=== PATIENT | male | born 1975 | race Caucasian/White ===

== ENCOUNTER 2017-04-08 19:33 | Emergency (ER) | payer MEDICAID ==
[2017-04-08 20:16] VITALS: BP 179/98
--- NOTE | 2017-04-08 21:08 | EDM.PDOC ---
ED HPI GENERAL MEDICAL PROBLEM - General Chief Complaint: Respiratory Problem Stated Complaint: COUGH Time Seen by Provider: 04/08/17 20:09 Source of Information: Reports: Patient History Limitations: Reports: No limitations - History of Present Illness INITIAL COMMENTS - FREE TEXT/NARRATIVE: cough and not feeling well for the past two months. now coughing til almost faints. has history of COPD, feels like that is getting worse since the change of seasons. has intermittent fevers and chills. feels like a sinus infection that dripped into his chest. Has not been treated for this in the Clinic or ER. Onset: gradual Duration: Week(s): (2 months), Getting worse, Waxing/waning Quality: Reports: Ache (body aches and chills.) Severity: moderate Improves with: Reports: Medication (over the counter cold and cough medication helps.) Worsens with: Reports: Movement Associated Symptoms: Reports: cough, fever/chills, malaise Treatments SASH FINISHER: Reports: Acetaminophen - Related Data Allergies Allergy/AdvReac Type Severity Reaction Status Date / Time amoxicillin [Amoxicillin] Allergy Rash Verified 04/08/17 19:57 erythromycin base Allergy Rash Verified 04/08/17 19:57 [Erythromycin Base] Penicillins Allergy Rash Verified 04/08/17 19:57 Home Meds: Home Meds Acetaminophen [Tylenol Extra Strength] 500 mg PO DAILY 12/04/13 [History] Albuterol Sulfate [Proair Hfa] 1 - 2 puff INH ASDIRECTED PRN 12/04/13 [History] Albuterol [Proventil Neb Soln] 1 ampule NEB Q2H PRN 12/04/13 [History] Ibuprofen 600 mg PO Q4H PRN 12/04/13 [History] Lisinopril [Lisinopril] 10 mg PO DAILY 12/04/13 [History] Omeprazole 20 mg PO DAILY 12/04/13 [History] metFORMIN [Glucophage] 1,000 mg PO BIDM 12/04/13 [History] Insulin Glarg,Human.Rec.Analog [LantUS Solostar] 50 unit SQ BEDTIME 01/07/15 [ History] Simvastatin [Zocor] 20 mg PO BEDTIME 01/07/15 [History] Colchicine 0.6 mg PO BID 04/08/17 [History] Sennosides [Senna] 2 tab PO TID PRN 04/08/17 [History] Past Medical History HEENT History: Reports: Impaired vision Cardiovascular History: Reports: High cholesterol, Hypertension Respiratory History: Reports: COPD Gastrointestinal History: Reports: Chronic diarrhea, Other (see below) Other Gastrointestinal History: Perirectal abscess Genitourinary History: Reports: Other (see below) Other Genitourinary History: urinary frequency Musculoskeletal History: Reports: Gout, Other (see below) Other Musculoskeletal History: Carpel Tunnel Syndrome Endocrine/Metabolic History: Reports: Diabetes, type II, Obesity/BMI 30+ - Infectious Disease History Infectious Disease History: Reports: Chicken pox - Past Surgical History GI Surgical History: Reports: Cholecystectomy, Hernia repair/other Social & Family History - Tobacco Use Smoking Status *Q: Current Every Day Smoker Years of Tobacco use: 20 Packs/Tins Daily: 1 Second Hand Smoke Exposure: No - Caffeine Use Caffeine Use: Reports: Coffee, Energy drinks, Soda - Alcohol Use Days Per Week of Alcohol Use: 0 - Recreational Drug Use Recreational Drug Use: No - Living Situation & Occupation Living situation: Reports: with significant other, with family Occupation: employed (lives with his Girlfriend and 4 year old son. works for [employer]) ED ROS GENERAL - Review of Systems Review Of Systems: See Below Constitutional: Reports: fever, chills, malaise HEENT: Reports: Sinus problem, Throat pain Respiratory: Reports: Pleuritic Chest Pain, Cough, Sputum (productive white discharge) Cardiovascular: Reports: No symptoms Endocrine: Reports: no symptoms, high glucose (took his insulin prior to arrival in ER.) GI/Abdominal: Reports: No symptoms : Reports: no symptoms Musculoskeletal: Reports: no symptoms Skin: Reports: no symptoms Neurological: Reports: No Symptoms Psychiatric: Reports: No symptoms Hematologic/Lymphatic: Reports: no symptoms Immunologic: Reports: seasonal allergy ED EXAM, GENERAL - Physical Exam Exam: See Below Exam Limited By: No limitations General Appearance: alert, WD/WN, no apparent distress Eye Exam: bilateral eye: normal inspection Ears: normal external exam, normal canal, hearing grossly normal, normal TMs Ear Exam: bilateral ear: auricle normal, canal normal, TM normal Nose: nasal tenderness, other (frontal and maxillary pain/pressure with palpation of sinus) Throat/Mouth: Inflammation, Other (uvula midline. tonsils large and beefy. ) Head: atraumatic, normocephalic Neck: normal inspection, supple, non-tender, full range of motion Respiratory/Chest: no respiratory distress, lungs clear, normal breath sounds, no accessory muscle use, chest non-tender Cardiovascular: normal peripheral pulses, regular rate, rhythm, no edema, no murmur GI/Abdominal: Normal Bowel Sounds, Soft, Non-Tender, No Distention (large obese abdomen, non tender to percussion. palpation of abdomen) (Male) Exam: Deferred Rectal (Males) Exam: Deferred Extremities: normal inspection, normal range of motion, non-tender, normal capillary refill, no pedal edema Neurological: alert, oriented, CN II-XII intact, normal cognition, normal gait, normal reflexes, no motor/sensory deficits Psychiatric: normal affect, normal mood Lymphatic: no adenopathy Course - Vital Signs Last Recorded V/S: Last Vital Signs Temp 36.6 C 04/08/17 19:55 Pulse 112 H 04/08/17 20:16 Resp 18 04/08/17 20:16 BP 179/98 H 04/08/17 20:16 Pulse Ox 95 04/08/17 20:16 - Orders/Labs/Meds Orders: Active Orders 24 hr Category Date Time Status Chest 2V [CR] Urgent Exams 04/08/17 20:09 Taken Labs: Laboratory Tests 04/08/17 04/08/17 04/08/17 Range/Units 20:25 20:25 20:25 WBC 9.1 (4.5-11.0) K/uL RBC 5.77 (4.30-5.90) M/uL Hgb 16.8 H (12.0-15.0) g/dL Hct 49.3 (40.0-54.0) % MCV 85 (80-98) fL MCH 29 (27-31) pg MCHC 34 (32-36) % Plt Count 159 (150-400) K/uL Neut % (Auto) 68 H (36-66) % Lymph % (Auto) 16 L (24-44) % [place] % (Auto) 11 H (2-6) % Eos % (Auto) 4 (2-4) % Baso % (Auto) 1 (0-1) % Sodium 135 L (140-148) mmol/L Potassium 4.7 (3.6-5.2) mmol/L Chloride 99 L (100-108) mmol/L Carbon Dioxide 30 (21-32) mmol/L Anion Gap 10.7 (5.0-14.0) mmol/L BUN 15 (7-18) mg/dL Creatinine 1.3 (0.8-1.3) mg/dL Est Cr Clr Drug Dosing 72.61 mL/min Estimated GFR (MDRD) > 60 (>60) Glucose 345 H (74-106) mg/dL Calcium 8.2 L (8.5-10.1) mg/dL Total Bilirubin 0.6 (0.2-1.0) mg/dL AST 47 H (15-37) U/L ALT 78 (12-78) U/L Alkaline Phosphatase 74 (46-116) U/L Troponin I < 0.017 (0.000-0.056) ng/mL Total Protein 7.6 (6.4-8.2) g/dL Albumin 3.2 L (3.4-5.0) g/dL Globulin 4.4 H (2.3-3.5) g/dL Albumin/Globulin Ratio 0.7 L (1.2-2.2) Urine Color Urine Appearance Urine pH (4.5-8.0) Ur Specific [place] (1.008-1.030) Urine Protein (NEGATIVE) mg/dL Urine Glucose (UA) (NEGATIVE) mg/dL Urine Ketones (NEGATIVE) mg/dL Urine Occult Blood (NEGATIVE) Urine Nitrite (NEGAITVE) Urine Bilirubin (NEGATIVE) Urine Urobilinogen (NORMAL) mg/dL Ur Leukocyte Esterase (NEGATIVE) Urine RBC (0-5) Urine WBC (0-5) Ur Epithelial Cells Amorphous Sediment Urine Bacteria Urine Mucus 04/08/17 Range/Units 20:36 WBC (4.5-11.0) K/uL RBC (4.30-5.90) M/uL Hgb (12.0-15.0) g/dL Hct (40.0-54.0) % MCV (80-98) fL MCH (27-31) pg MCHC (32-36) % Plt Count (150-400) K/uL Neut % (Auto) (36-66) % Lymph % (Auto) (24-44) % [place] % (Auto) (2-6) % Eos % (Auto) (2-4) % Baso % (Auto) (0-1) % Sodium (140-148) mmol/L Potassium (3.6-5.2) mmol/L Chloride (100-108) mmol/L Carbon Dioxide (21-32) mmol/L Anion Gap (5.0-14.0) mmol/L BUN (7-18) mg/dL Creatinine (0.8-1.3) mg/dL Est Cr Clr Drug Dosing mL/min Estimated GFR (MDRD) (>60) Glucose (74-106) mg/dL Calcium (8.5-10.1) mg/dL Total Bilirubin (0.2-1.0) mg/dL AST (15-37) U/L ALT (12-78) U/L Alkaline Phosphatase (46-116) U/L Troponin I (0.000-0.056) ng/mL Total Protein (6.4-8.2) g/dL Albumin (3.4-5.0) g/dL Globulin (2.3-3.5) g/dL Albumin/Globulin Ratio (1.2-2.2) Urine Color Yellow Urine Appearance Clear Urine pH 5.0 (4.5-8.0) Ur Specific [place] 1.020 (1.008-1.030) Urine Protein 30 H (NEGATIVE) mg/dL Urine Glucose (UA) 1000 H (NEGATIVE) mg/dL Urine Ketones Negative (NEGATIVE) mg/dL Urine Occult Blood Negative (NEGATIVE) Urine Nitrite Negative (NEGAITVE) Urine Bilirubin Negative (NEGATIVE) Urine Urobilinogen Normal (NORMAL) mg/dL Ur Leukocyte Esterase Negative (NEGATIVE) Urine RBC 0-5 (0-5) Urine WBC 0-5 (0-5) Ur Epithelial Cells Rare Amorphous Sediment Not seen Urine Bacteria Not seen Urine Mucus Not seen - Re-Assessments/Exams Free Text/Narrative Re-Assessment/Exam: 04/08/17 21:16 blood glucose is 345; patient took insulin prior to arrival. chest xray; no infiltrates labs; no elevated WBC, chemistry; blood glucose high Urine; negative except for high glucose. rapid strep positive will order medication and discharge to home. sick slip for 3 days off. Departure - Departure Time of Disposition: 21:21 Disposition: Home, Self-Care 01 Condition: good Clinical Impression: Bronchospasm, Strep throat, Sinusitis - Discharge Information Referrals: Cam Blair MD [Primary Care Provider] - Forms: ED Department Discharge Care Plan Goals: Strep Throat with cough sinus infection -Zithromax 2 tabs today, then 1 tablet daily for 4 days -Robitussin AC take 10ml every 4 to 6 hours as needed for cough -continue to take tylenol or motrin for pain or fever rest, no work for 2 days, push fluids return to Urgent Care or ER if not improved or symptoms worsen. - Problem List & Annotations (1) Bronchospasm SNOMED Code(s): 1619267 Code(s): J98.01 - ACUTE BRONCHOSPASM Status: Acute Priority: Medium Current Visit: Yes (2) Strep throat SNOMED Code(s): 70385266, 757477199 Code(s): J02.0 - STREPTOCOCCAL PHARYNGITIS Status: Acute Priority: High Current Visit: Yes (3) Sinusitis SNOMED Code(s): 64668307 Code(s): J32.9 - CHRONIC SINUSITIS, UNSPECIFIED Status: Acute Priority: Medium Current Visit: Yes Qualifiers: Sinusitis location: maxillary Chronicity: subacute Qualified Code(s): J01.00 - Acute maxillary sinusitis, unspecified - Problem List Review Problem List Initiated/Reviewed/Updated: Yes - My Orders Last 24 Hours: My Active Orders 04/08/17 20:09 Chest 2V [CR] Urgent - Assessment/Plan Last 24 Hours: My Active Orders 04/08/17 20:09 Chest 2V [CR] Urgent Plan: Strep Throat with cough sinus infection -Zithromax 2 tabs today, then 1 tablet daily for 4 days -Robitussin AC take 10ml every 4 to 6 hours as needed for cough -continue to take tylenol or motrin for pain or fever rest, no work for 2 days, push fluids return to Urgent Care or ER if not improved or symptoms worsen.
--- NOTE | 2017-04-09 08:57 | CR ---
Chest 2V FINDINGS: The heart and vascular structures are normal in appearance. No infiltrates or effusions ar e demonstrated. The skeletal structures are unremarkable. IMPRESSION: Negative exam.
== END 2017-04-08 21:38 | disposition home or self-care (01) ==
LOC: JP.ED 19:33
DX: J98.01 Acute bronchospasm (principal); J02.0 Streptococcal pharyngitis; J32.9 Chronic sinusitis, unspecified; I10 Essential (primary) hypertension; E78.00 Pure hypercholesterolemia, unspecified; J44.9 Chronic obstructive pulmonary disease, unspecified; E11.9 Type 2 diabetes mellitus without complications; F17.210 Nicotine dependence, cigarettes, uncomplicated; E66.9 Obesity, unspecified; Z68.43 Body mass index [BMI] 50.0-59.9, adult; Z90.49 Acquired absence of other specified parts of digestive tract; Z98.890 Other specified postprocedural states; Z79.4 Long term (current) use of insulin; Z79.899 Other long term (current) drug therapy; Z88.0 Allergy status to penicillin; Z88.1 Allergy status to other antibiotic agents
CPT/HCPCS: 36415; 71020; 71020-26; 80053; 81001; 84484; 85025; 87430; 99284

== ENCOUNTER 2017-05-24 17:35 | Emergency (ER) | payer MEDICAID ==
[2017-05-24 18:30] VITALS: BP 170/106
--- NOTE | 2017-05-24 19:13 | EDM.PDOC ---
ED HPI GENERAL MEDICAL PROBLEM - General Chief Complaint: Back Pain or Injury Stated Complaint: LOWER BACK PAIN Time Seen by Provider: 05/24/17 18:33 Source of Information: Reports: Patient History Limitations: Reports: No Limitations - History of Present Illness INITIAL COMMENTS - FREE TEXT/NARRATIVE: This gentleman complains of low back pain for 5 days. It's mostly in the area of the right buttocks radiates down the back side of the right thigh to the knee. He's had this problem before. He was seen in clinic yesterday given a shot of Toradol put on Flexeril and Voltaren but says that doesn't help. He's not having any leg weakness though apparently sometimes he's had some numbness. He's not having problems with his bladder or bowels although he recently had some diarrhea. Back Pain Score (Numeric/FACES): 2 - Related Data Allergies Allergy/AdvReac Type Severity Reaction Status Date / Time amoxicillin [Amoxicillin] Allergy Rash Verified 04/08/17 19:57 erythromycin base Allergy Rash Verified 04/08/17 19:57 [Erythromycin Base] Penicillins Allergy Rash Verified 04/08/17 19:57 Home Meds: Home Meds Acetaminophen [Tylenol Extra Strength] 500 mg PO DAILY 12/04/13 [History] Albuterol Sulfate [Proair Hfa] 1 - 2 puff INH ASDIRECTED PRN 12/04/13 [History] Albuterol [Proventil Neb Soln] 1 ampule NEB Q2H PRN 12/04/13 [History] Ibuprofen 600 mg PO Q4H PRN 12/04/13 [History] Lisinopril [Lisinopril] 10 mg PO DAILY 12/04/13 [History] Omeprazole 20 mg PO DAILY 12/04/13 [History] metFORMIN [Glucophage] 1,000 mg PO BIDM 12/04/13 [History] Insulin Glarg,Human.Rec.Analog [LantUS Solostar] 50 unit SQ BEDTIME 01/07/15 [ History] Simvastatin [Zocor] 20 mg PO BEDTIME 01/07/15 [History] Colchicine 0.6 mg PO BID 04/08/17 [History] Sennosides [Senna] 2 tab PO TID PRN 04/08/17 [History] Cyclobenzaprine [Flexeril] 1 tab PO TID 05/24/17 [History] Diclofenac Sodium [Voltaren] 50 mg PO TID 05/24/17 [History] amLODIPine [Norvasc] 5 mg PO DAILY 05/24/17 [History] Past Medical History HEENT History: Reports: Impaired Vision Cardiovascular History: Reports: High Cholesterol, Hypertension Respiratory History: Reports: COPD Gastrointestinal History: Reports: Chronic Diarrhea, Other (See Below) Other Gastrointestinal History: Perirectal abscess Genitourinary History: Reports: Other (See Below) Other Genitourinary History: urinary frequency Musculoskeletal History: Reports: Gout, Other (See Below) Other Musculoskeletal History: c/0 back pain lower back Endocrine/Metabolic History: Reports: Diabetes, Type II, Obesity/BMI 30+ - Infectious Disease History Infectious Disease History: Reports: Chicken Pox - Past Surgical History GI Surgical History: Reports: Cholecystectomy, Hernia Repair/Other Social & Family History - Tobacco Use Smoking Status *Q: Current Every Day Smoker Years of Tobacco use: 30 Packs/Tins Daily: 1 Second Hand Smoke Exposure: No - Caffeine Use Caffeine Use: Reports: Coffee - Alcohol Use Days Per Week of Alcohol Use: 1 Number of Drinks Per Day: 1 Total Drinks Per Week: 1 - Recreational Drug Use Recreational Drug Use: No - Living Situation & Occupation Living situation: Reports: with Significant Other, with Family Occupation: Employed ED ROS GENERAL - Review of Systems Review Of Systems: ROS reveals no pertinent complaints other than HPI. ED EXAM,LOWER BACK PAIN/INJURY - Physical Exam Exam: See Below Exam Limited By: No Limitations General Appearance: Mild Distress (This), Obese Back Exam: Other (There is some mtpb-oh-liltbodc tenderness in the right buttocks with palpable spasm.) Neurological: Alert, Normal Dorsiflexion, Normal Plantar Flexion, No Motor/ Sensory Deficits Course - Vital Signs Last Recorded V/S: Last Vital Signs Temp 36.9 C 05/24/17 18:29 Pulse 85 05/24/17 18:29 Resp 20 05/24/17 18:29 BP 170/106 H 05/24/17 18:29 Pulse Ox Departure - Departure Time of Disposition: 19:13 Disposition: Home, Self-Care 01 Condition: Fair Clinical Impression: Low back pain - Discharge Information Forms: ED Department Discharge Additional Instructions: Continue taking cyclobenzaprine and the Voltaren. take percocet 5/325 1-2 every 4 hours as neeeded for pain. See doctor on Friday if no better.
== END 2017-05-24 19:28 | disposition home or self-care (01) ==
LOC: JP.ED 17:35
DX: M54.5 Low back pain (principal); H54.7 Unspecified visual loss; I10 Essential (primary) hypertension; E78.00 Pure hypercholesterolemia, unspecified; J44.9 Chronic obstructive pulmonary disease, unspecified; E11.9 Type 2 diabetes mellitus without complications; E66.9 Obesity, unspecified; Z90.49 Acquired absence of other specified parts of digestive tract; Z98.890 Other specified postprocedural states; Z88.1 Allergy status to other antibiotic agents; Z88.0 Allergy status to penicillin; Z79.899 Other long term (current) drug therapy; F17.210 Nicotine dependence, cigarettes, uncomplicated; Z79.4 Long term (current) use of insulin; Z79.84 Long term (current) use of oral hypoglycemic drugs; Z68.43 Body mass index [BMI] 50.0-59.9, adult
CPT/HCPCS: 99283

== ENCOUNTER 2017-06-05 05:23 | Emergency (ER) | payer MEDICAID ==
--- NOTE | 2017-06-05 06:43 | EDM.PDOC ---
<Breanne Malone - Last Filed: 06/05/17 06:36> ED HPI GENERAL MEDICAL PROBLEM - General Chief Complaint: General Stated Complaint: SWAYING THEN PASSED OUT Time Seen by Provider: 06/05/17 06:37 Source of Information: Reports: Patient, Family History Limitations: Reports: No Limitations - History of Present Illness INITIAL COMMENTS - FREE TEXT/NARRATIVE: pt arrived with pain in the rt leg. He got up tonight and was very uncomfortable and does not remember going to the br. Duration: Hour(s):, Other (pt does not remember between three thirty and 4 thirty. ) Location: Reports: Lower Extremity, Right Associated Symptoms: Reports: Other (pt has a cough and has been bring up alot of sputum. ) Right Lower Leg Pain Score (Numeric/FACES): 4 - Related Data Allergies Allergy/AdvReac Type Severity Reaction Status Date / Time amoxicillin [Amoxicillin] Allergy Rash Verified 06/05/17 05:57 erythromycin base Allergy Rash Verified 06/05/17 05:57 [Erythromycin Base] Penicillins Allergy Rash Verified 06/05/17 05:57 Home Meds: Home Meds Acetaminophen [Tylenol Extra Strength] 500 mg PO DAILY 12/04/13 [History] Albuterol Sulfate [Proair Hfa] 1 - 2 puff INH ASDIRECTED PRN 12/04/13 [History] Albuterol [Proventil Neb Soln] 1 ampule NEB Q2H PRN 12/04/13 [History] Ibuprofen 600 mg PO Q4H PRN 12/04/13 [History] Lisinopril [Lisinopril] 10 mg PO DAILY 12/04/13 [History] Omeprazole 20 mg PO DAILY 12/04/13 [History] metFORMIN [Glucophage] 1,000 mg PO BIDM 12/04/13 [History] Simvastatin [Zocor] 20 mg PO BEDTIME 01/07/15 [History] Colchicine 0.6 mg PO BID 04/08/17 [History] Sennosides [Senna] 2 tab PO TID PRN 04/08/17 [History] Cyclobenzaprine [Flexeril] 1 tab PO TID 05/24/17 [History] Diclofenac Sodium [Voltaren] 50 mg PO TID 05/24/17 [History] amLODIPine [Norvasc] 5 mg PO DAILY 05/24/17 [History] Past Medical History HEENT History: Reports: Impaired Vision Cardiovascular History: Reports: High Cholesterol, Hypertension Respiratory History: Reports: COPD Gastrointestinal History: Reports: Chronic Diarrhea, Other (See Below) Other Gastrointestinal History: Perirectal abscess Genitourinary History: Reports: Other (See Below) Other Genitourinary History: urinary frequency Musculoskeletal History: Reports: Gout, Other (See Below) Other Musculoskeletal History: c/0 back pain lower back Endocrine/Metabolic History: Reports: Diabetes, Type II, Obesity/BMI 30+ - Infectious Disease History Infectious Disease History: Reports: Chicken Pox - Past Surgical History GI Surgical History: Reports: Cholecystectomy, Hernia Repair/Other Social & Family History - Tobacco Use Smoking Status *Q: Unknown Ever Smoked Years of Tobacco use: 30 Packs/Tins Daily: 1 Second Hand Smoke Exposure: No - Caffeine Use Caffeine Use: Reports: Soda - Alcohol Use Days Per Week of Alcohol Use: 1 Number of Drinks Per Day: 1 Total Drinks Per Week: 1 - Recreational Drug Use Recreational Drug Use: No - Living Situation & Occupation Living situation: Reports: with Significant Other, with Family Occupation: Employed ED ROS GENERAL - Review of Systems Review Of Systems: See Below Constitutional: Reports: Weakness, Fatigue HEENT: Reports: No Symptoms Respiratory: Reports: No Symptoms Cardiovascular: Reports: No Symptoms Endocrine: Reports: No Symptoms GI/Abdominal: Reports: No Symptoms : Reports: No Symptoms Musculoskeletal: Reports: Other (persistent pain in th rt leg. ) Skin: Reports: No Symptoms, Other (pt did have a tick bite. He has not had a rash. ) Psychiatric: Reports: No Symptoms, Other (Pt hs been more tense than usual. ) Hematologic/Lymphatic: Reports: No Symptoms ED EXAM, GENERAL - Physical Exam Exam: See Below Free Text/Narrative:: Pt has been having severe pain in the rt leg. This started out with pain in the lower back and now he has severe pain in the rt leg. He has not been ble to work and is calling in frequently. Exam Limited By: No Limitations General Appearance: Alert, Anxious, Moderate Distress Ears: Normal TMs Nose: Normal Inspection Throat/Mouth: Normal Inspection Head: Atraumatic Neck: Normal Inspection Respiratory/Chest: Rhonchi Cardiovascular: Regular Rate, Rhythm GI/Abdominal: Soft, Non-Tender (Male) Exam: Deferred Rectal (Males) Exam: Deferred Back Exam: Other ( tender accross the lower back.) Extremities: Other (pt has severe pin in the rt leg. ) Skin Exam: Other ( no rash but he did have a tick bite. ) Course - Vital Signs Last Recorded V/S: Last Vital Signs Temp 36.0 C 06/05/17 13:58 Pulse 80 06/05/17 13:58 Resp 16 06/05/17 13:58 BP 150/102 H 06/05/17 13:58 Pulse Ox 96 06/05/17 13:58 Orthostatic Blood Pressure [ 160/104 Standing] Orthostatic Blood Pressure [ 159/98 Sitting] Orthostatic Blood Pressure [ 164/93 Supine] - Orders/Labs/Meds Orders: Active Orders 24 hr Category Date Time Status Orthostatic Vital Signs [RC] ASDIRECTED Care 06/05/17 06:36 Active BABESIA MICROTI IGG AND IGM [REF] Stat Lab 06/05/17 06:45 Received EHRLICHIA CHAFFEENSIS, IGG&IGM [REF] Stat Lab 06/05/17 06:45 Received LYME AB SCREEN RFLX [REF] Stat Lab 06/05/17 06:45 Received Labs: Laboratory Tests 06/05/17 06/05/17 06/05/17 Range/Units 06:45 06:45 06:45 WBC 9.4 (4.5-11.0) K/uL RBC 5.55 (4.30-5.90) M/uL Hgb 16.3 H (12.0-15.0) g/dL Hct 49.0 (40.0-54.0) % MCV 88 (80-98) fL MCH 29 (27-31) pg MCHC 33 (32-36) % Plt Count 157 (150-400) K/uL Neut % (Auto) 58 (36-66) % Lymph % (Auto) 25 (24-44) % [place] % (Auto) 9 H (2-6) % Eos % (Auto) 7 H (2-4) % Baso % (Auto) 1 (0-1) % Sodium 139 L (140-148) mmol/L Potassium 3.9 (3.6-5.2) mmol/L Chloride 104 (100-108) mmol/L Carbon Dioxide 28 (21-32) mmol/L Anion Gap 10.9 (5.0-14.0) mmol/L BUN 19 H (7-18) mg/dL Creatinine 1.3 (0.8-1.3) mg/dL Est Cr Clr Drug Dosing 72.61 mL/min Estimated GFR (MDRD) > 60 (>60) Glucose 249 H (74-106) mg/dL Uric Acid (3.5-7.2) mg/dL Calcium 9.0 (8.5-10.1) mg/dL Total Bilirubin 0.2 D (0.2-1.0) mg/dL AST 31 (15-37) U/L ALT 55 (12-78) U/L Alkaline Phosphatase 59 (46-116) U/L C-Reactive Protein 1.17 H (0.0-0.3) mg/dL Total Protein 7.6 (6.4-8.2) g/dL Albumin 3.3 L (3.4-5.0) g/dL Globulin 4.3 H (2.3-3.5) g/dL Albumin/Globulin Ratio 0.8 L (1.2-2.2) Urine Color Urine Appearance Urine pH (4.5-8.0) Ur Specific [place] (1.008-1.030) Urine Protein (NEGATIVE) mg/dL Urine Glucose (UA) (NEGATIVE) mg/dL Urine Ketones (NEGATIVE) mg/dL Urine Occult Blood (NEGATIVE) Urine Nitrite (NEGAITVE) Urine Bilirubin (NEGATIVE) Urine Urobilinogen (NORMAL) mg/dL Ur Leukocyte Esterase (NEGATIVE) Urine RBC (0-5) Urine WBC (0-5) Ur Epithelial Cells Amorphous Sediment Urine Bacteria Urine Mucus Urine Other 06/05/17 06/05/17 Range/Units 06:45 08:32 WBC (4.5-11.0) K/uL RBC (4.30-5.90) M/uL Hgb (12.0-15.0) g/dL Hct (40.0-54.0) % MCV (80-98) fL MCH (27-31) pg MCHC (32-36) % Plt Count (150-400) K/uL Neut % (Auto) (36-66) % Lymph % (Auto) (24-44) % [place] % (Auto) (2-6) % Eos % (Auto) (2-4) % Baso % (Auto) (0-1) % Sodium (140-148) mmol/L Potassium (3.6-5.2) mmol/L Chloride (100-108) mmol/L Carbon Dioxide (21-32) mmol/L Anion Gap (5.0-14.0) mmol/L BUN (7-18) mg/dL Creatinine (0.8-1.3) mg/dL Est Cr Clr Drug Dosing mL/min Estimated GFR (MDRD) (>60) Glucose (74-106) mg/dL Uric Acid 1.2 L (3.5-7.2) mg/dL Calcium (8.5-10.1) mg/dL Total Bilirubin (0.2-1.0) mg/dL AST (15-37) U/L ALT (12-78) U/L Alkaline Phosphatase (46-116) U/L C-Reactive Protein (0.0-0.3) mg/dL Total Protein (6.4-8.2) g/dL Albumin (3.4-5.0) g/dL Globulin (2.3-3.5) g/dL Albumin/Globulin Ratio (1.2-2.2) Urine Color Yellow Urine Appearance Clear Urine pH 5.0 (4.5-8.0) Ur Specific [place] 1.020 (1.008-1.030) Urine Protein 30 H (NEGATIVE) mg/dL Urine Glucose (UA) 100 H (NEGATIVE) mg/dL Urine Ketones Negative (NEGATIVE) mg/dL Urine Occult Blood Negative (NEGATIVE) Urine Nitrite Negative (NEGAITVE) Urine Bilirubin Small (NEGATIVE) Urine Urobilinogen Normal (NORMAL) mg/dL Ur Leukocyte Esterase Negative (NEGATIVE) Urine RBC Not seen (0-5) Urine WBC Not seen (0-5) Ur Epithelial Cells Few Amorphous Sediment Few Urine Bacteria Not seen Urine Mucus Not seen Urine Other Meds: Medications Discontinued Medications Generic Name Dose Route Start Last Admin Trade Name Juarez PRN Reason Stop Dose Admin Bupivacaine HCl Confirm 06/05/17 12:42 Sensorcaine-Mpf 0.25% Administered 06/05/17 12:43 Dose 10 ml .ROUTE .STK-MED ONE Methylprednisolone Acetate Confirm 06/05/17 12:42 Depo-Medrol Administered 06/05/17 12:43 Dose 80 mg .ROUTE .STK-MED ONE Departure - Departure Disposition: Home, Self-Care Clinical Impression: Spinal stenosis at L4-L5 level - Discharge Information Forms: ED Department Discharge Additional Instructions: Follow-up with the orthopedic surgeon Dr. Perera next as planned. Follow -up with anesthesia as planned. You may not return to work until Friday <Maurice Maradiaga - Last Filed: 06/05/17 14:45> Course - Re-Assessments/Exams Free Text/Narrative Re-Assessment/Exam: 06/05/17 14:00 This patient was turned over to me at approximately 07 100. He's really here because of pain in his right leg mostly Departure - Departure Time of Disposition: 14:44 Condition: Fair
--- NOTE | 2017-06-05 10:11 | MR ---
MR lumbar spine without contrast. Indication: Right-sided sciatica. Findings: 5 lumbar type vertebral bodies. Conus terminates normal at time position. No acute kristian elizabeth deformity. L1-2: Mild disc bulge. No canal stenosis or foraminal narrowing. L2-3: Minimal disc bulge. No canal stenosis or foraminal narrowing. L3-4: Diffuse disc protrusion. AP dimension of canal is 7 mm. This is eccentric to the left. Moderat e left-sided foraminal narrowing with abutment of the exiting left L3 nerve root. No right-sided for aminal narrowing. L4-5: Central disc protrusion extending inferiorly centrally and eccentric to the right. This create s severe canal stenosis. Severe lateral recess narrowing right greater than left. Mild bilateral for aminal narrowing. L5-S1: Mild-moderate facet arthropathy. No canal stenosis. Moderate left-sided foraminal narrowing. No right-sided foraminal narrowing. Impression: 1. Central disc protrusion extending inferiorly centrally and eccentric to the right. This creates s evere canal stenosis. Severe lateral recess narrowing right greater than left. 2. Moderate left-sided foraminal narrowing with abutment of the exiting left L3 nerve root by disc. 3. Moderate canal stenosis L3-4.
--- NOTE | 2017-06-05 10:19 | CR ---
No metallic foreign body within the orbits.
--- NOTE | 2017-06-05 11:06 | CR ---
Heart size within normal limits. Pulmonary vasculature within normal limits. No focal consolidation.
[2017-06-05] MEDS ORDERED: methylPREDNISolone Acetate 80 MG/ML SDV ONE (12:42)
[2017-06-05] MEDS ORDERED: Bupivacaine 0.25% 10 ML SDV ONE (12:42)
[2017-06-05 13:59] VITALS: BP 150/102
--- NOTE | 2017-06-05 23:10 | ANES ---
DATE OF SERVICE: 06/05/2017 INDICATIONS: Mr. Duran is a 42-year-old male patient in the emergency room whom Dr. Daniel Perera would like us to do an epidural steroid injection. I evaluated him and his MRI was reviewed with the patient and myself and the risks and benefits of the procedure were explained to the patient. He wished to proceed with epidural steroid series of injections. Please see the orders for the patient's preprocedure diagnosis as well as ICD- 10 code. The risks and benefits of the procedure were explained to the patient. He wished to proceed. TECHNIQUE: He was placed in a sitting position. I prepped his back x3 with Betadine. I did go into the what I thought was L4-L5 interspace. I did have good feel throughout albeit the whole in the entire epidural needle was needed to achieve finding the epidural space. There was negative CSF, negative blood, and negative paresthesias noted. Therefore, 80 mg Depo-Medrol, 2 mL 0.25% Sensorcaine with 7 mL preservative-free normal saline were injected with ease. He is going to stay in the emergency room department for at least half an hour before he goes home. He is going to schedule for return appointment to outpatient department in 2 weeks. I believe this is on June 18, 2017. He tolerated the procedure very nicely. His vital signs remained stable throughout the procedure and nurse was with me the entire procedure. There were no anesthesia complications noted. He is going to return in 2 weeks. Zack Garrett CRNA /[id number]
== END 2017-06-05 15:09 | disposition home or self-care (01) ==
LOC: JP.ED 05:23
DX: M48.06 Spinal stenosis, lumbar region (principal); I10 Essential (primary) hypertension; E78.00 Pure hypercholesterolemia, unspecified; E11.9 Type 2 diabetes mellitus without complications; E66.9 Obesity, unspecified; Z90.49 Acquired absence of other specified parts of digestive tract; Z98.890 Other specified postprocedural states; Z79.899 Other long term (current) drug therapy; Z88.0 Allergy status to penicillin; Z88.1 Allergy status to other antibiotic agents
CPT/HCPCS: 36415; 70030; 71020; 72148; 80053; 81001; 84550; 85025; 86140; 86618; 86666; 86753; 99284; J1040

== ENCOUNTER 2017-11-28 20:34 | Emergency (ER) | payer MEDICAID ==
[2017-11-28] MEDS ORDERED: Labetalol 20 MG/4 ML Syringe IVPUSH ONE ×2 (21:39→22:40)
[2017-11-28] MEDS ORDERED: Sodium Chloride 0.9% 10 ML Syringe FLUSH PRN (21:39)
--- NOTE | 2017-11-28 21:45 | EDM.PDOC ---
ED HPI GENERAL MEDICAL PROBLEM - General Chief Complaint: Back Pain or Injury Stated Complaint: BACK HURTS NOT AN ACCIDENT Time Seen by Provider: 11/28/17 20:55 Source of Information: Reports: Patient History Limitations: Reports: No Limitations - History of Present Illness INITIAL COMMENTS - FREE TEXT/NARRATIVE: pt arrived with headache blurred vision in the left eye. He has severe neck pain and he continues to have low grade low back pain. Onset: Gradual Duration: Hour(s):, Getting Worse Location: Reports: Head, Neck Associated Symptoms: Reports: Headaches, Other ( blurred vision in the left eye. ) back and neck Pain Score (Numeric/FACES): 7 - Related Data Allergies Allergy/AdvReac Type Severity Reaction Status Date / Time amoxicillin [Amoxicillin] Allergy Rash Verified 06/18/17 12:58 erythromycin base Allergy Rash Verified 06/18/17 12:58 [Erythromycin Base] Penicillins Allergy Rash Verified 06/18/17 12:58 Home Meds: Home Meds Acetaminophen [Tylenol Extra Strength] 500 mg PO DAILY 12/04/13 [History] Albuterol Sulfate [Proair Hfa] 1 - 2 puff INH ASDIRECTED PRN 12/04/13 [History] Albuterol [Proventil Neb Soln] 1 ampule NEB Q2H PRN 12/04/13 [History] Ibuprofen 600 mg PO Q4H PRN 12/04/13 [History] Lisinopril [Lisinopril] 10 mg PO DAILY 12/04/13 [History] Omeprazole 20 mg PO DAILY PRN 12/04/13 [History] metFORMIN [Glucophage] 1,000 mg PO BIDM 12/04/13 [History] Simvastatin [Zocor] 20 mg PO BEDTIME 01/07/15 [History] Colchicine 0.6 mg PO BID PRN 04/08/17 [History] Sennosides [Senna] 2 tab PO TID PRN 04/08/17 [History] Cyclobenzaprine [Flexeril] 10 mg PO TID 05/24/17 [History] Past Medical History HEENT History: Reports: Impaired Vision Cardiovascular History: Reports: High Cholesterol, Hypertension Respiratory History: Reports: COPD Gastrointestinal History: Reports: Chronic Diarrhea, Other (See Below) Other Gastrointestinal History: Perirectal abscess Genitourinary History: Reports: Other (See Below) Other Genitourinary History: urinary frequency Musculoskeletal History: Reports: Gout, Other (See Below) Other Musculoskeletal History: c/o back pain lower back Psychiatric History: Reports: Learning Disability Endocrine/Metabolic History: Reports: Diabetes, Type II, Obesity/BMI 30+ - Infectious Disease History Infectious Disease History: Reports: Chicken Pox - Past Surgical History GI Surgical History: Reports: Cholecystectomy, Hernia Repair/Other Social & Family History - Tobacco Use Smoking Status *Q: Current Every Day Smoker Years of Tobacco use: 22 Packs/Tins Daily: 1 Second Hand Smoke Exposure: No - Caffeine Use Caffeine Use: Reports: Coffee, Soda - Alcohol Use Days Per Week of Alcohol Use: 1 Number of Drinks Per Day: 1 Total Drinks Per Week: 1 - Recreational Drug Use Recreational Drug Use: No - Living Situation & Occupation Living situation: Reports: with Significant Other, with Family Occupation: Employed ED ROS GENERAL - Review of Systems Review Of Systems: See Below Constitutional: Reports: No Symptoms HEENT: Reports: Other (pt had blurred vision in his left eye. He had a headache. His bp was very elevated. ) Respiratory: Reports: No Symptoms Cardiovascular: Reports: No Symptoms Endocrine: Reports: No Symptoms GI/Abdominal: Reports: No Symptoms : Reports: No Symptoms Musculoskeletal: Reports: Other ( tenderness in the post crvical area. ) Skin: Reports: No Symptoms ED EXAM, UPPER BACK/NECK PAIN - Physical Exam Exam: See Below Text/Narrative:: pt arrived with a history of a headache. Alot of neck pain. he had blurred vision in his left eye. He was found to have a markedly elvated bp. He was also having some low back pain. Exam Limited By: No Limitations General Appearance: Alert, Moderate Distress, Other (he had blurrwd vision in the left eye, He has had a headache. ) Ears Exam: Normal TMs Nose Exam: Normal Inspection Throat/Mouth Exam: Normal Inspection Head Exam: Atraumatic Neck Exam: Other ( tenderness in th neck) Cardiovascular/Respiratory: Regular Rate, Rhythm GI/Abdominal: Soft, Non-Tender (Male) Exam: Deferred Rectal (Males) Exam: Deferred Back Exam: Normal Inspection Extremities: Normal Inspection Neurologic: Alert, Oriented x 3 Psychiatric: Normal Affect, Anxious Course - Vital Signs Last Recorded V/S: Last Vital Signs Temp 36.8 C 11/28/17 20:59 Pulse 74 11/28/17 22:45 Resp 20 11/28/17 22:45 BP 164/110 H 11/28/17 22:47 Pulse Ox 92 L 11/28/17 22:45 - Orders/Labs/Meds Orders: Active Orders 24 hr Category Date Time Status Cervical Spine Min 4V [CR] Stat Exams 11/28/17 21:37 Taken Head wo Cont [CT] Stat Exams 11/28/17 21:35 Taken Sodium Chloride 0.9% [Saline Flush] Med 11/28/17 21:39 Active 10 ml FLUSH ASDIRECTED PRN Saline Lock Insert [OM.PC] Routine Oth 11/28/17 21:39 Ordered Medication Orders Sodium Chloride (Saline Flush) 10 ml FLUSH ASDIRECTED PRN PRN Reason: Keep Vein Open Last Admin: 11/28/17 21:49 Dose: 10 ml Labs: Laboratory Tests 11/28/17 11/28/17 11/28/17 Range/Units 21:46 21:46 21:48 WBC 9.8 (4.5-11.0) K/uL RBC 6.12 H (4.30-5.90) M/uL Hgb 17.5 H (12.0-15.0) g/dL Hct 51.9 (40.0-54.0) % MCV 85 (80-98) fL MCH 29 (27-31) pg MCHC 34 (32-36) % Plt Count 174 (150-400) K/uL Neut % (Auto) 61 (36-66) % Lymph % (Auto) 24 (24-44) % [place] % (Auto) 8 H (2-6) % Eos % (Auto) 6 H (2-4) % Baso % (Auto) 1 (0-1) % Sodium 138 L (140-148) mmol/L Potassium 3.7 (3.6-5.2) mmol/L Chloride 98 L (100-108) mmol/L Carbon Dioxide 31 (21-32) mmol/L Anion Gap 12.7 (5.0-14.0) mmol/L BUN 12 (7-18) mg/dL Creatinine 1.0 (0.8-1.3) mg/dL Est Cr Clr Drug Dosing 94.05 mL/min Estimated GFR (MDRD) > 60 (>60) Glucose 220 H (74-106) mg/dL Calcium 9.2 (8.5-10.1) mg/dL Total Bilirubin 0.4 D (0.2-1.0) mg/dL AST 55 H D (15-37) U/L ALT 103 H (12-78) U/L Alkaline Phosphatase 69 (46-116) U/L Total Protein 7.1 (6.4-8.2) g/dL Albumin 3.5 (3.4-5.0) g/dL Globulin 3.6 H (2.3-3.5) g/dL Albumin/Globulin Ratio 1.0 L (1.2-2.2) Urine Color Yellow Urine Appearance Clear Urine pH 5.0 (4.5-8.0) Ur Specific [place] 1.010 (1.008-1.030) Urine Protein Trace (NEGATIVE) mg/dL Urine Glucose (UA) 50 H (NEGATIVE) mg/dL Urine Ketones Negative (NEGATIVE) mg/dL Urine Occult Blood Negative (NEGATIVE) Urine Nitrite Negative (NEGAITVE) Urine Bilirubin Negative (NEGATIVE) Urine Urobilinogen Normal (NORMAL) mg/dL Ur Leukocyte Esterase Negative (NEGATIVE) Urine RBC 0-5 (0-5) Urine WBC 0-5 (0-5) Ur Epithelial Cells Rare Amorphous Sediment Not seen Urine Bacteria Not seen Urine Mucus Rare Meds: Medications Generic Name Dose Route Start Last Admin Trade Name Juarez PRN Reason Stop Dose Admin Sodium Chloride 10 ml 11/28/17 21:39 11/28/17 21:49 Saline Flush FLUSH 10 ml ASDIRECTED PRN Administration Keep Vein Open Discontinued Medications Generic Name Dose Route Start Last Admin Trade Name Juarez PRN Reason Stop Dose Admin Ketorolac Tromethamine 30 mg 11/28/17 22:33 11/28/17 22:43 Toradol IVPUSH 11/28/17 22:34 30 mg ONETIME ONE Administration Labetalol HCl 20 mg 11/28/17 21:39 11/28/17 21:50 Normodyne IVPUSH 11/28/17 21:40 20 mg NOW ONE Administration Protocol Labetalol HCl 20 mg 11/28/17 22:40 11/28/17 22:45 Normodyne IVPUSH 11/28/17 22:41 Not Given NOW ONE Protocol Lisinopril 5 mg 11/28/17 22:41 11/28/17 22:47 Prinivil PO 11/28/17 22:42 5 mg ONETIME ONE Administration - Re-Assessments/Exams Free Text/Narrative Re-Assessment/Exam: 11/28/17 23:31 cat scan of the head was normal. His cervical pine showed degenerative changes at the lower portion of the c spine. . He was given labatitol and lisinopril 5mg. His bp is much better, He was given torodol 30mg iv and he is much more comfortable. Departure - Departure Time of Disposition: 23:33 Disposition: Home, Self-Care 01 Condition: Fair Clinical Impression: Cervical paraspinal muscle spasm, Hypertension - Discharge Information Instructions: Hypertension, [id number], Cervical Sprain, [id number] Referrals: Cam Blair MD [Primary Care Provider] - Forms: ED Department Discharge Care Plan Goals: moist warm packs to the post cervical area, increase lisinopril to 10mg qam and 5 mg in the pm. torodol 10mg q6h prn for pain for the next [address] Blair in 1 week. - My Orders Last 24 Hours: My Active Orders 11/28/17 21:35 Head wo Cont [CT] Stat 11/28/17 21:37 Cervical Spine Min 4V [CR] Stat 11/28/17 21:39 Sodium Chloride 0.9% [Saline Flush] 10 ml FLUSH ASDIRECTED PRN Saline Lock Insert [OM.PC] Routine - Assessment/Plan Last 24 Hours: My Active Orders 11/28/17 21:35 Head wo Cont [CT] Stat 11/28/17 21:37 Cervical Spine Min 4V [CR] Stat 11/28/17 21:39 Sodium Chloride 0.9% [Saline Flush] 10 ml FLUSH ASDIRECTED PRN Saline Lock Insert [OM.PC] Routine
[2017-11-28] MEDS ORDERED: Ketorolac 30 MG/ML SDV IVPUSH ONE (22:33)
[2017-11-28] MEDS ORDERED: Lisinopril 5 MG Tab PO ONE (22:41)
[2017-11-28 22:45] VITALS: BP 164/110
--- NOTE | 2017-12-02 08:53 | CR ---
Cervical Spine Min 4V INDICATION: pain in cervical spine. COMPARISON: None FINDINGS: 8 views. Nothing acute seen. Mild right convex curvature cervical spine. Multilevel bilateral foraminal narrow ing. No compression deformities or significant subluxations. Degenerative disc disease C6-7. No preve rtebral soft tissue swelling. IMPRESSION: Chronic changes, as above. Nothing acute.
== END 2017-11-28 23:49 | disposition home or self-care (01) ==
LOC: JP.ED 20:34
DX: M62.838 Other muscle spasm (principal); I10 Essential (primary) hypertension; E11.9 Type 2 diabetes mellitus without complications; E78.00 Pure hypercholesterolemia, unspecified; F17.210 Nicotine dependence, cigarettes, uncomplicated; Z79.84 Long term (current) use of oral hypoglycemic drugs; Z79.899 Other long term (current) drug therapy; Z88.1 Allergy status to other antibiotic agents; Z88.0 Allergy status to penicillin
CPT/HCPCS: 36415; 70450; 72050; 80053; 81001; 85025; 96374; 96375; 99284; A9270; J1885; J7050

== ENCOUNTER 2018-03-06 21:08 | Emergency (ER) | payer MEDICAID ==
[2018-03-06 21:22] VITALS: BP 145/93
--- NOTE | 2018-03-06 21:50 | EDM.PDOC ---
ED HPI GENERAL MEDICAL PROBLEM - General Chief Complaint: Cardiovascular Problem Stated Complaint: NON RESPONIVE FOR A FEW SECONDS Time Seen by Provider: 03/06/18 21:30 Source of Information: Reports: Patient History Limitations: Reports: No Limitations - History of Present Illness INITIAL COMMENTS - FREE TEXT/NARRATIVE: 43-year-old male, overweight who was sitting this evening, felt fine then stood up, took a few steps and then bent over to plug his phone into the wall. It took a few seconds longer because it wasn't fitting right, and when he stood up he felt lightheaded. He then sat down and according to his he wasn't responding for a minute or 2 and it scared her. He had no chest pain, shortness of breath, nausea or vomiting, headache, palpitations or any other symptoms and now feels fine but she wanted him checked out. Onset: Sudden Duration: Hour(s): (Within the last few hours) Severity: Mild chronic back pain Pain Score (Numeric/FACES): 4 - Related Data Allergies Allergy/AdvReac Type Severity Reaction Status Date / Time amoxicillin [Amoxicillin] Allergy Rash Verified 03/06/18 21:21 erythromycin base Allergy Rash Verified 03/06/18 21:21 [Erythromycin Base] Penicillins Allergy Rash Verified 03/06/18 21:21 Home Meds: Home Meds Acetaminophen [Tylenol Extra Strength] 500 mg PO DAILY PRN 12/04/13 [History] Lisinopril 20 mg PO DAILY 12/04/13 [History] Omeprazole 20 mg PO DAILY PRN 12/04/13 [History] metFORMIN [Glucophage] 500 mg PO BIDM 12/04/13 [History] Simvastatin [Zocor] 20 mg PO BEDTIME 01/07/15 [History] Colchicine 0.6 mg PO BID PRN 04/08/17 [History] Sennosides [Senna] 1 tab PO BID PRN 04/08/17 [History] Cyclobenzaprine [Flexeril] 10 mg PO TID 05/24/17 [History] Albuterol Sulfate 3 ml IH TID 12/08/17 [History] Albuterol [Proventil HFA] 2 puff INH Q4H PRN 12/08/17 [History] Diclofenac Sodium [Voltaren] 50 mg PO TIDAC 12/08/17 [History] Ibuprofen 200 mg PO PRN 12/08/17 [History] Mupirocin Oint [Bactroban Oint] 1 applic TP DAILY 12/08/17 [History] Nicotine Polacrilex [Nicorette] 4 mg BC PRN 12/08/17 [History] Ondansetron [Zofran ODT] 4 mg PO Q8H PRN 12/08/17 [History] Triamcinolone Acetonide [Kenalog 0.1% Crm] 1 applic TOP TID 12/08/17 [History] glipiZIDE [Glucotrol] 5 mg PO DAILY 12/08/17 [History] oxyCODONE HCl/Acetaminophen [oxyCODONE-Acetaminophen 5-325] 12/08/17 [History] amLODIPine [Norvasc] 10 mg PO DAILY 12/09/17 [History] Past Medical History HEENT History: Reports: Impaired Vision Cardiovascular History: Reports: High Cholesterol, Hypertension Respiratory History: Reports: COPD Gastrointestinal History: Reports: Chronic Diarrhea, Other (See Below) Other Gastrointestinal History: Perirectal abscess Genitourinary History: Reports: Other (See Below) Other Genitourinary History: urinary frequency Musculoskeletal History: Reports: Back Pain, Chronic, Gout, Other (See Below) Other Musculoskeletal History: c/o back pain lower back Psychiatric History: Reports: Learning Disability Endocrine/Metabolic History: Reports: Diabetes, Type II, Obesity/BMI 30+ - Infectious Disease History Infectious Disease History: Reports: Chicken Pox, Measles - Past Surgical History GI Surgical History: Reports: Cholecystectomy, Hernia Repair/Other Social & Family History - Tobacco Use Smoking Status *Q: Current Every Day Smoker Years of Tobacco use: 32 Packs/Tins Daily: 1 Second Hand Smoke Exposure: No - Caffeine Use Caffeine Use: Reports: Soda, Tea - Alcohol Use Days Per Week of Alcohol Use: 1 Number of Drinks Per Day: 1 Total Drinks Per Week: 1 - Recreational Drug Use Recreational Drug Use: No - Living Situation & Occupation Living situation: Reports: with Significant Other, with Family Occupation: Employed ED ROS GENERAL - Review of Systems Review Of Systems: See Below Constitutional: Denies: Fever, Chills HEENT: Reports: Other (Was recently treated for a sinus infection, is improved) Respiratory: Denies: Shortness of Breath, Cough Cardiovascular: Reports: Syncope. Denies: Chest Pain, Palpitations GI/Abdominal: Denies: Nausea, Vomiting Skin: Reports: No Symptoms Neurological: Denies: Headache ED EXAM, GENERAL - Physical Exam Exam: See Below Exam Limited By: No Limitations General Appearance: Alert, No Apparent Distress Eye Exam: Bilateral Eye: Other (Slight disconjugate gaze which is chronic) Head: Atraumatic Respiratory/Chest: No Respiratory Distress, Lungs Clear Cardiovascular: Regular Rate, Rhythm GI/Abdominal: Soft, Non-Tender Extremities: No: Pedal Edema Neurological: Alert, Oriented, No Motor/Sensory Deficits Psychiatric: Normal Affect, Normal Mood Skin Exam: Warm, Dry Course - Vital Signs Last Recorded V/S: Last Vital Signs Temp 97.5 F 03/06/18 21:22 Pulse 105 H 03/06/18 21:22 Resp 16 03/06/18 21:22 BP 145/93 H 03/06/18 21:22 Pulse Ox 93 L 03/06/18 21:22 - Re-Assessments/Exams Free Text/Narrative Re-Assessment/Exam: 03/06/18 21:48 Explained to the patient that this likely was just a syncopal episode was vasovagal mediated from bending over after sitting than standing suddenly. If symptoms recur, especially if not positional he's going to return right away for more evaluation. His vitals are completely stable, he is in a sinus rhythm with normal blood pressure. Departure - Departure Time of Disposition: 22:01 Disposition: Home, Self-Care 01 Condition: Good Clinical Impression: Syncope, vasovagal Instructions: Syncope, [id number] Referrals: Cam Blair MD [Primary Care Provider] - Forms: ED Department Discharge Care Plan Goals: Return if symptoms recur, especially if not positional such as lightheadedness or fainting while sitting. Otherwise if you get symptoms when standing or bending lay down until symptoms pass.
== END 2018-03-06 22:01 | disposition home or self-care (01) ==
LOC: JP.ED 21:08
DX: R55 Syncope and collapse (principal); E78.00 Pure hypercholesterolemia, unspecified; I10 Essential (primary) hypertension; E11.9 Type 2 diabetes mellitus without complications; E66.9 Obesity, unspecified; F17.210 Nicotine dependence, cigarettes, uncomplicated; Z88.0 Allergy status to penicillin; Z79.84 Long term (current) use of oral hypoglycemic drugs; Z88.1 Allergy status to other antibiotic agents; Z79.899 Other long term (current) drug therapy
CPT/HCPCS: 99284

== ENCOUNTER 2018-09-05 19:29 | Emergency (ER) | payer MEDICAID ==
[2018-09-05 20:06] VITALS: BP 182/95
--- NOTE | 2018-09-05 20:41 | EDM.PDOC ---
ED HPI GENERAL MEDICAL PROBLEM - General Chief Complaint: Neuro Symptoms/Deficits Stated Complaint: DIZZINESS Time Seen by Provider: 09/05/18 19:36 Source of Information: Reports: Patient History Limitations: Reports: No Limitations - History of Present Illness INITIAL COMMENTS - FREE TEXT/NARRATIVE: He had an episode of coughing earlier today followed by vertigo. This lasted a few minutes then returned after walking. URI symptoms past few days. Ears were running. Better now. Missed some bp meds. No cpap use in long time. Take ibuprofen for back. - Related Data Allergies Allergy/AdvReac Type Severity Reaction Status Date / Time amoxicillin [Amoxicillin] Allergy Rash Verified 09/05/18 20:13 erythromycin base Allergy Rash Verified 09/05/18 20:13 [Erythromycin Base] Penicillins Allergy Rash Verified 09/05/18 20:13 Home Meds: Home Meds Acetaminophen [Tylenol Extra Strength] 500 mg PO DAILY PRN 12/04/13 [History] Lisinopril 20 mg PO DAILY 12/04/13 [History] Omeprazole 20 mg PO DAILY PRN 12/04/13 [History] metFORMIN [Glucophage] 500 mg PO BIDM 12/04/13 [History] Simvastatin [Zocor] 20 mg PO BEDTIME 01/07/15 [History] Colchicine 0.6 mg PO BID PRN 04/08/17 [History] Sennosides [Senna] 1 tab PO BID PRN 04/08/17 [History] Cyclobenzaprine [Flexeril] 10 mg PO TID 05/24/17 [History] Albuterol Sulfate 3 ml IH TID 12/08/17 [History] Albuterol [Proventil HFA] 2 puff INH Q4H PRN 12/08/17 [History] Diclofenac Sodium [Voltaren] 50 mg PO TIDAC 12/08/17 [History] Ibuprofen 200 mg PO ASDIRECTED PRN 12/08/17 [History] Mupirocin Oint [Bactroban Oint] 1 applic TP DAILY 12/08/17 [History] Ondansetron [Zofran ODT] 4 mg PO Q8H PRN 12/08/17 [History] Triamcinolone Acetonide [Kenalog 0.1% Crm] 1 applic TOP TID 12/08/17 [History] glipiZIDE [Glucotrol] 5 mg PO DAILY 12/08/17 [History] oxyCODONE HCl/Acetaminophen [oxyCODONE-Acetaminophen 5-325] 1 tab PO ASDIRECTED 12/08/17 [History] amLODIPine [Norvasc] 10 mg PO DAILY 12/09/17 [History] Past Medical History HEENT History: Reports: Impaired Vision Cardiovascular History: Reports: High Cholesterol, Hypertension Respiratory History: Reports: COPD Gastrointestinal History: Reports: Chronic Diarrhea, Other (See Below) Other Gastrointestinal History: Perirectal abscess Genitourinary History: Reports: Other (See Below) Other Genitourinary History: urinary frequency Musculoskeletal History: Reports: Back Pain, Chronic, Gout, Other (See Below) Other Musculoskeletal History: c/o back pain lower back Psychiatric History: Reports: Learning Disability Endocrine/Metabolic History: Reports: Diabetes, Type II, Obesity/BMI 30+ - Infectious Disease History Infectious Disease History: Reports: Chicken Pox, Measles - Past Surgical History GI Surgical History: Reports: Cholecystectomy, Hernia Repair/Other Social & Family History - Tobacco Use Smoking Status *Q: Current Every Day Smoker Years of Tobacco use: 25 Packs/Tins Daily: 1 - Caffeine Use Caffeine Use: Reports: Coffee, Soda - Recreational Drug Use Recreational Drug Use: No - Living Situation & Occupation Living situation: Reports: with Significant Other, with Family Occupation: Employed ED ROS GENERAL - Review of Systems Review Of Systems: See Below Constitutional: Reports: No Symptoms HEENT: Reports: Ear Discharge, Vertigo Respiratory: Reports: Cough Cardiovascular: Reports: No Symptoms Endocrine: Reports: No Symptoms GI/Abdominal: Reports: No Symptoms : Reports: No Symptoms ED EXAM, NEURO - Physical Exam Exam: See Below Exam Limited By: No Limitations General Appearance: Alert, No Apparent Distress, Obese Eye Exam: Bilateral Eye: Normal Inspection Ears: Other (tm's bulging) Nose: Normal Inspection Throat/Mouth: Other (redundant oral tissues/soft palate) Head Exam: Atraumatic Neck: Normal Inspection Respiratory/Chest: Lungs Clear Cardiovascular: Regular Rate, Rhythm, No Murmur GI/Abdominal: Non-Tender Neurological: Alert, Normal Mood/Affect, CN II-XII Intact, No Motor/Sensory Deficits Extremities: Normal Inspection Psychiatric: Normal Affect Skin Exam: Warm Course - Vital Signs Last Recorded V/S: Last Vital Signs Temp 36.4 C 10/06/18 20:13 Pulse 93 09/05/18 20:13 Resp 16 09/05/18 20:13 BP 182/95 H 09/05/18 20:13 Pulse Ox 92 L 09/05/18 20:13 Departure - Departure Time of Disposition: 20:40 Disposition: Home, Self-Care 01 Condition: Fair Clinical Impression: Vertigo, Hypertension, Sleep apnea - Discharge Information Referrals: Cam Blair MD [Primary Care Provider] - Additional Instructions: Try using Meclizine 25-50 mg every 6 hours for vertigo. Use only if needed. Causes sedation. Available over the counter. Talk to your doctor soon about blood pressure and sleep apnea. Ask if surgery would help the sleep apnea.
== END 2018-09-05 20:50 | disposition home or self-care (01) ==
LOC: JP.ED 19:29
DX: I10 Essential (primary) hypertension (principal); G47.30 Sleep apnea, unspecified; E78.00 Pure hypercholesterolemia, unspecified; E11.9 Type 2 diabetes mellitus without complications; F17.210 Nicotine dependence, cigarettes, uncomplicated; Z79.84 Long term (current) use of oral hypoglycemic drugs; Z79.899 Other long term (current) drug therapy; Z88.1 Allergy status to other antibiotic agents; Z88.0 Allergy status to penicillin
CPT/HCPCS: 99284

== ENCOUNTER 2019-03-09 19:03 | Emergency (ER) | payer MEDICAID ==
--- NOTE | 2019-03-09 20:11 | EDM.PDOC ---
ED HPI GENERAL MEDICAL PROBLEM - General Chief Complaint: General Stated Complaint: ILLNESS Time Seen by Provider: 03/09/19 19:52 Source of Information: Reports: Patient, RN History Limitations: Reports: No Limitations - History of Present Illness INITIAL COMMENTS - FREE TEXT/NARRATIVE: chief complaint: muscle cramps, maybe his blood sugar is off. This is a 44 year old male presents to ER for evaluation. He reports was sick for the past 3 days, was vomiting yesterday and a few time today. Just found out he has strep throat, and took Zithromax this evening. This evening while getting a pizza ready to cook experience a severe cramping of his left side, then it went to his right side and down his legs. The pain was so intense it made him cry in pain. He finished cooking the pizza, ate and the cramps started to go away. Now rates his pain at a 1 or 2, just feels like a sharp to dull ache. denies chest pain, shortness of breath, nausea, rash or other concerns except for resolving muscle cramps. Onset: Sudden Duration: Hour(s):, Resolved Prior to Arrival (cramps are almost gone, rates pain at 1 or 2) Location: Reports: Abdomen, Radiates to (bilateral lower legs.) Quality: Reports: Ache, Sharp, Stabbing Severity: Severe Improves with: Reports: Eating (ate pizza, cramping started to resolve. at present cramps are almost gone.) Associated Symptoms: Reports: Nausea/Vomiting, Other (strep throat, started medication this evening.) - Related Data Allergies Allergy/AdvReac Type Severity Reaction Status Date / Time amoxicillin [Amoxicillin] Allergy Rash Verified 03/09/19 20:23 erythromycin base Allergy Rash Verified 03/09/19 20:23 [Erythromycin Base] Penicillins Allergy Rash Verified 03/09/19 20:23 Home Meds: Home Meds Acetaminophen [Tylenol Extra Strength] 650 mg PO BID 12/04/13 [History] Lisinopril 20 mg PO DAILY 12/04/13 [History] Omeprazole 20 mg PO DAILY 12/04/13 [History] metFORMIN [Glucophage] 1,000 mg PO BIDM 12/04/13 [History] Simvastatin [Zocor] 20 mg PO BEDTIME 01/07/15 [History] Colchicine 0.6 mg PO BID 04/08/17 [History] Sennosides [Senna] 1 tab PO BID PRN 04/08/17 [History] Cyclobenzaprine [Flexeril] 10 mg PO TID PRN 05/24/17 [History] Albuterol [Proventil HFA] 2 puff INH Q4H PRN 12/08/17 [History] Diclofenac Sodium [Voltaren] 50 mg PO TIDAC 12/08/17 [History] Ibuprofen 200 mg PO ASDIRECTED PRN 12/08/17 [History] Mupirocin Oint [Bactroban Oint] 1 applic TP DAILY 12/08/17 [History] Ondansetron [Zofran ODT] 4 mg PO Q8H PRN 12/08/17 [History] Triamcinolone Acetonide [Kenalog 0.1% Crm] 1 applic TOP TID PRN 12/08/17 [ History] glipiZIDE [Glucotrol] 5 mg PO BID 12/08/17 [History] amLODIPine [Norvasc] 5 mg PO BID 12/09/17 [History] Ammonium Lactate [Lac-Hydrin 12% Crm] 140 gm TOP BID 03/09/19 [History] Azithromycin [Zithromax] 250 - 500 mg PO DAILY 03/09/19 [History] Dulaglutide [Trulicity] 0.75 mg SQ WEEKLY 03/09/19 [History] Gabapentin [Neurontin] 1 cap PO BID 03/09/19 [History] Latanoprost 1 drop EYEBOTH BEDTIME 03/09/19 [History] Methocarbamol [Robaxin] 500 mg PO QID PRN 03/09/19 [History] Naproxen [Naprosyn] 500 mg PO BID 03/09/19 [History] Triamterene/Hydrochlorothiazid [Triamterene-HCTZ 37.5-25 MG] 1 each PO DAILY PRN 03/09/19 [History] traMADol [Ultram] 50 mg PO Q6H PRN 03/09/19 [History] Past Medical History HEENT History: Reports: Impaired Vision Cardiovascular History: Reports: High Cholesterol, Hypertension Respiratory History: Reports: COPD Gastrointestinal History: Reports: Chronic Diarrhea, Other (See Below) Other Gastrointestinal History: Perirectal abscess Genitourinary History: Reports: Other (See Below) Other Genitourinary History: urinary frequency Musculoskeletal History: Reports: Back Pain, Chronic, Gout, Other (See Below) Other Musculoskeletal History: c/o back pain lower back Psychiatric History: Reports: Learning Disability Endocrine/Metabolic History: Reports: Diabetes, Type II, Obesity/BMI 30+ - Infectious Disease History Infectious Disease History: Reports: Chicken Pox, Measles - Past Surgical History GI Surgical History: Reports: Cholecystectomy, Hernia Repair/Other Social & Family History - Tobacco Use Smoking Status *Q: Current Every Day Smoker (smoking one pack per day) - Caffeine Use Caffeine Use: Reports: Coffee, Soda - Living Situation & Occupation Living situation: Reports: with Significant Other, with Family Occupation: Employed ED ROS GENERAL - Review of Systems Review Of Systems: See Below Constitutional: Reports: Other (strep throat, sore throat, sinus drainage, muscle and body aches) HEENT: Reports: Rhinitis, Sinus Problem (chronic sinus drainage, seasonal allergy), Throat Pain (strep throat) Respiratory: Reports: Other (occasional cough and shortness of breath from smoking.) Cardiovascular: Reports: No Symptoms Endocrine: Reports: Other (has diabetes, does not check blood glucose) GI/Abdominal: Reports: Abdominal Pain (side cramps, has a umbilical hernia repaired x 2) : Reports: No Symptoms Musculoskeletal: Reports: Muscle Pain (muscle cramps sides of abdomen to bilateral legs.) Skin: Reports: No Symptoms Neurological: Reports: No Symptoms Psychiatric: Reports: No Symptoms Hematologic/Lymphatic: Reports: No Symptoms Immunologic: Reports: Seasonal Allergy, Other (medication allergy) ED EXAM, GENERAL - Physical Exam Exam: See Below Exam Limited By: No Limitations General Appearance: Alert, WD/WN, No Apparent Distress Eye Exam: Bilateral Eye: EOMI, PERRL Ears: Normal External Exam, Normal Canal, Hearing Grossly Normal, Normal TMs Ear Exam: Bilateral Ear: Auricle Normal, Canal Normal, TM normal Nose: Nasal Drainage Throat/Mouth: Normal Lips, Normal Teeth, Normal Gums, Inflammation (pharynx) Head: Atraumatic, Normocephalic Neck: Normal Inspection, Supple, Non-Tender, Full Range of Motion Respiratory/Chest: No Respiratory Distress, Lungs Clear, Normal Breath Sounds, No Accessory Muscle Use, Chest Non-Tender, Decreased Breath Sounds Cardiovascular: Regular Rate, Rhythm, No Murmur GI/Abdominal: Normal Bowel Sounds, Soft, Non-Tender, Other (obese, palpate not tender. umbilical hernia noted non-painful.) (Male) Exam: Deferred Rectal (Males) Exam: Deferred Back Exam: Normal Inspection, Full Range of Motion, Muscle Spasm (non noted at this time) Extremities: Normal Inspection, Normal Range of Motion, Non-Tender, No Pedal Edema, Normal Capillary Refill Neurological: Alert, Oriented, Normal Cognition, Normal Gait, No Motor/Sensory Deficits Psychiatric: Normal Affect, Normal Mood Skin Exam: Warm, Dry, Intact, Normal Color, No Rash Lymphatic: No Adenopathy Course - Vital Signs Last Recorded V/S: Last Vital Signs Temp 36.3 C 03/09/19 20:21 Pulse 93 03/09/19 20:21 Resp 16 03/09/19 20:21 BP 126/85 03/09/19 20:21 Pulse Ox 91 L 03/09/19 20:21 - Orders/Labs/Meds Orders: Active Orders 24 hr Category Date Time Status DRUG SCREEN, URINE [URCHEM] Stat Lab 03/09/19 20:32 Ordered UA W/MICROSCOPIC [URIN] Urgent Lab 03/09/19 20:32 Ordered Labs: Laboratory Tests 03/09/19 03/09/19 03/09/19 Range/Units 20:40 20:49 20:49 WBC 12.0 H (4.5-11.0) K/uL RBC 6.06 H (4.30-5.90) M/uL Hgb 17.1 H (12.0-15.0) g/dL Hct 52.4 (40.0-54.0) % MCV 87 (80-98) fL MCH 28 (27-31) pg MCHC 33 (32-36) % Plt Count 191 (150-400) K/uL Neut % (Auto) 67 H (36-66) % Lymph % (Auto) 16 L (24-44) % [place] % (Auto) 10 H (2-6) % Eos % (Auto) 6 H (2-4) % Baso % (Auto) 1 (0-1) % Sodium 139 L (140-148) mmol/L Potassium 3.7 (3.6-5.2) mmol/L Chloride 101 (100-108) mmol/L Carbon Dioxide 29 (21-32) mmol/L Anion Gap 12.7 (5.0-14.0) mmol/L BUN 18 (7-18) mg/dL Creatinine 1.7 H D (0.8-1.3) mg/dL Est Cr Clr Drug Dosing 54.21 mL/min Estimated GFR (MDRD) 44 L (>60) Glucose 121 H (74-106) mg/dL Calcium 9.7 (8.5-10.1) mg/dL Total Bilirubin 0.6 (0.2-1.0) mg/dL AST 52 H (15-37) U/L ALT 92 H (12-78) U/L Alkaline Phosphatase 77 (46-116) U/L Total Protein 7.7 (6.4-8.2) g/dL Albumin 3.8 (3.4-5.0) g/dL Globulin 3.9 H (2.3-3.5) g/dL Albumin/Globulin Ratio 1.0 L (1.2-2.2) Amylase 137 H (25-115) U/L Lipase 1734 H (73-393) U/L - Re-Assessments/Exams Free Text/Narrative Re-Assessment/Exam: 03/09/19 21:14 Mr. Duran is at this time is not in any acute pain or distress. rates his pain at 1 or 2 . -Discussed will do labs to rule out any acute process. will have him drink water -patient agrees with plan of care. 03/09/19 21:35 drank 4 water bottles without nausea or vomiting. he reports now pain free reviewed labs will discharge to home, follow up with Primary Care for recheck. Departure - Departure Time of Disposition: 21:36 Disposition: Home, Self-Care 01 Condition: Good Clinical Impression: Muscle cramping, History of strep sore throat - Discharge Information *PRESCRIPTION DRUG MONITORING PROGRAM REVIEWED*: Not Applicable *COPY OF PRESCRIPTION DRUG MONITORING REPORT IN PATIENT ARIS: Not Applicable Instructions: Muscle Cramps and Spasms, [id number] Referrals: Cam Blair MD [Primary Care Provider] - Forms: ED Department Discharge Care Plan Goals: Muscle cramps - push fluids. drink 8 to 10 glasses of water per day -take medications as prescribed -follow up with Primary Care for recheck return to ER if symptoms worsens or has any concerns. history of Strep Throat -continue medications as prescribed by his Doctor -push fluids -return to ER if not improved or symptoms worsen. - Problem List & Annotations (1) Muscle cramping SNOMED Code(s): 22976685 Code(s): R25.2 - CRAMP AND SPASM Status: Acute Priority: Low Current Visit: Yes (2) History of strep sore throat SNOMED Code(s): 153962005867950, 962394271005876 Code(s): Z87.09 - PERSONAL HISTORY OF OTHER DISEASES OF THE RESPIRATORY SYSTEM Status: Acute Current Visit: Yes - Problem List Review Problem List Initiated/Reviewed/Updated: Yes - My Orders Last 24 Hours: My Active Orders 03/09/19 20:32 DRUG SCREEN, URINE [URCHEM] Stat UA W/MICROSCOPIC [URIN] Urgent - Assessment/Plan Last 24 Hours: My Active Orders 03/09/19 20:32 DRUG SCREEN, URINE [URCHEM] Stat UA W/MICROSCOPIC [URIN] Urgent Plan: Muscle cramps - push fluids. drink 8 to 10 glasses of water per day -take medications as prescribed -follow up with Primary Care for recheck return to ER if symptoms worsens or has any concerns. history of Strep Throat -continue medications as prescribed by his Doctor -push fluids -return to ER if not improved or symptoms worsen.
[2019-03-09 20:18] VITALS: BP 126/85
== END 2019-03-09 21:44 | disposition home or self-care (01) ==
LOC: JP.ED 19:03
DX: R25.2 Cramp and spasm (principal); E78.00 Pure hypercholesterolemia, unspecified; I10 Essential (primary) hypertension; J44.9 Chronic obstructive pulmonary disease, unspecified; F17.210 Nicotine dependence, cigarettes, uncomplicated; Z88.1 Allergy status to other antibiotic agents; Z88.0 Allergy status to penicillin; Z79.899 Other long term (current) drug therapy; Z87.09 Personal history of other diseases of the respiratory system
CPT/HCPCS: 36415; 80053; 82150; 82962; 83690; 85025; 99283

== ENCOUNTER 2019-07-03 14:38 | Emergency (ER) | payer MEDICAID ==
[2019-07-03] MEDS ORDERED: Sodium Chloride 0.9% 1,000 ML IV STA (16:43)
[2019-07-03] MEDS ORDERED: Meclizine 25 MG Tab PO ONE (16:44)
--- NOTE | 2019-07-03 16:49 | EDM.PDOC ---
<Jeffery Ortiz - Last Filed: 07/03/19 21:22> ED HPI GENERAL MEDICAL PROBLEM - General Chief Complaint: General Stated Complaint: DIZZY, LIGHTHEADED, SOME SOB Time Seen by Provider: 07/03/19 16:48 - Related Data Allergies Allergy/AdvReac Type Severity Reaction Status Date / Time amoxicillin [Amoxicillin] Allergy Rash Verified 07/03/19 16:20 erythromycin base Allergy Rash Verified 07/03/19 16:20 [Erythromycin Base] Penicillins Allergy Rash Verified 07/03/19 16:20 Home Meds: Home Meds Acetaminophen [Tylenol Extra Strength] 650 mg PO BID 12/04/13 [History] Lisinopril 20 mg PO DAILY 12/04/13 [History] Omeprazole 20 mg PO DAILY 12/04/13 [History] metFORMIN [Glucophage] 1,000 mg PO BIDM 12/04/13 [History] Simvastatin [Zocor] 20 mg PO BEDTIME 01/07/15 [History] Colchicine 0.6 mg PO BID 04/08/17 [History] Sennosides [Senna] 1 tab PO BID PRN 04/08/17 [History] Cyclobenzaprine [Flexeril] 10 mg PO TID PRN 05/24/17 [History] Albuterol [Proventil HFA] 2 puff INH Q4H PRN 12/08/17 [History] Diclofenac Sodium [Voltaren] 50 mg PO TIDAC 12/08/17 [History] Ibuprofen 200 mg PO ASDIRECTED PRN 12/08/17 [History] Mupirocin Oint [Bactroban Oint] 1 applic TP DAILY 12/08/17 [History] Ondansetron [Zofran ODT] 4 mg PO Q8H PRN 12/08/17 [History] Triamcinolone Acetonide [Kenalog 0.1% Crm] 1 applic TOP TID PRN 12/08/17 [ History] glipiZIDE [Glucotrol] 5 mg PO BID 12/08/17 [History] amLODIPine [Norvasc] 5 mg PO BID 12/09/17 [History] Ammonium Lactate [Lac-Hydrin 12% Crm] 140 gm TOP BID 03/09/19 [History] Dulaglutide [Trulicity] 0.75 mg SQ WEEKLY 03/09/19 [History] Gabapentin [Neurontin] 1 cap PO BID 03/09/19 [History] Latanoprost 1 drop EYEBOTH BEDTIME 03/09/19 [History] Methocarbamol [Robaxin] 500 mg PO QID PRN 03/09/19 [History] Naproxen [Naprosyn] 500 mg PO BID 03/09/19 [History] Triamterene/Hydrochlorothiazid [Triamterene-HCTZ 37.5-25 MG] 1 each PO DAILY PRN 03/09/19 [History] traMADol [Ultram] 50 mg PO Q6H PRN 03/09/19 [History] Course - Vital Signs Last Recorded V/S: Last Vital Signs Temp 35.6 C 07/03/19 16:23 Pulse 96 07/03/19 16:54 Resp 18 07/03/19 16:54 BP 144/98 H 07/03/19 16:54 Pulse Ox 93 L 07/03/19 16:54 Orthostatic Blood Pressure [ 144/98 Standing] Orthostatic Blood Pressure [ 146/97 Sitting] Orthostatic Blood Pressure [ 176/110 Supine] - Orders/Labs/Meds Labs: Laboratory Tests 07/03/19 07/03/19 07/03/19 Range/Units 16:55 16:55 16:55 WBC 9.9 (4.5-11.0) K/uL RBC 6.21 H (4.30-5.90) M/uL Hgb 17.1 H (12.0-15.0) g/dL Hct 52.9 (40.0-54.0) % MCV 85 (80-98) fL MCH 28 (27-31) pg MCHC 32 (32-36) % Plt Count 183 (150-400) K/uL Neut % (Auto) 63 (36-66) % Lymph % (Auto) 20 L (24-44) % [place] % (Auto) 9 H (2-6) % Eos % (Auto) 6 H (2-4) % Baso % (Auto) 1 (0-1) % PT 11.5 (9.5-12.0) sec INR 1.07 (0.80-1.20) Sodium 143 (140-148) mmol/L Potassium 3.5 L (3.6-5.2) mmol/L Chloride 103 (100-108) mmol/L Carbon Dioxide 31 (21-32) mmol/L Anion Gap 12.5 (5.0-14.0) mmol/L BUN 12 (7-18) mg/dL Creatinine 1.2 (0.8-1.3) mg/dL Est Cr Clr Drug Dosing 76.79 mL/min Estimated GFR (MDRD) > 60 (>60) Glucose 97 (74-106) mg/dL Lactic Acid (0.4-2.0) mmol/L Calcium 9.7 (8.5-10.1) mg/dL Troponin I < 0.017 (0.000-0.056) ng/mL NT-Pro-B Natriuret Pep (5-125) pg/mL 07/03/19 07/03/19 Range/Units 16:55 16:55 WBC (4.5-11.0) K/uL RBC (4.30-5.90) M/uL Hgb (12.0-15.0) g/dL Hct (40.0-54.0) % MCV (80-98) fL MCH (27-31) pg MCHC (32-36) % Plt Count (150-400) K/uL Neut % (Auto) (36-66) % Lymph % (Auto) (24-44) % [place] % (Auto) (2-6) % Eos % (Auto) (2-4) % Baso % (Auto) (0-1) % PT (9.5-12.0) sec INR (0.80-1.20) Sodium (140-148) mmol/L Potassium (3.6-5.2) mmol/L Chloride (100-108) mmol/L Carbon Dioxide (21-32) mmol/L Anion Gap (5.0-14.0) mmol/L BUN (7-18) mg/dL Creatinine (0.8-1.3) mg/dL Est Cr Clr Drug Dosing mL/min Estimated GFR (MDRD) (>60) Glucose (74-106) mg/dL Lactic Acid 1.4 (0.4-2.0) mmol/L Calcium (8.5-10.1) mg/dL Troponin I (0.000-0.056) ng/mL NT-Pro-B Natriuret Pep 194 H (5-125) pg/mL Meds: Medications Discontinued Medications Generic Name Dose Route Start Last Admin Trade Name Juarez PRN Reason Stop Dose Admin Sodium Chloride 1,000 mls @ 999 mls/hr 07/03/19 16:43 07/03/19 17:02 Normal Saline IV 07/03/19 17:43 999 mls/hr .BOLUS STA Administration Meclizine HCl 25 mg 07/03/19 16:44 07/03/19 17:01 Antivert PO 07/03/19 16:45 25 mg ONETIME ONE Administration - Re-Assessments/Exams Free Text/Narrative Re-Assessment/Exam: 07/03/19 18:40 Care turned over pending chest x-ray and IV fluids. Chest x-ray looks normal, labs are very reassuring including glucose. Patient's vitals normalized as well. No new treatment needed, continue his regular medications and increase activity as tolerated. Departure - Departure Disposition: Home, Self-Care 01 Clinical Impression: Vertigo, Orthostatic dizziness, Acute sinusitis - Discharge Information Instructions: Vertigo, Sinusitis, Adult Referrals: Cam Blair MD [Primary Care Provider] - Forms: ED Department Discharge Care Plan Goals: Continue your current medications, increase activity as tolerated and consider rechecking at any time if worsening such as fever or shortness of breath. Follow -up with your primary provider if you feel you're sinus congestion is not improving satisfactorily. <TraciGatito koch - Last Filed: 07/05/19 18:49> ED HPI GENERAL MEDICAL PROBLEM - General Source of Information: Reports: Patient - History of Present Illness INITIAL COMMENTS - FREE TEXT/NARRATIVE: 44 years old male patient presented with multiple complaints. Stated she woke up this morning feeling dizzy and lightheaded. stated that he feels dizzy, lightheaded when he stands up quickly he feels more lightheaded and even the room spinning . however when he does it slowly he doesn't feel dizzy or spinning. Denies any headache or visual changes. Denies any neck pain or back pain. Denies any focal weakness or numbness anywhere. Denies any fever. Chronic mild dry cough. Denies any chest pain or shortness breath. Denies any wheezing. Denies any abdominal pain diarrhea or constipation. Denies any urinary symptom. Also complaining of nasal congestion and sinus pressure. Denies any sore throat. Denies any sick contacts or recent travel. Back Pain Score (Numeric/FACES): 5 Past Medical History HEENT History: Reports: Impaired Vision Cardiovascular History: Reports: High Cholesterol, Hypertension Respiratory History: Reports: COPD Gastrointestinal History: Reports: Chronic Diarrhea, Other (See Below) Other Gastrointestinal History: Perirectal abscess Genitourinary History: Reports: Other (See Below) Other Genitourinary History: urinary frequency Musculoskeletal History: Reports: Back Pain, Chronic, Gout, Other (See Below) Other Musculoskeletal History: c/o back pain lower back Neurological History: Reports: Vertigo, Other (See Below) Other Neuro History: spinal stenosis of lumbar region Psychiatric History: Reports: Learning Disability Endocrine/Metabolic History: Reports: Diabetes, Type II, Obesity/BMI 30+ - Infectious Disease History Infectious Disease History: Reports: Chicken Pox, Measles - Past Surgical History GI Surgical History: Reports: Cholecystectomy, Hernia Repair/Other Social & Family History - Tobacco Use Smoking Status *Q: Current Every Day Smoker Years of Tobacco use: 25 Packs/Tins Daily: 1 - Caffeine Use Caffeine Use: Reports: Soda - Recreational Drug Use Recreational Drug Use: No - Living Situation & Occupation Living situation: Reports: with Significant Other, with Family Occupation: Employed ED ROS GENERAL - Review of Systems Review Of Systems: ROS reveals no pertinent complaints other than HPI. ED EXAM, GENERAL - Physical Exam Exam: See Below Exam Limited By: No Limitations General Appearance: Alert, No Apparent Distress Nose: Normal Inspection, Clear Rhinorrhea, Other (swollen edematous nasal turbinates. Tenderness on palpation of maxillary sinuses on percussion) Head: Atraumatic, Normocephalic. No: Facial Swelling Neck: Normal Inspection, Supple, Non-Tender, Full Range of Motion Respiratory/Chest: No Respiratory Distress, Lungs Clear, Normal Breath Sounds. No: Crackles, Rales, Rhonchi, Wheezing Cardiovascular: Normal Peripheral Pulses, Regular Rate, Rhythm, No Edema, No Murmur. No: Bradycardia, Tachycardia GI/Abdominal: Normal Bowel Sounds, Soft, Non-Tender, No Organomegaly, No Distention (Male) Exam: No Hernia Back Exam: Normal Inspection Neurological: Alert, Oriented, CN II-XII Intact, Normal Cognition, Normal Gait, Normal Reflexes, No Motor/Sensory Deficits. No: Confused Psychiatric: Normal Affect Skin Exam: Warm, Dry, No Rash Course - Orders/Labs/Meds Labs: Laboratory Tests 07/03/19 07/03/19 07/03/19 Range/Units 16:55 16:55 16:55 WBC 9.9 (4.5-11.0) K/uL RBC 6.21 H (4.30-5.90) M/uL Hgb 17.1 H (12.0-15.0) g/dL Hct 52.9 (40.0-54.0) % MCV 85 (80-98) fL MCH 28 (27-31) pg MCHC 32 (32-36) % Plt Count 183 (150-400) K/uL Neut % (Auto) 63 (36-66) % Lymph % (Auto) 20 L (24-44) % [place] % (Auto) 9 H (2-6) % Eos % (Auto) 6 H (2-4) % Baso % (Auto) 1 (0-1) % PT 11.5 (9.5-12.0) sec INR 1.07 (0.80-1.20) Sodium 143 (140-148) mmol/L Potassium 3.5 L (3.6-5.2) mmol/L Chloride 103 (100-108) mmol/L Carbon Dioxide 31 (21-32) mmol/L Anion Gap 12.5 (5.0-14.0) mmol/L BUN 12 (7-18) mg/dL Creatinine 1.2 (0.8-1.3) mg/dL Est Cr Clr Drug Dosing 76.79 mL/min Estimated GFR (MDRD) > 60 (>60) Glucose 97 (74-106) mg/dL Lactic Acid (0.4-2.0) mmol/L Calcium 9.7 (8.5-10.1) mg/dL Troponin I < 0.017 (0.000-0.056) ng/mL NT-Pro-B Natriuret Pep (5-125) pg/mL 07/03/19 07/03/19 Range/Units 16:55 16:55 WBC (4.5-11.0) K/uL RBC (4.30-5.90) M/uL Hgb (12.0-15.0) g/dL Hct (40.0-54.0) % MCV (80-98) fL MCH (27-31) pg MCHC (32-36) % Plt Count (150-400) K/uL Neut % (Auto) (36-66) % Lymph % (Auto) (24-44) % [place] % (Auto) (2-6) % Eos % (Auto) (2-4) % Baso % (Auto) (0-1) % PT (9.5-12.0) sec INR (0.80-1.20) Sodium (140-148) mmol/L Potassium (3.6-5.2) mmol/L Chloride (100-108) mmol/L Carbon Dioxide (21-32) mmol/L Anion Gap (5.0-14.0) mmol/L BUN (7-18) mg/dL Creatinine (0.8-1.3) mg/dL Est Cr Clr Drug Dosing mL/min Estimated GFR (MDRD) (>60) Glucose (74-106) mg/dL Lactic Acid 1.4 (0.4-2.0) mmol/L Calcium (8.5-10.1) mg/dL Troponin I (0.000-0.056) ng/mL NT-Pro-B Natriuret Pep 194 H (5-125) pg/mL - Re-Assessments/Exams Free Text/Narrative Re-Assessment/Exam: 07/03/19 17:00 patient was seen and examined shortly after arrival. Stable. On cardiac technologist. Orthostatic shows orthostasis. Blood pressure dropped from 170-140 from laying down to sitting and standing. Also heart rate went up from 80s to 90s. patient was also given 25 mg oral Antivert Patient was given 1 L normal saline bolus. EKG shows normal sinus rhythm. No sign of acute ischemia or arrhythmia.lab reviewed. No significant acute abnormalities. Chest x-ray is pending not done yet. patient care transferred to Dr. sun at time of shift exchange in a stable condition for further management and disposition 07/03/19 18:01 Departure - Departure Time of Disposition: 18:04 Condition: Good
[2019-07-03 16:55] VITALS: BP 144/98; PULSE 96
--- NOTE | 2019-07-03 19:12 | CRLCR ---
INDICATION: Chest pain COMPARISON: Chest two views 06/05/2017 TECHNIQUE: Frontal and lateral views of the chest FINDINGS: The lungs are clear. The cardiomediastinal silhouette is normal. There is no pleural effusion or pneumothorax. The osseous structures are unremarkable. IMPRESSION: No acute process. Dictated by Sherry Noel MD @ Jul 03 2019 7:09PM Signed by Dr. Sherry Noel @ Jul 03 2019 7:10PM
== END 2019-07-03 18:53 | disposition home or self-care (01) ==
LOC: JP.ED 14:38
DX: J01.90 Acute sinusitis, unspecified (principal); R42 Dizziness and giddiness; I10 Essential (primary) hypertension; J44.9 Chronic obstructive pulmonary disease, unspecified; E78.00 Pure hypercholesterolemia, unspecified; F17.210 Nicotine dependence, cigarettes, uncomplicated; E11.9 Type 2 diabetes mellitus without complications; Z88.1 Allergy status to other antibiotic agents; Z79.84 Long term (current) use of oral hypoglycemic drugs; Z79.899 Other long term (current) drug therapy
CPT/HCPCS: 36415; 71046; 80048; 83605; 83880; 84484; 85025; 85610; 93005; 96360; 99284; A9270; J7030

== ENCOUNTER 2019-12-16 18:23 | Emergency (ER) | payer MEDICAID ==
--- NOTE | 2019-12-16 18:54 | EDM.PDOC ---
ED HPI GENERAL MEDICAL PROBLEM - General Chief Complaint: Neck Problem Stated Complaint: LEFT NECK/SHOULDER PAIN Time Seen by Provider: 12/16/19 18:53 Source of Information: Reports: Patient History Limitations: Reports: No Limitations - History of Present Illness INITIAL COMMENTS - FREE TEXT/NARRATIVE: 44 years old male patient presented with a chief complaint of left shoulder pain for 2 and half weeks since he had a fall on his left shoulder. Denies hitting his head at this time. Denies any loss of consciousness. Denies any headache or neck pain at the time. No focal weakness or numbness anywhere. Started complaining of left-sided neck pain started earlier today. Constant. Also headache, 05/10. Similar to previous headache. Frontal. Dull aching pain. No radiation. Denies any neck pain or stiffness. No visual changes. No focal weakness or numbness anywhere. Denies any nausea or vomiting. Denies any fever. Similar to previous headache. Denies any chest pain shortness breath. Denies any cough or fever. Denies any abdominal pain diarrhea or constipation. Denies any loss of control of urine or stool. Denies any urinary symptom. Neck Pain Score (Numeric/FACES): 6 - Related Data Allergies Allergy/AdvReac Type Severity Reaction Status Date / Time amoxicillin [Amoxicillin] Allergy Rash Verified 12/16/19 18:37 erythromycin base Allergy Rash Verified 12/16/19 18:37 [Erythromycin Base] Penicillins Allergy Rash Verified 12/16/19 18:37 Home Meds: Home Meds Acetaminophen [Tylenol Extra Strength] 650 mg PO BID 12/04/13 [History] Lisinopril 20 mg PO DAILY 12/04/13 [History] Omeprazole 20 mg PO DAILY 12/04/13 [History] metFORMIN [Glucophage] 1,000 mg PO BIDM 12/04/13 [History] Simvastatin [Zocor] 20 mg PO BEDTIME 01/07/15 [History] Colchicine 0.6 mg PO BID 04/08/17 [History] Sennosides [Senna] 1 tab PO BID PRN 04/08/17 [History] Cyclobenzaprine [Flexeril] 10 mg PO TID PRN 05/24/17 [History] Albuterol [Proventil HFA] 2 puff INH Q4H PRN 12/08/17 [History] Diclofenac Sodium [Voltaren] 50 mg PO TIDAC 12/08/17 [History] Ibuprofen 600 mg PO ASDIRECTED PRN 12/08/17 [History] Mupirocin Oint [Bactroban Oint] 1 applic TP DAILY 12/08/17 [History] Ondansetron [Zofran ODT] 4 mg PO Q8H PRN 12/08/17 [History] Triamcinolone Acetonide [Kenalog 0.1% Crm] 1 applic TOP TID PRN 12/08/17 [ History] glipiZIDE [Glucotrol] 5 mg PO BID 12/08/17 [History] amLODIPine [Norvasc] 5 mg PO BID 12/09/17 [History] Ammonium Lactate [Lac-Hydrin 12% Crm] 140 gm TOP BID 03/09/19 [History] Gabapentin [Neurontin] 1 cap PO BID 03/09/19 [History] Latanoprost 1 drop EYEBOTH BEDTIME 03/09/19 [History] Methocarbamol [Robaxin] 500 mg PO QID PRN 03/09/19 [History] Naproxen [Naprosyn] 500 mg PO BID 03/09/19 [History] Triamterene/Hydrochlorothiazid [Triamterene-HCTZ 37.5-25 MG] 1 each PO DAILY PRN 03/09/19 [History] traMADol [Ultram] 50 mg PO Q6H PRN 03/09/19 [History] Liraglutide [Victoza 3-Henrik] 1.8 mg SQ BID 12/16/19 [History] Past Medical History HEENT History: Reports: Impaired Vision Cardiovascular History: Reports: High Cholesterol, Hypertension Respiratory History: Reports: COPD Gastrointestinal History: Reports: Chronic Diarrhea, Other (See Below) Other Gastrointestinal History: Perirectal abscess Genitourinary History: Reports: Other (See Below) Other Genitourinary History: urinary frequency Musculoskeletal History: Reports: Back Pain, Chronic, Gout, Other (See Below) Other Musculoskeletal History: c/o back pain lower back Neurological History: Reports: Vertigo, Other (See Below) Other Neuro History: spinal stenosis of lumbar region Psychiatric History: Reports: Learning Disability Endocrine/Metabolic History: Reports: Diabetes, Type II, Obesity/BMI 30+ - Infectious Disease History Infectious Disease History: Reports: Chicken Pox, Measles - Past Surgical History GI Surgical History: Reports: Cholecystectomy, Hernia Repair/Other Social & Family History - Tobacco Use Smoking Status *Q: Current Every Day Smoker Years of Tobacco use: 25 Packs/Tins Daily: 1.5 Used Tobacco, but Quit: No - Caffeine Use Caffeine Use: Reports: Coffee, Soda - Recreational Drug Use Recreational Drug Use: No - Living Situation & Occupation Living situation: Reports: with Significant Other, with Family Occupation: Employed ED ROS GENERAL - Review of Systems Review Of Systems: Comprehensive ROS is negative, except as noted in HPI. ED EXAM, UPPER BACK/NECK PAIN - Physical Exam Exam: See Below Exam Limited By: No Limitations General Appearance: Alert, WD/WN, No Apparent Distress Nose Exam: Normal Inspection, Normal Mucousa, No Blood Throat/Mouth Exam: Normal Inspection, Normal Lips, Normal Teeth, Normal Gums, Normal Oropharynx, Normal Voice, No Airway Compromise Head Exam: Atraumatic, Normocephalic Neck Exam: Non-Tender, Full Range of Motion, Normal Alignment, Normal Inspection , Paraspinous Muscle Tender, Other (Left-sided cervical paraspinal muscle tenderness. No bony tenderness. No step off deformity.). No: Spinous Processes Tender, Stiff Neck, Tender Midline Nexus Criteria: No: Posterior, Midline Cervical Tenderness, Evidence of Intoxication, Altered Level of Consciousness, Focal Neurological Deficit, Painful Distraction Injuries Cardiovascular/Respiratory: Regular Rate, Rhythm, No M/R/G, Normal Peripheral Pulses, No JVD, Normal Breath Sounds, No Respiratory Distress GI/Abdominal: Normal Bowel Sounds, Soft, Non-Tender, No Organomegaly, No Distention, No Abnormal Bruit, No Mass Back Exam: Normal Inspection, Full Range of Motion, NT Extremities: Normal Inspection, Normal Range of Motion, Non-Tender, No Pedal Edema, Normal Capillary Refill, Other ( tenderness on palpation of the left shoulder. No erythema or swelling. no deformity. 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, No Motor/Sensory Deficits, Alert, Normal Mood/Affect, Oriented x 3 Psychiatric: Normal Affect, Normal Mood Skin Exam: Normal Color, Warm/Dry Course - Vital Signs Last Recorded V/S: Last Vital Signs Temp 35.2 C 12/16/19 18:46 Pulse 77 12/16/19 20:17 Resp 21 H 12/16/19 20:17 BP 170/115 H 12/16/19 20:17 Pulse Ox 91 L 12/16/19 20:17 - Orders/Labs/Meds Orders: Active Orders 24 hr Category Date Time Status EKG Documentation Completion [RC] ASDIRECTED Care 12/16/19 19:04 Active EKG 12 Lead [EK] Urgent Ther 12/16/19 19:04 Ordered Labs: Laboratory Tests 12/16/19 12/16/19 12/16/19 Range/Units 19:14 19:14 20:00 PT 12.0 (9.5-12.0) sec INR 1.12 (0.80-1.20) Sodium 134 L (140-148) mmol/L Potassium 3.4 L (3.6-5.2) mmol/L Chloride 97 L (100-108) mmol/L Carbon Dioxide 28 (21-32) mmol/L Anion Gap 12.4 (5.0-14.0) mmol/L BUN 14 (7-18) mg/dL Creatinine 1.2 (0.8-1.3) mg/dL Est Cr Clr Drug Dosing 76.79 mL/min Estimated GFR (MDRD) > 60 (>60) Glucose 347 H (74-106) mg/dL Calcium 8.7 (8.5-10.1) mg/dL Total Bilirubin 0.7 (0.2-1.0) mg/dL AST 43 H (15-37) U/L ALT 92 H (12-78) U/L Alkaline Phosphatase 80 (46-116) U/L Troponin I 0.040 (0.000-0.056) ng/mL Total Protein 7.3 (6.4-8.2) g/dL Albumin 3.3 L (3.4-5.0) g/dL Globulin 4.0 H (2.3-3.5) g/dL Albumin/Globulin Ratio 0.8 L (1.2-2.2) Meds: Medications Discontinued Medications Generic Name Dose Route Start Last Admin Trade Name Freq PRN Reason Stop Dose Admin Ketorolac Tromethamine 60 mg 12/16/19 19:10 12/16/19 19:34 Toradol IM 12/16/19 19:11 60 mg ONETIME ONE Administration Potassium Chloride 20 meq 12/16/19 21:14 Klor-Con M20 PO 12/16/19 21:15 ONETIME ONE - Re-Assessments/Exams Free Text/Narrative Re-Assessment/Exam: 12/16/19 19:10 Patient was seen and examined shortly after arrival. Stable. Given 60 mg IM Toradol. Symptoms markedly improved. Patient requested a refill for his tramadol. Given 10 tablets and advised to rest, stay well-hydrated, do not drive oral. Machines when taken tramadol. Close follow-up with PCP. Come back for any concern or any worsening symptom. Eat more potassium rich food-like banana, Repeat potassium level in 3-4 days. Your blood sugar was elevated, reviewed that resume her primary doctor for medication adjustment. Come back for any concern. Patient agrees with the plan. Stable for discharge. 12/16/19 21:17 Departure - Departure Time of Disposition: 21:19 Disposition: Home, Self-Care 01 Condition: Good Clinical Impression: Left shoulder pain, Neck pain, Headache - Discharge Information Instructions: General Headache Without Cause, Musculoskeletal Pain Referrals: Cam Blair MD [Primary Care Provider] - Forms: ED Department Discharge Additional Instructions: advised to rest, stay well-hydrated, do not drive oral. Machines when taken tramadol. Close follow-up with PCP. Come back for any concern or any worsening symptom. Eat more potassium rich food-like banana, Repeat potassium level in 3- 4 days. Your blood sugar was elevated, reviewed that resume her primary doctor for medication adjustment. Come back for any concern Sepsis Event Note - Evaluation Sepsis Screening Result: No Definite Risk - Focused Exam Vital Signs: Vital Signs Temp Pulse Resp BP Pulse Ox 12/16/19 20:17 77 21 H 170/115 H 91 L 12/16/19 19:58 75 170/125 H 93 L 12/16/19 18:56 90 152/110 H 12/16/19 18:46 35.2 C 89 14 209/136 H 92 L Date Exam was Performed: 12/16/19 Time Exam was Performed: 21:17 - My Orders Last 24 Hours: My Active Orders 12/16/19 19:04 EKG Documentation Completion [RC] ASDIRECTED EKG 12 Lead [EK] Urgent - Assessment/Plan Last 24 Hours: My Active Orders 12/16/19 19:04 EKG Documentation Completion [RC] ASDIRECTED EKG 12 Lead [EK] Urgent Plan: advised to rest, stay well-hydrated, do not drive oral. Machines when taken tramadol. Close follow-up with PCP. Come back for any concern or any worsening symptom. Eat more potassium rich food-like banana, Repeat potassium level in 3- 4 days. Your blood sugar was elevated, reviewed that resume her primary doctor for medication adjustment. Come back for any concern
[2019-12-16] MEDS ORDERED: Ketorolac 60 MG/2 ML SDV IM ONE (19:10)
--- NOTE | 2019-12-16 20:12 | CRLCT ---
INDICATION: Trauma, fall with pain TECHNIQUE: CT head without contrast. COMPARISON: 11/28/2017 FINDINGS: CSF spaces: Within normal limits for age. Brain parenchyma and extra-axial spaces: The levy-white differentiation is normal. No sign of mass, hemorrhage, or midline shift. No extra-axial fluid collection. Skull base and calvarium: The visualized paranasal sinuses and mastoid air cells demonstrate no acute or significant findings. The visualized orbits are grossly unremarkable. No skull fractures. IMPRESSION: Unremarkable noncontrast head CT. Dictated by Young Aleman MD @ 12/16/2019 8:11:14 PM Please note that all CT scans at this facility use dose modulation, iterative reconstruction, and/or weight-based dosing when appropriate to reduce radiation dose to as low as reasonably achievable. Dictated by: Young Aleman MD @ 12/16/2019 20:11:20 (Electronically Signed)
--- NOTE | 2019-12-16 20:15 | CRLCR ---
Indication: Injury and pain Technique: Left shoulder 4 views Comparison: None Findings: Bones: Alignment is normal. No fractures or bone lesions. Joint spaces: Unremarkable. Soft tissues: Unremarkable. Impression: No sign of acute injury. Dictated by Young Aleman MD @ 12/16/2019 8:13:07 PM Dictated by: Young Aleman MD @ 12/16/2019 20:13:11 (Electronically Signed)
[2019-12-16 20:17] VITALS: BP 170/115; PULSE 77
--- NOTE | 2019-12-16 20:19 | CRLCT ---
INDICATION: Trauma, fall with pain. TECHNIQUE: CT cervical spine without contrast. COMPARISON: None FINDINGS: Vertebrae: Alignment is normal. There are no fractures or suspicious bony lesions. Posterior endplate osteophytes are present at multiple levels. Discs and facet joints: Disc spaces and facets are within normal limits. Extraspinal findings: Prevertebral soft tissues, visualized airway, and visualized lungs are unremarkable. IMPRESSION: No sign of acute injury in the cervical spine. Multiple posterior endplate osteophytes are protruding into the spinal canal. Dictated by Young Aleman MD @ 12/16/2019 8:18:27 PM Please note that all CT scans at this facility use dose modulation, iterative reconstruction, and/or weight-based dosing when appropriate to reduce radiation dose to as low as reasonably achievable. Dictated by: Young Aleman MD @ 12/16/2019 20:18:45 (Electronically Signed)
[2019-12-16] MEDS ORDERED: Potassium Chloride 20 MEQ Tab.ER PO ONE (21:14)
== END 2019-12-16 21:35 | disposition home or self-care (01) ==
LOC: JP.ED 18:23
DX: M25.512 Pain in left shoulder (principal); M54.2 Cervicalgia; R51 Headache; I10 Essential (primary) hypertension; E11.9 Type 2 diabetes mellitus without complications; E78.00 Pure hypercholesterolemia, unspecified; J44.9 Chronic obstructive pulmonary disease, unspecified; E66.9 Obesity, unspecified; Z68.43 Body mass index [BMI] 50.0-59.9, adult; F17.210 Nicotine dependence, cigarettes, uncomplicated; Z88.1 Allergy status to other antibiotic agents; Z88.0 Allergy status to penicillin; Z79.84 Long term (current) use of oral hypoglycemic drugs; Z79.899 Other long term (current) drug therapy
CPT/HCPCS: 36415; 70450; 72125; 73030; 80053; 84484; 85610; 93005; 96372; 99284; A9270; J1885

== ENCOUNTER 2020-05-13 10:11 | Emergency (ER) | payer MEDICAID ==
[2020-05-13 10:56] VITALS: BP 188/130; PULSE 80
[2020-05-13] MEDS ORDERED: Aspirin 81 MG Tab.Chew PO ONE (11:17)
--- NOTE | 2020-05-13 11:26 | EDM.PDOC ---
ED HPI GENERAL MEDICAL PROBLEM - General Chief Complaint: General Stated Complaint: CHEST AREA PAIN Time Seen by Provider: 05/13/20 11:02 Source of Information: Reports: Patient History Limitations: Reports: No Limitations - History of Present Illness INITIAL COMMENTS - FREE TEXT/NARRATIVE: Sharp stabbing right sided chest pain since falling 2 days ago. Pain moderate with increase when coughing or moving. No radiation. No SOB, sweating, or nausea. No history of heart problems. Has DM, and HTN. No history of VTE. right lower chest Pain Score (Numeric/FACES): 3 - Related Data Allergies Allergy/AdvReac Type Severity Reaction Status Date / Time amoxicillin [Amoxicillin] Allergy Rash Verified 05/13/20 10:27 erythromycin base Allergy Rash Verified 05/13/20 10:27 [Erythromycin Base] Penicillins Allergy Rash Verified 05/13/20 10:27 Home Meds: Home Meds Acetaminophen [Tylenol Extra Strength] 650 mg PO BID 12/04/13 [History] Lisinopril 20 mg PO DAILY 12/04/13 [History] Omeprazole 20 mg PO DAILY 12/04/13 [History] metFORMIN [Glucophage] 1,000 mg PO BIDM 12/04/13 [History] Simvastatin [Zocor] 20 mg PO BEDTIME 01/07/15 [History] Colchicine 0.6 mg PO BID 04/08/17 [History] Sennosides [Senna] 1 tab PO BID PRN 04/08/17 [History] Cyclobenzaprine [Flexeril] 10 mg PO TID PRN 05/24/17 [History] Albuterol [Proventil HFA] 2 puff INH Q4H PRN 12/08/17 [History] Diclofenac Sodium [Voltaren] 50 mg PO TIDAC 12/08/17 [History] Mupirocin Oint [Bactroban Oint] 1 applic TP DAILY 12/08/17 [History] Ondansetron [Zofran ODT] 4 mg PO Q8H PRN 12/08/17 [History] Triamcinolone Acetonide [Kenalog 0.1% Crm] 1 applic TOP TID PRN 12/08/17 [ History] glipiZIDE [Glucotrol] 5 mg PO BID 12/08/17 [History] amLODIPine [Norvasc] 5 mg PO BID 12/09/17 [History] Ammonium Lactate [Lac-Hydrin 12% Crm] 140 gm TOP BID 03/09/19 [History] Gabapentin [Neurontin] 1 cap PO BID 03/09/19 [History] Latanoprost 1 drop EYEBOTH BEDTIME 03/09/19 [History] Naproxen [Naprosyn] 500 mg PO BID 03/09/19 [History] Triamterene/Hydrochlorothiazid [Triamterene-HCTZ 37.5-25 MG] 1 each PO DAILY PRN 03/09/19 [History] traMADol [Ultram] 50 mg PO Q6H PRN 03/09/19 [History] Liraglutide [Victoza 3-Henrik] 1.8 mg SQ BID 12/16/19 [History] Past Medical History HEENT History: Reports: Impaired Vision Cardiovascular History: Reports: High Cholesterol, Hypertension Respiratory History: Reports: COPD Gastrointestinal History: Reports: Chronic Diarrhea, Other (See Below) Other Gastrointestinal History: Perirectal abscess Genitourinary History: Reports: Other (See Below) Other Genitourinary History: urinary frequency Musculoskeletal History: Reports: Back Pain, Chronic, Gout, Other (See Below) Other Musculoskeletal History: c/o back pain lower back Neurological History: Reports: Vertigo, Other (See Below) Other Neuro History: spinal stenosis of lumbar region Psychiatric History: Reports: Learning Disability Endocrine/Metabolic History: Reports: Diabetes, Type II, Obesity/BMI 30+ - Infectious Disease History Infectious Disease History: Reports: Chicken Pox, Measles - Past Surgical History GI Surgical History: Reports: Cholecystectomy, Hernia Repair/Other Social & Family History - Tobacco Use Smoking Status *Q: Current Every Day Smoker Years of Tobacco use: 20 Packs/Tins Daily: 1 - Caffeine Use Caffeine Use: Reports: Coffee, Soda - Recreational Drug Use Recreational Drug Use: No - Living Situation & Occupation Living situation: Reports: with Significant Other, with Family Occupation: Employed ED ROS GENERAL - Review of Systems Review Of Systems: See Below Constitutional: Reports: No Symptoms HEENT: Reports: No Symptoms Respiratory: Reports: Cough. Denies: Shortness of Breath Cardiovascular: Reports: Chest Pain, Edema. Denies: Dyspnea on Exertion GI/Abdominal: Reports: No Symptoms Neurological: Reports: No Symptoms ED EXAM, GENERAL - Physical Exam Exam: See Below Exam Limited By: No Limitations General Appearance: Alert, WD/WN, No Apparent Distress Throat/Mouth: Normal Inspection Head: Atraumatic Neck: Normal Inspection Respiratory/Chest: No Respiratory Distress, Lungs Clear, Normal Breath Sounds Cardiovascular: Regular Rate, Rhythm GI/Abdominal: Normal Bowel Sounds, Soft, Non-Tender Extremities: Normal Inspection Course - Vital Signs Last Recorded V/S: Last Vital Signs Temp 36.1 C 05/13/20 10:40 Pulse 80 05/13/20 11:37 Resp 12 05/13/20 11:37 BP 188/130 H 05/13/20 11:37 Pulse Ox 95 05/13/20 11:37 - Orders/Labs/Meds Orders: Active Orders 24 hr Category Date Time Status Chest 2V [CR] Stat Exams 05/13/20 11:19 Taken Labs: Laboratory Tests 05/13/20 05/13/20 05/13/20 Range/Units 11:49 12:02 12:02 WBC 8.8 (4.5-11.0) K/uL RBC 6.26 H (4.30-5.90) M/uL Hgb 17.4 H (12.0-15.0) g/dL Hct 53.7 (40.0-54.0) % MCV 86 (80-98) fL MCH 28 (27-31) pg MCHC 32 (32-36) % Plt Count 150 (150-400) K/uL Neut % (Auto) 67 H (36-66) % Lymph % (Auto) 19 L (24-44) % [place] % (Auto) 7 H (2-6) % Eos % (Auto) 7 H (2-4) % Baso % (Auto) 1 (0-1) % D-Dimer, Quantitative 122 (0.0-400.0) ng/mL Sodium (140-148) mmol/L Potassium (3.6-5.2) mmol/L Chloride (100-108) mmol/L Carbon Dioxide (21-32) mmol/L Anion Gap (5.0-14.0) mmol/L BUN (7-18) mg/dL Creatinine (0.8-1.3) mg/dL Est Cr Clr Drug Dosing mL/min Estimated GFR (MDRD) (>60) Glucose (74-106) mg/dL Calcium (8.5-10.1) mg/dL Total Bilirubin (0.2-1.0) mg/dL AST (15-37) U/L ALT (12-78) U/L Alkaline Phosphatase (46-116) U/L Troponin I (0.000-0.056) ng/mL Total Protein (6.4-8.2) g/dL Albumin (3.4-5.0) g/dL Globulin (2.3-3.5) g/dL Albumin/Globulin Ratio (1.2-2.2) Urine Color Yellow (YELLOW) Urine Appearance Clear (CLEAR) Urine pH 6.5 (5.0-8.0) Ur Specific [place] 1.025 (1.008-1.030) Urine Protein 100 H (NEGATIVE) mg/dL Urine Glucose (UA) 500 H (NEGATIVE) mg/dL Urine Ketones Negative (NEGATIVE) mg/dL Urine Occult Blood Negative (NEGATIVE) Urine Nitrite Negative (NEGATIVE) Urine Bilirubin Negative (NEGATIVE) Urine Urobilinogen 0.2 (0.2-1.0) EU/dL Ur Leukocyte Esterase Negative (NEGATIVE) Urine RBC Not seen (0-5) Urine WBC Not seen (0-5) Ur Epithelial Cells Few Urine Bacteria Not seen 05/13/20 05/13/20 Range/Units 12:02 12:02 WBC (4.5-11.0) K/uL RBC (4.30-5.90) M/uL Hgb (12.0-15.0) g/dL Hct (40.0-54.0) % MCV (80-98) fL MCH (27-31) pg MCHC (32-36) % Plt Count (150-400) K/uL Neut % (Auto) (36-66) % Lymph % (Auto) (24-44) % [place] % (Auto) (2-6) % Eos % (Auto) (2-4) % Baso % (Auto) (0-1) % D-Dimer, Quantitative (0.0-400.0) ng/mL Sodium 139 L (140-148) mmol/L Potassium 3.5 L (3.6-5.2) mmol/L Chloride 99 L (100-108) mmol/L Carbon Dioxide 35 H (21-32) mmol/L Anion Gap 8.5 (5.0-14.0) mmol/L BUN 10 (7-18) mg/dL Creatinine 1.2 (0.8-1.3) mg/dL Est Cr Clr Drug Dosing 76.00 mL/min Estimated GFR (MDRD) > 60 (>60) Glucose 338 H (74-106) mg/dL Calcium 8.8 (8.5-10.1) mg/dL Total Bilirubin 0.8 (0.2-1.0) mg/dL AST 37 (15-37) U/L ALT 62 (12-78) U/L Alkaline Phosphatase 80 (46-116) U/L Troponin I 0.038 (0.000-0.056) ng/mL Total Protein 7.5 (6.4-8.2) g/dL Albumin 3.3 L (3.4-5.0) g/dL Globulin 4.2 H (2.3-3.5) g/dL Albumin/Globulin Ratio 0.8 L (1.2-2.2) Urine Color (YELLOW) Urine Appearance (CLEAR) Urine pH (5.0-8.0) Ur Specific [place] (1.008-1.030) Urine Protein (NEGATIVE) mg/dL Urine Glucose (UA) (NEGATIVE) mg/dL Urine Ketones (NEGATIVE) mg/dL Urine Occult Blood (NEGATIVE) Urine Nitrite (NEGATIVE) Urine Bilirubin (NEGATIVE) Urine Urobilinogen (0.2-1.0) EU/dL Ur Leukocyte Esterase (NEGATIVE) Urine RBC (0-5) Urine WBC (0-5) Ur Epithelial Cells Urine Bacteria Meds: Medications Discontinued Medications Generic Name Dose Route Start Last Admin Trade Name Freq PRN Reason Stop Dose Admin Aspirin 324 mg 05/13/20 11:17 05/13/20 11:35 Aspirin PO 05/13/20 11:18 324 mg ONETIME ONE Administration Departure - Departure Time of Disposition: 13:15 Disposition: Home, Self-Care 01 Condition: Good Clinical Impression: Strain of chest wall - Discharge Information *PRESCRIPTION DRUG MONITORING PROGRAM REVIEWED*: No *COPY OF PRESCRIPTION DRUG MONITORING REPORT IN PATIENT ARIS: No Referrals: PCP,None [Primary Care Provider] - Forms: ED Department Discharge Additional Instructions: Take Tylenol or ibuprofen for pain. See your doctor if not better. Sepsis Event Note (ED) - Evaluation Sepsis Screening Result: No Definite Risk - Focused Exam Vital Signs: Vital Signs Temp Pulse Resp BP Pulse Ox 05/13/20 11:37 80 12 188/130 H 95 05/13/20 10:55 80 18 188/130 H 96 05/13/20 10:40 36.1 C 84 18 212/135 H 95 05/13/20 10:37 84 18 212/135 H 95 - My Orders Last 24 Hours: My Active Orders 05/13/20 11:19 Chest 2V [CR] Stat - Assessment/Plan Last 24 Hours: My Active Orders 05/13/20 11:19 Chest 2V [CR] Stat Assessment:: No sign of CT, PE or rib fracture. He can take OTC analgesics and follow up with his primary care provider.
--- NOTE | 2020-05-15 09:12 | CR ---
CHEST: 2 view CLINICAL HISTORY:Cough COMPARISON:2019 FINDINGS: The heart size, pulmonary vascularity and hilar structures are normal. No infiltrate effusion or pneumothorax is seen. IMPRESSION: No acute cardiopulmonary process.
== END 2020-05-13 13:31 | disposition home or self-care (01) ==
LOC: JP.ED 10:11
DX: S29.011A Strain of muscle and tendon of front wall of thorax, initial encounter (principal); E78.00 Pure hypercholesterolemia, unspecified; I10 Essential (primary) hypertension; J44.9 Chronic obstructive pulmonary disease, unspecified; M10.9 Gout, unspecified; E11.9 Type 2 diabetes mellitus without complications; F17.210 Nicotine dependence, cigarettes, uncomplicated; E66.9 Obesity, unspecified; Z68.42 Body mass index [BMI] 45.0-49.9, adult; Z88.1 Allergy status to other antibiotic agents; Z88.0 Allergy status to penicillin; Z79.84 Long term (current) use of oral hypoglycemic drugs; Z79.899 Other long term (current) drug therapy; W19.XXXA Unspecified fall, initial encounter
CPT/HCPCS: 36415; 71046; 80053; 81001; 84484; 85025; 85379; 99285; A9270

== ENCOUNTER 2020-06-18 19:00 | Emergency (ER) | payer MEDICAID ==
--- NOTE | 2020-06-18 19:20 | EDM.PDOC ---
ED HPI GENERAL MEDICAL PROBLEM - General Chief Complaint: Back Pain or Injury Stated Complaint: LOWER BACK PAIN Time Seen by Provider: 06/18/20 19:14 Source of Information: Reports: Patient History Limitations: Reports: No Limitations - History of Present Illness INITIAL COMMENTS - FREE TEXT/NARRATIVE: 44-year-old male with a history of chronic low back problems presents to the emergency department with an acute exacerbation. The pain started yesterday without any specific triggers. His pain is moderate intensity. Is aggravated by movement. He reports no pain into his lower extremities. Denies numbness or weakness. No bowel or bladder problems. He denies saddle paresthesias. Denies chills or fever. He is immunocompetent other than diabetes. Right Lower Back Pain Score (Numeric/FACES): 5 - Related Data Allergies Allergy/AdvReac Type Severity Reaction Status Date / Time amoxicillin [Amoxicillin] Allergy Rash Verified 06/18/20 19:05 erythromycin base Allergy Rash Verified 06/18/20 19:05 [Erythromycin Base] Penicillins Allergy Rash Verified 06/18/20 19:05 Home Meds: Home Meds Acetaminophen [Tylenol Extra Strength] 650 mg PO BID 12/04/13 [History] Lisinopril 20 mg PO DAILY 12/04/13 [History] Omeprazole 20 mg PO DAILY PRN 12/04/13 [History] metFORMIN [Glucophage] 1,000 mg PO BIDM 12/04/13 [History] Colchicine 0.6 mg PO BID PRN 04/08/17 [History] Sennosides [Senna] 1 tab PO BID PRN 04/08/17 [History] Albuterol [Proventil HFA] 2 puff INH Q4H PRN 12/08/17 [History] Mupirocin Oint [Bactroban Oint] 1 applic TP DAILY 12/08/17 [History] Ondansetron [Zofran ODT] 4 mg PO Q8H PRN 12/08/17 [History] Triamcinolone Acetonide [Kenalog 0.1% Crm] 1 applic TOP TID PRN 12/08/17 [History] glipiZIDE [Glucotrol] 5 mg PO BID 12/08/17 [History] amLODIPine [Norvasc] 5 mg PO BID 12/09/17 [History] Ammonium Lactate [Lac-Hydrin 12% Crm] 140 gm TOP BID 03/09/19 [History] Gabapentin [Neurontin] 1 cap PO BID 03/09/19 [History] Latanoprost 1 drop EYEBOTH BEDTIME 03/09/19 [History] Naproxen [Naprosyn] 500 mg PO BID 03/09/19 [History] Liraglutide [Victoza 3-Henrik] 1.8 mg SQ BID 12/16/19 [History] Past Medical History HEENT History: Reports: Impaired Vision Cardiovascular History: Reports: High Cholesterol, Hypertension Respiratory History: Reports: COPD Gastrointestinal History: Reports: Chronic Diarrhea, Other (See Below) Other Gastrointestinal History: Perirectal abscess Genitourinary History: Reports: Other (See Below) Other Genitourinary History: urinary frequency Musculoskeletal History: Reports: Back Pain, Chronic, Gout, Other (See Below) Other Musculoskeletal History: c/o back pain lower back Neurological History: Reports: Vertigo, Other (See Below) Other Neuro History: spinal stenosis of lumbar region Psychiatric History: Reports: Learning Disability Endocrine/Metabolic History: Reports: Diabetes, Type II, Obesity/BMI 30+ - Infectious Disease History Infectious Disease History: Reports: Chicken Pox, Measles - Past Surgical History GI Surgical History: Reports: Cholecystectomy, Hernia Repair/Other Social & Family History - Caffeine Use Caffeine Use: Reports: Coffee, Soda - Living Situation & Occupation Living situation: Reports: with Significant Other, with Family Occupation: Employed ED ROS GENERAL - Review of Systems Review Of Systems: See Below Constitutional: Denies: Fever, Chills Musculoskeletal: Reports: Back Pain Neurological: Denies: Numbness, Weakness ED EXAM,LOWER BACK PAIN/INJURY - Physical Exam Exam: See Below Exam Limited By: No Limitations General Appearance: Alert, WD/WN, Mild Distress Back Exam: No: CVA Tenderness (R), CVA Tenderness (L), Vertebral Tenderness Neurological: Normal Dorsiflexion, No Motor/Sensory Deficits Psychiatric: Normal Affect, Normal Mood Course - Vital Signs Text/Narrative:: This patient, who has a history of chronic low back pain, has an acute exacerbation. He has no red flag symptoms. The [facility] Web site was reviewed for this patient and he has had no prescriptions for controlled substances in the past 3 or 4 months. He was given a prescription for 12 tramadol 50 mg 1 every 6 hours as needed pain. He will follow-up with his primary care provider. He will return here if he has any problems. Last Recorded V/S: Last Vital Signs Temp 36.1 C 06/18/20 19:37 Pulse 106 H 06/18/20 19:37 Resp 16 06/18/20 19:37 BP 180/110 H 06/18/20 19:37 Pulse Ox 97 06/18/20 19:37 Departure - Departure Time of Disposition: 20:00 Disposition: Home, Self-Care 01 Condition: Good Clinical Impression: Low back pain - Discharge Information *PRESCRIPTION DRUG MONITORING PROGRAM REVIEWED*: Yes *COPY OF PRESCRIPTION DRUG MONITORING REPORT IN PATIENT ARIS: No Instructions: Muscle Strain, [id number] Referrals: Cam Blair MD [Primary Care Provider] - Forms: ED Department Discharge Additional Instructions: Take Tramadol as needed for pain. Follow up with your doctor soon. Return to the ER as needed. Sepsis Event Note (ED) - Focused Exam Vital Signs: Vital Signs Temp Pulse Resp BP Pulse Ox 06/18/20 19:37 36.1 C 106 H 16 180/110 H 97
[2020-06-18 19:38] VITALS: BP 180/110; PULSE 106
[2020-06-18] MEDS ORDERED: Ketorolac 30 MG/ML SDV IM ONE (20:09)
== END 2020-06-18 20:31 | disposition home or self-care (01) ==
LOC: JP.ED 19:00
DX: M54.5 Low back pain (principal); G89.29 Other chronic pain; I10 Essential (primary) hypertension; J44.9 Chronic obstructive pulmonary disease, unspecified; M10.9 Gout, unspecified; E11.9 Type 2 diabetes mellitus without complications; E66.9 Obesity, unspecified; Z68.42 Body mass index [BMI] 45.0-49.9, adult; Z88.1 Allergy status to other antibiotic agents; Z88.0 Allergy status to penicillin; Z79.899 Other long term (current) drug therapy; Z79.84 Long term (current) use of oral hypoglycemic drugs
CPT/HCPCS: 96372; 99283; J1885

== ENCOUNTER 2020-07-18 10:01 | Emergency (ER) | payer MEDICAID ==
[2020-07-18] MEDS ORDERED: metFORMIN 500 MG Tab PO ONE (10:04)
[2020-07-18] MEDS ORDERED: Lisinopril 10 MG Tab PO ONE (10:06)
[2020-07-18] MEDS ORDERED: amLODIPine 5 MG Tab PO ONE (10:06)
--- NOTE | 2020-07-18 10:10 | EDM.PDOC ---
ED HPI GENERAL MEDICAL PROBLEM - General Chief Complaint: General Stated Complaint: MEDICAL VIA [place] Time Seen by Provider: 07/18/20 10:07 Source of Information: Reports: Patient, EMS, Old Records History Limitations: Reports: No Limitations - History of Present Illness INITIAL COMMENTS - FREE TEXT/NARRATIVE: 45 yo male brought in by EMS for lethargy. He was reportedly meeting his girlfriend in the park and she thought he was not acting normally. He has a pHx of HTN/DM and of being very noncompliant with his meds. EMS reported a BS of nearly 400 en route(380). Sees Dr. Blair as his primary. Has a PHx of chronic low back pain. Also has a hx of being mentally slow. Tells nursing that he has not been sleeping well. Onset: Unknown/Unsure Location: Reports: Generalized Quality: Reports: Other (pain not reported) Improves with: Reports: Other (unknown) Worsens with: Reports: Other (unknown) Context: Reports: Other (See HPI) Associated Symptoms: Reports: Other (lethargy, sleep) Treatments [employer]: Reports: Other (see below) (none) denies Pain Score (Numeric/FACES): 0 - Related Data Allergies Allergy/AdvReac Type Severity Reaction Status Date / Time amoxicillin [Amoxicillin] Allergy Rash Verified 06/18/20 19:05 erythromycin base Allergy Rash Verified 06/18/20 19:05 [Erythromycin Base] Penicillins Allergy Rash Verified 06/18/20 19:05 Home Meds: Home Meds Acetaminophen [Tylenol Extra Strength] 650 mg PO BID 12/04/13 [History] Lisinopril 20 mg PO DAILY 12/04/13 [History] Omeprazole 20 mg PO DAILY PRN 12/04/13 [History] metFORMIN [Glucophage] 1,000 mg PO BIDM 12/04/13 [History] Colchicine 0.6 mg PO BID PRN 04/08/17 [History] Sennosides [Senna] 1 tab PO BID PRN 04/08/17 [History] Albuterol [Proventil HFA] 2 puff INH Q4H PRN 12/08/17 [History] Mupirocin Oint [Bactroban Oint] 1 applic TP DAILY 12/08/17 [History] Ondansetron [Zofran ODT] 4 mg PO Q8H PRN 12/08/17 [History] Triamcinolone Acetonide [Kenalog 0.1% Crm] 1 applic TOP TID PRN 12/08/17 [History] glipiZIDE [Glucotrol] 5 mg PO BID 12/08/17 [History] amLODIPine [Norvasc] 5 mg PO BID 12/09/17 [History] Ammonium Lactate [Lac-Hydrin 12% Crm] 140 gm TOP BID 03/09/19 [History] Gabapentin [Neurontin] 1 cap PO BID 03/09/19 [History] Latanoprost 1 drop EYEBOTH BEDTIME 03/09/19 [History] Naproxen [Naprosyn] 500 mg PO BID 03/09/19 [History] Liraglutide [Victoza 3-Henrik] 1.8 mg SQ BID 12/16/19 [History] Past Medical History HEENT History: Reports: Impaired Vision Cardiovascular History: Reports: High Cholesterol, Hypertension Respiratory History: Reports: COPD Gastrointestinal History: Reports: Chronic Diarrhea, Other (See Below) Other Gastrointestinal History: Perirectal abscess Genitourinary History: Reports: Other (See Below) Other Genitourinary History: urinary frequency Musculoskeletal History: Reports: Back Pain, Chronic, Gout, Other (See Below) Other Musculoskeletal History: c/o back pain lower back Neurological History: Reports: Vertigo, Other (See Below) Other Neuro History: spinal stenosis of lumbar region Psychiatric History: Reports: Learning Disability Endocrine/Metabolic History: Reports: Diabetes, Type II, Obesity/BMI 30+ - Infectious Disease History Infectious Disease History: Reports: Chicken Pox, Measles - Past Surgical History GI Surgical History: Reports: Cholecystectomy, Hernia Repair/Other Social & Family History - Caffeine Use Caffeine Use: Reports: Coffee, Soda - Living Situation & Occupation Living situation: Reports: with Significant Other, with Family Occupation: Employed ED ROS GENERAL - Review of Systems Review Of Systems: Unable To Obtain (patient either not able or not willing to cooperate.) Reason Not Obtained: not fully cooperative Constitutional: Reports: Malaise, Other (letharty) ED EXAM, GENERAL - Physical Exam Exam: See Below Exam Limited By: Other (lethargy, not following direction well.) General Appearance: WD/WN, No Apparent Distress, Lethargic, Obese. No: Alert Eye Exam: Bilateral Eye: Normal Inspection Ears: Normal External Exam, Normal Canal Ear Exam: Bilateral Ear: Auricle Normal, Canal Normal Nose: Normal Inspection, No Blood Throat/Mouth: Normal Inspection, Normal Lips, No Airway Compromise Head: Atraumatic, Normocephalic Neck: Normal Inspection Respiratory/Chest: No Respiratory Distress, Lungs Clear, Normal Breath Sounds, No Accessory Muscle Use Cardiovascular: Regular Rate, Rhythm, No Edema GI/Abdominal: Normal Bowel Sounds, Soft, Non-Tender, No Distention Extremities: Normal Inspection, Non-Tender, No Pedal Edema Neurological: Inattentive, Slow to Respond Skin Exam: Warm, Dry, Intact, Normal Color, No Rash Course - Vital Signs Last Recorded V/S: Last Vital Signs Temp 36.6 C 07/18/20 10:12 Pulse 70 07/18/20 10:12 Resp 20 07/18/20 10:12 BP 196/102 H 07/18/20 10:43 Pulse Ox 96 07/18/20 10:12 - Orders/Labs/Meds Orders: Active Orders 24 hr Category Date Time Status Liraglutide [Victoza] Med 07/18/20 10:15 Active 1.8 mg SUBCUT DAILY glipiZIDE [Glucotrol] Med 07/18/20 10:15 Active 5 mg PO DAILY Medication Orders Glipizide (Glucotrol) 5 mg PO DAILY [facility] Last Admin: 07/18/20 10:41 Dose: 5 mg Documented by: EUFEMIA Liraglutide (Victoza) 1.8 mg SUBCUT DAILY [facility] Last Admin: 07/18/20 10:37 Dose: 1.8 units Documented by: EUFEMIA Labs: Laboratory Tests 07/18/20 07/18/20 07/18/20 Range/Units 10:18 10:18 11:00 WBC 8.5 (4.5-11.0) K/uL RBC 6.21 H (4.30-5.90) M/uL Hgb 17.2 H (12.0-15.0) g/dL Hct 53.5 (40.0-54.0) % MCV 86 (80-98) fL MCH 28 (27-31) pg MCHC 32 (32-36) % Plt Count 143 L (150-400) K/uL Sodium 141 (140-148) mmol/L Potassium 3.5 L (3.6-5.2) mmol/L Chloride 101 (100-108) mmol/L Carbon Dioxide 32 (21-32) mmol/L Anion Gap 11.5 (5.0-14.0) mmol/L BUN 9 (7-18) mg/dL Creatinine 1.2 (0.8-1.3) mg/dL Est Cr Clr Drug Dosing 76.00 mL/min Estimated GFR (MDRD) > 60 (>60) Glucose 326 H (74-106) mg/dL Calcium 8.3 L (8.5-10.1) mg/dL Urine Color Yellow (YELLOW) Urine Appearance Clear (CLEAR) Urine pH 7.0 (5.0-8.0) Ur Specific [place] 1.020 (1.008-1.030) Urine Protein 100 H (NEGATIVE) mg/dL Urine Glucose (UA) 500 H (NEGATIVE) mg/dL Urine Ketones Trace H (NEGATIVE) mg/dL Urine Occult Blood Trace-intact H (NEGATIVE) Urine Nitrite Negative (NEGATIVE) Urine Bilirubin Negative (NEGATIVE) Urine Urobilinogen 0.2 (0.2-1.0) EU/dL Ur Leukocyte Esterase Negative (NEGATIVE) Urine RBC Not seen (0-5) Urine WBC Not seen (0-5) Ur Epithelial Cells Rare Amorphous Sediment Rare Urine Bacteria Not seen Urine Mucus Not seen Urine Opiates Screen (NEGATIVE) Ur Oxycodone Screen (NEGATIVE) Urine Methadone Screen (NEGATIVE) Ur Propoxyphene Screen (NEGATIVE) Ur Barbiturates Screen (NEGATIVE) Ur Tricyclics Screen (NEGATIVE) Ur Phencyclidine Scrn (NEGATIVE) Ur Amphetamine Screen (NEGATIVE) U Methamphetamines Scrn (NEGATIVE) Urine MDMA Screen (NEGATIVE) U Benzodiazepines Scrn (NEGATIVE) U Cocaine Metab Screen (NEGATIVE) U Marijuana (THC) Screen (NEGATIVE) 07/18/20 Range/Units 11:00 WBC (4.5-11.0) K/uL RBC (4.30-5.90) M/uL Hgb (12.0-15.0) g/dL Hct (40.0-54.0) % MCV (80-98) fL MCH (27-31) pg MCHC (32-36) % Plt Count (150-400) K/uL Sodium (140-148) mmol/L Potassium (3.6-5.2) mmol/L Chloride (100-108) mmol/L Carbon Dioxide (21-32) mmol/L Anion Gap (5.0-14.0) mmol/L BUN (7-18) mg/dL Creatinine (0.8-1.3) mg/dL Est Cr Clr Drug Dosing mL/min Estimated GFR (MDRD) (>60) Glucose (74-106) mg/dL Calcium (8.5-10.1) mg/dL Urine Color (YELLOW) Urine Appearance (CLEAR) Urine pH (5.0-8.0) Ur Specific [place] (1.008-1.030) Urine Protein (NEGATIVE) mg/dL Urine Glucose (UA) (NEGATIVE) mg/dL Urine Ketones (NEGATIVE) mg/dL Urine Occult Blood (NEGATIVE) Urine Nitrite (NEGATIVE) Urine Bilirubin (NEGATIVE) Urine Urobilinogen (0.2-1.0) EU/dL Ur Leukocyte Esterase (NEGATIVE) Urine RBC (0-5) Urine WBC (0-5) Ur Epithelial Cells Amorphous Sediment Urine Bacteria Urine Mucus Urine Opiates Screen Negative (NEGATIVE) Ur Oxycodone Screen Negative (NEGATIVE) Urine Methadone Screen Negative (NEGATIVE) Ur Propoxyphene Screen Negative (NEGATIVE) Ur Barbiturates Screen Negative (NEGATIVE) Ur Tricyclics Screen Negative (NEGATIVE) Ur Phencyclidine Scrn Negative (NEGATIVE) Ur Amphetamine Screen Negative (NEGATIVE) U Methamphetamines Scrn Negative (NEGATIVE) Urine MDMA Screen Negative (NEGATIVE) U Benzodiazepines Scrn Negative (NEGATIVE) U Cocaine Metab Screen Negative (NEGATIVE) U Marijuana (THC) Screen Negative (NEGATIVE) Meds: Medications Generic Name Dose Route Start Last Admin Trade Name Freq PRN Reason Stop Dose Admin Glipizide 5 mg 07/18/20 10:15 07/18/20 10:41 Glucotrol PO 5 mg DAILY LYNN Administration Liraglutide 1.8 mg 07/18/20 10:15 07/18/20 10:37 Victoza SUBCUT 1.8 units DAILY LYNN Administration Discontinued Medications Generic Name Dose Route Start Last Admin Trade Name Freq PRN Reason Stop Dose Admin Amlodipine Besylate 5 mg 07/18/20 10:06 07/18/20 10:41 Norvasc PO 07/18/20 10:07 5 mg ONETIME ONE Administration Insulin Human Regular 10 unit 07/18/20 11:03 Humulin R SUBCUT 07/18/20 11:04 ONETIME ONE Lisinopril 20 mg 07/18/20 10:30 07/18/20 10:43 Prinivil PO 07/18/20 10:31 20 mg ONETIME ONE Administration Metformin HCl 1,000 mg 07/18/20 10:04 07/18/20 10:39 Glucophage PO 07/18/20 10:05 1,000 mg ONETIME ONE Administration Departure - Departure Time of Disposition: 11:35 Disposition: Home, Self-Care 01 Condition: Fair Clinical Impression: Medical non-compliance, HTN, goal below 130/80, Elevated blood sugar level, Somnolence - Discharge Information *PRESCRIPTION DRUG MONITORING PROGRAM REVIEWED*: Not Applicable *COPY OF PRESCRIPTION DRUG MONITORING REPORT IN PATIENT ARIS: Not Applicable Instructions: Hyperglycemia, [id number] Referrals: PCP,None [Primary Care Provider] - Forms: ED Department Discharge Additional Instructions: See your doctor for recheck this week, call for an appt. Make sure you are taking all your medications as prescribed. No driving today or while you are so sleepy. Sepsis Event Note (ED) - Focused Exam Vital Signs: Vital Signs Temp Pulse Resp BP BP Pulse Ox 07/18/20 10:43 196/102 H 07/18/20 10:41 192/106 H 07/18/20 10:12 36.6 C 70 20 192/106 H 96 - My Orders Last 24 Hours: My Active Orders 07/18/20 10:15 Liraglutide [Victoza] 1.8 mg SUBCUT DAILY glipiZIDE [Glucotrol] 5 mg PO DAILY - Assessment/Plan Last 24 Hours: My Active Orders 07/18/20 10:15 Liraglutide [Victoza] 1.8 mg SUBCUT DAILY glipiZIDE [Glucotrol] 5 mg PO DAILY
[2020-07-18] MEDS ORDERED: glipiZIDE 5 MG Tab PO SCH (10:15)
[2020-07-18] MEDS ORDERED: Liraglutide (rDNA Origin) 0.6 MG/0.1 ML 3 ML Pen SUBCUT SCH (10:15)
[2020-07-18] MEDS ORDERED: Lisinopril 20 MG Tab PO ONE (10:30)
[2020-07-18] MEDS ORDERED: Insulin Regular, Human 100 Units/ML 3 ML Vial SUBCUT ONE (11:03)
[2020-07-18 11:50] VITALS: BP 183/90; PULSE 58
== END 2020-07-18 11:50 | disposition home or self-care (01) ==
LOC: JP.ED 10:01
DX: E11.65 Type 2 diabetes mellitus with hyperglycemia (principal); I10 Essential (primary) hypertension; J44.9 Chronic obstructive pulmonary disease, unspecified; E66.9 Obesity, unspecified; Z68.42 Body mass index [BMI] 45.0-49.9, adult; Z88.0 Allergy status to penicillin; Z88.1 Allergy status to other antibiotic agents; Z79.899 Other long term (current) drug therapy; Z79.84 Long term (current) use of oral hypoglycemic drugs; Z91.14 Patient's other noncompliance with medication regimen
CPT/HCPCS: 36415; 80048; 80305; 81001; 85027; 99285; A9270; J1815; 99284

== ENCOUNTER 2020-09-01 13:11 | Inpatient (IN) | payer MEDICAID, OTHER ==
[2020-09-01] MEDS ORDERED: Cefepime 1 GM in Sodium Chloride 0.9% 50 ML IV SCH ×2 (13:30→21:00)
[2020-09-01] MEDS ORDERED: Lactated Ringers 1,000 ML IV SCH (13:30)
--- NOTE | 2020-09-01 13:36 | EDM.PDOC ---
ED HPI GENERAL MEDICAL PROBLEM - General Chief Complaint: Fever Stated Complaint: [facility] Time Seen by Provider: 09/01/20 13:31 Source of Information: Reports: Patient, EMS History Limitations: Reports: Altered Mental Status - History of Present Illness INITIAL COMMENTS - FREE TEXT/NARRATIVE: 45-year-old gentleman presents emergency department today with change in mental status, he is a [facility] resident he is a DNR/DNI he has a history of cerebrovascular hemorrhage over the last for 5 days he has progressively been declining initially was found to have a fever in the [facility] COVID test initially done was negative repeat testing was done today. Per staff report his mentation has declined he used to ambulate that now has declined he is now become incontinent of urine. He is slow to respond gives 1 word sentences is somnolent and will fall back asleep if not stimulated - Related Data Allergies Allergy/AdvReac Type Severity Reaction Status Date / Time amoxicillin [Amoxicillin] Allergy Intermediate Rash Verified 09/01/20 14:28 erythromycin base Allergy Intermediate Rash Verified 09/01/20 14:28 [Erythromycin Base] Penicillins Allergy Intermediate Rash Verified 09/01/20 14:28 hydrocodone Allergy Unknown Other Verified 09/01/20 14:28 Home Meds: Home Meds Acetaminophen [Tylenol Extra Strength] 650 mg PO BID 12/04/13 [History] Lisinopril 20 mg PO DAILY 12/04/13 [History] metFORMIN [Glucophage] 1,000 mg PO BIDM 12/04/13 [History] Sennosides [Senna] 1 tab PO BID PRN 04/08/17 [History] Ondansetron [Zofran ODT] 4 mg PO Q8H PRN 12/08/17 [History] Triamcinolone Acetonide [Kenalog 0.1% Crm] 1 applic TOP TID PRN 12/08/17 [History] Gabapentin [Neurontin] 300 cap PO BID 03/09/19 [History] Latanoprost 1 drop EYEBOTH BEDTIME 03/09/19 [History] Albuterol Sulfate [Albuterol Sulfate Hfa] 2 puff IN ASDIRECTED PRN 09/01/20 [History] Insulin Aspart [NovoLOG] 4 units SUBCNJ QID 09/01/20 [History] Insulin Glarg,Human.Rec.Analog [Lantus Solostar] 34 unit SUBCNJ ACBREAKFAST 09/01/20 [History] Labetalol HCl [Labetalol] 200 mg PO BID 09/01/20 [History] Simvastatin 20 mg PO BEDTIME 09/01/20 [History] Tamsulosin [Flomax] 0.4 mg PO BEDTIME 09/01/20 [History] Triamterene/Hydrochlorothiazid [Dyazide 37.5-25 Capsule] 1 cap PO DAILY 09/01/20 [History] Past Medical History HEENT History: Reports: Impaired Vision Cardiovascular History: Reports: High Cholesterol, Hypertension Respiratory History: Reports: COPD Gastrointestinal History: Reports: Chronic Diarrhea, Other (See Below) Other Gastrointestinal History: Perirectal abscess Genitourinary History: Reports: Other (See Below) Other Genitourinary History: urinary frequency Musculoskeletal History: Reports: Back Pain, Chronic, Gout, Other (See Below) Other Musculoskeletal History: c/o back pain lower back Neurological History: Reports: CVA, Vertigo, Other (See Below) Other Neuro History: spinal stenosis of lumbar region Psychiatric History: Reports: Learning Disability Endocrine/Metabolic History: Reports: Diabetes, Type II, Obesity/BMI 30+ - Infectious Disease History Infectious Disease History: Reports: Chicken Pox, Measles - Past Surgical History GI Surgical History: Reports: Cholecystectomy, Hernia Repair/Other Social & Family History - Caffeine Use Caffeine Use: Reports: Coffee, Soda - Living Situation & Occupation Living situation: Reports: with Significant Other, with Family Occupation: Employed ED ROS GENERAL - Review of Systems Review Of Systems: See Below Constitutional: Reports: Fever, Chills, Weakness HEENT: Reports: No Symptoms Respiratory: Reports: Other (Hypoxic) Cardiovascular: Reports: Edema GI/Abdominal: Reports: No Symptoms : Reports: Incontinence ED EXAM, SEPSIS - Physical Exam Exam: See Below Exam Limited By: Altered Mental Status General Appearance: Alert, Lethargic (Arousable with speech GCS of 15 but then becomes somnolent when not stimulated) Eye Exam: Bilateral Eye: Normal Inspection, PERRL Neck: Normal Inspection, Supple, Non-Tender, Full Range of Motion Respiratory/Chest: No Accessory Muscle Use, Decreased Breath Sounds Cardiovascular: No Murmur, Tachycardia, Other (Upper extremity edema) GI/Abdominal Exam: Soft, Non-Tender, Other (Obese) Course - Vital Signs Last Recorded V/S: Last Vital Signs Temp 104.1 F H 09/01/20 14:50 Pulse 119 H 09/01/20 16:14 Resp 41 H 09/01/20 15:35 BP 98/44 L 09/01/20 16:14 Pulse Ox 95 09/01/20 16:14 - Orders/Labs/Meds Orders: Active Orders 24 hr Category Date Time Status Vital Signs [RC] Q1H Care 09/01/20 13:22 Active ABG [BLOOD GAS ARTERIAL] [BG] Stat Lab 09/01/20 15:56 Ordered CULTURE BLOOD [BC] Urgent Lab 09/01/20 13:35 Received CULTURE BLOOD [BC] Urgent Lab 09/01/20 13:50 Received Lactated Ringers [Ringers, Lactated] 1,000 ml Med 09/01/20 13:30 Active IV ASDIRECTED Blood Culture x2 Reflex Set [OM.PC] Urgent Oth 09/01/20 13:22 Ordered Severe Sepsis Onset Time [OM.PC] Stat Oth 09/01/20 13:22 Ordered Medication Orders Lactated Ringer's (Ringers, Lactated) 1,000 mls @ 999 mls/hr IV ASDIRECTED LYNN Last Admin: 09/01/20 14:15 Dose: 999 mls/hr Documented by: NIKO Labs: Laboratory Tests 09/01/20 09/01/20 09/01/20 Range/Units 13:22 13:35 13:35 WBC 23.3 H (4.5-11.0) K/uL RBC 4.37 (4.30-5.90) M/uL Hgb 12.7 (12.0-15.0) g/dL Hct 38.8 L (40.0-54.0) % MCV 89 (80-98) fL MCH 29 (27-31) pg MCHC 33 (32-36) % Plt Count 162 (150-400) K/uL Add Manual Diff Yes Neutrophils % (Manual) 64 (36-66) % Band Neutrophils % 22 H (5-11) % Lymphocytes % (Manual) 5 L (24-44) % Monocytes % (Manual) 9 H (2-6) % PT 13.3 H (9.5-12.0) sec INR 1.23 H (0.80-1.20) APTT 31.1 (27.0-36.0) sec Puncture Site Lt brachial ABG pH 7.492 H (7.350-7.450) ABG pCO2 32.9 L (35.0-42.0) mmHg ABG pO2 80.6 (75.0-100.0) mmHg ABG HCO3 24.9 (22.0-26.0) mmol/L ABG Total CO2 22.0 L (23.0-27.0) mmol/L ABG O2 Saturation 97.3 (95.0-98.0) % ABG O2 Content 16.4 (15.0-23.0) %vol ABG Base Excess 2.4 mm/L ABG Hemoglobin 12.3 L (13.5-18.0) g/dL ABG Oxyhemoglobin 94.8 % ABG Carboxyhemoglobin 2.0 H (0.0-1.6) % ABG Methemoglobin 0.6 % Javon Test Not performed O2 Delivery Device Nasal cannula Oxygen Flow Rate 1.5 L Sodium (140-148) mmol/L Potassium (3.6-5.2) mmol/L Chloride (100-108) mmol/L Carbon Dioxide (21-32) mmol/L Anion Gap (5.0-14.0) mmol/L BUN (7-18) mg/dL Creatinine (0.8-1.3) mg/dL Est Cr Clr Drug Dosing mL/min Estimated GFR (MDRD) (>60) Glucose (74-106) mg/dL Lactic Acid (0.4-2.0) mmol/L Calcium (8.5-10.1) mg/dL Total Bilirubin (0.2-1.0) mg/dL AST (15-37) U/L ALT (12-78) U/L Alkaline Phosphatase (46-116) U/L Troponin I (0.000-0.056) ng/mL C-Reactive Protein (0.0-0.3) mg/dL Total Protein (6.4-8.2) g/dL Albumin (3.4-5.0) g/dL Globulin (2.3-3.5) g/dL Albumin/Globulin Ratio (1.2-2.2) Lipase (73-393) U/L Procalcitonin ng/mL Urine Color (YELLOW) Urine Appearance (CLEAR) Urine pH (5.0-8.0) Ur Specific Spiro (1.008-1.030) Urine Protein (NEGATIVE) mg/dL Urine Glucose (UA) (NEGATIVE) mg/dL Urine Ketones (NEGATIVE) mg/dL Urine Occult Blood (NEGATIVE) Urine Nitrite (NEGATIVE) Urine Bilirubin (NEGATIVE) Urine Urobilinogen (0.2-1.0) EU/dL Ur Leukocyte Esterase (NEGATIVE) Urine RBC (0-5) Urine WBC (0-5) Ur Epithelial Cells Urine Bacteria 09/01/20 09/01/20 09/01/20 Range/Units 13:35 13:35 14:00 WBC (4.5-11.0) K/uL RBC (4.30-5.90) M/uL Hgb (12.0-15.0) g/dL Hct (40.0-54.0) % MCV (80-98) fL MCH (27-31) pg MCHC (32-36) % Plt Count (150-400) K/uL Add Manual Diff Neutrophils % (Manual) (36-66) % Band Neutrophils % (5-11) % Lymphocytes % (Manual) (24-44) % Monocytes % (Manual) (2-6) % PT (9.5-12.0) sec INR (0.80-1.20) APTT (27.0-36.0) sec Puncture Site ABG pH (7.350-7.450) ABG pCO2 (35.0-42.0) mmHg ABG pO2 (75.0-100.0) mmHg ABG HCO3 (22.0-26.0) mmol/L ABG Total CO2 (23.0-27.0) mmol/L ABG O2 Saturation (95.0-98.0) % ABG O2 Content (15.0-23.0) %vol ABG Base Excess mm/L ABG Hemoglobin (13.5-18.0) g/dL ABG Oxyhemoglobin % ABG Carboxyhemoglobin (0.0-1.6) % ABG Methemoglobin % Javon Test O2 Delivery Device Oxygen Flow Rate L Sodium 127 L (140-148) mmol/L Potassium 6.0 H (3.6-5.2) mmol/L Chloride 91 L (100-108) mmol/L Carbon Dioxide 28 (21-32) mmol/L Anion Gap 14.0 (5.0-14.0) mmol/L BUN 32 H (7-18) mg/dL Creatinine 3.5 H (0.8-1.3) mg/dL Est Cr Clr Drug Dosing 26.15 mL/min Estimated GFR (MDRD) 19 L (>60) Glucose 233 H (74-106) mg/dL Lactic Acid 4.1 H (0.4-2.0) mmol/L Calcium 8.4 L (8.5-10.1) mg/dL Total Bilirubin 0.8 (0.2-1.0) mg/dL AST 27 (15-37) U/L ALT 31 (12-78) U/L Alkaline Phosphatase 43 L (46-116) U/L Troponin I 0.048 (0.000-0.056) ng/mL C-Reactive Protein > 25.00 H (0.0-0.3) mg/dL Total Protein 7.2 (6.4-8.2) g/dL Albumin 2.7 L (3.4-5.0) g/dL Globulin 4.5 H (2.3-3.5) g/dL Albumin/Globulin Ratio 0.6 L (1.2-2.2) Lipase 113 (73-393) U/L Procalcitonin 51.23 H* ng/mL Urine Color (YELLOW) Urine Appearance (CLEAR) Urine pH (5.0-8.0) Ur Specific Spiro (1.008-1.030) Urine Protein (NEGATIVE) mg/dL Urine Glucose (UA) (NEGATIVE) mg/dL Urine Ketones (NEGATIVE) mg/dL Urine Occult Blood (NEGATIVE) Urine Nitrite (NEGATIVE) Urine Bilirubin (NEGATIVE) Urine Urobilinogen (0.2-1.0) EU/dL Ur Leukocyte Esterase (NEGATIVE) Urine RBC (0-5) Urine WBC (0-5) Ur Epithelial Cells Urine Bacteria 09/01/20 Range/Units 14:28 WBC (4.5-11.0) K/uL RBC (4.30-5.90) M/uL Hgb (12.0-15.0) g/dL Hct (40.0-54.0) % MCV (80-98) fL MCH (27-31) pg MCHC (32-36) % Plt Count (150-400) K/uL Add Manual Diff Neutrophils % (Manual) (36-66) % Band Neutrophils % (5-11) % Lymphocytes % (Manual) (24-44) % Monocytes % (Manual) (2-6) % PT (9.5-12.0) sec INR (0.80-1.20) APTT (27.0-36.0) sec Puncture Site ABG pH (7.350-7.450) ABG pCO2 (35.0-42.0) mmHg ABG pO2 (75.0-100.0) mmHg ABG HCO3 (22.0-26.0) mmol/L ABG Total CO2 (23.0-27.0) mmol/L ABG O2 Saturation (95.0-98.0) % ABG O2 Content (15.0-23.0) %vol ABG Base Excess mm/L ABG Hemoglobin (13.5-18.0) g/dL ABG Oxyhemoglobin % ABG Carboxyhemoglobin (0.0-1.6) % ABG Methemoglobin % Javon Test O2 Delivery Device Oxygen Flow Rate L Sodium (140-148) mmol/L Potassium (3.6-5.2) mmol/L Chloride (100-108) mmol/L Carbon Dioxide (21-32) mmol/L Anion Gap (5.0-14.0) mmol/L BUN (7-18) mg/dL Creatinine (0.8-1.3) mg/dL Est Cr Clr Drug Dosing mL/min Estimated GFR (MDRD) (>60) Glucose (74-106) mg/dL Lactic Acid (0.4-2.0) mmol/L Calcium (8.5-10.1) mg/dL Total Bilirubin (0.2-1.0) mg/dL AST (15-37) U/L ALT (12-78) U/L Alkaline Phosphatase (46-116) U/L Troponin I (0.000-0.056) ng/mL C-Reactive Protein (0.0-0.3) mg/dL Total Protein (6.4-8.2) g/dL Albumin (3.4-5.0) g/dL Globulin (2.3-3.5) g/dL Albumin/Globulin Ratio (1.2-2.2) Lipase (73-393) U/L Procalcitonin ng/mL Urine Color Yellow (YELLOW) Urine Appearance Cloudy A (CLEAR) Urine pH 5.0 (5.0-8.0) Ur Specific Spiro >= 1.030 (1.008-1.030) Urine Protein 100 H (NEGATIVE) mg/dL Urine Glucose (UA) Negative (NEGATIVE) mg/dL Urine Ketones Trace H (NEGATIVE) mg/dL Urine Occult Blood Trace-intact H (NEGATIVE) Urine Nitrite Negative (NEGATIVE) Urine Bilirubin Small H (NEGATIVE) Urine Urobilinogen 1.0 (0.2-1.0) EU/dL Ur Leukocyte Esterase Small H (NEGATIVE) Urine RBC 0-5 (0-5) Urine WBC Packed H (0-5) Ur Epithelial Cells Not seen Urine Bacteria Few Meds: Medications Generic Name Dose Route Start Last Admin Trade Name Freq PRN Reason Stop Dose Admin Lactated Ringer's 1,000 mls @ 999 mls/hr 09/01/20 13:30 09/01/20 14:15 Ringers, Lactated IV 999 mls/hr ASDIRECTED LYNN Administration Discontinued Medications Generic Name Dose Route Start Last Admin Trade Name Freq PRN Reason Stop Dose Admin Acetaminophen 650 mg 09/01/20 14:45 09/01/20 14:50 Tylenol PO 09/01/20 14:46 650 mg NOW ONE Administration Cefepime HCl 1 gm/ Sodium 50 mls @ 100 mls/hr 09/01/20 13:30 09/01/20 14:18 Chloride IV 100 mls/hr Q6H LYNN Administration Vancomycin HCl 2 gm/ Sodium 500 mls @ 250 mls/hr 09/01/20 14:30 Chloride IV 09/01/20 16:29 ONETIME ONE Lactated Ringer's 1,000 mls @ 999 mls/hr 09/01/20 14:19 09/01/20 14:29 Ringers, Lactated IV 09/01/20 15:19 999 mls/hr BOLUS ONE Administration Cefepime HCl 1 gm/ Sodium 50 mls @ 100 mls/hr 09/01/20 14:45 09/01/20 14:54 Chloride IV 09/01/20 15:14 100 mls/hr ONETIME ONE Administration Lactated Ringer's 1,000 mls @ 999 mls/hr 09/01/20 15:58 09/01/20 15:58 Ringers, Lactated IV 09/01/20 16:58 999 mls/hr BOLUS ONE Administration Lidocaine HCl Confirm 09/01/20 14:07 09/01/20 14:50 Xylocaine 2% Jelly Administered 09/01/20 14:08 Not Given Dose 10 ml .ROUTE .STK-MED ONE Lidocaine HCl 10 ml 09/01/20 14:45 09/01/20 14:50 Xylocaine 2% Jelly MUCMEM 09/01/20 14:46 10 ml ONETIME ONE Administration Departure - Departure Time of Disposition: 17:13 Disposition: Admitted As Inpatient 67 Condition: Fair (She) Clinical Impression: Sepsis due to urinary tract infection - Discharge Information Referrals: Cam Blair MD [Primary Care Provider] - Forms: ED Department Discharge Critical Care Note - Critical Care Note Total Time (mins): 30 Sepsis Event Note (ED) - Evaluation Sepsis Screening Result: Possible Severe Sepsis Risk - Focused Exam Vital Signs: Vital Signs Temp Temp Pulse Resp BP Pulse Ox 09/01/20 16:14 119 H 98/44 L 95 09/01/20 15:35 126 H 41 H 117/39 L 94 L 09/01/20 15:03 119 H 40 H 109/40 L 97 09/01/20 14:50 104.1 F H 09/01/20 14:34 219.4 F H 131 H 18 102/43 L 95 09/01/20 13:30 104.1 F H 126 H 30 H 84/65 L 97 09/01/20 13:29 104.1 F H 126 H 30 H 84/65 L 97 09/01/20 13:22 127 H 30 H 94/54 L 94 L - My Orders Last 24 Hours: My Active Orders 09/01/20 13:22 Vital Signs [RC] Q1H Blood Culture x2 Reflex Set [OM.PC] Urgent Severe Sepsis Onset Time [OM.PC] Stat 09/01/20 13:30 Lactated Ringers [Ringers, Lactated] 1,000 ml IV ASDIRECTED 09/01/20 13:35 CULTURE BLOOD [BC] Urgent 09/01/20 13:50 CULTURE BLOOD [BC] Urgent 09/01/20 15:56 ABG [BLOOD GAS ARTERIAL] [BG] Stat - Assessment/Plan Last 24 Hours: My Active Orders 09/01/20 13:22 Vital Signs [RC] Q1H Blood Culture x2 Reflex Set [OM.PC] Urgent Severe Sepsis Onset Time [OM.PC] Stat 09/01/20 13:30 Lactated Ringers [Ringers, Lactated] 1,000 ml IV ASDIRECTED 09/01/20 13:35 CULTURE BLOOD [BC] Urgent 09/01/20 13:50 CULTURE BLOOD [BC] Urgent 09/01/20 15:56 ABG [BLOOD GAS ARTERIAL] [BG] Stat Plan: Assessment Acuity = acute Site and laterality = sepsis secondary to urinary source Etiology = probable bacteria in urine Manifestations = hypoxic, tachycardia, hypotension Location of injury = Home Lab values = WBC elevated 23.3 consistent leukocytosis this is up from 16 at this morning's lab draw INR slightly elevated 1.23 pH 7.49 PCO2 32.9 bicarb 24.9 a PO2 of 80.6 consistent with primary respiratory alkalosis sodium low at 127 consistent hyponatremia potassium elevated 6.0 consistent hyperkalemia creatinine elevated 3.5 consistent with acute renal failure stage G4 glucose elevated to 33 consistent with hyperglycemia lactic acid elevated 4.1 consistent lactic acidosis troponin elevated 0.048 consistent probably related to kidney function CRP greater than 25 albumin low at 2.7 consistent hypoalbuminemia, chest x-ray shows cardiomegaly with small pleural effusion Plan Call discussed case with hospitalist on-call at 1700 he can agreed to come evaluate patient in the emergency department for admission] This note was dictated using [employer] voice recognition software please call with any questions on syntax or grammar.
[2020-09-01] MEDS ORDERED: Vancomycin 1 GM SDV IV SCH ×2 (14:00→20:39)
[2020-09-01] MEDS ORDERED: Lidocaine 2% Jelly 10 ML Urojet ONE (14:07)
[2020-09-01] MEDS ORDERED: Cefepime 2 GM in Sodium Chloride 0.9% 50 ML IV ONE (14:14)
[2020-09-01] MEDS ORDERED: Lactated Ringers 1,000 ML IV ONE ×2 (14:19→15:58)
[2020-09-01] MEDS ORDERED: Vancomycin 2 GM in Sodium Chloride 0.9% 500 ML IV ONE (14:30)
--- NOTE | 2020-09-01 14:43 | CR ---
CHEST: Portable 09/01/2020 at 2:07 PM CLINICAL HISTORY:Hypoxia COMPARISON:May 2020 FINDINGS: Patient position is lordotic. This exaggerates the upper mediastinum. Heart is enlarged. Pulmonary vascularity is mildly cephalized. No infiltrates are seen. There is a small left effusion.. Impression: Cardiomegaly with mild vascular cephalization. This may represent some pulmonary venous hypertension Small left effusion
[2020-09-01] MEDS ORDERED: Cefepime 1 GM in Sodium Chloride 0.9% 50 ML IV ONE (14:45)
[2020-09-01] MEDS ORDERED: Acetaminophen 325 MG Tab PO ONE (14:45)
[2020-09-01] MEDS ORDERED: Lidocaine 2% Jelly 10 ML Urojet MUCMEM ONE (14:45)
[2020-09-01] MEDS ORDERED: Norepinephrine 4 MG in Dextrose 5% in Water 246 ML IV SCH ×4 (17:15→20:39)
[2020-09-01] MEDS ORDERED: Sodium Polystyrene Sulfonate 15 GM/60 ML Susp 60 ML Bot PO STA (17:37)
[2020-09-01] MEDS ORDERED: Lactated Ringers 1,000 ML IV STA (18:11)
--- NOTE | 2020-09-01 19:41 | PCM.HP.2 ---
H&P History of Present Illness - General Date of Service: 09/01/20 Admit Problem/Dx: Admission Diagnosis/Problem Admission Diagnosis/Problem Sepsis Source of Information: Patient, Family, Provider, RN Notes Reviewed History Limitations: Reports: No Limitations - History of Present Illness Initial Comments - Free Text/Narative: Mr. Duran is a 45-year-old gentleman who was admitted through the emergency department with weakness and lethargy secondary to urinary tract infection with sepsis. 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 He had been living at the shelter and receiving physical therapy as well as occupational therapy. He had been ambulating about his room without assistance and out in the hallways with use of a walker. Over the last 2 days he had become progressively more weak and co nfused. On evaluation today at the shelter was noted to be tachycardic and hypotensive. He was referred to the emergency department for further evaluation. On arrival was noted again to have hypotension and tachycardia. He was felt to have probable sepsis and was given vigorous IV fluid replacement according to sepsis protocol. His white blood cell count was noted to be elevated with elevation in CRP and procalcitonin. Chest x-ray has shown no obvious infiltrate and urinalysis appears to be consistent with infection. Blood cultures were obtained and he was given a dose of cefepime in the emergency department. He did develop hypotension that was unresponsive to vigorous IV fluid replacement and has also been started on IV norepinephrine while in the ED. Blood pressure is stabilized with the use of norepinephrine. Respiratory rate noted to be elevated with borderline oxygenation despite supplemental oxygen. Arterial blood gases obtained on admission and were repeated show borderline oxygenation with hypocapnia consistent with increased work of breathing. While in the emergency department he was also started on noninvasive positive pressure ventilation. - Related Data Allergies/Adverse Reactions: Allergies Allergy/AdvReac Type Severity Reaction Status Date / Time amoxicillin [Amoxicillin] Allergy Intermediate Rash Verified 09/01/20 14:28 erythromycin base Allergy Intermediate Rash Verified 09/01/20 14:28 [Erythromycin Base] Penicillins Allergy Intermediate Rash Verified 09/01/20 14:28 hydrocodone Allergy Unknown Other Verified 09/01/20 14:28 Home Medications: Home Meds Acetaminophen [Tylenol Extra Strength] 650 mg PO BID 12/04/13 [History] Lisinopril 20 mg PO DAILY 12/04/13 [History] metFORMIN [Glucophage] 1,000 mg PO BIDM 12/04/13 [History] Sennosides [Senna] 1 tab PO BID PRN 04/08/17 [History] Ondansetron [Zofran ODT] 4 mg PO Q8H PRN 12/08/17 [History] Triamcinolone Acetonide [Kenalog 0.1% Crm] 1 applic TOP TID PRN 12/08/17 [History] Gabapentin [Neurontin] 300 cap PO BID 03/09/19 [History] Latanoprost 1 drop EYEBOTH BEDTIME 03/09/19 [History] Albuterol Sulfate [Albuterol Sulfate Hfa] 2 puff IN ASDIRECTED PRN 09/01/20 [History] Insulin Aspart [NovoLOG] 4 units SUBCNJ QID 09/01/20 [History] Insulin Glarg,Human.Rec.Analog [Lantus Solostar] 34 unit SUBCNJ ACBREAKFAST 09/01/20 [History] Labetalol HCl [Labetalol] 200 mg PO BID 09/01/20 [History] Simvastatin 20 mg PO BEDTIME 09/01/20 [History] Tamsulosin [Flomax] 0.4 mg PO BEDTIME 09/01/20 [History] Triamterene/Hydrochlorothiazid [Dyazide 37.5-25 Capsule] 1 cap PO DAILY 09/01/20 [History] Past Medical History HEENT History: Reports: Impaired Vision Cardiovascular History: Reports: High Cholesterol, Hypertension Respiratory History: Reports: COPD Gastrointestinal History: Reports: Chronic Diarrhea, Other (See Below) Other Gastrointestinal History: Perirectal abscess Genitourinary History: Reports: Other (See Below) Other Genitourinary History: urinary frequency Musculoskeletal History: Reports: Back Pain, Chronic, Gout, Other (See Below) Other Musculoskeletal History: c/o back pain lower back Neurological History: Reports: CVA, Vertigo, Other (See Below) Other Neuro History: spinal stenosis of lumbar region Psychiatric History: Reports: Learning Disability Endocrine/Metabolic History: Reports: Diabetes, Type II, Obesity/BMI 30+ - Infectious Disease History Infectious Disease History: Reports: Chicken Pox, Measles - Past Surgical History GI Surgical History: Reports: Cholecystectomy, Hernia Repair/Other Social & Family History - Tobacco Use Smoking Status *Q: Current Every Day Smoker - Caffeine Use Caffeine Use: Reports: Coffee, Soda - Living Situation & Occupation Living situation: Reports: with Significant Other, with Family Occupation: Employed H&P Review of Systems - Review of Systems: Review Of Systems: See Below General: Reports: Fever, Chills, Weakness, Fatigue, Decreased Appetite HEENT: Reports: No Symptoms Pulmonary: Reports: Shortness of Breath. Denies: Wheezing, Pleuritic Chest Pain, Cough, Sputum, Hemoptysis Cardiovascular: Reports: Dyspnea on Exertion. Denies: Chest Pain, Palpitations, Orthopnea, PND, Edema, Lightheadedness Gastrointestinal: Reports: No Symptoms Genitourinary: Reports: No Symptoms Musculoskeletal: Reports: No Symptoms Skin: Reports: No Symptoms Psychiatric: Reports: No Symptoms Neurological: Reports: No Symptoms Hematologic/Lymphatic: Reports: No Symptoms Immunologic: Reports: No Symptoms Exam - Exam Exam: See Below - Vital Signs Vital Signs: Last Vital Signs Temp 102.6 F H 09/01/20 18:19 Pulse 133 H 09/01/20 18:13 Resp 41 H 09/01/20 18:13 BP 118/52 L 09/01/20 18:13 Pulse Ox 92 L 09/01/20 18:13 Weight: 325 lb 0.017 oz - Exam Quality Assessment: Supplemental Oxygen, DVT Prophylaxis General: Alert, Oriented, Cooperative, Moderate Distress HEENT: Conjunctiva Clear, Hearing Intact, Mucosa Moist & [place], Normal Nasal Septum, Posterior Pharynx Clear, Pupils Equal Neck: Supple, Trachea Midline, +2 Carotid Pulse wo Bruit Lungs: Clear to Auscultation, Normal Respiratory Effort, Decreased Breath Sounds Cardiovascular: Regular Rhythm, Normal S1, Normal S2, Tachycardia. No: Systolic Murmur, Diastolic Murmur GI/Abdominal Exam: Soft, Non-Tender, No Organomegaly, No Distention Extremities: Non-Tender, No Pedal Edema Skin: Warm, Dry, Intact Neuro Extensive - Mental Status: Alert, Normal Mood/Affect, Memory Loss-Remote Events, Memory Loss-Recent Events. No: Normal Cognition, Memory Intact - Patient Data Lab Results Last 24 hrs: Laboratory Results - last 24 hr 09/01/20 09/01/20 09/01/20 Range/Units 13:22 13:35 13:35 WBC 23.3 H (4.5-11.0) K/uL RBC 4.37 (4.30-5.90) M/uL Hgb 12.7 (12.0-15.0) g/dL Hct 38.8 L (40.0-54.0) % MCV 89 (80-98) fL MCH 29 (27-31) pg MCHC 33 (32-36) % Plt Count 162 (150-400) K/uL Add Manual Diff Yes Neutrophils % (Manual) 64 (36-66) % Band Neutrophils % 22 H (5-11) % Lymphocytes % (Manual) 5 L (24-44) % Monocytes % (Manual) 9 H (2-6) % PT 13.3 H (9.5-12.0) sec INR 1.23 H (0.80-1.20) APTT 31.1 (27.0-36.0) sec Puncture Site Lt brachial ABG pH 7.492 H (7.350-7.450) ABG pCO2 32.9 L (35.0-42.0) mmHg ABG pO2 80.6 (75.0-100.0) mmHg ABG HCO3 24.9 (22.0-26.0) mmol/L ABG Total CO2 22.0 L (23.0-27.0) mmol/L ABG O2 Saturation 97.3 (95.0-98.0) % ABG O2 Content 16.4 (15.0-23.0) %vol ABG Base Excess 2.4 mm/L ABG Hemoglobin 12.3 L (13.5-18.0) g/dL ABG Oxyhemoglobin 94.8 % ABG Carboxyhemoglobin 2.0 H (0.0-1.6) % ABG Methemoglobin 0.6 % Javon Test Not performed O2 Delivery Device Nasal cannula Oxygen Flow Rate 1.5 L Sodium (140-148) mmol/L Potassium (3.6-5.2) mmol/L Chloride (100-108) mmol/L Carbon Dioxide (21-32) mmol/L Anion Gap (5.0-14.0) mmol/L BUN (7-18) mg/dL Creatinine (0.8-1.3) mg/dL Est Cr Clr Drug Dosing mL/min Estimated GFR (MDRD) (>60) Glucose (74-106) mg/dL Lactic Acid (0.4-2.0) mmol/L Calcium (8.5-10.1) mg/dL Total Bilirubin (0.2-1.0) mg/dL AST (15-37) U/L ALT (12-78) U/L Alkaline Phosphatase (46-116) U/L Troponin I (0.000-0.056) ng/mL C-Reactive Protein (0.0-0.3) mg/dL Total Protein (6.4-8.2) g/dL Albumin (3.4-5.0) g/dL Globulin (2.3-3.5) g/dL Albumin/Globulin Ratio (1.2-2.2) Lipase (73-393) U/L Procalcitonin ng/mL Urine Color (YELLOW) Urine Appearance (CLEAR) Urine pH (5.0-8.0) Ur Specific [place] (1.008-1.030) Urine Protein (NEGATIVE) mg/dL Urine Glucose (UA) (NEGATIVE) mg/dL Urine Ketones (NEGATIVE) mg/dL Urine Occult Blood (NEGATIVE) Urine Nitrite (NEGATIVE) Urine Bilirubin (NEGATIVE) Urine Urobilinogen (0.2-1.0) EU/dL Ur Leukocyte Esterase (NEGATIVE) Urine RBC (0-5) Urine WBC (0-5) Ur Epithelial Cells Urine Bacteria 09/01/20 09/01/20 09/01/20 Range/Units 13:35 13:35 14:00 WBC (4.5-11.0) K/uL RBC (4.30-5.90) M/uL Hgb (12.0-15.0) g/dL Hct (40.0-54.0) % MCV (80-98) fL MCH (27-31) pg MCHC (32-36) % Plt Count (150-400) K/uL Add Manual Diff Neutrophils % (Manual) (36-66) % Band Neutrophils % (5-11) % Lymphocytes % (Manual) (24-44) % Monocytes % (Manual) (2-6) % PT (9.5-12.0) sec INR (0.80-1.20) APTT (27.0-36.0) sec Puncture Site ABG pH (7.350-7.450) ABG pCO2 (35.0-42.0) mmHg ABG pO2 (75.0-100.0) mmHg ABG HCO3 (22.0-26.0) mmol/L ABG Total CO2 (23.0-27.0) mmol/L ABG O2 Saturation (95.0-98.0) % ABG O2 Content (15.0-23.0) %vol ABG Base Excess mm/L ABG Hemoglobin (13.5-18.0) g/dL ABG Oxyhemoglobin % ABG Carboxyhemoglobin (0.0-1.6) % ABG Methemoglobin % Javon Test O2 Delivery Device Oxygen Flow Rate L Sodium 127 L (140-148) mmol/L Potassium 6.0 H (3.6-5.2) mmol/L Chloride 91 L (100-108) mmol/L Carbon Dioxide 28 (21-32) mmol/L Anion Gap 14.0 (5.0-14.0) mmol/L BUN 32 H (7-18) mg/dL Creatinine 3.5 H (0.8-1.3) mg/dL Est Cr Clr Drug Dosing 26.15 mL/min Estimated GFR (MDRD) 19 L (>60) Glucose 233 H (74-106) mg/dL Lactic Acid 4.1 H (0.4-2.0) mmol/L Calcium 8.4 L (8.5-10.1) mg/dL Total Bilirubin 0.8 (0.2-1.0) mg/dL AST 27 (15-37) U/L ALT 31 (12-78) U/L Alkaline Phosphatase 43 L (46-116) U/L Troponin I 0.048 (0.000-0.056) ng/mL C-Reactive Protein > 25.00 H (0.0-0.3) mg/dL Total Protein 7.2 (6.4-8.2) g/dL Albumin 2.7 L (3.4-5.0) g/dL Globulin 4.5 H (2.3-3.5) g/dL Albumin/Globulin Ratio 0.6 L (1.2-2.2) Lipase 113 (73-393) U/L Procalcitonin 51.23 H* ng/mL Urine Color (YELLOW) Urine Appearance (CLEAR) Urine pH (5.0-8.0) Ur Specific [place] (1.008-1.030) Urine Protein (NEGATIVE) mg/dL Urine Glucose (UA) (NEGATIVE) mg/dL Urine Ketones (NEGATIVE) mg/dL Urine Occult Blood (NEGATIVE) Urine Nitrite (NEGATIVE) Urine Bilirubin (NEGATIVE) Urine Urobilinogen (0.2-1.0) EU/dL Ur Leukocyte Esterase (NEGATIVE) Urine RBC (0-5) Urine WBC (0-5) Ur Epithelial Cells Urine Bacteria 09/01/20 09/01/20 Range/Units 14:28 15:56 WBC (4.5-11.0) K/uL RBC (4.30-5.90) M/uL Hgb (12.0-15.0) g/dL Hct (40.0-54.0) % MCV (80-98) fL MCH (27-31) pg MCHC (32-36) % Plt Count (150-400) K/uL Add Manual Diff Neutrophils % (Manual) (36-66) % Band Neutrophils % (5-11) % Lymphocytes % (Manual) (24-44) % Monocytes % (Manual) (2-6) % PT (9.5-12.0) sec INR (0.80-1.20) APTT (27.0-36.0) sec Puncture Site Lt brachial ABG pH 7.466 H (7.350-7.450) ABG pCO2 36.7 (35.0-42.0) mmHg ABG pO2 59.6 L (75.0-100.0) mmHg ABG HCO3 26.1 H (22.0-26.0) mmol/L ABG Total CO2 23.5 (23.0-27.0) mmol/L ABG O2 Saturation 92.7 L (95.0-98.0) % ABG O2 Content 14.6 L (15.0-23.0) %vol ABG Base Excess 2.8 mm/L ABG Hemoglobin 11.4 L (13.5-18.0) g/dL ABG Oxyhemoglobin 90.7 % ABG Carboxyhemoglobin 1.5 (0.0-1.6) % ABG Methemoglobin 0.7 % Javon Test Not performed O2 Delivery Device Nasal cannula Oxygen Flow Rate 1.5 L Sodium (140-148) mmol/L Potassium (3.6-5.2) mmol/L Chloride (100-108) mmol/L Carbon Dioxide (21-32) mmol/L Anion Gap (5.0-14.0) mmol/L BUN (7-18) mg/dL Creatinine (0.8-1.3) mg/dL Est Cr Clr Drug Dosing mL/min Estimated GFR (MDRD) (>60) Glucose (74-106) mg/dL Lactic Acid (0.4-2.0) mmol/L Calcium (8.5-10.1) mg/dL Total Bilirubin (0.2-1.0) mg/dL AST (15-37) U/L ALT (12-78) U/L Alkaline Phosphatase (46-116) U/L Troponin I (0.000-0.056) ng/mL C-Reactive Protein (0.0-0.3) mg/dL Total Protein (6.4-8.2) g/dL Albumin (3.4-5.0) g/dL Globulin (2.3-3.5) g/dL Albumin/Globulin Ratio (1.2-2.2) Lipase (73-393) U/L Procalcitonin ng/mL Urine Color Yellow (YELLOW) Urine Appearance Cloudy A (CLEAR) Urine pH 5.0 (5.0-8.0) Ur Specific [place] >= 1.030 (1.008-1.030) Urine Protein 100 H (NEGATIVE) mg/dL Urine Glucose (UA) Negative (NEGATIVE) mg/dL Urine Ketones Trace H (NEGATIVE) mg/dL Urine Occult Blood Trace-intact H (NEGATIVE) Urine Nitrite Negative (NEGATIVE) Urine Bilirubin Small H (NEGATIVE) Urine Urobilinogen 1.0 (0.2-1.0) EU/dL Ur Leukocyte Esterase Small H (NEGATIVE) Urine RBC 0-5 (0-5) Urine WBC Packed H (0-5) Ur Epithelial Cells Not seen Urine Bacteria Few Result Diagrams: 09/01/20 13:35 09/01/20 13:35 Sepsis Event Note - Evaluation Sepsis Screening Result: Possible Severe Sepsis Risk - Focused Exam Vital Signs: Vital Signs Temp Temp Pulse Resp BP Pulse Ox 09/01/20 18:19 102.6 F H 09/01/20 18:13 133 H 41 H 118/52 L 92 L 09/01/20 17:12 119 H 34 H 93/50 L 97 09/01/20 16:14 119 H 98/44 L 95 09/01/20 15:35 126 H 41 H 117/39 L 94 L 09/01/20 15:03 119 H 40 H 109/40 L 97 09/01/20 14:50 104.1 F H 09/01/20 14:34 219.4 F H 131 H 18 102/43 L 95 09/01/20 13:30 104.1 F H 126 H 30 H 84/65 L 97 09/01/20 13:29 104.1 F H 126 H 30 H 84/65 L 97 09/01/20 13:22 127 H 30 H 94/54 L 94 L *Q Meaningful Use (ADM) - VTE Risk Assess *Q Each Risk Factor Represents 1 Point: Age 41 - 59 years, Obesity ( BMI > 25 kg/m2), Sepsis, Abnormal Pulmonary Function (COPD) Total Score 1 Point Risk Factors: 4 Each Risk Factor Represents 2 Points: None Total Score 2 Point Risk Factors: 0 Each Risk Factor Represents 3 Points: None Total Score 3 Point Risk Factors: 0 Each Risk Factor Represents 5 Points: None Total Score 5 Point Risk Factors: 0 Venous Thromboembolism Risk Factor Score *Q: 4 Problem List Initiated/Reviewed/Updated: Yes Orders Last 24hrs: Active Orders 24 hr Category Date Time Status Patient Status Manage Transfer [TRANSFER] Routine ADT 09/01/20 19:21 Ordered BIPAP Adult [RT BiPAP/CPAP] [RC] ASDIRECTED Care 09/01/20 19:21 Active EKG Documentation Completion [RC] ASDIRECTED Care 09/01/20 17:13 Active Vital Signs [RC] Q1H Care 09/01/20 13:22 Active CULTURE BLOOD [BC] Urgent Lab 09/01/20 13:35 Received CULTURE BLOOD [BC] Urgent Lab 09/01/20 13:50 Received Lactated Ringers [Ringers, Lactated] 1,000 ml Med 09/01/20 13:30 Active IV ASDIRECTED Lactated Ringers [Ringers, Lactated] 1,000 ml Med 09/01/20 18:11 Active IV ASDIRECTED Norepinephrine [Levophed] 4 mg Med 09/01/20 17:15 Active Dextrose 5% in Water 246 ml IV TITRATE Blood Culture x2 Reflex Set [OM.PC] Urgent Oth 09/01/20 13:22 Ordered Severe Sepsis Onset Time [OM.PC] Stat Oth 09/01/20 13:22 Ordered Resuscitation Status Routine Resus Stat 09/01/20 19:24 Ordered EKG 12 Lead [EK] Stat Ther 09/01/20 17:13 Ordered Medication Orders Lactated Ringer's (Ringers, Lactated) 1,000 mls @ 999 mls/hr IV ASDIRECTED LYNN Last Admin: 09/01/20 14:15 Dose: 999 mls/hr Documented by: NIKO Norepinephrine Bitartrate 4 mg (/ Dextrose/Water) 250 mls @ 7.5 mls/hr IV TITRATE LYNN; Protocol Last Titration: 09/01/20 19:32 Dose: 4 mcg/min, 15 mls/hr Documented by: Titration: 09/01/20 18:56 Dose: 3 mcg/min, 11.25 mls/hr Documented by: Admin: 09/01/20 17:39 Dose: 2 mcg/min, 7.5 mls/hr Documented by: THAIS Lactated Ringer's (Ringers, Lactated) 1,000 mls @ 125 mls/hr IV ASDIRECTED STA Stop: 09/02/20 02:10 Last Admin: 09/01/20 18:18 Dose: 125 mls/hr Documented by: ANIYAH Assessment/Plan Comment:: ASSESSMENT AND PLAN SEPSIS SECONDARY TO URINARY TRACT INFECTION-he has received vigorous IV fluid replacement and had remained hypotensive and tachycardic. Blood pressure is improved with IV norepinephrine. He has respiratory compromise and pneumonia cannot be ruled out at this time. -Broad-spectrum IV antibiotic therapy pending culture results; vancomycin, levofloxacin, and cefepime -Blood and urine cultures pending -Follow-up x-ray in a.m. -IV norepinephrine to maintain map of greater than 65 -IV fluids HYPOXIC RESPIRATORY FAILURE-history of underlying COPD, cannot rule out pulmonary infection -Antibiotic therapy as above -Supplemental oxygen as needed -BiPAP -Nebulized albuterol and DuoNebs -Follow-up ABGs in a.m. ACUTE KIDNEY INJURY-likely secondary to sepsis with hypotension -IV fluids as above -Maintain map of greater than 65 -Closely monitor urine output and renal function HYPERKALEMIA-secondary to acute kidney injury -Kayexalate 30 g given in ED -Recheck potassium later tonight and in a.m. TYPE 2 DIABETES MELLITUS -Continue usual dose of long-acting insulin -Hold metformin -4 times daily glucometers -Medium dose sliding scale Humalog HISTORY OF RECENT HEMORRHAGIC CVA MAINTENANCE ISSUES -DVT prophylaxis; Lovenox 30 mg subcu daily -GI prophylaxis; not indicated -Paiz catheter; not indicated -Nutrition; consistent carbohydrate diet -Nicotine dependence; not required CODE STATUS-FULL CODE ADMISSION STATUS-patient will be admitted to inpatient status, expect at least a 2 night hospital stay for evaluation and management of problems as outlined above. At the time of this admission I do not reasonably expected evaluation and management of this problem will require more than a 96 hour hospital stay. DISPOSITION-anticipate discharge to home after the hospital stay. PRIMARY CARE PROVIDER-Dr. Blair - Mortality Measure Prognosis:: Good
[2020-09-01] MEDS ORDERED: Acetaminophen 1,000 MG in Premix Bag 1 BAG IV ONE (20:05)
[2020-09-01] MEDS ORDERED: Sodium Chloride 0.9% 1,000 ML IV SCH (20:15)
[2020-09-01] MEDS ORDERED: Levofloxacin/Dextrose 5%-Water 750 MG in Premix Bag 1 BAG IV ONE (20:39)
[2020-09-01] MEDS ORDERED: Polyethylene Glycol 3350 Powder 17 GM Packet PO PRN (20:39)
[2020-09-01] MEDS ORDERED: 50% Dextrose in Water 50 ML Syringe IV PRN (20:39)
[2020-09-01] MEDS ORDERED: Glucose Gel 15 GM in 37.5 GM Tube PO PRN (20:39)
[2020-09-01] MEDS ORDERED: Albuterol 0.083% 2.5 MG/3 ML Neb Soln NEB PRN (20:39)
[2020-09-01] MEDS ORDERED: Sodium Chloride 0.9% 10 ML Syringe FLUSH PRN (20:39)
[2020-09-01] MEDS ORDERED: Enoxaparin 30 MG/0.3 ML Syringe SUBCUT SCH (21:00)
[2020-09-01] MEDS ORDERED: Vancomycin 2 GM in Sodium Chloride 0.9% 500 ML IV SCH (22:00)
[2020-09-01] MEDS ORDERED: FLU VACC QS2020-21(6MOS UP)/PF 60 MCG/0.5 ML SYRINGE IM ONE (22:00)
[2020-09-01] MEDS: Insulin Lispro 100 Unit/ML 3 ML KwikPen SUBCUT SCH (22:04)
[2020-09-01] MEDS: Albuterol/Ipratropium 3.0-0.5 MG/3 ML Neb Soln NEB SCH (22:07)
[2020-09-01] MEDS: Lactated Ringers 1,000 ML IV SCH (22:31)
[2020-09-01] MEDS: Tamsulosin 0.4 MG Cap.ER PO SCH (22:32)
[2020-09-01] MEDS: Simvastatin 20 MG Tab PO SCH (22:33)
[2020-09-01] MEDS: Gabapentin 300 MG Cap PO SCH (22:33)
[2020-09-01] MEDS: Latanoprost 0.005% Ophth Soln 2.5 ML Bottle EYEBOTH SCH (22:33)
[2020-09-02] MEDS: Lactated Ringers 1,000 ML IV SCH (05:32)
--- NOTE | 2020-09-02 05:52 | CRLCR ---
Indication: Hypoxia Technique: Chest 1 view Comparison: Chest x-ray 09/01/2020 Findings/Impression: Cardiovascular and mediastinum: Mild cardiomegaly. Lungs and pleural space: No pleural effusion or pneumothorax. Slight lateral pleural thickening bilaterally. No focal consolidation. Bones and soft tissues: No acute findings. Dictated by Garrett Nunze MD @ Sep 02 2020 5:50AM Signed by Dr. Garrett Nunez @ Sep 02 2020 5:51AM
[2020-09-02] MEDS: Acetaminophen 325 MG Tab PO PRN ×3 (06:19→19:08)
[2020-09-02] MEDS: Albuterol/Ipratropium 3.0-0.5 MG/3 ML Neb Soln NEB SCH ×4 (07:00→22:14)
[2020-09-02] MEDS: Insulin Lispro 100 Unit/ML 3 ML KwikPen SUBCUT SCH ×4 (08:06→21:28)
[2020-09-02] MEDS: Insulin Glargine,Human Rec. Analog 100 Units/ML 3 ML Pen SUBCUT SCH (08:07)
[2020-09-02] MEDS: Gabapentin 300 MG Cap PO SCH ×2 (09:10→21:23)
[2020-09-02] MEDS: Lactobacillus Rhamnosus GG (Probiotic) Cap PO SCH ×2 (09:10→21:23)
[2020-09-02] MEDS: Dimethicone 20%/Zinc Oxide 25% 56 GM Spray Bottle TOP PRN ×3 (09:10→21:27)
[2020-09-02] MEDS ORDERED: Lactated Ringers 1,000 ML IV SCH (11:00)
--- NOTE | 2020-09-02 11:10 | PCM.PN ---
- General Info Date of Service: 09/02/20 Subjective Update: Mr. Duran has remained fairly stable through the night, he has required ongoing use of IV norepinephrine to maintain adequate blood pressure. Respiratory status has stabilized with use of noninvasive positive pressure ventilation. White blood cell count has improved and he has been afebrile since last night. Potassium level also improved. Draws have been very difficult and they were unable to get enough blood to run creatinine and BUN. He reports that he feels better and is more alert and interactive this morning. Functional Status: Reports: Tolerating Diet, Ambulating - Review of Systems General: Reports: Fever, Weakness, Fatigue, Chills Pulmonary: Reports: No Symptoms Cardiovascular: Reports: No Symptoms Gastrointestinal: Reports: No Symptoms - Patient Data Vitals - Most Recent: Last Vital Signs Temp 99.1 F 09/02/20 07:36 Pulse 99 09/02/20 10:53 Resp 23 H 09/02/20 09:00 BP 121/79 09/02/20 09:00 Pulse Ox 96 09/02/20 09:00 Weight - Most Recent: 310 lb 11.2 oz I&O - Last 24 Hours: Intake & Output 09/01/20 09/02/20 09/02/20 22:59 06:59 14:59 Intake Total 2353 Output Total 2700 500 Balance -347 -500 Lab Results Last 24 Hours: Laboratory Results - last 24 hr 09/01/20 09/01/20 09/01/20 Range/Units 13:22 13:35 13:35 WBC 23.3 H (4.5-11.0) K/uL RBC 4.37 (4.30-5.90) M/uL Hgb 12.7 (12.0-15.0) g/dL Hct 38.8 L (40.0-54.0) % POC Hct (36-48) % MCV 89 (80-98) fL MCH 29 (27-31) pg MCHC 33 (32-36) % Plt Count 162 (150-400) K/uL Neut % (Auto) (36-66) % Lymph % (Auto) (24-44) % [place] % (Auto) (2-6) % Eos % (Auto) (2-4) % Baso % (Auto) (0-1) % Add Manual Diff Yes Neutrophils % (Manual) 64 (36-66) % Band Neutrophils % 22 H (5-11) % Lymphocytes % (Manual) 5 L (24-44) % Monocytes % (Manual) 9 H (2-6) % PT 13.3 H (9.5-12.0) sec INR 1.23 H (0.80-1.20) APTT 31.1 (27.0-36.0) sec Sample Site Puncture Site Lt brachial POC ABG pH (7.35-7.45) ABG pH 7.492 H (7.350-7.450) POC ABG pCO2 (35-45) mmHG ABG pCO2 32.9 L (35.0-42.0) mmHg POC ABG pO2 (80-105) mmHg ABG pO2 80.6 (75.0-100.0) mmHg POC ABG HCO3 (22.0-26.0) mmol/L ABG HCO3 24.9 (22.0-26.0) mmol/L POC ABG Total CO2 (23-27) mmol/L ABG Total CO2 22.0 L (23.0-27.0) mmol/L POC ABG O2 Sat (95-98) % ABG O2 Saturation 97.3 (95.0-98.0) % ABG O2 Content 16.4 (15.0-23.0) %vol POC ABG Base Excess (-2-3) mmol/L ABG Base Excess 2.4 mm/L ABG Hemoglobin 12.3 L (13.5-18.0) g/dL ABG Oxyhemoglobin 94.8 % ABG Carboxyhemoglobin 2.0 H (0.0-1.6) % ABG Methemoglobin 0.6 % Javon Test Not performed O2 Delivery Device Nasal cannula Oxygen Flow Rate 1.5 L POC O2 Flow Rate POC Sodium (140-148) mmol/L Sodium (140-148) mmol/L POC Potassium (3.5-4.9) mmol/L Potassium (3.6-5.2) mmol/L Chloride (100-108) mmol/L Carbon Dioxide (21-32) mmol/L Anion Gap (5.0-14.0) mmol/L BUN (7-18) mg/dL Creatinine (0.8-1.3) mg/dL Est Cr Clr Drug Dosing mL/min Estimated GFR (MDRD) (>60) Glucose (74-106) mg/dL Lactic Acid (0.4-2.0) mmol/L Calcium (8.5-10.1) mg/dL POC WB Ioniz Calcium (1.12-1.32) mmol/L Total Bilirubin (0.2-1.0) mg/dL AST (15-37) U/L ALT (12-78) U/L Alkaline Phosphatase (46-116) U/L Troponin I (0.000-0.056) ng/mL C-Reactive Protein (0.0-0.3) mg/dL Total Protein (6.4-8.2) g/dL Albumin (3.4-5.0) g/dL Globulin (2.3-3.5) g/dL Albumin/Globulin Ratio (1.2-2.2) Lipase (73-393) U/L Procalcitonin ng/mL Urine Color (YELLOW) Urine Appearance (CLEAR) Urine pH (5.0-8.0) Ur Specific [place] (1.008-1.030) Urine Protein (NEGATIVE) mg/dL Urine Glucose (UA) (NEGATIVE) mg/dL Urine Ketones (NEGATIVE) mg/dL Urine Occult Blood (NEGATIVE) Urine Nitrite (NEGATIVE) Urine Bilirubin (NEGATIVE) Urine Urobilinogen (0.2-1.0) EU/dL Ur Leukocyte Esterase (NEGATIVE) Urine RBC (0-5) Urine WBC (0-5) Ur Epithelial Cells Urine Bacteria SARS-CoV-2 RNA (SAHARA) (NEGATIVE) 09/01/20 09/01/20 09/01/20 Range/Units 13:35 13:35 14:00 WBC (4.5-11.0) K/uL RBC (4.30-5.90) M/uL Hgb (12.0-15.0) g/dL Hct (40.0-54.0) % POC Hct (36-48) % MCV (80-98) fL MCH (27-31) pg MCHC (32-36) % Plt Count (150-400) K/uL Neut % (Auto) (36-66) % Lymph % (Auto) (24-44) % [place] % (Auto) (2-6) % Eos % (Auto) (2-4) % Baso % (Auto) (0-1) % Add Manual Diff Neutrophils % (Manual) (36-66) % Band Neutrophils % (5-11) % Lymphocytes % (Manual) (24-44) % Monocytes % (Manual) (2-6) % PT (9.5-12.0) sec INR (0.80-1.20) APTT (27.0-36.0) sec Sample Site Puncture Site POC ABG pH (7.35-7.45) ABG pH (7.350-7.450) POC ABG pCO2 (35-45) mmHG ABG pCO2 (35.0-42.0) mmHg POC ABG pO2 (80-105) mmHg ABG pO2 (75.0-100.0) mmHg POC ABG HCO3 (22.0-26.0) mmol/L ABG HCO3 (22.0-26.0) mmol/L POC ABG Total CO2 (23-27) mmol/L ABG Total CO2 (23.0-27.0) mmol/L POC ABG O2 Sat (95-98) % ABG O2 Saturation (95.0-98.0) % ABG O2 Content (15.0-23.0) %vol POC ABG Base Excess (-2-3) mmol/L ABG Base Excess mm/L ABG Hemoglobin (13.5-18.0) g/dL ABG Oxyhemoglobin % ABG Carboxyhemoglobin (0.0-1.6) % ABG Methemoglobin % Javon Test O2 Delivery Device Oxygen Flow Rate L POC O2 Flow Rate POC Sodium (140-148) mmol/L Sodium 127 L (140-148) mmol/L POC Potassium (3.5-4.9) mmol/L Potassium 6.0 H (3.6-5.2) mmol/L Chloride 91 L (100-108) mmol/L Carbon Dioxide 28 (21-32) mmol/L Anion Gap 14.0 (5.0-14.0) mmol/L BUN 32 H (7-18) mg/dL Creatinine 3.5 H (0.8-1.3) mg/dL Est Cr Clr Drug Dosing 26.15 mL/min Estimated GFR (MDRD) 19 L (>60) Glucose 233 H (74-106) mg/dL Lactic Acid 4.1 H (0.4-2.0) mmol/L Calcium 8.4 L (8.5-10.1) mg/dL POC WB Ioniz Calcium (1.12-1.32) mmol/L Total Bilirubin 0.8 (0.2-1.0) mg/dL AST 27 (15-37) U/L ALT 31 (12-78) U/L Alkaline Phosphatase 43 L (46-116) U/L Troponin I 0.048 (0.000-0.056) ng/mL C-Reactive Protein > 25.00 H (0.0-0.3) mg/dL Total Protein 7.2 (6.4-8.2) g/dL Albumin 2.7 L (3.4-5.0) g/dL Globulin 4.5 H (2.3-3.5) g/dL Albumin/Globulin Ratio 0.6 L (1.2-2.2) Lipase 113 (73-393) U/L Procalcitonin 51.23 H* ng/mL Urine Color (YELLOW) Urine Appearance (CLEAR) Urine pH (5.0-8.0) Ur Specific [place] (1.008-1.030) Urine Protein (NEGATIVE) mg/dL Urine Glucose (UA) (NEGATIVE) mg/dL Urine Ketones (NEGATIVE) mg/dL Urine Occult Blood (NEGATIVE) Urine Nitrite (NEGATIVE) Urine Bilirubin (NEGATIVE) Urine Urobilinogen (0.2-1.0) EU/dL Ur Leukocyte Esterase (NEGATIVE) Urine RBC (0-5) Urine WBC (0-5) Ur Epithelial Cells Urine Bacteria SARS-CoV-2 RNA (SAHARA) (NEGATIVE) 09/01/20 09/01/20 09/01/20 Range/Units 14:28 15:56 19:45 WBC (4.5-11.0) K/uL RBC (4.30-5.90) M/uL Hgb (12.0-15.0) g/dL Hct (40.0-54.0) % POC Hct (36-48) % MCV (80-98) fL MCH (27-31) pg MCHC (32-36) % Plt Count (150-400) K/uL Neut % (Auto) (36-66) % Lymph % (Auto) (24-44) % [place] % (Auto) (2-6) % Eos % (Auto) (2-4) % Baso % (Auto) (0-1) % Add Manual Diff Neutrophils % (Manual) (36-66) % Band Neutrophils % (5-11) % Lymphocytes % (Manual) (24-44) % Monocytes % (Manual) (2-6) % PT (9.5-12.0) sec INR (0.80-1.20) APTT (27.0-36.0) sec Sample Site Puncture Site Lt brachial POC ABG pH (7.35-7.45) ABG pH 7.466 H (7.350-7.450) POC ABG pCO2 (35-45) mmHG ABG pCO2 36.7 (35.0-42.0) mmHg POC ABG pO2 (80-105) mmHg ABG pO2 59.6 L (75.0-100.0) mmHg POC ABG HCO3 (22.0-26.0) mmol/L ABG HCO3 26.1 H (22.0-26.0) mmol/L POC ABG Total CO2 (23-27) mmol/L ABG Total CO2 23.5 (23.0-27.0) mmol/L POC ABG O2 Sat (95-98) % ABG O2 Saturation 92.7 L (95.0-98.0) % ABG O2 Content 14.6 L (15.0-23.0) %vol POC ABG Base Excess (-2-3) mmol/L ABG Base Excess 2.8 mm/L ABG Hemoglobin 11.4 L (13.5-18.0) g/dL ABG Oxyhemoglobin 90.7 % ABG Carboxyhemoglobin 1.5 (0.0-1.6) % ABG Methemoglobin 0.7 % Javon Test Not performed O2 Delivery Device Nasal cannula Oxygen Flow Rate 1.5 L POC O2 Flow Rate POC Sodium (140-148) mmol/L Sodium (140-148) mmol/L POC Potassium (3.5-4.9) mmol/L Potassium (3.6-5.2) mmol/L Chloride (100-108) mmol/L Carbon Dioxide (21-32) mmol/L Anion Gap (5.0-14.0) mmol/L BUN (7-18) mg/dL Creatinine (0.8-1.3) mg/dL Est Cr Clr Drug Dosing mL/min Estimated GFR (MDRD) (>60) Glucose (74-106) mg/dL Lactic Acid (0.4-2.0) mmol/L Calcium (8.5-10.1) mg/dL POC WB Ioniz Calcium (1.12-1.32) mmol/L Total Bilirubin (0.2-1.0) mg/dL AST (15-37) U/L ALT (12-78) U/L Alkaline Phosphatase (46-116) U/L Troponin I (0.000-0.056) ng/mL C-Reactive Protein (0.0-0.3) mg/dL Total Protein (6.4-8.2) g/dL Albumin (3.4-5.0) g/dL Globulin (2.3-3.5) g/dL Albumin/Globulin Ratio (1.2-2.2) Lipase (73-393) U/L Procalcitonin ng/mL Urine Color Yellow (YELLOW) Urine Appearance Cloudy A (CLEAR) Urine pH 5.0 (5.0-8.0) Ur Specific [place] >= 1.030 (1.008-1.030) Urine Protein 100 H (NEGATIVE) mg/dL Urine Glucose (UA) Negative (NEGATIVE) mg/dL Urine Ketones Trace H (NEGATIVE) mg/dL Urine Occult Blood Trace-intact H (NEGATIVE) Urine Nitrite Negative (NEGATIVE) Urine Bilirubin Small H (NEGATIVE) Urine Urobilinogen 1.0 (0.2-1.0) EU/dL Ur Leukocyte Esterase Small H (NEGATIVE) Urine RBC 0-5 (0-5) Urine WBC Packed H (0-5) Ur Epithelial Cells Not seen Urine Bacteria Few SARS-CoV-2 RNA (SAHARA) Negative (NEGATIVE) 09/01/20 09/02/20 09/02/20 Range/Units 23:59 05:11 05:52 WBC 14.9 H (4.5-11.0) K/uL RBC 3.92 L (4.30-5.90) M/uL Hgb 11.7 L (12.0-15.0) g/dL Hct 33.8 L (40.0-54.0) % POC Hct 30 L (36-48) % MCV 86 (80-98) fL MCH 30 (27-31) pg MCHC 35 (32-36) % Plt Count 88 L (150-400) K/uL Neut % (Auto) 79 H (36-66) % Lymph % (Auto) 10 L (24-44) % [place] % (Auto) 11 H (2-6) % Eos % (Auto) 0 L (2-4) % Baso % (Auto) 0 (0-1) % Add Manual Diff Neutrophils % (Manual) (36-66) % Band Neutrophils % (5-11) % Lymphocytes % (Manual) (24-44) % Monocytes % (Manual) (2-6) % PT (9.5-12.0) sec INR (0.80-1.20) APTT (27.0-36.0) sec Sample Site Rt brachial Puncture Site POC ABG pH 7.59 H (7.35-7.45) ABG pH (7.350-7.450) POC ABG pCO2 25.5 L (35-45) mmHG ABG pCO2 (35.0-42.0) mmHg POC ABG pO2 165 H (80-105) mmHg ABG pO2 (75.0-100.0) mmHg POC ABG HCO3 24.4 (22.0-26.0) mmol/L ABG HCO3 (22.0-26.0) mmol/L POC ABG Total CO2 25 (23-27) mmol/L ABG Total CO2 (23.0-27.0) mmol/L POC ABG O2 Sat 100 H (95-98) % ABG O2 Saturation (95.0-98.0) % ABG O2 Content (15.0-23.0) %vol POC ABG Base Excess 3 (-2-3) mmol/L ABG Base Excess mm/L ABG Hemoglobin (13.5-18.0) g/dL ABG Oxyhemoglobin % ABG Carboxyhemoglobin (0.0-1.6) % ABG Methemoglobin % Javon Test N/a O2 Delivery Device Bipap Oxygen Flow Rate L POC O2 Flow Rate POC Sodium 132 L (140-148) mmol/L Sodium (140-148) mmol/L POC Potassium 4.1 (3.5-4.9) mmol/L Potassium 5.4 H (3.6-5.2) mmol/L Chloride (100-108) mmol/L Carbon Dioxide (21-32) mmol/L Anion Gap (5.0-14.0) mmol/L BUN (7-18) mg/dL Creatinine (0.8-1.3) mg/dL Est Cr Clr Drug Dosing mL/min Estimated GFR (MDRD) (>60) Glucose (74-106) mg/dL Lactic Acid (0.4-2.0) mmol/L Calcium (8.5-10.1) mg/dL POC WB Ioniz Calcium 1.12 (1.12-1.32) mmol/L Total Bilirubin (0.2-1.0) mg/dL AST (15-37) U/L ALT (12-78) U/L Alkaline Phosphatase (46-116) U/L Troponin I (0.000-0.056) ng/mL C-Reactive Protein (0.0-0.3) mg/dL Total Protein (6.4-8.2) g/dL Albumin (3.4-5.0) g/dL Globulin (2.3-3.5) g/dL Albumin/Globulin Ratio (1.2-2.2) Lipase (73-393) U/L Procalcitonin ng/mL Urine Color (YELLOW) Urine Appearance (CLEAR) Urine pH (5.0-8.0) Ur Specific [place] (1.008-1.030) Urine Protein (NEGATIVE) mg/dL Urine Glucose (UA) (NEGATIVE) mg/dL Urine Ketones (NEGATIVE) mg/dL Urine Occult Blood (NEGATIVE) Urine Nitrite (NEGATIVE) Urine Bilirubin (NEGATIVE) Urine Urobilinogen (0.2-1.0) EU/dL Ur Leukocyte Esterase (NEGATIVE) Urine RBC (0-5) Urine WBC (0-5) Ur Epithelial Cells Urine Bacteria SARS-CoV-2 RNA (SAHARA) (NEGATIVE) Ranjit Results Last 24 Hours: Microbiology 09/01/20 13:50 Anaerobic Blood Culture - Preliminary Blood - Arm, Right Med Orders - Current: Current Medications Acetaminophen (Tylenol) 650 mg PO Q4H PRN PRN Reason: Pain (Mild 1-3)/fever Last Admin: 09/02/20 06:19 Dose: 650 mg Documented by: Albuterol (Proventil Neb Soln) 2.5 mg NEB Q4H PRN PRN Reason: Shortness Of Breath/wheezing Albuterol/Ipratropium (Duoneb 3.0-0.5 Mg/3 Ml) 3 ml NEB QIDRT [facility] Last Admin: 09/02/20 10:52 Dose: 3 ml Documented by: Dextrose (Glutose 15) 15 gm PO ONETIME PRN PRN Reason: Hypoglycemia Dextrose/Water (Dextrose 50% In Water) 50 ml IV ONETIME PRN PRN Reason: Hypoglycemia Dimethicone/Zinc Oxide (Rash Relief-Zinc Oxide [place]) 0 gm TOP ASDIRECTED PRN PRN Reason: Itching Last Admin: 09/02/20 09:10 Dose: 1 applic Documented by: Gabapentin (Neurontin) 300 mg PO BID [facility] Last Admin: 09/02/20 09:10 Dose: 300 mg Documented by: Cefepime HCl 1 gm/ Sodium (Chloride) 50 mls @ 100 mls/hr IV Q24H [facility] Last Admin: 09/02/20 00:43 Dose: 100 mls/hr Documented by: Norepinephrine Bitartrate 4 mg (/ Dextrose/Water) 250 mls @ 7.5 mls/hr IV TITRATE [facility]; Protocol Last Admin: 09/02/20 08:19 Dose: 4 mcg/min, 15 mls/hr Documented by: Vancomycin HCl 2 gm/ Sodium (Chloride) 500 mls @ 250 mls/hr IV Q24H [facility] Levofloxacin/Dextrose 750 mg/ (Premix) 150 mls @ 100 mls/hr IV Q48H [facility] Lactated Ringer's (Ringers, Lactated) 1,000 mls @ 50 mls/hr IV ASDIRECTED [facility] Influenza Virus Vaccine (Fluzone Quad 6732-0080 Syringe) 60 mcg IM ONETIME ONE Stop: 09/02/20 07:01 Insulin Glargine (Lantus Solostar) 34 units SUBCUT ACBREAKFAST [facility] Last Admin: 09/02/20 08:07 Dose: 34 units Documented by: Insulin Human Lispro (Humalog) 0 unit SUBCUT QIDACANDBED [facility]; Protocol Last Admin: 09/02/20 08:06 Dose: 2 units Documented by: Lactobacillus Rhamnosus (Culturelle) 1 cap PO BID [facility] Last Admin: 09/02/20 09:10 Dose: 1 cap Documented by: Latanoprost (Xalatan 0.005% Ophth Soln) 0 ml EYEBOTH BEDTIME [facility] Last Admin: 09/01/20 22:33 Dose: 1 drop Documented by: Ondansetron HCl (Zofran) 4 mg IV Q4H PRN PRN Reason: Nausea/Vomiting Polyethylene Glycol (Miralax) 17 gm PO DAILY PRN PRN Reason: Constipation Simvastatin (Zocor) 20 mg PO BEDTIME [facility] Last Admin: 09/01/20 22:33 Dose: 20 mg Documented by: Sodium Chloride (Saline Flush) 10 ml FLUSH ASDIRECTED PRN PRN Reason: Keep Vein Open Tamsulosin HCl (Flomax) 0.4 mg PO BEDTIME [facility] Last Admin: 09/01/20 22:32 Dose: 0.4 mg Documented by: Discontinued Medications Acetaminophen (Tylenol) 650 mg PO NOW ONE Stop: 09/01/20 14:46 Last Admin: 09/01/20 14:50 Dose: 650 mg Documented by: Enoxaparin Sodium (Lovenox) 30 mg SUBCUT DAILY [facility] Last Admin: 09/01/20 22:32 Dose: 30 mg Documented by: Enoxaparin Sodium (Lovenox) 30 mg SUBCUT BEDTIME [facility] Lactated Ringer's (Ringers, Lactated) 1,000 mls @ 999 mls/hr IV ASDIRECTED [facility] Last Admin: 09/01/20 14:15 Dose: 999 mls/hr Documented by: Cefepime HCl 1 gm/ Sodium (Chloride) 50 mls @ 100 mls/hr IV Q6H [facility] Last Admin: 09/01/20 14:18 Dose: 100 mls/hr Documented by: Lactated Ringer's (Ringers, Lactated) 1,000 mls @ 999 mls/hr IV BOLUS ONE Stop: 09/01/20 15:19 Last Admin: 09/01/20 14:29 Dose: 999 mls/hr Documented by: Cefepime HCl 1 gm/ Sodium (Chloride) 50 mls @ 100 mls/hr IV ONETIME ONE Stop: 09/01/20 15:14 Last Admin: 09/01/20 14:54 Dose: 100 mls/hr Documented by: Lactated Ringer's (Ringers, Lactated) 1,000 mls @ 999 mls/hr IV BOLUS ONE Stop: 09/01/20 16:58 Last Admin: 09/01/20 15:58 Dose: 999 mls/hr Documented by: Norepinephrine Bitartrate 4 mg (/ Dextrose/Water) 250 mls @ 7.5 mls/hr IV TITRATE [facility]; Protocol Last Titration: 09/02/20 07:38 Dose: 4 mcg/min, 15 mls/hr Documented by: Lactated Ringer's (Ringers, Lactated) 1,000 mls @ 125 mls/hr IV ASDIRECTED STA Stop: 09/02/20 02:10 Last Admin: 09/01/20 18:18 Dose: 125 mls/hr Documented by: Sodium Chloride (Normal Saline) 1,000 mls @ 999 mls/hr IV ASDIRECTED [facility] Last Admin: 09/01/20 20:20 Dose: 999 mls/hr Documented by: Acetaminophen 1,000 mg/ Premix 100 mls @ 400 mls/hr IV NOW ONE Stop: 09/01/20 20:19 Last Admin: 09/01/20 20:41 Dose: 400 mls/hr Documented by: Vancomycin HCl 1 gm/ Sodium (Chloride) 250 mls @ 150 mls/hr IV ONETIME ONE Stop: 09/01/20 21:50 Last Admin: 09/01/20 20:42 Dose: 150 mls/hr Documented by: Lactated Ringer's (Ringers, Lactated) 1,000 mls @ 125 mls/hr IV ASDIRECTED [facility] Last Admin: 09/02/20 05:32 Dose: 125 mls/hr Documented by: Levofloxacin/Dextrose 750 mg/ (Premix) 150 mls @ 100 mls/hr IV ONETIME ONE Stop: 09/01/20 22:08 Last Admin: 09/01/20 22:28 Dose: 100 mls/hr Documented by: Levofloxacin/Dextrose 500 mg/ (Premix) 100 mls @ 100 mls/hr IV Q48H [facility] Vancomycin HCl 1 gm/ Sodium (Chloride) 250 mls @ 150 mls/hr IV ONETIME ONE Stop: 09/01/20 22:18 Vancomycin HCl 1 gm/ Sodium (Chloride) 250 mls @ 150 mls/hr IV ONETIME ONE Stop: 09/01/20 23:39 Last Admin: 09/01/20 21:54 Dose: Not Given Documented by: Lidocaine HCl (Xylocaine 2% Jelly) Confirm Administered Dose 10 ml .ROUTE .STK- MED ONE Stop: 09/01/20 14:08 Last Admin: 09/01/20 14:50 Dose: Not Given Documented by: Lidocaine HCl (Xylocaine 2% Jelly) 10 ml MUCMEM ONETIME ONE Stop: 09/01/20 14:46 Last Admin: 09/01/20 14:50 Dose: 10 ml Documented by: Sodium Polystyrene Sulfonate (Kayexalate) 30 gm PO ONETIME STA Stop: 09/01/20 17:38 Last Admin: 09/01/20 17:47 Dose: 30 gm Documented by: Vancomycin HCl (Vancomycin) 1 gm IV .PHARMACY TO DOSE LYNN - Exam Quality Assessment: Supplemental Oxygen, DVT Prophylaxis General: Alert, Oriented, Cooperative, Mild Distress Lungs: Clear to Auscultation, Normal Respiratory Effort, Decreased Breath Sounds. No: Rales, Rhonchi, Wheezing Cardiovascular: Regular Rate, Regular Rhythm, No Murmurs GI/Abdominal Exam: Soft, Non-Tender, No Organomegaly, No Distention Extremities: Non-Tender, Pedal Edema Sepsis Event Note - Evaluation Sepsis Screening Result: Severe Sepsis Risk - Focused Exam Vital Signs: Vital Signs Temp Temp Pulse Resp BP Pulse Ox 09/02/20 10:53 99 09/02/20 09:00 108 H 23 H 121/79 96 09/02/20 08:00 107 H 20 96/57 L 97 09/02/20 07:36 99.1 F 107 H 15 92/47 L 95 09/02/20 07:00 109 H 81/41 L 09/02/20 06:49 99.1 F 09/02/20 06:19 100.9 F H 09/02/20 06:00 100.9 F H 16 111/59 L 95 09/02/20 05:00 24 H 109/80 100 09/02/20 04:00 98.9 F 20 121/68 99 09/02/20 03:00 20 119/59 L 97 09/02/20 02:00 22 H 107/59 L 98 09/02/20 01:00 20 105/60 97 09/02/20 00:00 98 F 20 122/60 97 09/01/20 23:00 24 H 121/68 95 - Problem List Review Problem List Initiated/Reviewed/Updated: Yes - My Orders Last 24 Hours: My Active Orders 09/01/20 Dinner Consistent Carbohydrate Diet [DIET] 09/01/20 19:21 BIPAP Adult [RT BiPAP/CPAP] [RC] ASDIRECTED 09/01/20 19:24 Resuscitation Status Routine 09/01/20 20:39 Acetaminophen [TylenoL] 650 mg PO Q4H PRN Albuterol [Proventil Neb Soln] 2.5 mg NEB Q4H PRN Dextrose 50% in Water 50 ml IV ONETIME PRN Dextrose [Glutose 15] 15 gm PO ONETIME PRN Insulin Lispro [HumaLOG] See Protocol SUBCUT QIDACANDBED Norepinephrine [Levophed] 4 mg Dextrose 5% in Water 246 ml IV TITRATE Ondansetron [Zofran] 4 mg IV Q4H PRN Sodium Chloride 0.9% [Saline Flush] 10 ml FLUSH ASDIRECTED PRN polyethylene glycoL 3350 [MiraLAX] 17 gm PO DAILY PRN 09/01/20 20:39 Patient Status [ADT] Routine Ambulate [RC] QID Cardiac Monitoring [RC] Q6H Diabetes Education [RC] Click to Edit Height and Weight [RC] DAILY Intake and Output [RC] QSHIFT Notify Provider Vital Signs [RC] ASDIRECTED Notify Provider [RC] PRN Peripheral IV Care [RC] Q12H RT Aerosol Therapy [RC] ASDIRECTED Up With Assistance [RC] ASDIRECTED Up to Chair [RC] QID Vital Signs [RC] Q1H Peripheral IV Insertion Adult [OM.PC] Routine 09/01/20 21:00 Albuterol/Ipratropium [DuoNeb 3.0-0.5 MG/3 ML] 3 ml NEB QIDRT Cefepime [Maxipime] 1 gm Sodium Chloride 0.9% [Normal Saline] 50 ml IV Q24H Gabapentin [Neurontin] 300 mg PO BID Latanoprost [Xalatan 0.005% Ophth Soln] 0 ml EYEBOTH BEDTIME Simvastatin [Zocor] 20 mg PO BEDTIME Tamsulosin [Flomax] 0.4 mg PO BEDTIME 09/01/20 21:46 Influenza Vaccine Charge [RC] .DISCHARGE 09/02/20 07:00 Flu Vacc [id number](6Mos Up)/Pf [Fluzone Quad 2772-7107 Syringe] 60 mcg IM ONETIME ONE 10/03/20 07:30 Insulin Glarg,Human.Rec.Analog [LantUS Solostar] 34 units SUBCUT ACBREAKFAST 09/02/20 08:23 Antiembolic Devices [RC] .Routine Sequential Compression Device [OM.PC] Routine 09/02/20 08:46 Dimethicone/Zinc Oxide [Rash Relief-Zinc Oxide [place]] 0 gm TOP ASDIRECTED PRN 09/02/20 09:00 Lactobacillus Rhamnosus GG [Culturelle] 1 cap PO BID 09/02/20 11:00 Lactated Ringers [Ringers, Lactated] 1,000 ml IV ASDIRECTED 09/02/20 22:00 Vancomycin 2 gm Sodium Chloride 0.9% [Normal Saline] 500 ml IV Q24H 09/03/20 05:00 BLOOD GAS ARTERIAL [BG] Timed CBC WITH AUTO DIFF [HEME] Timed COMPREHENSIVE METABOLIC PN,CMP [CHEM] Timed MAGNESIUM [CHEM] Timed 09/03/20 07:30 GLUCOSE POC LAB TO COLLECT JPM [POC] QIDACANDBED 09/03/20 11:30 GLUCOSE POC LAB TO COLLECT JPM [POC] QIDACANDBED 09/03/20 16:30 GLUCOSE POC LAB TO COLLECT JPM [POC] QIDACANDBED 09/03/20 21:00 GLUCOSE POC LAB TO COLLECT JPM [POC] QIDACANDBED Levofloxacin/Dextrose 5%-Water [Levaquin in D5W 750 MG/150 ML] 750 mg Premix Bag 1 bag IV Q48H 09/04/20 07:30 GLUCOSE POC LAB TO COLLECT JPM [POC] QIDACANDBED 09/04/20 11:30 GLUCOSE POC LAB TO COLLECT JPM [POC] QIDACANDBED 09/04/20 16:30 GLUCOSE POC LAB TO COLLECT JPM [POC] QIDACANDBED 09/04/20 21:00 GLUCOSE POC LAB TO COLLECT JPM [POC] QIDACANDBED 09/04/20 21:30 VANCOMYCIN TROUGH [CHEM] Timed 09/05/20 07:30 GLUCOSE POC LAB TO COLLECT JPM [POC] QIDACANDBED 09/05/20 11:30 GLUCOSE POC LAB TO COLLECT JPM [POC] QIDACANDBED 09/05/20 16:30 GLUCOSE POC LAB TO COLLECT JPM [POC] QIDACANDBED 09/05/20 21:00 GLUCOSE POC LAB TO COLLECT JPM [POC] QIDACANDBED 09/06/20 07:30 GLUCOSE POC LAB TO COLLECT JPM [POC] QIDACANDBED 09/06/20 11:30 GLUCOSE POC LAB TO COLLECT JPM [POC] QIDACANDBED 09/06/20 16:30 GLUCOSE POC LAB TO COLLECT JPM [POC] QIDACANDBED - Plan Plan:: ASSESSMENT AND PLAN SEPSIS SECONDARY TO URINARY TRACT INFECTION-pressures have stabilized with use of IV norepinephrine. No fever since last night, white blood cell count has improved. Chest x-ray from this morning shows no obvious infiltrates. -Broad-spectrum IV antibiotic therapy pending culture results; vancomycin, levofloxacin, and cefepime -Blood and urine cultures pending -IV norepinephrine to maintain map of greater than 65 -IV fluids, increase rate to 50 cc/h HYPOXIC RESPIRATORY FAILURE-respiratory status has stabilized with use of noninvasive positive pressure ventilation -Antibiotic therapy as above -Supplemental oxygen as needed -BiPAP -Nebulized albuterol and DuoNebs -Follow-up ABGs in a.m. ACUTE KIDNEY INJURY-likely secondary to sepsis with hypotension. Creatinine not yet available today because of difficult blood draw -IV fluids as above -Maintain map of greater than 65 -Closely monitor urine output and renal function HYPERKALEMIA-resolved -Reassess potassium level in a.m. TYPE 2 DIABETES MELLITUS -Continue usual dose of long-acting insulin -Hold metformin -4 times daily glucometers -Medium dose sliding scale Humalog HISTORY OF RECENT HEMORRHAGIC CVA MAINTENANCE ISSUES -DVT prophylaxis; Lovenox 30 mg subcu daily -GI prophylaxis; not indicated -Paiz catheter; not indicated -Nutrition; consistent carbohydrate diet -Nicotine dependence; not required CODE STATUS-FULL CODE ADMISSION STATUS-patient will be admitted to inpatient status, expect at least a 2 night hospital stay for evaluation and management of problems as outlined above. At the time of this admission I do not reasonably expected evaluation and management of this problem will require more than a 96 hour hospital stay. DISPOSITION-anticipate discharge to home after the hospital stay. PRIMARY CARE PROVIDER-Dr. Blair
[2020-09-02] MEDS: Cefepime 2 GM in Sodium Chloride 0.9% 50 ML IV SCH (13:32)
[2020-09-02] MEDS ORDERED: Vancomycin 2 GM in Sodium Chloride 0.9% 500 ML IV SCH ×2 (16:00→22:00)
[2020-09-02] MEDS ORDERED: Levofloxacin/Dextrose 5%-Water 500 MG in Premix Bag 1 BAG IV SCH (21:00)
[2020-09-02] MEDS ORDERED: Enoxaparin 30 MG/0.3 ML Syringe SUBCUT SCH (21:00)
[2020-09-02] MEDS: Latanoprost 0.005% Ophth Soln 2.5 ML Bottle EYEBOTH SCH (21:22)
[2020-09-02] MEDS: Simvastatin 20 MG Tab PO SCH (21:23)
[2020-09-02] MEDS: Tamsulosin 0.4 MG Cap.ER PO SCH (21:25)
[2020-09-03] MEDS: Cefepime 2 GM in Sodium Chloride 0.9% 50 ML IV SCH ×2 (01:08→13:18)
[2020-09-03] MEDS: Acetaminophen 325 MG Tab PO PRN ×4 (03:50→22:04)
[2020-09-03] MEDS: Albuterol/Ipratropium 3.0-0.5 MG/3 ML Neb Soln NEB SCH ×4 (06:58→21:23)
[2020-09-03] MEDS: Insulin Lispro 100 Unit/ML 3 ML KwikPen SUBCUT SCH ×4 (07:44→21:23)
[2020-09-03] MEDS: Insulin Glargine,Human Rec. Analog 100 Units/ML 3 ML Pen SUBCUT SCH (07:45)
[2020-09-03] MEDS: Lactobacillus Rhamnosus GG (Probiotic) Cap PO SCH ×2 (08:54→21:22)
[2020-09-03] MEDS: Gabapentin 300 MG Cap PO SCH ×2 (08:54→21:23)
--- NOTE | 2020-09-03 12:10 | PCM.PN ---
- General Info Date of Service: 09/03/20 Subjective Update: Mr. Duran has experienced further improvement over the last 24 hours, appetite seems to be improving and overall strength is better. He is now off of IV norepinephrine. Renal function has improved significantly, he has been afebrile, and white blood cell count has normalized. 1 of 4 blood cultures positive for gram-negative rods, final ID and sensitivities are pending. Functional Status: Reports: Tolerating Diet, Urinating. Denies: Ambulating - Review of Systems General: Reports: Weakness, Fatigue. Denies: Fever, Chills Pulmonary: Reports: No Symptoms Cardiovascular: Reports: No Symptoms Gastrointestinal: Reports: No Symptoms Genitourinary: Reports: No Symptoms - Patient Data Vitals - Most Recent: Last Vital Signs Temp 99.2 F 09/03/20 12:02 Pulse 89 09/03/20 06:58 Resp 14 09/03/20 12:00 BP 112/63 09/03/20 12:00 Pulse Ox 96 09/03/20 12:00 Weight - Most Recent: 310 lb 11.2 oz I&O - Last 24 Hours: Intake & Output 09/02/20 09/03/20 09/03/20 22:59 06:59 14:59 Intake Total 4694 743 Output Total 1050 925 600 Balance 3644 -182 -600 Lab Results Last 24 Hours: Laboratory Results - last 24 hr 09/03/20 09/03/20 09/03/20 Range/Units 05:00 05:00 05:14 WBC 7.6 (4.5-11.0) K/uL RBC 3.46 L (4.30-5.90) M/uL Hgb 10.1 L (12.0-15.0) g/dL Hct 31.1 L (40.0-54.0) % MCV 90 (80-98) fL MCH 29 (27-31) pg MCHC 33 (32-36) % Plt Count 106 L (150-400) K/uL Neut % (Auto) 73 H (36-66) % Lymph % (Auto) 14 L (24-44) % [place] % (Auto) 12 H (2-6) % Eos % (Auto) 1 L (2-4) % Baso % (Auto) 0 (0-1) % Puncture Site Rt radial ABG pH 7.453 H (7.350-7.450) ABG pCO2 36.3 (35.0-42.0) mmHg ABG pO2 79.2 (75.0-100.0) mmHg ABG HCO3 25.0 (22.0-26.0) mmol/L ABG Total CO2 22.8 L (23.0-27.0) mmol/L ABG O2 Saturation 96.8 (95.0-98.0) % ABG O2 Content 14.5 L (15.0-23.0) %vol ABG Base Excess 1.7 mm/L ABG Hemoglobin 10.9 L (13.5-18.0) g/dL ABG Oxyhemoglobin 94.1 % ABG Carboxyhemoglobin 2.1 H (0.0-1.6) % ABG Methemoglobin 0.7 % Javon Test Passed O2 Delivery Device Bipap Oxygen Flow Rate L Sodium 135 L (140-148) mmol/L Potassium 4.2 (3.6-5.2) mmol/L Chloride 100 (100-108) mmol/L Carbon Dioxide 28 (21-32) mmol/L Anion Gap 11.2 (5.0-14.0) mmol/L BUN 25 H (7-18) mg/dL Creatinine 1.9 H (0.8-1.3) mg/dL Est Cr Clr Drug Dosing 48.18 mL/min Estimated GFR (MDRD) 39 L (>60) Glucose 184 H (74-106) mg/dL Calcium 8.2 L (8.5-10.1) mg/dL Magnesium 2.0 (1.8-2.4) mg/dL Total Bilirubin 0.5 (0.2-1.0) mg/dL AST 33 (15-37) U/L ALT 26 (12-78) U/L Alkaline Phosphatase 39 L (46-116) U/L Total Protein 6.2 L (6.4-8.2) g/dL Albumin 2.1 L (3.4-5.0) g/dL Globulin 4.1 H (2.3-3.5) g/dL Albumin/Globulin Ratio 0.5 L (1.2-2.2) Ranjit Results Last 24 Hours: Microbiology 09/01/20 13:50 Aerobic Blood Culture - Preliminary Blood - Arm, Right NO GROWTH AFTER 1 DAY Anaerobic Blood Culture - Preliminary Gram Negative Rods 09/01/20 13:35 Aerobic Blood Culture - Preliminary Blood - Venous - Iv Start NO GROWTH AFTER 1 DAY Anaerobic Blood Culture - Preliminary NO GROWTH AFTER 1 DAY Med Orders - Current: Current Medications Acetaminophen (Tylenol) 650 mg PO Q4H PRN PRN Reason: Pain (Mild 1-3)/fever Last Admin: 09/03/20 12:02 Dose: 650 mg Documented by: Albuterol (Proventil Neb Soln) 2.5 mg NEB Q4H PRN PRN Reason: Shortness Of Breath/wheezing Albuterol/Ipratropium (Duoneb 3.0-0.5 Mg/3 Ml) 3 ml NEB QIDRT [facility] Last Admin: 09/03/20 10:49 Dose: 3 ml Documented by: Dextrose (Glutose 15) 15 gm PO ONETIME PRN PRN Reason: Hypoglycemia Dextrose/Water (Dextrose 50% In Water) 50 ml IV ONETIME PRN PRN Reason: Hypoglycemia Dimethicone/Zinc Oxide (Rash Relief-Zinc Oxide [place]) 0 gm TOP ASDIRECTED PRN PRN Reason: Itching Last Admin: 09/02/20 21:27 Dose: 1 applic Documented by: Gabapentin (Neurontin) 300 mg PO BID [facility] Last Admin: 09/03/20 08:54 Dose: 300 mg Documented by: Norepinephrine Bitartrate 4 mg (/ Dextrose/Water) 250 mls @ 7.5 mls/hr IV TITRATE [facility]; Protocol Last Titration: 09/03/20 07:30 Dose: Infused Documented by: Levofloxacin/Dextrose 750 mg/ (Premix) 150 mls @ 100 mls/hr IV Q48H [facility] Cefepime HCl 2 gm/ Sodium (Chloride) 50 mls @ 100 mls/hr IV Q12H [facility] Last Admin: 09/03/20 01:08 Dose: 100 mls/hr Documented by: Influenza Virus Vaccine (Fluzone Quad [id number] Syringe) 60 mcg IM ONETIME ONE Stop: 09/04/20 10:01 Insulin Glargine (Lantus Solostar) 34 units SUBCUT ACBREAKFAST [facility] Last Admin: 09/03/20 07:45 Dose: 34 units Documented by: Insulin Human Lispro (Humalog) 0 unit SUBCUT QIDACANDBED [facility]; Protocol Last Admin: 09/03/20 11:58 Dose: 6 units Documented by: Lactobacillus Rhamnosus (Culturelle) 1 cap PO BID [facility] Last Admin: 09/03/20 08:54 Dose: 1 cap Documented by: Latanoprost (Xalatan 0.005% Ophth Soln) 0 ml EYEBOTH BEDTIME [facility] Last Admin: 09/02/20 21:22 Dose: 1 drop Documented by: Ondansetron HCl (Zofran) 4 mg IV Q4H PRN PRN Reason: Nausea/Vomiting Polyethylene Glycol (Miralax) 17 gm PO DAILY PRN PRN Reason: Constipation Simvastatin (Zocor) 20 mg PO BEDTIME [facility] Last Admin: 09/02/20 21:23 Dose: 20 mg Documented by: Sodium Chloride (Saline Flush) 10 ml FLUSH ASDIRECTED PRN PRN Reason: Keep Vein Open Tamsulosin HCl (Flomax) 0.4 mg PO BEDTIME [facility] Last Admin: 09/02/20 21:25 Dose: 0.4 mg Documented by: Discontinued Medications Acetaminophen (Tylenol) 650 mg PO NOW ONE Stop: 09/01/20 14:46 Last Admin: 09/01/20 14:50 Dose: 650 mg Documented by: Enoxaparin Sodium (Lovenox) 30 mg SUBCUT DAILY [facility] Last Admin: 09/01/20 22:32 Dose: 30 mg Documented by: Enoxaparin Sodium (Lovenox) 30 mg SUBCUT BEDTIME [facility] Lactated Ringer's (Ringers, Lactated) 1,000 mls @ 999 mls/hr IV ASDIRECTED [facility] Last Admin: 09/01/20 14:15 Dose: 999 mls/hr Documented by: Cefepime HCl 1 gm/ Sodium (Chloride) 50 mls @ 100 mls/hr IV Q6H [facility] Last Admin: 09/01/20 14:18 Dose: 100 mls/hr Documented by: Lactated Ringer's (Ringers, Lactated) 1,000 mls @ 999 mls/hr IV BOLUS ONE Stop: 09/01/20 15:19 Last Admin: 09/01/20 14:29 Dose: 999 mls/hr Documented by: Cefepime HCl 1 gm/ Sodium (Chloride) 50 mls @ 100 mls/hr IV ONETIME ONE Stop: 09/01/20 15:14 Last Admin: 09/01/20 14:54 Dose: 100 mls/hr Documented by: Lactated Ringer's (Ringers, Lactated) 1,000 mls @ 999 mls/hr IV BOLUS ONE Stop: 09/01/20 16:58 Last Admin: 09/01/20 15:58 Dose: 999 mls/hr Documented by: Norepinephrine Bitartrate 4 mg (/ Dextrose/Water) 250 mls @ 7.5 mls/hr IV TITRATE [facility]; Protocol Last Titration: 09/02/20 07:38 Dose: 4 mcg/min, 15 mls/hr Documented by: Lactated Ringer's (Ringers, Lactated) 1,000 mls @ 125 mls/hr IV ASDIRECTED STA Stop: 09/02/20 02:10 Last Admin: 09/01/20 18:18 Dose: 125 mls/hr Documented by: Sodium Chloride (Normal Saline) 1,000 mls @ 999 mls/hr IV ASDIRECTED [facility] Last Admin: 09/01/20 20:20 Dose: 999 mls/hr Documented by: Acetaminophen 1,000 mg/ Premix 100 mls @ 400 mls/hr IV NOW ONE Stop: 09/01/20 20:19 Last Admin: 09/01/20 20:41 Dose: 400 mls/hr Documented by: Vancomycin HCl 1 gm/ Sodium (Chloride) 250 mls @ 150 mls/hr IV ONETIME ONE Stop: 09/01/20 21:50 Last Admin: 09/01/20 20:42 Dose: 150 mls/hr Documented by: Lactated Ringer's (Ringers, Lactated) 1,000 mls @ 125 mls/hr IV ASDIRECTED [facility] Last Admin: 09/02/20 05:32 Dose: 125 mls/hr Documented by: Cefepime HCl 1 gm/ Sodium (Chloride) 50 mls @ 100 mls/hr IV Q24H [facility] Last Admin: 09/02/20 00:43 Dose: 100 mls/hr Documented by: Levofloxacin/Dextrose 750 mg/ (Premix) 150 mls @ 100 mls/hr IV ONETIME ONE Stop: 09/01/20 22:08 Last Admin: 09/01/20 22:28 Dose: 100 mls/hr Documented by: Levofloxacin/Dextrose 500 mg/ (Premix) 100 mls @ 100 mls/hr IV Q48H [facility] Vancomycin HCl 1 gm/ Sodium (Chloride) 250 mls @ 150 mls/hr IV ONETIME ONE Stop: 09/01/20 22:18 Vancomycin HCl 1 gm/ Sodium (Chloride) 250 mls @ 150 mls/hr IV ONETIME ONE Stop: 09/01/20 23:39 Last Admin: 09/01/20 21:54 Dose: Not Given Documented by: Lactated Ringer's (Ringers, Lactated) 1,000 mls @ 50 mls/hr IV ASDIRECTED [facility] Last Admin: 09/02/20 13:36 Dose: 50 mls/hr Documented by: Vancomycin HCl 2 gm/ Sodium (Chloride) 500 mls @ 250 mls/hr IV Q24H [facility] Last Admin: 09/02/20 15:28 Dose: 250 mls/hr Documented by: Lidocaine HCl (Xylocaine 2% Jelly) Confirm Administered Dose 10 ml .ROUTE .STK- MED ONE Stop: 09/01/20 14:08 Last Admin: 09/01/20 14:50 Dose: Not Given Documented by: Lidocaine HCl (Xylocaine 2% Jelly) 10 ml MUCMEM ONETIME ONE Stop: 09/01/20 14:46 Last Admin: 09/01/20 14:50 Dose: 10 ml Documented by: Sodium Polystyrene Sulfonate (Kayexalate) 30 gm PO ONETIME STA Stop: 09/01/20 17:38 Last Admin: 09/01/20 17:47 Dose: 30 gm Documented by: Vancomycin HCl (Vancomycin) 1 gm IV .PHARMACY TO DOSE [facility] - Exam Quality Assessment: DVT Prophylaxis General: Alert, Oriented, Cooperative, Mild Distress Lungs: Clear to Auscultation, Normal Respiratory Effort Cardiovascular: Regular Rate, Regular Rhythm, No Murmurs GI/Abdominal Exam: Soft, Non-Tender, No Organomegaly, No Distention Extremities: Non-Tender, No Pedal Edema Sepsis Event Note - Evaluation Sepsis Screening Result: No Definite Risk - Focused Exam Vital Signs: Vital Signs Temp Temp Pulse Resp BP Pulse Ox 09/03/20 12:02 99.2 F 09/03/20 12:00 99.2 F 14 112/63 96 09/03/20 11:00 20 97/66 93 L 09/03/20 10:00 16 102/68 99 09/03/20 09:00 14 103/60 96 09/03/20 08:00 98.3 F 20 95/50 L 98 09/03/20 07:00 16 99/55 L 100 09/03/20 06:58 89 09/03/20 06:00 99.2 F 18 100/65 91 L 09/03/20 05:00 12 99/50 L 96 09/03/20 04:20 99.2 F 09/03/20 04:00 12 100/67 96 09/03/20 03:50 100.2 F 09/03/20 03:00 100.2 F 16 103/58 L 99 09/03/20 02:00 24 H 124/77 95 09/03/20 01:00 20 124/84 95 - Problem List Review Problem List Initiated/Reviewed/Updated: Yes - My Orders Last 24 Hours: My Active Orders 09/02/20 13:25 Central Line Assessment [RC] QSHIFT 09/02/20 13:30 Cefepime [Maxipime] 2 gm Sodium Chloride 0.9% [Normal Saline] 50 ml IV Q12H 09/03/20 12:02 Convert IV to Saline Lock [OM.PC] Routine 09/03/20 21:00 Levofloxacin/Dextrose 5%-Water [Levaquin in D5W 750 MG/150 ML] 750 mg Premix Bag 1 bag IV Q48H 09/04/20 05:00 BASIC METABOLIC PANEL,BMP [CHEM] Timed 09/04/20 07:30 GLUCOSE POC LAB TO COLLECT JPM [POC] QIDACANDBED 09/04/20 10:00 Flu Vacc [id number](6Mos Up)/Pf [Fluzone Quad 6168-3766 Syringe] 60 mcg IM ONETIME ONE 09/04/20 11:30 GLUCOSE POC LAB TO COLLECT JPM [POC] QIDACANDBED 09/04/20 16:30 GLUCOSE POC LAB TO COLLECT JPM [POC] QIDACANDBED 09/04/20 21:00 GLUCOSE POC LAB TO COLLECT JPM [POC] QIDACANDBED 09/05/20 07:30 GLUCOSE POC LAB TO COLLECT JPM [POC] QIDACANDBED 09/05/20 11:30 GLUCOSE POC LAB TO COLLECT JPM [POC] QIDACANDBED 09/05/20 16:30 GLUCOSE POC LAB TO COLLECT JPM [POC] QIDACANDBED 09/05/20 21:00 GLUCOSE POC LAB TO COLLECT JPM [POC] QIDACANDBED 09/06/20 07:30 GLUCOSE POC LAB TO COLLECT JPM [POC] QIDACANDBED 09/06/20 11:30 GLUCOSE POC LAB TO COLLECT JPM [POC] QIDACANDBED 09/06/20 16:30 GLUCOSE POC LAB TO COLLECT JPM [POC] QIDACANDBED - Plan Plan:: ASSESSMENT AND PLAN SEPSIS SECONDARY TO URINARY TRACT INFECTION-stable off of IV norepinephrine. Blood pressure currently adequate and renal function has slowly improved. 1 of 4 blood culture bottles positive for gram-negative rods, final ID and sensitivities are pending -Discontinue IV vancomycin -Broad-spectrum IV antibiotic therapy pending culture results; levofloxacin, and cefepime -Blood and urine cultures pending -Saline lock IV HYPOXIC RESPIRATORY FAILURE-respiratory status has stabilized with no further hypoxia -Supplemental oxygen as needed -BiPAP -Nebulized albuterol and DuoNebs ACUTE KIDNEY INJURY-no function has significantly improved from admission, not yet back to baseline -Maintain map of greater than 65 -Closely monitor urine output and renal function HYPERKALEMIA-resolved -Reassess potassium level in a.m. TYPE 2 DIABETES MELLITUS -Continue usual dose of long-acting insulin -Hold metformin -4 times daily glucometers -Medium dose sliding scale Humalog HISTORY OF RECENT HEMORRHAGIC CVA MAINTENANCE ISSUES -DVT prophylaxis; Lovenox 30 mg subcu daily -GI prophylaxis; not indicated -Paiz catheter; not indicated -Nutrition; consistent carbohydrate diet -Nicotine dependence; not required CODE STATUS-FULL CODE ADMISSION STATUS-patient will be admitted to inpatient status, expect at least a 2 night hospital stay for evaluation and management of problems as outlined above. At the time of this admission I do not reasonably expected evaluation and management of this problem will require more than a 96 hour hospital stay. DISPOSITION-anticipate discharge to home after the hospital stay. PRIMARY CARE PROVIDER-Dr. Blair
[2020-09-03] MEDS ORDERED: Levofloxacin/Dextrose 5%-Water 750 MG in Premix Bag 1 BAG IV SCH ×2 (15:00→21:00)
[2020-09-03] MEDS: Latanoprost 0.005% Ophth Soln 2.5 ML Bottle EYEBOTH SCH (21:22)
[2020-09-03] MEDS: Tamsulosin 0.4 MG Cap.ER PO SCH (21:23)
[2020-09-03] MEDS: Simvastatin 20 MG Tab PO SCH (21:23)
[2020-09-04] MEDS: Cefepime 2 GM in Sodium Chloride 0.9% 50 ML IV SCH (01:16)
[2020-09-04] MEDS: Albuterol/Ipratropium 3.0-0.5 MG/3 ML Neb Soln NEB SCH (06:59)
[2020-09-04] MEDS: Insulin Lispro 100 Unit/ML 3 ML KwikPen SUBCUT SCH ×4 (07:22→21:23)
[2020-09-04] MEDS: Insulin Glargine,Human Rec. Analog 100 Units/ML 3 ML Pen SUBCUT SCH (07:24)
[2020-09-04] MEDS: Lactobacillus Rhamnosus GG (Probiotic) Cap PO SCH ×2 (08:09→21:21)
[2020-09-04] MEDS: Gabapentin 300 MG Cap PO SCH ×2 (08:09→21:22)
--- NOTE | 2020-09-04 09:21 | PCM.PN ---
- General Info Date of Service: 09/04/20 Subjective Update: No acute events overnight. Patient reports that he feels well today. He does admit that he is still a little weak and a little off balance but otherwise feels he is doing okay. Blood pressure has been normal off of the norepinephrine over the past 24 hours. He has not had any fevers but did have some very mild temperature elevations into the 99 range. No complaints of abdominal pain. He does not feel short of breath. One blood culture grew out E. coli. Functional Status: Reports: Pain Controlled, Tolerating Diet - Review of Systems General: Reports: Weakness. Denies: Fever Pulmonary: Denies: Shortness of Breath Neurological: Reports: Gait Disturbance - Patient Data Vitals - Most Recent: Last Vital Signs Temp 37.1 C 09/04/20 07:00 Pulse 108 H 09/04/20 08:07 Resp 27 H 09/04/20 08:07 BP 135/81 09/04/20 08:07 Pulse Ox 95 09/04/20 08:07 Weight - Most Recent: 140.931 kg I&O - Last 24 Hours: Intake & Output 09/03/20 09/04/20 09/04/20 22:59 06:59 14:59 Intake Total 300 650 Output Total 1400 Balance -1100 650 Lab Results Last 24 Hours: Laboratory Results - last 24 hr 09/04/20 Range/Units 05:07 Sodium 137 L (140-148) mmol/L Potassium 4.0 (3.6-5.2) mmol/L Chloride 102 (100-108) mmol/L Carbon Dioxide 31 (21-32) mmol/L Anion Gap 8.0 (5.0-14.0) mmol/L BUN 21 H (7-18) mg/dL Creatinine 1.7 H (0.8-1.3) mg/dL Est Cr Clr Drug Dosing 53.85 mL/min Estimated GFR (MDRD) 44 L (>60) Glucose 152 H (74-106) mg/dL Calcium 8.3 L (8.5-10.1) mg/dL Ranjit Results Last 24 Hours: Microbiology 09/01/20 13:35 Aerobic Blood Culture - Preliminary Blood - Venous - Iv Start NO GROWTH AFTER 2 DAYS Anaerobic Blood Culture - Preliminary NO GROWTH AFTER 2 DAYS 09/01/20 13:50 Aerobic Blood Culture - Preliminary Blood - Arm, Right NO GROWTH AFTER 2 DAYS Anaerobic Blood Culture - Final Escherichia Coli Med Orders - Current: Current Medications Acetaminophen (Tylenol) 650 mg PO Q4H PRN PRN Reason: Pain (Mild 1-3)/fever Last Admin: 09/03/20 22:04 Dose: 650 mg Documented by: Albuterol (Proventil Neb Soln) 2.5 mg NEB Q4H PRN PRN Reason: Shortness Of Breath/wheezing Dextrose (Glutose 15) 15 gm PO ONETIME PRN PRN Reason: Hypoglycemia Dextrose/Water (Dextrose 50% In Water) 50 ml IV ONETIME PRN PRN Reason: Hypoglycemia Dimethicone/Zinc Oxide (Rash Relief-Zinc Oxide [place]) 0 gm TOP ASDIRECTED PRN PRN Reason: Itching Last Admin: 09/02/20 21:27 Dose: 1 applic Documented by: Gabapentin (Neurontin) 300 mg PO BID [facility] Last Admin: 09/04/20 08:09 Dose: 300 mg Documented by: Ceftriaxone Sodium 2 gm/ (Sodium Chloride) 50 mls @ 100 mls/hr IV Q24H [facility] Influenza Virus Vaccine (Fluzone Quad [id number] Syringe) 60 mcg IM ONETIME ONE Stop: 09/04/20 10:01 Insulin Glargine (Lantus Solostar) 34 units SUBCUT ACBREAKFAST [facility] Last Admin: 09/04/20 07:24 Dose: 34 units Documented by: Insulin Human Lispro (Humalog) 0 unit SUBCUT QIDACANDBED [facility]; Protocol Last Admin: 09/04/20 07:22 Dose: 2 units Documented by: Lactobacillus Rhamnosus (Culturelle) 1 cap PO BID [facility] Last Admin: 09/04/20 08:09 Dose: 1 cap Documented by: Latanoprost (Xalatan 0.005% Ophth Soln) 0 ml EYEBOTH BEDTIME [facility] Last Admin: 09/03/20 21:22 Dose: 1 drop Documented by: Non-Formulary Medication (Labetalol Hcl [Labetalol]) 200 mg PO BID [facility] Ondansetron HCl (Zofran) 4 mg IV Q4H PRN PRN Reason: Nausea/Vomiting Polyethylene Glycol (Miralax) 17 gm PO DAILY PRN PRN Reason: Constipation Simvastatin (Zocor) 20 mg PO BEDTIME [facility] Last Admin: 10/04/20 21:23 Dose: 20 mg Documented by: Sodium Chloride (Saline Flush) 10 ml FLUSH ASDIRECTED PRN PRN Reason: Keep Vein Open Tamsulosin HCl (Flomax) 0.4 mg PO BEDTIME [facility] Last Admin: 09/03/20 21:23 Dose: 0.4 mg Documented by: Discontinued Medications Acetaminophen (Tylenol) 650 mg PO NOW ONE Stop: 09/01/20 14:46 Last Admin: 09/01/20 14:50 Dose: 650 mg Documented by: Albuterol/Ipratropium (Duoneb 3.0-0.5 Mg/3 Ml) 3 ml NEB QIDRT [facility] Last Admin: 09/04/20 06:59 Dose: 3 ml Documented by: Enoxaparin Sodium (Lovenox) 30 mg SUBCUT DAILY [facility] Last Admin: 09/01/20 22:32 Dose: 30 mg Documented by: Enoxaparin Sodium (Lovenox) 30 mg SUBCUT BEDTIME [facility] Lactated Ringer's (Ringers, Lactated) 1,000 mls @ 999 mls/hr IV ASDIRECTED [facility] Last Admin: 09/01/20 14:15 Dose: 999 mls/hr Documented by: Cefepime HCl 1 gm/ Sodium (Chloride) 50 mls @ 100 mls/hr IV Q6H [facility] Last Admin: 09/01/20 14:18 Dose: 100 mls/hr Documented by: Lactated Ringer's (Ringers, Lactated) 1,000 mls @ 999 mls/hr IV BOLUS ONE Stop: 09/01/20 15:19 Last Admin: 09/01/20 14:29 Dose: 999 mls/hr Documented by: Cefepime HCl 1 gm/ Sodium (Chloride) 50 mls @ 100 mls/hr IV ONETIME ONE Stop: 09/01/20 15:14 Last Admin: 09/01/20 14:54 Dose: 100 mls/hr Documented by: Lactated Ringer's (Ringers, Lactated) 1,000 mls @ 999 mls/hr IV BOLUS ONE Stop: 09/01/20 16:58 Last Admin: 09/01/20 15:58 Dose: 999 mls/hr Documented by: Norepinephrine Bitartrate 4 mg (/ Dextrose/Water) 250 mls @ 7.5 mls/hr IV TITRATE [facility]; Protocol Last Titration: 09/02/20 07:38 Dose: 4 mcg/min, 15 mls/hr Documented by: Lactated Ringer's (Ringers, Lactated) 1,000 mls @ 125 mls/hr IV ASDIRECTED STA Stop: 09/02/20 02:10 Last Admin: 09/01/20 18:18 Dose: 125 mls/hr Documented by: Sodium Chloride (Normal Saline) 1,000 mls @ 999 mls/hr IV ASDIRECTED [facility] Last Admin: 09/01/20 20:20 Dose: 999 mls/hr Documented by: Acetaminophen 1,000 mg/ Premix 100 mls @ 400 mls/hr IV NOW ONE Stop: 09/01/20 20:19 Last Admin: 09/01/20 20:41 Dose: 400 mls/hr Documented by: Vancomycin HCl 1 gm/ Sodium (Chloride) 250 mls @ 150 mls/hr IV ONETIME ONE Stop: 09/01/20 21:50 Last Admin: 09/01/20 20:42 Dose: 150 mls/hr Documented by: Lactated Ringer's (Ringers, Lactated) 1,000 mls @ 125 mls/hr IV ASDIRECTED [facility] Last Admin: 09/02/20 05:32 Dose: 125 mls/hr Documented by: Cefepime HCl 1 gm/ Sodium (Chloride) 50 mls @ 100 mls/hr IV Q24H [facility] Last Admin: 09/02/20 00:43 Dose: 100 mls/hr Documented by: Levofloxacin/Dextrose 750 mg/ (Premix) 150 mls @ 100 mls/hr IV ONETIME ONE Stop: 09/01/20 22:08 Last Admin: 09/01/20 22:28 Dose: 100 mls/hr Documented by: Levofloxacin/Dextrose 500 mg/ (Premix) 100 mls @ 100 mls/hr IV Q48H [facility] Norepinephrine Bitartrate 4 mg (/ Dextrose/Water) 250 mls @ 7.5 mls/hr IV TITRATE [facility]; Protocol Last Titration: 09/03/20 07:30 Dose: Infused Documented by: Vancomycin HCl 1 gm/ Sodium (Chloride) 250 mls @ 150 mls/hr IV ONETIME ONE Stop: 09/01/20 22:18 Last Admin: 09/04/20 07:19 Dose: Not Given Documented by: Vancomycin HCl 1 gm/ Sodium (Chloride) 250 mls @ 150 mls/hr IV ONETIME ONE Stop: 09/01/20 23:39 Last Admin: 09/01/20 21:54 Dose: Not Given Documented by: Levofloxacin/Dextrose 750 mg/ (Premix) 150 mls @ 100 mls/hr IV Q48H [facility] Lactated Ringer's (Ringers, Lactated) 1,000 mls @ 50 mls/hr IV ASDIRECTED [facility] Last Admin: 09/02/20 13:36 Dose: 50 mls/hr Documented by: Vancomycin HCl 2 gm/ Sodium (Chloride) 500 mls @ 250 mls/hr IV Q24H [facility] Last Admin: 09/02/20 15:28 Dose: 250 mls/hr Documented by: Cefepime HCl 2 gm/ Sodium (Chloride) 50 mls @ 100 mls/hr IV Q12H [facility] Last Admin: 09/04/20 01:16 Dose: 100 mls/hr Documented by: Levofloxacin/Dextrose 750 mg/ (Premix) 150 mls @ 100 mls/hr IV Q24H [facility] Last Admin: 09/03/20 14:52 Dose: 100 mls/hr Documented by: Lidocaine HCl (Xylocaine 2% Jelly) Confirm Administered Dose 10 ml .ROUTE .STK- MED ONE Stop: 09/01/20 14:08 Last Admin: 09/01/20 14:50 Dose: Not Given Documented by: Lidocaine HCl (Xylocaine 2% Jelly) 10 ml MUCMEM ONETIME ONE Stop: 09/01/20 14:46 Last Admin: 09/01/20 14:50 Dose: 10 ml Documented by: Sodium Polystyrene Sulfonate (Kayexalate) 30 gm PO ONETIME STA Stop: 09/01/20 17:38 Last Admin: 09/01/20 17:47 Dose: 30 gm Documented by: Vancomycin HCl (Vancomycin) 1 gm IV .PHARMACY TO DOSE [facility] - Exam Quality Assessment: Supplemental Oxygen General: Alert, Oriented, Cooperative, No Acute Distress Lungs: Clear to Auscultation, Normal Respiratory Effort Cardiovascular: Regular Rhythm, Tachycardia GI/Abdominal Exam: Soft, No Distention Extremities: No Pedal Edema. No: Increased Warmth Skin: Warm, Dry Psy/Mental Status: Alert, Normal Affect Sepsis Event Note - Evaluation Sepsis Screening Result: Severe Sepsis Risk - Focused Exam Vital Signs: Vital Signs Temp Temp Pulse Resp BP Pulse Ox 09/04/20 08:07 108 H 27 H 135/81 95 09/04/20 07:00 37.1 C 103 H 25 H 130/81 89 L 09/04/20 06:59 105 H 09/04/20 06:00 37.4 C 20 124/58 L 91 L 09/04/20 04:00 14 136/90 92 L 09/04/20 02:00 37.3 C 16 111/68 96 09/04/20 00:00 37.3 C 20 119/68 97 09/03/20 22:34 37.3 C 09/03/20 22:04 37.4 C 09/03/20 22:00 14 109/71 99 - Problem List Review Problem List Initiated/Reviewed/Updated: Yes - My Orders Last 24 Hours: My Active Orders 09/04/20 09:18 Transfer Patient (Change bed) [ADT] Routine Discontinue Telemetry Monitoring [Cardiac Monitoring Discontinue] [RC] Click to Edit 09/04/20 09:20 PT Evaluation and Treatment [CONS] Routine 09/04/20 09:30 Labetalol HCl [Labetalol] 200 mg PO BID 09/04/20 13:00 cefTRIAXone [Rocephin] 2 gm Sodium Chloride 0.9% [Normal Saline] 50 ml IV Q24H 09/05/20 05:00 BASIC METABOLIC PANEL,BMP [CHEM] Timed CBC W/O DIFF,HEMOGRAM [HEME] Timed (1) - Plan Plan:: ASSESSMENT AND PLAN SEPTIC SHOCK SECONDARY TO URINARY TRACT INFECTION-stable off of IV norepinephrine over the past 24 hours. Symptomatically feeling well. The E. coli cultured from his blood was resistant to fluoroquinolones. -Change antibiotics to ceftriaxone -Saline lock IV -Physical therapy for strengthening HYPOXIC RESPIRATORY FAILURE-resolved. -Supplemental oxygen as needed -BiPAP at night -Nebulized albuterol and DuoNebs ACUTE KIDNEY INJURY-steady improvement but not quite back to baseline. -Maintain map of greater than 65 -Closely monitor urine output and renal function HYPERKALEMIA-resolved -Recheck in a.m. TYPE 2 DIABETES MELLITUS-blood sugars have been well controlled. -Continue usual dose of long-acting insulin -Hold metformin until renal function improves -4 times daily glucometers -Medium dose sliding scale Humalog HISTORY OF RECENT HEMORRHAGIC CVA-significant memory impairment as well as difficulties with gait/balance. He would benefit from ongoing subacute rehab before returning home. -Physical therapy -Anticipate discharge to correction facility MAINTENANCE ISSUES -DVT prophylaxis; Lovenox 30 mg subcu daily -GI prophylaxis; not indicated -Paiz catheter; not indicated -Nutrition; consistent carbohydrate diet DISPOSITION-anticipate discharge to correction facility after the hospital stay. Sammy Roberts MD
[2020-09-04] MEDS ORDERED: LABETALOL HCL 200 MG PO SCH (09:30)
[2020-09-04] MEDS: Labetalol 100 MG Tab PO SCH ×2 (09:49→21:21)
[2020-09-04] MEDS ORDERED: FLU VACC QS2020-21(6MOS UP)/PF 60 MCG/0.5 ML SYRINGE IM ONE (10:00)
[2020-09-04] MEDS: cefTRIAXone 2 GM in Sodium Chloride 0.9% 50 ML IV SCH (13:09)
[2020-09-04] MEDS: Simvastatin 20 MG Tab PO SCH (21:22)
[2020-09-04] MEDS: Latanoprost 0.005% Ophth Soln 2.5 ML Bottle EYEBOTH SCH (21:22)
[2020-09-04] MEDS: Tamsulosin 0.4 MG Cap.ER PO SCH (21:22)
[2020-09-05] MEDS: Insulin Glargine,Human Rec. Analog 100 Units/ML 3 ML Pen SUBCUT SCH (07:32)
[2020-09-05] MEDS: Insulin Lispro 100 Unit/ML 3 ML KwikPen SUBCUT SCH ×3 (07:33→16:48)
[2020-09-05] MEDS: Ondansetron 4 MG/2 ML SDV IV PRN (07:34)
[2020-09-05] MEDS: Labetalol 100 MG Tab PO SCH ×2 (08:40→21:16)
[2020-09-05] MEDS: Gabapentin 300 MG Cap PO SCH ×2 (08:40→21:16)
[2020-09-05] MEDS: Lactobacillus Rhamnosus GG (Probiotic) Cap PO SCH ×2 (08:41→21:16)
--- NOTE | 2020-09-05 09:25 | PCM.DCSUM1 ---
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 Work-up in the emergency room suggested a urinary tract infection with septic shock, acute kidney injury and hyperkalemia. He was admitted to the intensive care unit for further management. Diagnosis: Stroke: No - Discharge Data Discharge Date: 09/05/20 Discharge Disposition: DC/Tfer to SNF 03 Condition: Fair - Referral to Home Health Primary Care Physician: Cam Blair MD - Discharge Diagnosis/Problem(s) (1) Acute cystitis without hematuria SNOMED Code(s): 09062819 ICD Code: N30.00 - ACUTE CYSTITIS WITHOUT HEMATURIA Status: Acute Current Visit: Yes (2) Septic shock due to Escherichia coli SNOMED Code(s): 32950663 ICD Code: A41.51 - SEPSIS DUE TO ESCHERICHIA COLI [E. 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 SNOMED Code(s): 886525784 ICD Code: I69.119 - UNSP SYMPTOMS AND SIGNS W COGN FNCTNS FOL NTRM INTCRBL HEMOR Status: Chronic Current Visit: Yes (6) Morbid obesity with BMI of 45.0-49.9, adult SNOMED Code(s): 911564501, 61106116982684 ICD Code: E66.01 - MORBID (SEVERE) OBESITY DUE TO EXCESS CALORIES; Z68.42 - BODY MASS INDEX [BMI] 45.0-49.9, ADULT Status: Chronic Current Visit: No (7) Essential hypertension SNOMED Code(s): 37703202 ICD Code: I10 - ESSENTIAL (PRIMARY) HYPERTENSION Status: Chronic Current Visit: No (8) Type 2 diabetes mellitus SNOMED Code(s): 96212514 ICD Code: E11.9 - TYPE 2 DIABETES MELLITUS WITHOUT COMPLICATIONS Status: Chronic Current Visit: No Qualifiers: Diabetes mellitus rn long term care insulin use: with rn long term care use Diabetes mellitus complication status: with other specified complication Qualified Code(s): E11.69 - Type 2 diabetes mellitus with other specified complication; Z79.4 - USP (current) use of insulin (9) MANJINDER (obstructive sleep apnea) SNOMED Code(s): 76687507 ICD Code: G47.33 - OBSTRUCTIVE SLEEP APNEA (ADULT) (PEDIATRIC) Status: Chronic Current Visit: No - Patient Summary/Data Consults: Consultations 09/04/20 09:20 PT Evaluation and Treatment [CONS] Routine Please Evaluate and Treat. PT Reason for Consult: Strengthening This query below is only for informational purposes and is not editable. Admission Diagnosis/Problem: Sepsis Hospital Course: All presented to the emergency room with weakness and lethargy as well as hypotension and tachycardia. He had been at the long term for subacute rehab following a hemorrhagic CVA. Work-up in the emergency room suggested a urinary tract infection with septic shock necessitating norepinephrine use following volume resuscitation. He also had hypo-natremia, hyperkalemia and acute kidney injury with a creatinine of 3.5. His CRP and procalcitonin levels were extremely high. Initially there was some hypoxia but this was probably related to the sepsis and did resolve without any significant intervention. There is no evidence for pulmonary infection on chest x-ray. He was started on broad- spectrum antibiotics and admitted to the intensive care unit for further management. Over the next 48 hours he did make steady improvement. We were able to wean off the norepinephrine after about 36 hours in the hospital. His hyperkalemia improved with fluids and a dose of Kayexalate. His kidney function was making a steady trend towards improvement. His blood pressure is stabilized. His strength and mental status were improving. His hyponatremia resolved with IV fluid resuscitation. He had mild hyperglycemia initially and this improved with supplemental insulin use. He had one blood culture that did grow out E. coli which was sensitive to ceftriaxone so antibiotics were narrowed to this once the culture results were available. He has continued to improve with the IV antibiotic therapy. His creatinine is down to 1.4 which is near his baseline. His blood pressures have been stable and slowly rising so we have restarted his antihypertensives. His potassium level has been normal after the initial mild elevation at 6. He has made some progress with strength. I do believe he would benefit from ongoing physical and occupational therapy to help recover from both a stroke and this acute illness that led to a further decline in his strength. He will need oral antibiotics for 5 more days. No changes to his usual home medications were made. He is stable and safe for discharge at this time. - Patient Instructions Diet: Diabetic Diet (1800 ADA calorie diet ) Activity: As Tolerated Driving: Do Not Drive Showering/Bathing: May Shower Notify Provider of: Fever, Increased Pain Other/Special Instructions: 1. You were in the hospital for management of a urinary tract infection that was complicated by septic shock, acute kidney injury and significant weakness. Your condition has been improving with antibiotic therapy. Our cultures did grow out E. coli which was likely the culprit for the bladder infection and severe illness that resulted from it. I do recommend ongoing antibiotic therapy with cefdinir (Omnicef). Please take 300 mg twice daily for 11 more doses. Your first dose will be due tonight. I recommend that you take a probiotic twice daily for the next 10 days to help reduce the risk of antibiotic associated diarrhea. 2. Referral to Physical therapy and Occupational Therapy for strengthening following acute illness that further complicated a recent hemorrhagic stroke. 3. Check blood sugars 4 times daily with meals and at bedtime. This will help determine if additional insulin adjustments need to be made. 4. Continue to use your CPAP at night while you are sleeping and with naps. - Discharge Plan *PRESCRIPTION DRUG MONITORING PROGRAM REVIEWED*: Not Applicable *COPY OF PRESCRIPTION DRUG MONITORING REPORT IN PATIENT ARIS: Not Applicable Prescriptions/Med Rec: Cefdinir 300 mg PO BID #11 capsule Lactobacillus Rhamnosus GG [Culturelle] 1 cap PO BID #20 cap Home Medications: Home Meds Acetaminophen [Tylenol Extra Strength] 650 mg PO BID 12/04/13 [History] Lisinopril 20 mg PO DAILY 12/04/13 [History] metFORMIN [Glucophage] 1,000 mg PO BIDM 12/04/13 [History] Sennosides [Senna] 1 tab PO BID PRN 04/08/17 [History] Ondansetron [Zofran ODT] 4 mg PO Q8H PRN 12/08/17 [History] Triamcinolone Acetonide [Kenalog 0.1% Crm] 1 applic TOP TID PRN 12/08/17 [History] Gabapentin [Neurontin] 300 cap PO BID 03/09/19 [History] Latanoprost 1 drop EYEBOTH BEDTIME 03/09/19 [History] Albuterol Sulfate [Albuterol Sulfate Hfa] 2 puff IN ASDIRECTED PRN 09/01/20 [History] Insulin Glarg,Human.Rec.Analog [Lantus Solostar] 34 unit SUBCNJ ACBREAKFAST 09/01/20 [History] Labetalol HCl [Labetalol] 200 mg PO BID 09/01/20 [History] Simvastatin 20 mg PO BEDTIME 09/01/20 [History] Tamsulosin [Flomax] 0.4 mg PO BEDTIME 09/01/20 [History] Triamterene/Hydrochlorothiazid [Dyazide 37.5-25 Capsule] 1 cap PO DAILY 09/01/20 [History] Cefdinir 300 mg PO BID #11 capsule 09/05/20 [Rx] Insulin Aspart [NovoLOG] 4 units SUBCNJ TIDAC #0 09/05/20 [Rx] Lactobacillus Rhamnosus GG [Culturelle] 1 cap PO BID #20 cap 09/05/20 [Rx] Oxygen Therapy Mode: CPAP (at night) Patient Handouts: Urinary Tract Infection, Adult, [id number], Cefdinir capsules Referrals: Cam Blair MD [Primary Care Provider] - (f/u as needed after the [place] rehab ) - Discharge Summary/Plan Comment DC Time >30 min.: Yes (40-[place] discharge) - Patient Data Vitals - Most Recent: Last Vital Signs Temp 36.4 C 09/05/20 07:42 Pulse 86 09/05/20 08:40 Resp 16 09/05/20 07:42 BP 125/53 L 09/05/20 08:40 Pulse Ox 90 L 09/05/20 07:42 Weight - Most Recent: 140.931 kg I&O - Last 24 hours: Intake & Output 09/04/20 09/05/20 09/05/20 22:59 06:59 14:59 Intake Total 950 Balance 950 Lab Results - Last 24 hrs: Laboratory Results - last 24 hr 09/05/20 09/05/20 Range/Units 04:40 04:40 WBC 7.2 (4.5-11.0) K/uL RBC 3.53 L (4.30-5.90) M/uL Hgb 10.1 L (12.0-15.0) g/dL Hct 32.4 L (40.0-54.0) % MCV 92 (80-98) fL MCH 29 (27-31) pg MCHC 31 L (32-36) % Plt Count 143 L (150-400) K/uL Sodium 139 L (140-148) mmol/L Potassium 4.1 (3.6-5.2) mmol/L Chloride 102 (100-108) mmol/L Carbon Dioxide 30 (21-32) mmol/L Anion Gap 11.1 (5.0-14.0) mmol/L BUN 17 (7-18) mg/dL Creatinine 1.4 H (0.8-1.3) mg/dL Est Cr Clr Drug Dosing 65.38 mL/min Estimated GFR (MDRD) 55 L (>60) Glucose 158 H (74-106) mg/dL Calcium 8.3 L (8.5-10.1) mg/dL JACQUELINE Results - Last 24 hrs: Microbiology 09/01/20 13:50 Aerobic Blood Culture - Preliminary Blood - Arm, Right NO GROWTH AFTER 3 DAYS Anaerobic Blood Culture - Final Escherichia Coli 09/01/20 13:35 Aerobic Blood Culture - Preliminary Blood - Venous - Iv Start NO GROWTH AFTER 3 DAYS Anaerobic Blood Culture - Preliminary NO GROWTH AFTER 3 DAYS Med Orders - Current: Current Medications Acetaminophen (Tylenol) 650 mg PO Q4H PRN PRN Reason: Pain (Mild 1-3)/fever Last Admin: 09/03/20 22:04 Dose: 650 mg Documented by: Albuterol (Proventil Neb Soln) 2.5 mg NEB Q4H PRN PRN Reason: Shortness Of Breath/wheezing Dextrose (Glutose 15) 15 gm PO ONETIME PRN PRN Reason: Hypoglycemia Dextrose/Water (Dextrose 50% In Water) 50 ml IV ONETIME PRN PRN Reason: Hypoglycemia Dimethicone/Zinc Oxide (Rash Relief-Zinc Oxide [place]) 0 gm TOP ASDIRECTED PRN PRN Reason: Itching Last Admin: 09/02/20 21:27 Dose: 1 applic Documented by: Gabapentin (Neurontin) 300 mg PO BID LYNN Last Admin: 09/05/20 08:40 Dose: 300 mg Documented by: Ceftriaxone Sodium 2 gm/ (Sodium Chloride) 50 mls @ 100 mls/hr IV Q24H [facility] Last Admin: 09/04/20 13:09 Dose: 100 mls/hr Documented by: Insulin Glargine (Lantus Solostar) 34 units SUBCUT ACBREAKFAST [facility] Last Admin: 09/05/20 07:32 Dose: 34 units Documented by: Insulin Human Lispro (Humalog) 0 unit SUBCUT QIDACANDBED [facility]; Protocol Last Admin: 09/05/20 07:33 Dose: 2 units Documented by: Labetalol HCl (Normodyne) 200 mg PO BID [facility] Last Admin: 09/05/20 08:40 Dose: 200 mg Documented by: Lactobacillus Rhamnosus (Culturelle) 1 cap PO BID [facility] Last Admin: 09/05/20 08:41 Dose: 1 cap Documented by: Latanoprost (Xalatan 0.005% Ophth Soln) 0 ml EYEBOTH BEDTIME [facility] Last Admin: 09/04/20 21:22 Dose: 1 drop Documented by: Ondansetron HCl (Zofran) 4 mg IV Q4H PRN PRN Reason: Nausea/Vomiting Last Admin: 09/05/20 07:34 Dose: 4 mg Documented by: Polyethylene Glycol (Miralax) 17 gm PO DAILY PRN PRN Reason: Constipation Simvastatin (Zocor) 20 mg PO BEDTIME [facility] Last Admin: 09/04/20 21:22 Dose: 20 mg Documented by: Sodium Chloride (Saline Flush) 10 ml FLUSH ASDIRECTED PRN PRN Reason: Keep Vein Open Tamsulosin HCl (Flomax) 0.4 mg PO BEDTIME [facility] Last Admin: 09/04/20 21:22 Dose: 0.4 mg Documented by: Discontinued Medications Acetaminophen (Tylenol) 650 mg PO NOW ONE Stop: 09/01/20 14:46 Last Admin: 09/01/20 14:50 Dose: 650 mg Documented by: Albuterol/Ipratropium (Duoneb 3.0-0.5 Mg/3 Ml) 3 ml NEB QIDRT [facility] Last Admin: 09/04/20 06:59 Dose: 3 ml Documented by: Enoxaparin Sodium (Lovenox) 30 mg SUBCUT DAILY [facility] Last Admin: 09/01/20 22:32 Dose: 30 mg Documented by: Enoxaparin Sodium (Lovenox) 30 mg SUBCUT BEDTIME LYNN Lactated Ringer's (Ringers, Lactated) 1,000 mls @ 999 mls/hr IV ASDIRECTED LYNN Last Admin: 09/01/20 14:15 Dose: 999 mls/hr Documented by: Cefepime HCl 1 gm/ Sodium (Chloride) 50 mls @ 100 mls/hr IV Q6H LYNN Last Admin: 09/01/20 14:18 Dose: 100 mls/hr Documented by: Lactated Ringer's (Ringers, Lactated) 1,000 mls @ 999 mls/hr IV BOLUS ONE Stop: 09/01/20 15:19 Last Admin: 09/01/20 14:29 Dose: 999 mls/hr Documented by: Cefepime HCl 1 gm/ Sodium (Chloride) 50 mls @ 100 mls/hr IV ONETIME ONE Stop: 09/01/20 15:14 Last Admin: 09/01/20 14:54 Dose: 100 mls/hr Documented by: Lactated Ringer's (Ringers, Lactated) 1,000 mls @ 999 mls/hr IV BOLUS ONE Stop: 09/01/20 16:58 Last Admin: 09/01/20 15:58 Dose: 999 mls/hr Documented by: Norepinephrine Bitartrate 4 mg (/ Dextrose/Water) 250 mls @ 7.5 mls/hr IV TITRATE [facility]; Protocol Last Titration: 09/02/20 07:38 Dose: 4 mcg/min, 15 mls/hr Documented by: Lactated Ringer's (Ringers, Lactated) 1,000 mls @ 125 mls/hr IV ASDIRECTED STA Stop: 09/02/20 02:10 Last Admin: 09/01/20 18:18 Dose: 125 mls/hr Documented by: Sodium Chloride (Normal Saline) 1,000 mls @ 999 mls/hr IV ASDIRECTED LYNN Last Admin: 09/01/20 20:20 Dose: 999 mls/hr Documented by: Acetaminophen 1,000 mg/ Premix 100 mls @ 400 mls/hr IV NOW ONE Stop: 09/01/20 20:19 Last Admin: 09/01/20 20:41 Dose: 400 mls/hr Documented by: Vancomycin HCl 1 gm/ Sodium (Chloride) 250 mls @ 150 mls/hr IV ONETIME ONE Stop: 09/01/20 21:50 Last Admin: 09/01/20 20:42 Dose: 150 mls/hr Documented by: Lactated Ringer's (Ringers, Lactated) 1,000 mls @ 125 mls/hr IV ASDIRECTED [facility] Last Admin: 09/02/20 05:32 Dose: 125 mls/hr Documented by: Cefepime HCl 1 gm/ Sodium (Chloride) 50 mls @ 100 mls/hr IV Q24H [facility] Last Admin: 09/02/20 00:43 Dose: 100 mls/hr Documented by: Levofloxacin/Dextrose 750 mg/ (Premix) 150 mls @ 100 mls/hr IV ONETIME ONE Stop: 09/01/20 22:08 Last Admin: 09/01/20 22:28 Dose: 100 mls/hr Documented by: Levofloxacin/Dextrose 500 mg/ (Premix) 100 mls @ 100 mls/hr IV Q48H [facility] Norepinephrine Bitartrate 4 mg (/ Dextrose/Water) 250 mls @ 7.5 mls/hr IV TITRATE [facility]; Protocol Last Titration: 09/03/20 07:30 Dose: Infused Documented by: Vancomycin HCl 1 gm/ Sodium (Chloride) 250 mls @ 150 mls/hr IV ONETIME ONE Stop: 09/01/20 22:18 Last Admin: 09/04/20 07:19 Dose: Not Given Documented by: Vancomycin HCl 1 gm/ Sodium (Chloride) 250 mls @ 150 mls/hr IV ONETIME ONE Stop: 09/01/20 23:39 Last Admin: 09/01/20 21:54 Dose: Not Given Documented by: Levofloxacin/Dextrose 750 mg/ (Premix) 150 mls @ 100 mls/hr IV Q48H [facility] Lactated Ringer's (Ringers, Lactated) 1,000 mls @ 50 mls/hr IV ASDIRECTED [facility] Last Admin: 09/02/20 13:36 Dose: 50 mls/hr Documented by: Vancomycin HCl 2 gm/ Sodium (Chloride) 500 mls @ 250 mls/hr IV Q24H [facility] Last Admin: 09/02/20 15:28 Dose: 250 mls/hr Documented by: Cefepime HCl 2 gm/ Sodium (Chloride) 50 mls @ 100 mls/hr IV Q12H [facility] Last Admin: 09/04/20 01:16 Dose: 100 mls/hr Documented by: Levofloxacin/Dextrose 750 mg/ (Premix) 150 mls @ 100 mls/hr IV Q24H [facility] Last Admin: 09/03/20 14:52 Dose: 100 mls/hr Documented by: Influenza Virus Vaccine (Fluzone Quad [id number] Syringe) 60 mcg IM ONETIME ONE Stop: 09/04/20 10:01 Last Admin: 09/04/20 09:49 Dose: 60 mcg Documented by: Lidocaine HCl (Xylocaine 2% Jelly) Confirm Administered Dose 10 ml .ROUTE .STK- MED ONE Stop: 09/01/20 14:08 Last Admin: 09/01/20 14:50 Dose: Not Given Documented by: Lidocaine HCl (Xylocaine 2% Jelly) 10 ml MUCMEM ONETIME ONE Stop: 09/01/20 14:46 Last Admin: 09/01/20 14:50 Dose: 10 ml Documented by: Sodium Polystyrene Sulfonate (Kayexalate) 30 gm PO ONETIME STA Stop: 09/01/20 17:38 Last Admin: 09/01/20 17:47 Dose: 30 gm Documented by: Vancomycin HCl (Vancomycin) 1 gm IV .PHARMACY TO DOSE [facility]
--- NOTE | 2020-09-05 10:59 | PCM.PN ---
- General Info Date of Service: 09/05/20 Subjective Update: There were no acute events overnight. He did have a couple of low-grade temperature elevations but no fevers. Temperature curve has steadily improved towards normal. He reports that he feels well. No complaints of abdominal pain or nausea. He did have some loose stools today. Vital signs have been stable. He is passing urine without difficulty. The plan was for him to go to the [facility] but no beds are available at this time. Functional Status: Reports: Pain Controlled, Tolerating Diet - Patient Data Vitals - Most Recent: Last Vital Signs Temp 36.4 C 09/05/20 07:42 Pulse 86 09/05/20 08:40 Resp 16 09/05/20 07:42 BP 125/53 L 09/05/20 08:40 Pulse Ox 90 L 09/05/20 07:42 Weight - Most Recent: 140.931 kg I&O - Last 24 Hours: Intake & Output 09/04/20 09/05/20 09/05/20 22:59 06:59 14:59 Intake Total 950 Balance 950 Lab Results Last 24 Hours: Laboratory Results - last 24 hr 09/05/20 09/05/20 Range/Units 04:40 04:40 WBC 7.2 (4.5-11.0) K/uL RBC 3.53 L (4.30-5.90) M/uL Hgb 10.1 L (12.0-15.0) g/dL Hct 32.4 L (40.0-54.0) % MCV 92 (80-98) fL MCH 29 (27-31) pg MCHC 31 L (32-36) % Plt Count 143 L (150-400) K/uL Sodium 139 L (140-148) mmol/L Potassium 4.1 (3.6-5.2) mmol/L Chloride 102 (100-108) mmol/L Carbon Dioxide 30 (21-32) mmol/L Anion Gap 11.1 (5.0-14.0) mmol/L BUN 17 (7-18) mg/dL Creatinine 1.4 H (0.8-1.3) mg/dL Est Cr Clr Drug Dosing 65.38 mL/min Estimated GFR (MDRD) 55 L (>60) Glucose 158 H (74-106) mg/dL Calcium 8.3 L (8.5-10.1) mg/dL Ranjit Results Last 24 Hours: Microbiology 09/01/20 13:50 Aerobic Blood Culture - Preliminary Blood - Arm, Right NO GROWTH AFTER 3 DAYS Anaerobic Blood Culture - Final Escherichia Coli 09/01/20 13:35 Aerobic Blood Culture - Preliminary Blood - Venous - Iv Start NO GROWTH AFTER 3 DAYS Anaerobic Blood Culture - Preliminary NO GROWTH AFTER 3 DAYS Med Orders - Current: Current Medications Acetaminophen (Tylenol) 650 mg PO Q4H PRN PRN Reason: Pain (Mild 1-3)/fever Last Admin: 09/03/20 22:04 Dose: 650 mg Documented by: Albuterol (Proventil Neb Soln) 2.5 mg NEB Q4H PRN PRN Reason: Shortness Of Breath/wheezing Dextrose (Glutose 15) 15 gm PO ONETIME PRN PRN Reason: Hypoglycemia Dextrose/Water (Dextrose 50% In Water) 50 ml IV ONETIME PRN PRN Reason: Hypoglycemia Dimethicone/Zinc Oxide (Rash Relief-Zinc Oxide [place]) 0 gm TOP ASDIRECTED PRN PRN Reason: Itching Last Admin: 09/02/20 21:27 Dose: 1 applic Documented by: Gabapentin (Neurontin) 300 mg PO BID [facility] Last Admin: 09/05/20 08:40 Dose: 300 mg Documented by: Ceftriaxone Sodium 2 gm/ (Sodium Chloride) 50 mls @ 100 mls/hr IV Q24H [facility] Last Admin: 09/04/20 13:09 Dose: 100 mls/hr Documented by: Insulin Glargine (Lantus Solostar) 34 units SUBCUT ACBREAKFAST [facility] Last Admin: 09/05/20 07:32 Dose: 34 units Documented by: Insulin Human Lispro (Humalog) 0 unit SUBCUT QIDACANDBED [facility]; Protocol Last Admin: 09/05/20 10:55 Dose: 4 units Documented by: Labetalol HCl (Normodyne) 200 mg PO BID [facility] Last Admin: 09/05/20 08:40 Dose: 200 mg Documented by: Lactobacillus Rhamnosus (Culturelle) 1 cap PO BID [facility] Last Admin: 09/05/20 08:41 Dose: 1 cap Documented by: Latanoprost (Xalatan 0.005% Ophth Soln) 0 ml EYEBOTH BEDTIME [facility] Last Admin: 09/04/20 21:22 Dose: 1 drop Documented by: Ondansetron HCl (Zofran) 4 mg IV Q4H PRN PRN Reason: Nausea/Vomiting Last Admin: 09/05/20 07:34 Dose: 4 mg Documented by: Polyethylene Glycol (Miralax) 17 gm PO DAILY PRN PRN Reason: Constipation Simvastatin (Zocor) 20 mg PO BEDTIME [facility] Last Admin: 09/04/20 21:22 Dose: 20 mg Documented by: Sodium Chloride (Saline Flush) 10 ml FLUSH ASDIRECTED PRN PRN Reason: Keep Vein Open Tamsulosin HCl (Flomax) 0.4 mg PO BEDTIME [facility] Last Admin: 09/04/20 21:22 Dose: 0.4 mg Documented by: Discontinued Medications Acetaminophen (Tylenol) 650 mg PO NOW ONE Stop: 09/01/20 14:46 Last Admin: 09/01/20 14:50 Dose: 650 mg Documented by: Albuterol/Ipratropium (Duoneb 3.0-0.5 Mg/3 Ml) 3 ml NEB QIDRT [facility] Last Admin: 09/04/20 06:59 Dose: 3 ml Documented by: Enoxaparin Sodium (Lovenox) 30 mg SUBCUT DAILY [facility] Last Admin: 09/01/20 22:32 Dose: 30 mg Documented by: Enoxaparin Sodium (Lovenox) 30 mg SUBCUT BEDTIME [facility] Lactated Ringer's (Ringers, Lactated) 1,000 mls @ 999 mls/hr IV ASDIRECTED [facility] Last Admin: 09/01/20 14:15 Dose: 999 mls/hr Documented by: Cefepime HCl 1 gm/ Sodium (Chloride) 50 mls @ 100 mls/hr IV Q6H [facility] Last Admin: 09/01/20 14:18 Dose: 100 mls/hr Documented by: Lactated Ringer's (Ringers, Lactated) 1,000 mls @ 999 mls/hr IV BOLUS ONE Stop: 09/01/20 15:19 Last Admin: 09/01/20 14:29 Dose: 999 mls/hr Documented by: Cefepime HCl 1 gm/ Sodium (Chloride) 50 mls @ 100 mls/hr IV ONETIME ONE Stop: 09/01/20 15:14 Last Admin: 09/01/20 14:54 Dose: 100 mls/hr Documented by: Lactated Ringer's (Ringers, Lactated) 1,000 mls @ 999 mls/hr IV BOLUS ONE Stop: 09/01/20 16:58 Last Admin: 09/01/20 15:58 Dose: 999 mls/hr Documented by: Norepinephrine Bitartrate 4 mg (/ Dextrose/Water) 250 mls @ 7.5 mls/hr IV TITRATE [facility]; Protocol Last Titration: 09/02/20 07:38 Dose: 4 mcg/min, 15 mls/hr Documented by: Lactated Ringer's (Ringers, Lactated) 1,000 mls @ 125 mls/hr IV ASDIRECTED STA Stop: 09/02/20 02:10 Last Admin: 09/01/20 18:18 Dose: 125 mls/hr Documented by: Sodium Chloride (Normal Saline) 1,000 mls @ 999 mls/hr IV ASDIRECTED [facility] Last Admin: 09/01/20 20:20 Dose: 999 mls/hr Documented by: Acetaminophen 1,000 mg/ Premix 100 mls @ 400 mls/hr IV NOW ONE Stop: 09/01/20 20:19 Last Admin: 09/01/20 20:41 Dose: 400 mls/hr Documented by: Vancomycin HCl 1 gm/ Sodium (Chloride) 250 mls @ 150 mls/hr IV ONETIME ONE Stop: 09/01/20 21:50 Last Admin: 09/01/20 20:42 Dose: 150 mls/hr Documented by: Lactated Ringer's (Ringers, Lactated) 1,000 mls @ 125 mls/hr IV ASDIRECTED [facility] Last Admin: 09/02/20 05:32 Dose: 125 mls/hr Documented by: Cefepime HCl 1 gm/ Sodium (Chloride) 50 mls @ 100 mls/hr IV Q24H [facility] Last Admin: 09/02/20 00:43 Dose: 100 mls/hr Documented by: Levofloxacin/Dextrose 750 mg/ (Premix) 150 mls @ 100 mls/hr IV ONETIME ONE Stop: 09/01/20 22:08 Last Admin: 09/01/20 22:28 Dose: 100 mls/hr Documented by: Levofloxacin/Dextrose 500 mg/ (Premix) 100 mls @ 100 mls/hr IV Q48H [facility] Norepinephrine Bitartrate 4 mg (/ Dextrose/Water) 250 mls @ 7.5 mls/hr IV TITRATE [facility]; Protocol Last Titration: 09/03/20 07:30 Dose: Infused Documented by: Vancomycin HCl 1 gm/ Sodium (Chloride) 250 mls @ 150 mls/hr IV ONETIME ONE Stop: 09/01/20 22:18 Last Admin: 09/04/20 07:19 Dose: Not Given Documented by: Vancomycin HCl 1 gm/ Sodium (Chloride) 250 mls @ 150 mls/hr IV ONETIME ONE Stop: 09/01/20 23:39 Last Admin: 09/01/20 21:54 Dose: Not Given Documented by: Levofloxacin/Dextrose 750 mg/ (Premix) 150 mls @ 100 mls/hr IV Q48H [facility] Lactated Ringer's (Ringers, Lactated) 1,000 mls @ 50 mls/hr IV ASDIRECTED [facility] Last Admin: 09/02/20 13:36 Dose: 50 mls/hr Documented by: Vancomycin HCl 2 gm/ Sodium (Chloride) 500 mls @ 250 mls/hr IV Q24H [facility] Last Admin: 09/02/20 15:28 Dose: 250 mls/hr Documented by: Cefepime HCl 2 gm/ Sodium (Chloride) 50 mls @ 100 mls/hr IV Q12H [facility] Last Admin: 09/04/20 01:16 Dose: 100 mls/hr Documented by: Levofloxacin/Dextrose 750 mg/ (Premix) 150 mls @ 100 mls/hr IV Q24H [facility] Last Admin: 09/03/20 14:52 Dose: 100 mls/hr Documented by: Influenza Virus Vaccine (Fluzone Quad [id number] Syringe) 60 mcg IM ONETIME ONE Stop: 09/04/20 10:01 Last Admin: 09/04/20 09:49 Dose: 60 mcg Documented by: Lidocaine HCl (Xylocaine 2% Jelly) Confirm Administered Dose 10 ml .ROUTE .STK- MED ONE Stop: 09/01/20 14:08 Last Admin: 09/01/20 14:50 Dose: Not Given Documented by: Lidocaine HCl (Xylocaine 2% Jelly) 10 ml MUCMEM ONETIME ONE Stop: 09/01/20 14:46 Last Admin: 09/01/20 14:50 Dose: 10 ml Documented by: Sodium Polystyrene Sulfonate (Kayexalate) 30 gm PO ONETIME STA Stop: 09/01/20 17:38 Last Admin: 09/01/20 17:47 Dose: 30 gm Documented by: Vancomycin HCl (Vancomycin) 1 gm IV .PHARMACY TO DOSE [facility] - Exam Quality Assessment: No: Supplemental Oxygen General: Alert, Cooperative, No Acute Distress Lungs: Normal Respiratory Effort Cardiovascular: Regular Rate, Regular Rhythm GI/Abdominal Exam: Soft, No Distention Extremities: No Pedal Edema Psy/Mental Status: Alert, Normal Affect Sepsis Event Note - Evaluation Sepsis Screening Result: No Definite Risk - Focused Exam Vital Signs: Vital Signs Temp Pulse Pulse Resp BP BP Pulse Ox 09/05/20 08:40 86 125/53 L 09/05/20 07:42 36.4 C 86 16 125/53 L 90 L 09/05/20 04:00 36.4 C 88 16 142/58 H 90 L 09/05/20 00:00 37.6 C 90 16 148/77 H 95 - Problem List & Annotations (1) Acute cystitis without hematuria SNOMED Code(s): 23470659 Code(s): N30.00 - ACUTE CYSTITIS WITHOUT HEMATURIA Status: Acute Current Visit: Yes (2) Septic shock due to Escherichia coli SNOMED Code(s): 91190528 Code(s): A41.51 - SEPSIS DUE TO ESCHERICHIA COLI [E. 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 SNOMED Code(s): 646637266 Code(s): I69.119 - UNSP SYMPTOMS AND SIGNS W COGN FNCTNS FOL NTRM INTCRBL HEMOR Status: Chronic Current Visit: Yes (6) Morbid obesity with BMI of 45.0-49.9, adult SNOMED Code(s): 766035782, 94564714935460 Code(s): E66.01 - MORBID (SEVERE) OBESITY DUE TO EXCESS CALORIES; Z68.42 - BODY MASS INDEX [BMI] 45.0-49.9, ADULT Status: Chronic Current Visit: No (7) Essential hypertension SNOMED Code(s): 45656592 Code(s): I10 - ESSENTIAL (PRIMARY) HYPERTENSION Status: Chronic Current Visit: No (8) Type 2 diabetes mellitus SNOMED Code(s): 91394809 Code(s): E11.9 - TYPE 2 DIABETES MELLITUS WITHOUT COMPLICATIONS Status: Chronic Current Visit: No Qualifiers: Diabetes mellitus mcc insulin use: with mcc use Diabetes mellitus complication status: with other specified complication Qualified Code(s): E11.69 - Type 2 diabetes mellitus with other specified complication; Z79.4 - local [employer] truck driver (current) use of insulin (9) MANJINDER (obstructive sleep apnea) SNOMED Code(s): 39402203 Code(s): G47.33 - OBSTRUCTIVE SLEEP APNEA (ADULT) (PEDIATRIC) Status: Chronic Current Visit: No - Problem List Review Problem List Initiated/Reviewed/Updated: Yes - My Orders Last 24 Hours: My Active Orders 09/04/20 13:00 cefTRIAXone [Rocephin] 2 gm Sodium Chloride 0.9% [Normal Saline] 50 ml IV Q24H 09/05/20 09:31 Central Line PICC Discontinue [OM.PC] Routine 09/05/20 21:00 Cefdinir [Omnicef] 300 mg PO BID - Plan Plan:: ASSESSMENT AND PLAN SEPTIC SHOCK SECONDARY TO URINARY TRACT INFECTION-vital stable and clinically doing well at this time. Still a little bit weak but otherwise doing okay. -Change antibiotics to Cefdinir -Physical therapy for strengthening HYPOXIC RESPIRATORY FAILURE-resolved. -Supplemental oxygen as needed -BiPAP at night -Nebulized albuterol and DuoNebs ACUTE KIDNEY INJURY-steady improvement and nearly back to baseline -Closely monitor urine output and renal function HYPERKALEMIA-resolved TYPE 2 DIABETES MELLITUS-blood sugars have been well controlled. -Continue usual dose of long-acting insulin -Restart metformin -4 times daily glucometers HISTORY OF RECENT HEMORRHAGIC CVA-significant memory impairment as well as difficulties with gait/balance. He would benefit from ongoing subacute rehab before returning home. -Physical therapy -Anticipate discharge to correction facility MAINTENANCE ISSUES -DVT prophylaxis; Lovenox 30 mg subcu daily -GI prophylaxis; not indicated -Paiz catheter; not indicated -Nutrition; consistent carbohydrate diet DISPOSITION-anticipate discharge to correction facility after the hospital stay. He is stable for discharge at this time but no beds are available today. Sammy Roberts MD
[2020-09-05] MEDS: cefTRIAXone 2 GM in Sodium Chloride 0.9% 50 ML IV SCH (13:04)
[2020-09-05] MEDS: metFORMIN 500 MG Tab PO SCH (16:47)
[2020-09-05] MEDS: Simvastatin 20 MG Tab PO SCH (21:15)
[2020-09-05] MEDS: Latanoprost 0.005% Ophth Soln 2.5 ML Bottle EYEBOTH SCH (21:15)
[2020-09-05] MEDS: Tamsulosin 0.4 MG Cap.ER PO SCH (21:16)
[2020-09-05] MEDS: Cefdinir 300 MG Cap PO SCH (21:17)
[2020-09-06] MEDS: Insulin Glargine,Human Rec. Analog 100 Units/ML 3 ML Pen SUBCUT SCH (08:43)
[2020-09-06] MEDS: Insulin Lispro 100 Unit/ML 3 ML KwikPen SUBCUT SCH ×3 (08:44→18:13)
[2020-09-06] MEDS: Labetalol 100 MG Tab PO SCH ×2 (08:49→20:55)
[2020-09-06] MEDS: Lisinopril 20 MG Tab PO SCH (08:50)
[2020-09-06] MEDS: Hydrochlorothiazide/Triamterene 25-37.5 Tab PO SCH (08:51)
[2020-09-06] MEDS: metFORMIN 500 MG Tab PO SCH ×2 (08:52→17:59)
[2020-09-06] MEDS: Lactobacillus Rhamnosus GG (Probiotic) Cap PO SCH ×2 (08:52→20:54)
[2020-09-06] MEDS: Gabapentin 300 MG Cap PO SCH ×2 (08:53→20:55)
[2020-09-06] MEDS: Cefdinir 300 MG Cap PO SCH ×2 (08:53→20:54)
--- NOTE | 2020-09-06 10:59 | PCM.PN ---
- General Info Date of Service: 09/06/20 Subjective Update: There were no acute events overnight. No fevers. Patient reports that he is feeling well. His strength is improving. His main concern at this point is balance. He does fatigue easily. Tolerating his diet. No nausea or abdominal pain. Functional Status: Reports: Pain Controlled, Tolerating Diet - Review of Systems General: Reports: Weakness - Patient Data Vitals - Most Recent: Last Vital Signs Temp 36.9 C 09/06/20 08:00 Pulse 85 09/06/20 08:49 Resp 20 09/06/20 08:00 BP 148/74 H 09/06/20 08:50 Pulse Ox 94 L 09/06/20 08:00 Weight - Most Recent: 140.931 kg I&O - Last 24 Hours: Intake & Output 09/05/20 09/06/20 09/06/20 22:59 06:59 14:59 Intake Total 600 Balance 600 Ranjit Results Last 24 Hours: Microbiology 09/01/20 13:35 Aerobic Blood Culture - Preliminary Blood - Venous - Iv Start NO GROWTH AFTER 4 DAYS Anaerobic Blood Culture - Preliminary NO GROWTH AFTER 4 DAYS 09/01/20 13:50 Aerobic Blood Culture - Preliminary Blood - Arm, Right NO GROWTH AFTER 4 DAYS Anaerobic Blood Culture - Final Escherichia Coli Med Orders - Current: Current Medications Acetaminophen (Tylenol) 650 mg PO Q4H PRN PRN Reason: Pain (Mild 1-3)/fever Last Admin: 09/03/20 22:04 Dose: 650 mg Documented by: Albuterol (Proventil Neb Soln) 2.5 mg NEB Q4H PRN PRN Reason: Shortness Of Breath/wheezing Cefdinir (Omnicef) 300 mg PO BID [facility] Last Admin: 09/06/20 08:53 Dose: 300 mg Documented by: Dextrose (Glutose 15) 15 gm PO ONETIME PRN PRN Reason: Hypoglycemia Dextrose/Water (Dextrose 50% In Water) 50 ml IV ONETIME PRN PRN Reason: Hypoglycemia Dimethicone/Zinc Oxide (Rash Relief-Zinc Oxide [place]) 0 gm TOP ASDIRECTED PRN PRN Reason: Itching Last Admin: 09/02/20 21:27 Dose: 1 applic Documented by: Gabapentin (Neurontin) 300 mg PO BID [facility] Last Admin: 09/06/20 08:53 Dose: 300 mg Documented by: Ceftriaxone Sodium 2 gm/ (Sodium Chloride) 50 mls @ 100 mls/hr IV Q24H [facility] Last Admin: 09/05/20 13:04 Dose: 100 mls/hr Documented by: Insulin Glargine (Lantus Solostar) 34 units SUBCUT ACBREAKFAST [facility] Last Admin: 09/06/20 08:43 Dose: 34 units Documented by: Insulin Human Lispro (Humalog) 4 unit SUBCUT TIDMEALS [facility] Last Admin: 09/06/20 08:44 Dose: 4 units Documented by: Labetalol HCl (Normodyne) 200 mg PO BID [facility] Last Admin: 09/06/20 08:49 Dose: 200 mg Documented by: Lactobacillus Rhamnosus (Culturelle) 1 cap PO BID [facility] Last Admin: 09/06/20 08:52 Dose: 1 cap Documented by: Latanoprost (Xalatan 0.005% Ophth Soln) 0 ml EYEBOTH BEDTIME [facility] Last Admin: 09/05/20 21:15 Dose: 1 drop Documented by: Lisinopril (Prinivil) 20 mg PO DAILY [facility] Last Admin: 09/06/20 08:50 Dose: 20 mg Documented by: Metformin HCl (Glucophage) 1,000 mg PO BIDMEALS [facility] Last Admin: 09/06/20 08:52 Dose: 1,000 mg Documented by: Ondansetron HCl (Zofran) 4 mg IV Q4H PRN PRN Reason: Nausea/Vomiting Last Admin: 09/05/20 07:34 Dose: 4 mg Documented by: Polyethylene Glycol (Miralax) 17 gm PO DAILY PRN PRN Reason: Constipation Simvastatin (Zocor) 20 mg PO BEDTIME [facility] Last Admin: 09/05/20 21:15 Dose: 20 mg Documented by: Sodium Chloride (Saline Flush) 10 ml FLUSH ASDIRECTED PRN PRN Reason: Keep Vein Open Tamsulosin HCl (Flomax) 0.4 mg PO BEDTIME [facility] Last Admin: 09/05/20 21:16 Dose: 0.4 mg Documented by: Triamterene/HCTZ (Maxzide 25-37.5 Mg) 1 each PO DAILY [facility] Last Admin: 09/06/20 08:51 Dose: 1 each Documented by: Discontinued Medications Acetaminophen (Tylenol) 650 mg PO NOW ONE Stop: 09/01/20 14:46 Last Admin: 09/01/20 14:50 Dose: 650 mg Documented by: Albuterol/Ipratropium (Duoneb 3.0-0.5 Mg/3 Ml) 3 ml NEB QIDRT [facility] Last Admin: 09/04/20 06:59 Dose: 3 ml Documented by: Enoxaparin Sodium (Lovenox) 30 mg SUBCUT DAILY [facility] Last Admin: 09/01/20 22:32 Dose: 30 mg Documented by: Enoxaparin Sodium (Lovenox) 30 mg SUBCUT BEDTIME [facility] Lactated Ringer's (Ringers, Lactated) 1,000 mls @ 999 mls/hr IV ASDIRECTED [facility] Last Admin: 09/01/20 14:15 Dose: 999 mls/hr Documented by: Cefepime HCl 1 gm/ Sodium (Chloride) 50 mls @ 100 mls/hr IV Q6H [facility] Last Admin: 09/01/20 14:18 Dose: 100 mls/hr Documented by: Lactated Ringer's (Ringers, Lactated) 1,000 mls @ 999 mls/hr IV BOLUS ONE Stop: 09/01/20 15:19 Last Admin: 09/01/20 14:29 Dose: 999 mls/hr Documented by: Cefepime HCl 1 gm/ Sodium (Chloride) 50 mls @ 100 mls/hr IV ONETIME ONE Stop: 09/01/20 15:14 Last Admin: 09/01/20 14:54 Dose: 100 mls/hr Documented by: Lactated Ringer's (Ringers, Lactated) 1,000 mls @ 999 mls/hr IV BOLUS ONE Stop: 09/01/20 16:58 Last Admin: 09/01/20 15:58 Dose: 999 mls/hr Documented by: Norepinephrine Bitartrate 4 mg (/ Dextrose/Water) 250 mls @ 7.5 mls/hr IV TITRATE [facility]; Protocol Last Titration: 09/02/20 07:38 Dose: 4 mcg/min, 15 mls/hr Documented by: Lactated Ringer's (Ringers, Lactated) 1,000 mls @ 125 mls/hr IV ASDIRECTED STA Stop: 09/02/20 02:10 Last Admin: 09/01/20 18:18 Dose: 125 mls/hr Documented by: Sodium Chloride (Normal Saline) 1,000 mls @ 999 mls/hr IV ASDIRECTED [facility] Last Admin: 09/01/20 20:20 Dose: 999 mls/hr Documented by: Acetaminophen 1,000 mg/ Premix 100 mls @ 400 mls/hr IV NOW ONE Stop: 09/01/20 20:19 Last Admin: 09/01/20 20:41 Dose: 400 mls/hr Documented by: Vancomycin HCl 1 gm/ Sodium (Chloride) 250 mls @ 150 mls/hr IV ONETIME ONE Stop: 09/01/20 21:50 Last Admin: 09/01/20 20:42 Dose: 150 mls/hr Documented by: Lactated Ringer's (Ringers, Lactated) 1,000 mls @ 125 mls/hr IV ASDIRECTED [facility] Last Admin: 09/02/20 05:32 Dose: 125 mls/hr Documented by: Cefepime HCl 1 gm/ Sodium (Chloride) 50 mls @ 100 mls/hr IV Q24H [facility] Last Admin: 09/02/20 00:43 Dose: 100 mls/hr Documented by: Levofloxacin/Dextrose 750 mg/ (Premix) 150 mls @ 100 mls/hr IV ONETIME ONE Stop: 09/01/20 22:08 Last Admin: 09/01/20 22:28 Dose: 100 mls/hr Documented by: Levofloxacin/Dextrose 500 mg/ (Premix) 100 mls @ 100 mls/hr IV Q48H [facility] Norepinephrine Bitartrate 4 mg (/ Dextrose/Water) 250 mls @ 7.5 mls/hr IV TITRATE [facility]; Protocol Last Titration: 09/03/20 07:30 Dose: Infused Documented by: Vancomycin HCl 1 gm/ Sodium (Chloride) 250 mls @ 150 mls/hr IV ONETIME ONE Stop: 09/01/20 22:18 Last Admin: 09/04/20 07:19 Dose: Not Given Documented by: Vancomycin HCl 1 gm/ Sodium (Chloride) 250 mls @ 150 mls/hr IV ONETIME ONE Stop: 09/01/20 23:39 Last Admin: 09/01/20 21:54 Dose: Not Given Documented by: Levofloxacin/Dextrose 750 mg/ (Premix) 150 mls @ 100 mls/hr IV Q48H [facility] Lactated Ringer's (Ringers, Lactated) 1,000 mls @ 50 mls/hr IV ASDIRECTED [facility] Last Admin: 09/02/20 13:36 Dose: 50 mls/hr Documented by: Vancomycin HCl 2 gm/ Sodium (Chloride) 500 mls @ 250 mls/hr IV Q24H [facility] Last Admin: 09/02/20 15:28 Dose: 250 mls/hr Documented by: Cefepime HCl 2 gm/ Sodium (Chloride) 50 mls @ 100 mls/hr IV Q12H [facility] Last Admin: 09/04/20 01:16 Dose: 100 mls/hr Documented by: Levofloxacin/Dextrose 750 mg/ (Premix) 150 mls @ 100 mls/hr IV Q24H [facility] Last Admin: 09/03/20 14:52 Dose: 100 mls/hr Documented by: Influenza Virus Vaccine (Fluzone Quad Syringe) 60 mcg IM ONETIME ONE Stop: 09/04/20 10:01 Last Admin: 09/04/20 09:49 Dose: 60 mcg Documented by: Insulin Human Lispro (Humalog) 0 unit SUBCUT QIDACANDBED [facility]; Protocol Last Admin: 09/05/20 10:55 Dose: 4 units Documented by: Lidocaine HCl (Xylocaine 2% Jelly) Confirm Administered Dose 10 ml .ROUTE .STK- MED ONE Stop: 09/01/20 14:08 Last Admin: 09/01/20 14:50 Dose: Not Given Documented by: Lidocaine HCl (Xylocaine 2% Jelly) 10 ml MUCMEM ONETIME ONE Stop: 09/01/20 14:46 Last Admin: 09/01/20 14:50 Dose: 10 ml Documented by: Sodium Polystyrene Sulfonate (Kayexalate) 30 gm PO ONETIME STA Stop: 09/01/20 17:38 Last Admin: 09/01/20 17:47 Dose: 30 gm Documented by: Vancomycin HCl (Vancomycin) 1 gm IV .PHARMACY TO DOSE [facility] - Exam Quality Assessment: No: Supplemental Oxygen General: Alert, Oriented, Cooperative, No Acute Distress Lungs: Normal Respiratory Effort Cardiovascular: Regular Rate, Regular Rhythm GI/Abdominal Exam: No Distention Extremities: No Pedal Edema Psy/Mental Status: Alert, Normal Affect Sepsis Event Note - Evaluation Sepsis Screening Result: No Definite Risk - Focused Exam Vital Signs: Vital Signs Temp Pulse Pulse Resp BP BP Pulse Ox 09/06/20 08:50 148/74 H 09/06/20 08:49 85 148/74 H 09/06/20 08:00 36.9 C 85 20 148/74 H 94 L 09/06/20 03:00 37.5 C 88 16 151/85 H 90 L - Problem List & Annotations (1) Acute cystitis without hematuria SNOMED Code(s): 61360539 Code(s): N30.00 - ACUTE CYSTITIS WITHOUT HEMATURIA Status: Acute Current Visit: Yes (2) Septic shock due to Escherichia coli SNOMED Code(s): 35319370 Code(s): A41.51 - SEPSIS DUE TO ESCHERICHIA COLI [E. 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 SNOMED Code(s): 361906443 Code(s): I69.119 - UNSP SYMPTOMS AND SIGNS W COGN FNCTNS FOL NTRM INTCRBL HEMOR Status: Chronic Current Visit: Yes (6) Morbid obesity with BMI of 45.0-49.9, adult SNOMED Code(s): 718963844, 29605308637457 Code(s): E66.01 - MORBID (SEVERE) OBESITY DUE TO EXCESS CALORIES; Z68.42 - BODY MASS INDEX [BMI] 45.0-49.9, ADULT Status: Chronic Current Visit: No (7) Essential hypertension SNOMED Code(s): 77884893 Code(s): I10 - ESSENTIAL (PRIMARY) HYPERTENSION Status: Chronic Current Visit: No (8) Type 2 diabetes mellitus SNOMED Code(s): 62814208 Code(s): E11.9 - TYPE 2 DIABETES MELLITUS WITHOUT COMPLICATIONS Status: Chronic Current Visit: No Qualifiers: 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 Diabetes mellitus complication status: with other specified complication Qualified Code(s): E11.69 - Type 2 diabetes mellitus with other specified complication; 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 (9) MANJINDER (obstructive sleep apnea) SNOMED Code(s): 18226540 Code(s): G47.33 - OBSTRUCTIVE SLEEP APNEA (ADULT) (PEDIATRIC) Status: Chronic Current Visit: No - Problem List Review Problem List Initiated/Reviewed/Updated: Yes - My Orders Last 24 Hours: My Active Orders 09/05/20 17:00 Insulin Lispro [HumaLOG] 4 unit SUBCUT TIDMEALS metFORMIN [Glucophage] 1,000 mg PO BIDMEALS 09/05/20 21:00 Cefdinir [Omnicef] 300 mg PO BID 09/06/20 09:00 HCTZ/Triamterene [Maxzide 25-37.5 MG] 1 each PO DAILY lisinopriL [Prinivil] 20 mg PO DAILY - Plan Plan:: ASSESSMENT AND PLAN SEPTIC SHOCK SECONDARY TO URINARY TRACT INFECTION-vital stable and clinically doing well at this time. Still a little bit weak but otherwise doing okay. -Continue cefdinir -Physical therapy for strengthening HYPOXIC RESPIRATORY FAILURE-resolved. -Supplemental oxygen as needed -BiPAP at night here, transition to CPAP after discharge -Nebulized albuterol and DuoNebs ACUTE KIDNEY INJURY-back to baseline. -Closely monitor urine output and renal function HYPERKALEMIA-resolved TYPE 2 DIABETES MELLITUS-blood sugars have been well controlled. -Continue usual dose of long-acting insulin -4 units of short acting 3 times daily with meals -Continue metformin -4 times daily glucometers HISTORY OF RECENT HEMORRHAGIC CVA-significant memory impairment as well as difficulties with gait/balance. He would benefit from ongoing subacute rehab before returning home. -Physical therapy -Anticipate [facility] to jail facility MAINTENANCE ISSUES -DVT prophylaxis; Lovenox 30 mg subcu daily -GI prophylaxis; not indicated -Paiz catheter; not indicated -Nutrition; consistent carbohydrate diet DISPOSITION-anticipate discharge to jail facility after the hospital stay. He is stable for discharge at this time but no beds are available today. At this time I anticipate discharge tomorrow morning. Sammy Roberts MD
[2020-09-06] MEDS: Ondansetron 4 MG/2 ML SDV IV PRN (16:50)
[2020-09-06] MEDS: Latanoprost 0.005% Ophth Soln 2.5 ML Bottle EYEBOTH SCH (20:53)
[2020-09-06] MEDS: Simvastatin 20 MG Tab PO SCH (20:55)
[2020-09-06] MEDS: Tamsulosin 0.4 MG Cap.ER PO SCH (20:55)
[2020-09-07] MEDS: Insulin Glargine,Human Rec. Analog 100 Units/ML 3 ML Pen SUBCUT SCH (07:50)
[2020-09-07] MEDS: Insulin Lispro 100 Unit/ML 3 ML KwikPen SUBCUT SCH ×2 (07:55→11:21)
[2020-09-07] MEDS: metFORMIN 500 MG Tab PO SCH (07:56)
[2020-09-07 08:01] VITALS: BP 128/88; PULSE 71
[2020-09-07] MEDS: Gabapentin 300 MG Cap PO SCH (08:01)
[2020-09-07] MEDS: Hydrochlorothiazide/Triamterene 25-37.5 Tab PO SCH (08:01)
[2020-09-07] MEDS: Cefdinir 300 MG Cap PO SCH (08:02)
[2020-09-07] MEDS: Labetalol 100 MG Tab PO SCH (08:02)
[2020-09-07] MEDS: Lactobacillus Rhamnosus GG (Probiotic) Cap PO SCH (08:02)
[2020-09-07] MEDS: Lisinopril 20 MG Tab PO SCH (08:03)
--- NOTE | 2020-09-07 09:33 | PCM.DCSUM1 ---
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 Work-up in the emergency room suggested a urinary tract infection with septic shock, acute kidney injury and hyperkalemia. He was admitted to the intensive care unit for further management. Diagnosis: Stroke: No - Discharge Data Discharge Date: 09/07/20 Discharge Disposition: DC/Tfer to SNF 03 Condition: Good - Referral to Home Health Primary Care Physician: Cam Blair MD - Discharge Diagnosis/Problem(s) (1) Acute cystitis without hematuria SNOMED Code(s): 24506242 ICD Code: N30.00 - ACUTE CYSTITIS WITHOUT HEMATURIA Status: Acute Current Visit: Yes (2) Septic shock due to Escherichia coli SNOMED Code(s): 51542761 ICD Code: A41.51 - SEPSIS DUE TO ESCHERICHIA COLI [E. 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 SNOMED Code(s): 918405940 ICD Code: I69.119 - UNSP SYMPTOMS AND SIGNS W COGN FNCTNS FOL NTRM INTCRBL HEMOR Status: Chronic Current Visit: Yes (6) Morbid obesity with BMI of 45.0-49.9, adult SNOMED Code(s): 499118253, 08223467896353 ICD Code: E66.01 - MORBID (SEVERE) OBESITY DUE TO EXCESS CALORIES; Z68.42 - BODY MASS INDEX [BMI] 45.0-49.9, ADULT Status: Chronic Current Visit: No (7) Essential hypertension SNOMED Code(s): 39803255 ICD Code: I10 - ESSENTIAL (PRIMARY) HYPERTENSION Status: Chronic Current Visit: No (8) Type 2 diabetes mellitus SNOMED Code(s): 64647634 ICD Code: E11.9 - TYPE 2 DIABETES MELLITUS WITHOUT COMPLICATIONS Status: Chronic Current Visit: No Qualifiers: Diabetes mellitus local intermodal truck driver insulin use: with local intermodal truck driver use Diabetes mellitus complication status: with other specified complication Qualified Code(s): E11.69 - Type 2 diabetes mellitus with other specified complication; Z79.4 - long-term (current) use of insulin (9) MANJINDER (obstructive sleep apnea) SNOMED Code(s): 59540335 ICD Code: G47.33 - OBSTRUCTIVE SLEEP APNEA (ADULT) (PEDIATRIC) Status: Chronic Current Visit: No - Patient Summary/Data Consults: Consultations 09/04/20 09:20 PT Evaluation and Treatment [CONS] Routine Please Evaluate and Treat. PT Reason for Consult: Strengthening This query below is only for informational purposes and is not editable. Admission Diagnosis/Problem: Sepsis Hospital Course: All presented to the emergency room with weakness and lethargy as well as hypotension and tachycardia. He had been at the snf for subacute rehab following a hemorrhagic CVA. Work-up in the emergency room suggested a urinary tract infection with septic shock necessitating norepinephrine use following volume resuscitation. He also had hypo-natremia, hyperkalemia and acute kidney injury with a creatinine of 3.5. His CRP and procalcitonin levels were extremely high. Initially there was some hypoxia but this was probably related to the sepsis and did resolve without any significant intervention. There is no evidence for pulmonary infection on chest x-ray. He was started on broad- spectrum antibiotics and admitted to the intensive care unit for further management. Over the next 48 hours he did make steady improvement. We were able to wean off the norepinephrine after about 36 hours in the hospital. His hyperkalemia improved with fluids and a dose of Kayexalate. His kidney function was making a steady trend towards improvement. His blood pressure is stabilized. His strength and mental status were improving. His hyponatremia resolved with IV fluid resuscitation. He had mild hyperglycemia initially and this improved with supplemental insulin use. He had one blood culture that did grow out E. coli which was sensitive to ceftriaxone so antibiotics were narrowed to this once the culture results were available. He has continued to improve with the IV antibiotic therapy. His creatinine is down to 1.4 which is near his baseline. His blood pressures have been stable and slowly rising so we have restarted his antihypertensives. His potassium level has been normal after the initial mild elevation at 6. He has made some progress with strength. I do believe he would benefit from ongoing physical and occupational therapy to help recover from both a stroke and this acute illness that led to a further decline in his strength. He will need oral antibiotics for 3 more days. No changes to his usual home medications were made. The patient was ready for discharge on 09/05 but unfortunately our rehab bed fell through. He remained hospitalized for 2 more days before a suitable rehab bed could be found. He has remained stable during the last 2 days of his hospital stay. There have been no issues. He has continued to work with physical therapy. He does still have some strength and balance issues and would benefit from ongoing physical and occupational therapy before his return home. The plan is for him to go to [facility] For additional subacute rehab. I would anticipate 1 or maybe 2 more weeks of therapy before he is ready to go home. He is interested in home care and a referral to [facility] home care would be encouraged at the time of snf discharge. - Patient Instructions Diet: Diabetic Diet (1800 ADA calorie diet ) Activity: As Tolerated Driving: Do Not Drive Showering/Bathing: May Shower Notify Provider of: Fever, Increased Pain Other/Special Instructions: 1. You were in the hospital for management of a urinary tract infection that was complicated by septic shock, acute kidney in jury and significant weakness. Your condition has been improving with antibiotic therapy. Our cultures did grow out E. coli which was likely the culprit for the bladder infection and severe illness that resulted from it. I do recommend ongoing antibiotic therapy with cefdinir (Omnicef). Please take 300 mg twice daily for 11 more doses. Your first dose will be due tonight. I recommend that you take a probiotic twice daily for the next 10 days to help reduce the risk of antibiotic associated diarrhea. 2. Referral to Physical therapy and Occupational Therapy for strengthening following acute illness that further complicated a recent hemorrhagic stroke. 3. Check blood sugars 4 times daily with meals and at bedtime. This will help determine if additional insulin adjustments need to be made. 4. Continue to use your CPAP at night while you are sleeping and with naps. - Discharge Plan *PRESCRIPTION DRUG MONITORING PROGRAM REVIEWED*: Not Applicable *COPY OF PRESCRIPTION DRUG MONITORING REPORT IN PATIENT ARIS: Not Applicable Prescriptions/Med Rec: Lactobacillus Rhamnosus GG [Culturelle] 1 cap PO BID #20 cap Cefdinir [Omnicef] 300 mg PO BID #7 cap Home Medications: Home Meds Acetaminophen [Tylenol Extra Strength] 650 mg PO BID 12/04/13 [History] Lisinopril 20 mg PO DAILY 12/04/13 [History] metFORMIN [Glucophage] 1,000 mg PO BIDM 12/04/13 [History] Sennosides [Senna] 1 tab PO BID PRN 04/08/17 [History] Ondansetron [Zofran ODT] 4 mg PO Q8H PRN 12/08/17 [History] Triamcinolone Acetonide [Kenalog 0.1% Crm] 1 applic TOP TID PRN 12/08/17 [History] Gabapentin [Neurontin] 300 cap PO BID 03/09/19 [History] Latanoprost 1 drop EYEBOTH BEDTIME 03/09/19 [History] Albuterol Sulfate [Albuterol Sulfate Hfa] 2 puff IN ASDIRECTED PRN 09/01/20 [History] Insulin Glarg,Human.Rec.Analog [Lantus Solostar] 34 unit SUBCNJ ACBREAKFAST 09/01/20 [History] Labetalol HCl [Labetalol] 200 mg PO BID 09/01/20 [History] Simvastatin 20 mg PO BEDTIME 09/01/20 [History] Tamsulosin [Flomax] 0.4 mg PO BEDTIME 09/01/20 [History] Triamterene/Hydrochlorothiazid [Dyazide 37.5-25 Capsule] 1 cap PO DAILY 09/01/20 [History] Insulin Aspart [NovoLOG] 4 units SUBCNJ TIDAC #0 09/05/20 [Rx] Lactobacillus Rhamnosus GG [Culturelle] 1 cap PO BID #20 cap 09/05/20 [Rx] Cefdinir [Omnicef] 300 mg PO BID #7 cap 09/07/20 [Rx] Oxygen Therapy Mode: CPAP (at night) Patient Handouts: Cefdinir capsules, Urinary Tract Infection, Adult, [id number] Referrals: Cam Blair MD [Primary Care Provider] - (f/u as needed after the [facility] rehab ) - Discharge Summary/Plan Comment DC Time >30 min.: Yes (40-new NH discharge ) - Patient Data Vitals - Most Recent: Last Vital Signs Temp 37.1 C 09/07/20 07:59 Pulse 71 09/07/20 08:02 Resp 16 09/07/20 07:59 BP 128/88 09/07/20 08:03 Pulse Ox 92 L 09/07/20 07:59 Weight - Most Recent: 140.931 kg I&O - Last 24 hours: Intake & Output 09/06/20 09/07/20 09/07/20 22:59 06:59 14:59 Intake Total 500 500 550 Balance 500 500 550 JACQUELINE Results - Last 24 hrs: Microbiology 09/01/20 13:35 Aerobic Blood Culture - Final Blood - Venous - Iv Start NO GROWTH AFTER 5 DAYS Anaerobic Blood Culture - Final NO GROWTH AFTER 5 DAYS 09/01/20 13:50 Aerobic Blood Culture - Final Blood - Arm, Right NO GROWTH AFTER 5 DAYS Anaerobic Blood Culture - Final Escherichia Coli Med Orders - Current: Current Medications Acetaminophen (Tylenol) 650 mg PO Q4H PRN PRN Reason: Pain (Mild 1-3)/fever Last Admin: 09/03/20 22:04 Dose: 650 mg Documented by: Albuterol (Proventil Neb Soln) 2.5 mg NEB Q4H PRN PRN Reason: Shortness Of Breath/wheezing Cefdinir (Omnicef) 300 mg PO BID COUNTS INCLUDE 234 BEDS AT THE [facility] Last Admin: 09/07/20 08:02 Dose: 300 mg Documented by: Dextrose (Glutose 15) 15 gm PO ONETIME PRN PRN Reason: Hypoglycemia Dextrose/Water (Dextrose 50% In Water) 50 ml IV ONETIME PRN PRN Reason: Hypoglycemia Dimethicone/Zinc Oxide (Rash Relief-Zinc Oxide Og[place]) 0 gm TOP ASDIRECTED PRN PRN Reason: Itching Last Admin: 09/02/20 21:27 Dose: 1 applic Documented by: Gabapentin (Neurontin) 300 mg PO BID COUNTS INCLUDE 234 BEDS AT THE [facility] Last Admin: 09/07/20 08:01 Dose: 300 mg Documented by: Insulin Glargine (Lantus Solostar) 34 units SUBCUT ACBREAKFAST COUNTS INCLUDE 234 BEDS AT THE [facility] Last Admin: 09/07/20 07:50 Dose: 34 units Documented by: Insulin Human Lispro (Humalog) 4 unit SUBCUT TIDMEALS COUNTS INCLUDE 234 BEDS AT THE [facility] Last Admin: 09/07/20 07:55 Dose: 4 units Documented by: Labetalol HCl (Normodyne) 200 mg PO BID COUNTS INCLUDE 234 BEDS AT THE [facility] Last Admin: 09/07/20 08:02 Dose: 200 mg Documented by: Lactobacillus Rhamnosus (Culturelle) 1 cap PO BID COUNTS INCLUDE 234 BEDS AT THE [facility] Last Admin: 09/07/20 08:02 Dose: 1 cap Documented by: Latanoprost (Xalatan 0.005% Ophth Soln) 0 ml EYEBOTH BEDTIME COUNTS INCLUDE 234 BEDS AT THE [facility] Last Admin: 09/06/20 20:53 Dose: 1 drop Documented by: Lisinopril (Prinivil) 20 mg PO DAILY COUNTS INCLUDE 234 BEDS AT THE [facility] Last Admin: 09/07/20 08:03 Dose: 20 mg Documented by: Metformin HCl (Glucophage) 1,000 mg PO BIDMEALS COUNTS INCLUDE 234 BEDS AT THE [facility] Last Admin: 09/07/20 07:56 Dose: 1,000 mg Documented by: Ondansetron HCl (Zofran) 4 mg IV Q4H PRN PRN Reason: Nausea/Vomiting Last Admin: 09/06/20 16:50 Dose: 4 mg Documented by: Polyethylene Glycol (Miralax) 17 gm PO DAILY PRN PRN Reason: Constipation Simvastatin (Zocor) 20 mg PO BEDTIME COUNTS INCLUDE 234 BEDS AT THE [facility] Last Admin: 09/06/20 20:55 Dose: 20 mg Documented by: Sodium Chloride (Saline Flush) 10 ml FLUSH ASDIRECTED PRN PRN Reason: Keep Vein Open Tamsulosin HCl (Flomax) 0.4 mg PO BEDTIME COUNTS INCLUDE 234 BEDS AT THE [facility] Last Admin: 09/06/20 20:55 Dose: 0.4 mg Documented by: Triamterene/HCTZ (Maxzide 25-37.5 Mg) 1 each PO DAILY COUNTS INCLUDE 234 BEDS AT THE [facility] Last Admin: 09/07/20 08:01 Dose: 1 each Documented by: Discontinued Medications Acetaminophen (Tylenol) 650 mg PO NOW ONE Stop: 09/01/20 14:46 Last Admin: 09/01/20 14:50 Dose: 650 mg Documented by: Albuterol/Ipratropium (Duoneb 3.0-0.5 Mg/3 Ml) 3 ml NEB QIDRT COUNTS INCLUDE 234 BEDS AT THE [facility] Last Admin: 09/04/20 06:59 Dose: 3 ml Documented by: Enoxaparin Sodium (Lovenox) 30 mg SUBCUT DAILY COUNTS INCLUDE 234 BEDS AT THE [facility] Last Admin: 09/01/20 22:32 Dose: 30 mg Documented by: Enoxaparin Sodium (Lovenox) 30 mg SUBCUT BEDTIME COUNTS INCLUDE 234 BEDS AT THE [facility] Lactated Ringer's (Ringers, Lactated) 1,000 mls @ 999 mls/hr IV ASDIRECTED COUNTS INCLUDE 234 BEDS AT THE [facility] Last Admin: 09/01/20 14:15 Dose: 999 mls/hr Documented by: Cefepime HCl 1 gm/ Sodium (Chloride) 50 mls @ 100 mls/hr IV Q6H COUNTS INCLUDE 234 BEDS AT THE [facility] Last Admin: 09/01/20 14:18 Dose: 100 mls/hr Documented by: Lactated Ringer's (Ringers, Lactated) 1,000 mls @ 999 mls/hr IV BOLUS ONE Stop: 09/01/20 15:19 Last Admin: 09/01/20 14:29 Dose: 999 mls/hr Documented by: Cefepime HCl 1 gm/ Sodium (Chloride) 50 mls @ 100 mls/hr IV ONETIME ONE Stop: 09/01/20 15:14 Last Admin: 09/01/20 14:54 Dose: 100 mls/hr Documented by: Lactated Ringer's (Ringers, Lactated) 1,000 mls @ 999 mls/hr IV BOLUS ONE Stop: 09/01/20 16:58 Last Admin: 09/01/20 15:58 Dose: 999 mls/hr Documented by: Norepinephrine Bitartrate 4 mg (/ Dextrose/Water) 250 mls @ 7.5 mls/hr IV TITR ATE COUNTS INCLUDE 234 BEDS AT THE [facility]; Protocol Last Titration: 09/02/20 07:38 Dose: 4 mcg/min, 15 mls/hr Documented by: Lactated Ringer's (Ringers, Lactated) 1,000 mls @ 125 mls/hr IV ASDIRECTED STA Stop: 09/02/20 02:10 Last Admin: 09/01/20 18:18 Dose: 125 mls/hr Documented by: Sodium Chloride (Normal Saline) 1,000 mls @ 999 mls/hr IV ASDIRECTED COUNTS INCLUDE 234 BEDS AT THE [facility] Last Admin: 09/01/20 20:20 Dose: 999 mls/hr Documented by: Acetaminophen 1,000 mg/ Premix 100 mls @ 400 mls/hr IV NOW ONE Stop: 09/01/20 20:19 Last Admin: 09/01/20 20:41 Dose: 400 mls/hr Documented by: Vancomycin HCl 1 gm/ Sodium (Chloride) 250 mls @ 150 mls/hr IV ONETIME ONE Stop: 09/01/20 21:50 Last Admin: 09/01/20 20:42 Dose: 150 mls/hr Documented by: Lactated Ringer's (Ringers, Lactated) 1,000 mls @ 125 mls/hr IV ASDIRECTED COUNTS INCLUDE 234 BEDS AT THE [facility] Last Admin: 09/02/20 05:32 Dose: 125 mls/hr Documented by: Cefepime HCl 1 gm/ Sodium (Chloride) 50 mls @ 100 mls/hr IV Q24H COUNTS INCLUDE 234 BEDS AT THE [facility] Last Admin: 09/02/20 00:43 Dose: 100 mls/hr Documented by: Levofloxacin/Dextrose 750 mg/ (Premix) 150 mls @ 100 mls/hr IV ONETIME ONE Stop: 09/01/20 22:08 Last Admin: 09/01/20 22:28 Dose: 100 mls/hr Documented by: Levofloxacin/Dextrose 500 mg/ (Premix) 100 mls @ 100 mls/hr IV Q48H COUNTS INCLUDE 234 BEDS AT THE [facility] Norepinephrine Bitartrate 4 mg (/ Dextrose/Water) 250 mls @ 7.5 mls/hr IV TITRATE COUNTS INCLUDE 234 BEDS AT THE [facility]; Protocol Last Titration: 09/03/20 07:30 Dose: Infused Documented by: Vancomycin HCl 1 gm/ Sodium (Chloride) 250 mls @ 150 mls/hr IV ONETIME ONE Stop: 09/01/20 22:18 Last Admin: 09/04/20 07:19 Dose: Not Given Documented by: Vancomycin HCl 1 gm/ Sodium (Chloride) 250 mls @ 150 mls/hr IV ONETIME ONE Stop: 09/01/20 23:39 Last Admin: 09/01/20 21:54 Dose: Not Given Documented by: Levofloxacin/Dextrose 750 mg/ (Premix) 150 mls @ 100 mls/hr IV Q48H COUNTS INCLUDE 234 BEDS AT THE [facility] Lactated Ringer's (Ringers, Lactated) 1,000 mls @ 50 mls/hr IV ASDIRECTED COUNTS INCLUDE 234 BEDS AT THE [facility] Last Admin: 09/02/20 13:36 Dose: 50 mls/hr Documented by: Vancomycin HCl 2 gm/ Sodium (Chloride) 500 mls @ 250 mls/hr IV Q24H COUNTS INCLUDE 234 BEDS AT THE [facility] Last Admin: 09/02/20 15:28 Dose: 250 mls/hr Documented by: Cefepime HCl 2 gm/ Sodium (Chloride) 50 mls @ 100 mls/hr IV Q12H COUNTS INCLUDE 234 BEDS AT THE [facility] Last Admin: 09/04/20 01:16 Dose: 100 mls/hr Documented by: Levofloxacin/Dextrose 750 mg/ (Premix) 150 mls @ 100 mls/hr IV Q24H COUNTS INCLUDE 234 BEDS AT THE [facility] Last Admin: 09/03/20 14:52 Dose: 100 mls/hr Documented by: Ceftriaxone Sodium 2 gm/ (Sodium Chloride) 50 mls @ 100 mls/hr IV Q24H COUNTS INCLUDE 234 BEDS AT THE [facility] Last Admin: 09/05/20 13:04 Dose: 100 mls/hr Documented by: Influenza Virus Vaccine (Fluzone Quad [id number] Syringe) 60 mcg IM ONETIME ONE Stop: 09/04/20 10:01 Last Admin: 09/04/20 09:49 Dose: 60 mcg Documented by: Insulin Human Lispro (Humalog) 0 unit SUBCUT QIDACANDBED COUNTS INCLUDE 234 BEDS AT THE [facility]; Protocol Last Admin: 09/05/20 10:55 Dose: 4 units Documented by: Lidocaine HCl (Xylocaine 2% Jelly) Confirm Administered Dose 10 ml .ROUTE .STK- MED ONE Stop: 09/01/20 14:08 Last Admin: 09/01/20 14:50 Dose: Not Given Documented by: Lidocaine HCl (Xylocaine 2% Jelly) 10 ml MUCMEM ONETIME ONE Stop: 09/01/20 14:46 Last Admin: 09/01/20 14:50 Dose: 10 ml Documented by: Sodium Polystyrene Sulfonate (Kayexalate) 30 gm PO ONETIME STA Stop: 09/01/20 17:38 Last Admin: 09/01/20 17:47 Dose: 30 gm Documented by: Vancomycin HCl (Vancomycin) 1 gm IV .PHARMACY TO DOSE COUNTS INCLUDE 234 BEDS AT THE [facility]
== END 2020-09-07 12:27 | DRG 871 ==
LOC: JP.ED 13:11 → JP.ICU 19:21
PROVIDERS: ADMIT Hospitalist; ATTEND Internal Medicine
PROC: 3E033XZ Introduction of Vasopressor into Peripheral Vein, Percutaneous Approach (ICD-10-PCS; principal; 2020-09-01)
DX: A41.51 Sepsis due to Escherichia coli [E. coli] (principal); R65.21 Severe sepsis with septic shock; J96.91 Respiratory failure, unspecified with hypoxia; N17.9 Acute kidney failure, unspecified; Z68.42 Body mass index [BMI] 45.0-49.9, adult; E87.1 Hypo-osmolality and hyponatremia; E87.5 Hyperkalemia; Z66 Do not resuscitate; Z20.828 Contact with and (suspected) exposure to other viral communicable diseases; I69.119 Unspecified symptoms and signs involving cognitive functions following nontraumatic intracerebral hemorrhage; E66.01 Morbid (severe) obesity due to excess calories; E11.9 Type 2 diabetes mellitus without complications; G47.33 Obstructive sleep apnea (adult) (pediatric); E78.00 Pure hypercholesterolemia, unspecified; I10 Essential (primary) hypertension; J44.9 Chronic obstructive pulmonary disease, unspecified; G89.29 Other chronic pain; M10.9 Gout, unspecified; M54.5 Low back pain; F17.200 Nicotine dependence, unspecified, uncomplicated; R40.2412 Glasgow coma scale score 13-15, at arrival to emergency department; Z79.4 Long term (current) use of insulin; Z88.0 Allergy status to penicillin; Z88.1 Allergy status to other antibiotic agents; Z88.5 Allergy status to narcotic agent; Z79.899 Other long term (current) drug therapy; Z90.49 Acquired absence of other specified parts of digestive tract
CPT/HCPCS: 36415; 36600; 71045; 71045-26; 80048; 80053; 81001; 82803; 82962; 83605; 83690; 83735; 84132; 84145; 84484; 85025; 85027; 85610; 85730; 86140; 87040; 87077; 87186; 90686; 93005; 93010; 94640; 94660; 96361; 96365; 96366; 96367; 97161-GP; 97530-GP; 99222-AI; 99231; 99232; 99239; 99284; 99285-25; A9270-GY; G0008; J0131; J0692; J0696; J1650; J1815; J1815-GY; J1956; J2405; J3370; J7030; J7040; J7050; J7060; J7120; J7620-GY; U0002

== ENCOUNTER 2020-09-17 20:41 | Emergency (ER) | payer MEDICAID ==
[2020-09-17 21:09] VITALS: BP 151/83; PULSE 86
--- NOTE | 2020-09-17 21:24 | EDM.PDOC ---
ED HPI GENERAL MEDICAL PROBLEM - General Chief Complaint: General Stated Complaint: MEDICAL Time Seen by Provider: 09/17/20 20:56 Source of Information: Reports: Patient History Limitations: Reports: No Limitations - History of Present Illness INITIAL COMMENTS - FREE TEXT/NARRATIVE: Patient presents with questions about fever and not feeling well. He recently was hospitalized because of sepsis and was then discharged from a rehabilitation facility after becoming stronger. He felt as though his temperature was up and it was found to be in the high 99 range. Overall except for being somewhat tired he feels like his usual self. No chills. No nausea or vomiting. If he stands suddenly from a seated position he may briefly feel a little lightheaded but it is not sustained. He has had no falls to the ground. He uses a walker all the time when ambulating. Because of concerns about possible return of infection, he came here tonight. Onset: Today Duration: Hour(s): (4) Location: Reports: Generalized Severity: Mild Improves with: Reports: Medication Worsens with: Reports: None Associated Symptoms: Reports: Fever/Chills (No chills, only fever.) Treatments TESTER ELECTRONIC SCALE: Reports: Acetaminophen - Related Data Allergies Allergy/AdvReac Type Severity Reaction Status Date / Time amoxicillin [Amoxicillin] Allergy Intermediate Rash Verified 09/17/20 21:33 erythromycin base Allergy Intermediate Rash Verified 09/17/20 21:33 [Erythromycin Base] Penicillins Allergy Intermediate Rash Verified 09/17/20 21:33 hydrocodone Allergy Unknown Other Verified 09/17/20 21:33 Home Meds: Home Meds Acetaminophen [Tylenol Extra Strength] 650 mg PO BID 12/04/13 [History] Lisinopril 20 mg PO DAILY 12/04/13 [History] metFORMIN [Glucophage] 1,000 mg PO BIDM 12/04/13 [History] Sennosides [Senna] 1 tab PO BID PRN 04/08/17 [History] Ondansetron [Zofran ODT] 4 mg PO Q8H PRN 12/08/17 [History] Triamcinolone Acetonide [Kenalog 0.1% Crm] 1 applic TOP TID PRN 12/08/17 [History] Gabapentin [Neurontin] 300 cap PO BID 03/09/19 [History] Latanoprost 1 drop EYEBOTH BEDTIME 04/09/19 [History] Albuterol Sulfate [Albuterol Sulfate Hfa] 2 puff IN ASDIRECTED PRN 09/01/20 [History] Insulin Glarg,Human.Rec.Analog [Lantus Solostar] 34 unit SUBCNJ ACBREAKFAST 09/01/20 [History] Labetalol HCl [Labetalol] 200 mg PO BID 09/01/20 [History] Simvastatin 20 mg PO BEDTIME 09/01/20 [History] Tamsulosin [Flomax] 0.4 mg PO BEDTIME 09/01/20 [History] Triamterene/Hydrochlorothiazid [Dyazide 37.5-25 Capsule] 1 cap PO DAILY 09/01/20 [History] Insulin Aspart [NovoLOG] 4 units SUBCNJ TIDAC #0 09/05/20 [Rx] Lactobacillus Rhamnosus GG [Culturelle] 1 cap PO BID #20 cap 09/05/20 [Rx] Cefdinir [Omnicef] 300 mg PO BID #7 cap 09/07/20 [Rx] Past Medical History HEENT History: Reports: Impaired Vision Cardiovascular History: Reports: High Cholesterol, Hypertension Respiratory History: Reports: COPD Gastrointestinal History: Reports: Chronic Diarrhea, Other (See Below) Other Gastrointestinal History: Perirectal abscess Genitourinary History: Reports: Other (See Below) Other Genitourinary History: urinary frequency Musculoskeletal History: Reports: Back Pain, Chronic, Gout, Other (See Below) Other Musculoskeletal History: c/o back pain lower back Neurological History: Reports: CVA, Vertigo, Other (See Below) Other Neuro History: spinal stenosis of lumbar region Psychiatric History: Reports: Learning Disability Endocrine/Metabolic History: Reports: Diabetes, Type II, Obesity/BMI 30+ - Infectious Disease History Infectious Disease History: Reports: Measles - Past Surgical History GI Surgical History: Reports: Cholecystectomy, Hernia Repair/Other Social & Family History - Caffeine Use Caffeine Use: Reports: Coffee, Tea - Living Situation & Occupation Living situation: Reports: with Significant Other, with Family Occupation: Employed ED ROS GENERAL - Review of Systems Review Of Systems: See Below Constitutional: Reports: Fever, Malaise, Fatigue. Denies: Chills, Night Sweats, Diaphoresis HEENT: Reports: Sinus Problem Respiratory: Reports: Cough (Minimal, nonproductive.) Cardiovascular: Reports: No Symptoms Endocrine: Reports: High Glucose GI/Abdominal: Reports: No Symptoms : Reports: Other (Possibly darker urine.) Musculoskeletal: Reports: Muscle Pain (Some generalized muscle ache.) Skin: Reports: Bruising ED EXAM, GENERAL - Physical Exam Exam: See Below Free Text/Narrative:: This is a composed adult male sitting askew on the cart in room 4. There is an adult attendant with him. Exam Limited By: No Limitations General Appearance: Alert, No Apparent Distress Head: Atraumatic Neck: Supple, Non-Tender Respiratory/Chest: No Respiratory Distress, Lungs Clear Cardiovascular: Regular Rate, Rhythm GI/Abdominal: Soft, Non-Tender Skin Exam: Warm, Dry Course - Vital Signs Last Recorded V/S: Last Vital Signs Temp 37.5 C 09/17/20 21:36 Pulse 86 09/17/20 21:36 Resp 16 09/17/20 21:36 BP 151/83 H 09/17/20 21:36 Pulse Ox 96 09/17/20 21:36 - Orders/Labs/Meds Labs: Laboratory Tests 09/17/20 09/17/20 09/17/20 Range/Units 21:30 21:30 21:38 WBC 9.1 (4.5-11.0) K/uL RBC 4.27 L (4.30-5.90) M/uL Hgb 12.2 D (12.0-15.0) g/dL Hct 38.2 L (40.0-54.0) % MCV 90 (80-98) fL MCH 29 (27-31) pg MCHC 32 (32-36) % Plt Count 222 (150-400) K/uL Neut % (Auto) 66 (36-66) % Lymph % (Auto) 22 L (24-44) % [place] % (Auto) 10 H (2-6) % Eos % (Auto) 2 (2-4) % Baso % (Auto) 0 (0-1) % Sodium 137 L (140-148) mmol/L Potassium 3.5 L (3.6-5.2) mmol/L Chloride 101 (100-108) mmol/L Carbon Dioxide 28 (21-32) mmol/L Anion Gap 11.5 (5.0-14.0) mmol/L BUN 19 H (7-18) mg/dL Creatinine 1.5 H (0.8-1.3) mg/dL Est Cr Clr Drug Dosing 60.80 mL/min Estimated GFR (MDRD) 51 L (>60) Glucose 193 H (74-106) mg/dL Calcium 9.4 (8.5-10.1) mg/dL C-Reactive Protein 1.44 H (0.0-0.3) mg/dL Urine Color Yellow (YELLOW) Urine Appearance Clear (CLEAR) Urine pH 5.5 (5.0-8.0) Ur Specific [place] 1.020 (1.008-1.030) Urine Protein Negative (NEGATIVE) mg/dL Urine Glucose (UA) Negative (NEGATIVE) mg/dL Urine Ketones Negative (NEGATIVE) mg/dL Urine Occult Blood Negative (NEGATIVE) Urine Nitrite Negative (NEGATIVE) Urine Bilirubin Negative (NEGATIVE) Urine Urobilinogen 0.2 (0.2-1.0) EU/dL Ur Leukocyte Esterase Negative (NEGATIVE) Urine RBC Not seen (0-5) Urine WBC Not seen (0-5) Ur Epithelial Cells Not seen Urine Bacteria Not seen - Re-Assessments/Exams Free Text/Narrative Re-Assessment/Exam: 09/17/20 21:49 Overall, he does not appear ill. He is thirsty and it is fine for him to drink water. We will check some basic blood tests as well as urine. If those look good he will be discharged to be treated symptomatically. 09/17/20 22:44 I returned later to review test results which look fine other than an elevated glucose. I discussed with him that he should not be drinking pop, that water or milk products would be better for him. Continue to take usual medications and follow care plans the same otherwise. Departure - Departure Time of Disposition: 22:42 Disposition: Home, Self-Care 01 Clinical Impression: Viral syndrome Type 2 diabetes mellitus Qualifiers: Diabetes mellitus predatory animal exterminator insulin use: with predatory animal exterminator use Diabetes mellitus complication status: with other specified complication Qualified Code(s): E11.69 - Type 2 diabetes mellitus with other specified complication - Discharge Information Instructions: Viral Respiratory Infection, [id number] Referrals: Cam Blair MD [Primary Care Provider] - Forms: ED Department Discharge Additional Instructions: Do not drink pop or other soft drinks. You would be better with water. Continue usual medications. Sepsis Event Note (ED) - Focused Exam Vital Signs: Vital Signs Temp Pulse Resp BP Pulse Ox 09/17/20 21:36 37.5 C 86 16 151/83 H 96 09/17/20 20:53 37.5 C 86 16 151/83 H 96
== END 2020-09-17 22:55 | disposition home or self-care (01) ==
LOC: JP.ED 20:41
DX: B34.9 Viral infection, unspecified (principal); E11.69 Type 2 diabetes mellitus with other specified complication; E66.9 Obesity, unspecified; E78.00 Pure hypercholesterolemia, unspecified; J44.9 Chronic obstructive pulmonary disease, unspecified; Z79.4 Long term (current) use of insulin; Z88.0 Allergy status to penicillin; Z88.1 Allergy status to other antibiotic agents; Z88.5 Allergy status to narcotic agent; Z79.899 Other long term (current) drug therapy; Z86.73 Personal history of transient ischemic attack (TIA), and cerebral infarction without residual deficits; Z68.42 Body mass index [BMI] 45.0-49.9, adult
CPT/HCPCS: 36415; 80048; 81001; 85025; 86140; 99283

== ENCOUNTER 2020-09-19 11:52 | Emergency (ER) | payer MEDICAID ==
[2020-09-19 12:05] VITALS: BP 97/60; PULSE 87
[2020-09-19] MEDS ORDERED: Aluminum Hydroxide/Magnesium Hydroxide/Simethicone Susp 30 ML Cup PO ONE (12:20)
--- NOTE | 2020-09-19 12:27 | EDM.PDOC ---
ED HPI GENERAL MEDICAL PROBLEM - General Chief Complaint: Chest Pain Stated Complaint: CHEST PAIN, LOW BLOOD PRESSURE Time Seen by Provider: 09/19/20 11:55 Source of Information: Reports: Patient History Limitations: Reports: No Limitations - History of Present Illness INITIAL COMMENTS - FREE TEXT/NARRATIVE: 45-year-old male who recently had a spontaneous arachnoid hemorrhage, also was hospitalized for urosepsis has been home for the last few days after being in physical rehab. He went into the clinic today for foot check, I think by podiatry, but mentioned he was lightheaded and having some mild chest discomfort so they sent him to the emergency room. They also felt he was "hypotensive". On arrival he looked baseline, but was complaining of some mild chest pressure. No nausea or vomiting. No fevers or chills. Denies shortness of breath. Also claims he had some chest pain last night as well. He said he was recently in the hospital for a heart attack but when I reviewed the records it was actually a urosepsis. Onset: Unknown/Unsure Associated Symptoms: Reports: Confusion (Chronic, somewhat worse since his hemorrhage), Chest Pain, Weakness. Denies: Cough, Nausea/Vomiting, Shortness of Breath - Related Data Allergies Allergy/AdvReac Type Severity Reaction Status Date / Time amoxicillin [Amoxicillin] Allergy Intermediate Rash Verified 09/19/20 12:05 erythromycin base Allergy Intermediate Rash Verified 09/19/20 12:05 [Erythromycin Base] Penicillins Allergy Intermediate Rash Verified 09/19/20 12:05 hydrocodone Allergy Unknown Other Verified 09/19/20 12:05 Home Meds: Home Meds Acetaminophen [Tylenol Extra Strength] 650 mg PO BID 12/04/13 [History] Lisinopril 20 mg PO DAILY 12/04/13 [History] metFORMIN [Glucophage] 1,000 mg PO BIDM 12/04/13 [History] Sennosides [Senna] 1 tab PO BID PRN 04/08/17 [History] Ondansetron [Zofran ODT] 4 mg PO Q8H PRN 12/08/17 [History] Triamcinolone Acetonide [Kenalog 0.1% Crm] 1 applic TOP TID PRN 12/08/17 [History] Gabapentin [Neurontin] 300 cap PO BID 03/09/19 [History] Latanoprost 1 drop EYEBOTH BEDTIME 03/09/19 [History] Albuterol Sulfate [Albuterol Sulfate Hfa] 2 puff IN ASDIRECTED PRN 09/01/20 [History] Insulin Glarg,Human.Rec.Analog [Lantus Solostar] 34 unit SUBCNJ ACBREAKFAST 09/01/20 [History] Labetalol HCl [Labetalol] 200 mg PO BID 09/01/20 [History] Simvastatin 20 mg PO BEDTIME 09/01/20 [History] Tamsulosin [Flomax] 0.4 mg PO BEDTIME 09/01/20 [History] Triamterene/Hydrochlorothiazid [Dyazide 37.5-25 Capsule] 1 cap PO DAILY 09/01/20 [History] Insulin Aspart [NovoLOG] 4 units SUBCNJ TIDAC #0 09/05/20 [Rx] Lactobacillus Rhamnosus GG [Culturelle] 1 cap PO BID #20 cap 09/05/20 [Rx] Cefdinir [Omnicef] 300 mg PO BID #7 cap 09/07/20 [Rx] Past Medical History HEENT History: Reports: Impaired Vision Cardiovascular History: Reports: High Cholesterol, Hypertension Respiratory History: Reports: COPD Gastrointestinal History: Reports: Chronic Diarrhea, Other (See Below) Other Gastrointestinal History: Perirectal abscess Genitourinary History: Reports: Other (See Below) Other Genitourinary History: urinary frequency Musculoskeletal History: Reports: Back Pain, Chronic, Gout, Other (See Below) Other Musculoskeletal History: c/o back pain lower back Neurological History: Reports: CVA, Vertigo, Other (See Below) Other Neuro History: spinal stenosis of lumbar region Psychiatric History: Reports: Learning Disability Endocrine/Metabolic History: Reports: Diabetes, Type II, Obesity/BMI 30+ - Infectious Disease History Infectious Disease History: Reports: Measles - Past Surgical History Head Surgeries/Procedures: Reports: None HEENT Surgical History: Reports: None GI Surgical History: Reports: Cholecystectomy, Hernia Repair/Other Social & Family History - Tobacco Use Tobacco Use Status *Q: Former Tobacco User Used Tobacco, but Quit: Yes Month/Year Tobacco Last Used: 08/2020 Second Hand Smoke Exposure: No - Caffeine Use Caffeine Use: Reports: Soda - Recreational Drug Use Recreational Drug Use: No - Living Situation & Occupation Living situation: Reports: with Significant Other, with Family Occupation: Employed ED ROS GENERAL - Review of Systems Review Of Systems: See Below Constitutional: Reports: Malaise. Denies: Fever, Chills HEENT: Denies: Vision Change Respiratory: Denies: Shortness of Breath Cardiovascular: Reports: Chest Pain (Mild chest pain/pressure) GI/Abdominal: Denies: Abdominal Pain, Nausea, Vomiting Neurological: Denies: Headache ED EXAM, GENERAL - Physical Exam Exam: See Below Exam Limited By: No Limitations General Appearance: Alert, No Apparent Distress Head: Atraumatic Neck: Supple, Non-Tender Respiratory/Chest: Lungs Clear Cardiovascular: Regular Rate, Rhythm GI/Abdominal: Soft, Non-Tender Course - Vital Signs Last Recorded V/S: Last Vital Signs Temp 97.2 F 09/19/20 12:10 Pulse 87 09/19/20 12:10 Resp 15 09/19/20 12:10 BP 97/60 09/19/20 12:10 Pulse Ox 97 09/19/20 12:10 - Orders/Labs/Meds Orders: Active Orders 24 hr Category Date Time Status EKG 12 Lead [EK] Routine Ther 09/19/20 12:14 Ordered Labs: Laboratory Tests 09/19/20 09/19/20 Range/Units 12:14 12:14 WBC 8.5 (4.5-11.0) K/uL RBC 4.48 (4.30-5.90) M/uL Hgb 13.2 (12.0-15.0) g/dL Hct 39.8 L (40.0-54.0) % MCV 89 (80-98) fL MCH 30 (27-31) pg MCHC 33 (32-36) % Plt Count 206 (150-400) K/uL Neut % (Auto) 69 H (36-66) % Lymph % (Auto) 20 L (24-44) % Person % (Auto) 8 H (2-6) % Eos % (Auto) 3 (2-4) % Baso % (Auto) 1 (0-1) % Sodium 139 L (140-148) mmol/L Potassium 3.7 (3.6-5.2) mmol/L Chloride 101 (100-108) mmol/L Carbon Dioxide 25 (21-32) mmol/L Anion Gap 16.7 H (5.0-14.0) mmol/L BUN 20 H (7-18) mg/dL Creatinine 1.7 H (0.8-1.3) mg/dL Est Cr Clr Drug Dosing 53.65 mL/min Estimated GFR (MDRD) 44 L (>60) Glucose 161 H (74-106) mg/dL Calcium 9.9 (8.5-10.1) mg/dL Troponin I < 0.017 (0.000-0.056) ng/mL Meds: Medications Discontinued Medications Generic Name Dose Route Start Last Admin Trade Name Freq PRN Reason Stop Dose Admin Al Hydroxide/Mg Hydroxide 30 ml 09/19/20 12:20 09/19/20 12:27 Mag-Al Plus PO 09/19/20 12:21 30 ml ONETIME ONE Administration - Re-Assessments/Exams Free Text/Narrative Re-Assessment/Exam: 09/19/20 12:49 Patient was stable throughout ER stay, 30 cc of Maalox took away his chest pressure. EKG was normal, troponin 0. Blood pressure normalized systolic around 100. 09/19/20 12:55 Reviewed his medications, patient is on lisinopril which I think is a good medicine for him considering his diabetes, and 200 mg of labetalol twice daily. This may be something that he can reduce if he is having persistent problems with hypotension but he has an appointment with his primary provider in a couple days and that can be discussed at that time. Recommended 20 mg of omeprazole daily for the next 1 to 2 weeks. Departure - Departure Time of Disposition: 13:13 Disposition: Home, Self-Care 01 Clinical Impression: Chest pain, atypical Acid reflux Qualifiers: Esophagitis presence: esophagitis presence not specified Qualified Code(s): K21.9 - Gastro-esophageal reflux disease without esophagitis - Discharge Information Instructions: Heartburn, [id number] Referrals: Cam Blair MD [Primary Care Provider] - Forms: ED Department Discharge Care Plan Goals: Consider 20 mg of limits daily for 1 to 2 weeks, recheck with Dr. Blair as scheduled. Sepsis Event Note (ED) - Evaluation Sepsis Screening Result: No Definite Risk - Focused Exam Vital Signs: Vital Signs Temp Pulse Resp BP Pulse Ox 09/19/20 12:10 97.2 F 87 15 97/60 97 09/19/20 12:04 97.2 F 87 15 97/60 97 - My Orders Last 24 Hours: My Active Orders 09/19/20 12:14 EKG 12 Lead [EK] Routine - Assessment/Plan Last 24 Hours: My Active Orders 09/19/20 12:14 EKG 12 Lead [EK] Routine
== END 2020-09-19 13:12 | disposition home or self-care (01) ==
LOC: JP.ED 11:52
DX: K21.9 Gastro-esophageal reflux disease without esophagitis (principal); I10 Essential (primary) hypertension; E78.00 Pure hypercholesterolemia, unspecified; J44.9 Chronic obstructive pulmonary disease, unspecified; E11.9 Type 2 diabetes mellitus without complications; E66.9 Obesity, unspecified; Z68.43 Body mass index [BMI] 50.0-59.9, adult; Z87.891 Personal history of nicotine dependence; Z88.1 Allergy status to other antibiotic agents; Z88.0 Allergy status to penicillin; Z88.5 Allergy status to narcotic agent; Z79.899 Other long term (current) drug therapy; Z79.4 Long term (current) use of insulin
CPT/HCPCS: 36415; 80048; 84484; 85025; 93005; 93010; 99285; A9270

== ENCOUNTER 2021-03-15 12:43 | Emergency (ER) | payer MEDICAID ==
[2021-03-15 13:09] VITALS: BP 128/89; PULSE 107
--- NOTE | 2021-03-15 13:52 | EDM.PDOC ---
ED HPI GENERAL MEDICAL PROBLEM - General Chief Complaint: Lower Extremity Injury/Pain Stated Complaint: LEFT FOOT PAIN Time Seen by Provider: 03/15/21 13:44 Source of Information: Reports: Patient, RN Notes Reviewed History Limitations: Reports: No Limitations - History of Present Illness INITIAL COMMENTS - FREE TEXT/NARRATIVE: 46-year-old gentleman presents emergency department with a complaint of great toe pain left side he he states he was initially evaluated in clinic thought to have gout was started on prednisone 20 mg once a day he states he is taken 1 dose but now the pain is so severe in that foot it is doubled in size and he can no longer ambulate on it he cannot get around from point a to point B in his home because the pain is so great. left foot Pain Score (Numeric/FACES): 6 - Related Data Allergies Allergy/AdvReac Type Severity Reaction Status Date / Time amoxicillin [Amoxicillin] Allergy Intermediate Rash Verified 03/15/21 13:02 erythromycin base Allergy Intermediate Rash Verified 03/15/21 13:02 [Erythromycin Base] Penicillins Allergy Intermediate Rash Verified 03/15/21 13:02 hydrocodone Allergy Unknown Other Verified 03/15/21 13:02 Home Meds: Home Meds Acetaminophen [Tylenol Extra Strength] 650 mg PO BID 12/04/13 [History] Lisinopril 10 mg PO DAILY 12/04/13 [History] metFORMIN [Glucophage] 1,000 mg PO BIDM 12/04/13 [History] Sennosides [Senna] 1 tab PO BID PRN 04/08/17 [History] Ondansetron [Zofran ODT] 4 mg PO Q8H PRN 12/08/17 [History] Triamcinolone Acetonide [Kenalog 0.1% Crm] 1 applic TOP TID PRN 12/08/17 [History] Gabapentin [Neurontin] 300 cap PO TID 03/09/19 [History] Latanoprost 1 drop EYEBOTH BEDTIME 03/09/19 [History] Albuterol Sulfate [Albuterol Sulfate Hfa] 2 puff IN ASDIRECTED PRN 09/01/20 [History] Insulin Glarg,Human.Rec.Analog [Lantus Solostar] 34 unit SUBCNJ ACBREAKFAST 09/01/20 [History] Labetalol HCl [Labetalol] 100 mg PO BID 09/01/20 [History] Simvastatin 20 mg PO BEDTIME 09/01/20 [History] Tamsulosin [Flomax] 0.4 mg PO BEDTIME 09/01/20 [History] Triamterene/Hydrochlorothiazid [Dyazide 37.5-25 Capsule] 1 cap PO DAILY PRN 09/01/20 [History] Insulin Aspart [NovoLOG] 4 units SUBCNJ TIDAC #0 09/05/20 [Rx] Lactobacillus Rhamnosus GG [Culturelle] 1 cap PO BID #20 cap 09/05/20 [Rx] Diclofenac Sodium [Voltaren] 75 mg PO BIDMEALS 03/15/21 [History] Fluticasone Propionate [Flonase] 2 spray NS DAILY PRN 03/15/21 [History] Hydrocodone/Acetaminophen [Hydrocodon-Acetaminophen 5-325] 1 tab PO Q6H PRN 03/15/21 [History] Naproxen 500 mg PO BID PRN 03/15/21 [History] Omeprazole 20 mg PO DAILY 03/15/21 [History] glipiZIDE [Glucotrol] 5 mg PO BID 03/15/21 [History] predniSONE [Prednisone] 40 mg PO DAILY 03/15/21 [History] Past Medical History HEENT History: Reports: Impaired Vision Cardiovascular History: Reports: High Cholesterol, Hypertension Respiratory History: Reports: COPD Gastrointestinal History: Reports: Chronic Diarrhea, Other (See Below) Other Gastrointestinal History: Perirectal abscess Genitourinary History: Reports: Other (See Below) Other Genitourinary History: urinary frequency Musculoskeletal History: Reports: Back Pain, Chronic, Gout, Other (See Below) Other Musculoskeletal History: c/o back pain lower back Neurological History: Reports: CVA, Vertigo, Other (See Below) Other Neuro History: spinal stenosis of lumbar region Psychiatric History: Reports: Learning Disability Endocrine/Metabolic History: Reports: Diabetes, Type II, Obesity/BMI 30+ - Infectious Disease History Infectious Disease History: Reports: Measles - Past Surgical History Head Surgeries/Procedures: Reports: None HEENT Surgical History: Reports: None GI Surgical History: Reports: Cholecystectomy, Hernia Repair/Other Social & Family History - Tobacco Use Tobacco Use Status *Q: Former Tobacco User Used Tobacco, but Quit: Yes Month/Year Tobacco Last Used: 07/2020 - Caffeine Use Caffeine Use: Reports: Coffee, Soda, Tea - Recreational Drug Use Recreational Drug Use: No - Living Situation & Occupation Living situation: Reports: with Significant Other, with Family Occupation: Employed Review of Systems - Review of Systems Review Of Systems: See Below Constitutional: Reports: No Symptoms Musculoskeletal: Reports: Foot Pain Neurological: Reports: Difficulty Walking (Secondary to pain) ED EXAM, GENERAL - Physical Exam Exam: See Below Free Text/Narrative:: Examination of the left foot I do not appreciate any erythema the the foot does seem edematous he is tender to even the slightest palpation of the great toe pedal pulses +2 he also complains of tenderness in the calf however there is no tightness appreciated in the calf Exam Limited By: No Limitations General Appearance: Alert, WD/WN, No Apparent Distress Course - Vital Signs Last Recorded V/S: Last Vital Signs Temp 98.2 F 03/15/21 13:08 Pulse 107 H 03/15/21 13:08 Resp 20 03/15/21 13:08 BP 128/89 03/15/21 13:08 Pulse Ox 95 03/15/21 13:08 - Orders/Labs/Meds Labs: Laboratory Tests 03/15/21 03/15/21 03/15/21 Range/Units 14:00 14:00 14:00 WBC 10.2 (4.5-11.0) K/uL RBC 4.61 (4.30-5.90) M/uL Hgb 13.8 (12.0-15.0) g/dL Hct 40.7 (40.0-54.0) % MCV 88 (80-98) fL MCH 30 (27-31) pg MCHC 34 (32-36) % Plt Count 172 (150-400) K/uL Neut % (Auto) 88 H (36-66) % Lymph % (Auto) 6 L (24-44) % [place] % (Auto) 5 (2-6) % Eos % (Auto) 0 L (2-4) % Baso % (Auto) 0 (0-1) % D-Dimer, Quantitative 401.31 (0.0-500.0) ng/mL Sodium (140-148) mmol/L Potassium (3.6-5.2) mmol/L Chloride (100-108) mmol/L Carbon Dioxide (21-32) mmol/L Anion Gap (5.0-14.0) mmol/L BUN (7-18) mg/dL Creatinine (0.8-1.3) mg/dL Est Cr Clr Drug Dosing mL/min Estimated GFR (MDRD) (>60) Glucose (74-106) mg/dL Uric Acid 11.7 H (3.5-7.2) mg/dL Calcium (8.5-10.1) mg/dL 03/15/21 Range/Units 14:00 WBC (4.5-11.0) K/uL RBC (4.30-5.90) M/uL Hgb (12.0-15.0) g/dL Hct (40.0-54.0) % MCV (80-98) fL MCH (27-31) pg MCHC (32-36) % Plt Count (150-400) K/uL Neut % (Auto) (36-66) % Lymph % (Auto) (24-44) % [place] % (Auto) (2-6) % Eos % (Auto) (2-4) % Baso % (Auto) (0-1) % D-Dimer, Quantitative (0.0-500.0) ng/mL Sodium 138 L (140-148) mmol/L Potassium 3.9 (3.6-5.2) mmol/L Chloride 99 L (100-108) mmol/L Carbon Dioxide 28 (21-32) mmol/L Anion Gap 14.9 H (5.0-14.0) mmol/L BUN 20 H (7-18) mg/dL Creatinine 2.0 H (0.8-1.3) mg/dL Est Cr Clr Drug Dosing 45.13 mL/min Estimated GFR (MDRD) 36 L (>60) Glucose 241 H (74-106) mg/dL Uric Acid (3.5-7.2) mg/dL Calcium 10.1 (8.5-10.1) mg/dL Meds: Medications Discontinued Medications Generic Name Dose Route Start Last Admin Trade Name Freq PRN Reason Stop Dose Admin Methylprednisolone Sodium Succinate 125 mg 03/15/21 15:48 03/15/21 16:01 Methylprednisolone Sodium Succinate 125 Mg/2 Ml Sdv IM 03/15/21 15:49 125 mg ONETIME ONE Administration Departure - Departure Time of Disposition: 16:23 Disposition: Home, Self-Care 01 Condition: Fair Clinical Impression: Gout flare Qualifiers: Gout site: toe Gout etiology: unspecified cause Laterality: left Qualified Code(s): M10.9 - Gout, unspecified - Discharge Information Referrals: Cam Blair MD [Primary Care Provider] - Forms: ED Department Discharge Additional Instructions: Continue with the prednisone that was prescribed from your primary care start tomorrow, recommend using Tylenol for pain control please followup with your primary care provider in 3-5 days if not better, please call return to the emergency department with worsening of symptoms., Sepsis Event Note (ED) - Evaluation Sepsis Screening Result: No Definite Risk - Focused Exam Vital Signs: Vital Signs Temp Pulse Resp BP Pulse Ox 03/15/21 13:08 98.2 F 107 H 20 128/89 95 - Assessment/Plan Plan: Assessment Acuity = acute Site and laterality = gout great toe left foot Etiology = unknown Manifestations = none Location of injury = Home Lab values = CBC unremarkable creatinine elevated 2.0 consistent chronic renal failure stage G3 B uric acid elevated 11.7 Plan Because of his elevated kidney function elected to treat with Solu-Medrol 125 mg IM x1 he will continue with his prednisone to help with the inflammation of the gout. Because of his kidney function have asked him to follow-up with his primary care to review the use of Metformin and glipizide as well as the other nonsteroidal anti-inflammatories that he is taking recommend stopping these medications This note was dictated using [employer] voice recognition software please call with any questions on syntax or grammar.
[2021-03-15] MEDS ORDERED: methylPREDNISolone Sodium Succinate 125 MG/2 ML SDV IM ONE (15:48)
== END 2021-03-15 17:08 | disposition home or self-care (01) ==
LOC: JP.ED 12:43
DX: M10.9 Gout, unspecified (principal); J44.9 Chronic obstructive pulmonary disease, unspecified; E78.00 Pure hypercholesterolemia, unspecified; I10 Essential (primary) hypertension; E11.9 Type 2 diabetes mellitus without complications; E66.9 Obesity, unspecified; Z87.891 Personal history of nicotine dependence; Z79.899 Other long term (current) drug therapy; Z68.42 Body mass index [BMI] 45.0-49.9, adult; Z79.4 Long term (current) use of insulin; Z88.0 Allergy status to penicillin; Z88.1 Allergy status to other antibiotic agents; Z88.5 Allergy status to narcotic agent
CPT/HCPCS: 36415; 80048; 84550; 85025; 85379; 96372; 99283; J2930

== ENCOUNTER 2021-04-19 12:51 | Emergency (ER) | payer MEDICAID ==
[2021-04-19] MEDS ORDERED: Sodium Chloride 0.9% 1,000 ML IV ONE (13:26)
[2021-04-19] MEDS ORDERED: Acetaminophen 500 MG Tab PO ONE (13:33)
--- NOTE | 2021-04-19 13:33 | EDM.PDOC ---
ED HPI GENERAL MEDICAL PROBLEM - General Chief Complaint: General Stated Complaint: DIZZINESS Time Seen by Provider: 04/19/21 13:30 Source of Information: Reports: Patient, Old Records, RN History Limitations: Reports: No Limitations - History of Present Illness INITIAL COMMENTS - FREE TEXT/NARRATIVE: 46 yo male with NIDDM was seen in the clinic today for possible gout in his L ankle. He started to feel light-headed shortly after that and so now comes to the ER. He says that his BP med was stopped today in the clinic. He has not had lunch, but did have breakfast. No recent fever, chills, worsening of his chronic diarrhea, bleeding, vomiting, or chest pain. BP in the clinic was 90/60 today. Onset: Today, Gradual Onset Date: 04/19/21 Duration: Hour(s):, Getting Worse Location: Reports: Head Quality: Reports: Ache (in L ankle only) Severity: Moderate Improves with: Reports: Rest Worsens with: Reports: Movement Context: Reports: Other (unsure why he has light-headedness, ankle felt by Dr. Blair to be from gout.) Associated Symptoms: Reports: Weakness (generalized) Treatments ENERGY ADMINISTRATOR: Reports: Other (see below) (none) Left Feet Pain Score (Numeric/FACES): 6 - Related Data Allergies Allergy/AdvReac Type Severity Reaction Status Date / Time amoxicillin [Amoxicillin] Allergy Intermediate Rash Verified 04/19/21 13:34 erythromycin base Allergy Intermediate Rash Verified 04/19/21 13:34 [Erythromycin Base] Penicillins Allergy Intermediate Rash Verified 04/19/21 13:34 hydrocodone Allergy Unknown Other Verified 04/19/21 13:34 Home Meds: Home Meds Acetaminophen [Tylenol Extra Strength] 650 mg PO BID 12/04/13 [History] Lisinopril 10 mg PO DAILY 12/04/13 [History] metFORMIN [Glucophage] 1,000 mg PO BIDM 12/04/13 [History] Sennosides [Senna] 1 tab PO BID PRN 04/08/17 [History] Ondansetron [Zofran ODT] 4 mg PO Q8H PRN 12/08/17 [History] Triamcinolone Acetonide [Kenalog 0.1% Crm] 1 applic TOP TID PRN 12/08/17 [History] Gabapentin [Neurontin] 300 cap PO TID 03/09/19 [History] Latanoprost 1 drop EYEBOTH BEDTIME 03/09/19 [History] Albuterol Sulfate [Albuterol Sulfate Hfa] 2 puff IN ASDIRECTED PRN 09/01/20 [History] Insulin Glarg,Human.Rec.Analog [Lantus Solostar] 34 unit SUBCNJ ACBREAKFAST 09/01/20 [History] Labetalol HCl [Labetalol] 100 mg PO BID 09/01/20 [History] Simvastatin 20 mg PO BEDTIME 09/01/20 [History] Tamsulosin [Flomax] 0.4 mg PO BEDTIME 09/01/20 [History] Triamterene/Hydrochlorothiazid [Dyazide 37.5-25 Capsule] 1 cap PO DAILY PRN 09/01/20 [History] Insulin Aspart [NovoLOG] 4 units SUBCNJ TIDAC #0 09/05/20 [Rx] Lactobacillus Rhamnosus GG [Culturelle] 1 cap PO BID #20 cap 09/05/20 [Rx] Diclofenac Sodium [Voltaren] 75 mg PO BIDMEALS 03/15/21 [History] Fluticasone Propionate [Flonase] 2 spray NS DAILY PRN 03/15/21 [History] Hydrocodone/Acetaminophen [Hydrocodon-Acetaminophen 5-325] 1 tab PO Q6H PRN 03/15/21 [History] Naproxen 500 mg PO BID PRN 03/15/21 [History] Omeprazole 20 mg PO DAILY 03/15/21 [History] glipiZIDE [Glucotrol] 5 mg PO BID 03/15/21 [History] predniSONE [Prednisone] 40 mg PO DAILY 03/15/21 [History] Past Medical History HEENT History: Reports: Impaired Vision Cardiovascular History: Reports: High Cholesterol, Hypertension Respiratory History: Reports: COPD Gastrointestinal History: Reports: Chronic Diarrhea, Other (See Below) Other Gastrointestinal History: Perirectal abscess Genitourinary History: Reports: Other (See Below) Other Genitourinary History: urinary frequency Musculoskeletal History: Reports: Back Pain, Chronic, Gout, Other (See Below) Other Musculoskeletal History: c/o back pain lower back Neurological History: Reports: CVA, Vertigo, Other (See Below) Other Neuro History: spinal stenosis of lumbar region Psychiatric History: Reports: Learning Disability Endocrine/Metabolic History: Reports: Diabetes, Type II, Obesity/BMI 30+ - Infectious Disease History Infectious Disease History: Reports: Measles - Past Surgical History Head Surgeries/Procedures: Reports: None HEENT Surgical History: Reports: None GI Surgical History: Reports: Cholecystectomy, Hernia Repair/Other Social & Family History - Caffeine Use Caffeine Use: Reports: Coffee, Soda, Tea - Living Situation & Occupation Living situation: Reports: with Significant Other, with Family Occupation: Employed ED ROS GENERAL - Review of Systems Review Of Systems: See Below Constitutional: Reports: Malaise, Weakness HEENT: Reports: No Symptoms Respiratory: Reports: No Symptoms Cardiovascular: Reports: Lightheadedness Endocrine: Reports: No Symptoms GI/Abdominal: Reports: Diarrhea (chronic, and stable) : Reports: No Symptoms Musculoskeletal: Reports: Joint Pain (L ankle pain) Skin: Reports: No Symptoms Neurological: Reports: No Symptoms Psychiatric: Reports: No Symptoms ED EXAM, GENERAL - Physical Exam Exam: See Below Exam Limited By: No Limitations General Appearance: Alert, WD/WN, No Apparent Distress Eye Exam: Bilateral Eye: EOMI, PERRL Ears: Normal External Exam, Normal Canal, Hearing Grossly Normal, Normal TMs Ear Exam: Bilateral Ear: Auricle Normal, Canal Normal Nose: Normal Inspection, No Blood Throat/Mouth: Normal Inspection, Normal Lips, Normal Oropharynx, Normal Voice, No Airway Compromise Head: Atraumatic, Normocephalic Neck: Normal Inspection Respiratory/Chest: No Respiratory Distress, Lungs Clear, Normal Breath Sounds, No Accessory Muscle Use Cardiovascular: Regular Rate, Rhythm, No Edema. No: Bradycardia, Tachycardia GI/Abdominal: Normal Bowel Sounds, Soft, Non-Tender, No Distention Back Exam: Normal Inspection Extremities: Normal Inspection, Normal Range of Motion, Non-Tender, No Pedal Edema. No: Redness (L ankle not red or swollen, is tender with touching. ) Neurological: Alert, Oriented, CN II-XII Intact, Normal Cognition, No Motor/Sensory Deficits Psychiatric: Normal Affect, Normal Mood Skin Exam: Warm, Dry, Intact, Normal Color, No Rash Course - Vital Signs Last Recorded V/S: Last Vital Signs Temp 36.7 C 04/19/21 13:30 Pulse 86 04/19/21 13:38 Resp 12 04/19/21 13:38 BP 71/46 L 04/19/21 13:38 Pulse Ox 96 04/19/21 13:38 - Orders/Labs/Meds Orders: Active Orders 24 hr Category Date Time Status UA W/MICROSCOPIC [URIN] Stat Lab 04/19/21 13:27 Ordered Lactated Ringers [Ringers, Lactated] 1,000 ml Med 04/19/21 14:26 Active IV BOLUS Medication Orders Lactated Ringer's (Ringers, Lactated) 1,000 mls @ 1,000 mls/hr IV BOLUS ONE Stop: 04/19/21 15:25 Last Admin: 04/19/21 14:28 Dose: 1,000 mls/hr Documented by: [email or web address] Labs: Laboratory Tests 04/19/21 04/19/21 Range/Units 13:32 13:32 WBC 10.4 (4.5-11.0) K/uL RBC 4.55 (4.30-5.90) M/uL Hgb 13.3 (12.0-15.0) g/dL Hct 41.4 (40.0-54.0) % MCV 91 (80-98) fL MCH 29 (27-31) pg MCHC 32 (32-36) % Plt Count 194 (150-400) K/uL Sodium 143 (140-148) mmol/L Potassium 3.8 (3.6-5.2) mmol/L Chloride 102 (100-108) mmol/L Carbon Dioxide 27 (21-32) mmol/L Anion Gap 13.7 (5.0-14.0) mmol/L BUN 21 H (7-18) mg/dL Creatinine 2.5 H (0.8-1.3) mg/dL Est Cr Clr Drug Dosing 36.10 mL/min Estimated GFR (MDRD) 28 L (>60) Glucose 133 H (74-106) mg/dL Calcium 8.8 (8.5-10.1) mg/dL Troponin I < 0.017 (0.000-0.056) ng/mL Meds: Medications Generic Name Dose Route Start Last Admin Trade Name Freq PRN Reason Stop Dose Admin Lactated Ringer's 1,000 mls @ 1,000 mls/hr 04/19/21 14:26 04/19/21 14:28 Ringers, Lactated IV 04/19/21 15:25 1,000 mls/hr BOLUS ONE Administration Discontinued Medications Generic Name Dose Route Start Last Admin Trade Name Juarez PRN Reason Stop Dose Admin Acetaminophen 1,000 mg 04/19/21 13:33 Acetaminophen 500 Mg Tab PO 04/19/21 13:34 ONETIME ONE Sodium Chloride 1,000 mls @ 1,000 mls/hr 04/19/21 13:26 04/19/21 13:45 Normal Saline IV 04/19/21 14:25 1,000 mls/hr .BOLUS ONE Administration Departure - Departure Time of Disposition: 15:30 Disposition: Home, Self-Care 01 Condition: Fair Clinical Impression: Mild dehydration Hypotension Qualifiers: Hypotension type: unspecified hypotension type Qualified Code(s): I95.9 - Hypotension, unspecified - Discharge Information *PRESCRIPTION DRUG MONITORING PROGRAM REVIEWED*: Not Applicable *COPY OF PRESCRIPTION DRUG MONITORING REPORT IN PATIENT ARIS: Not Applicable Referrals: Cam Blair MD [Primary Care Provider] - Forms: ED Department Discharge Additional Instructions: Continue acetaminophen 1000 mg every 6 hrs as needed for pain relief. Follow the other instructions as given today by Dr. Blair. Return as needed. Sepsis Event Note (ED) - Evaluation Sepsis Screening Result: No Definite Risk - Focused Exam Vital Signs: Vital Signs Temp Pulse Resp BP Pulse Ox 04/19/21 13:38 86 12 71/46 L 96 04/19/21 13:30 36.7 C 91 16 72/33 L 100 04/19/21 13:21 91 63/41 L 04/19/21 13:16 36.7 C 91 16 72/33 L 100 - My Orders Last 24 Hours: My Active Orders 04/19/21 13:27 UA W/MICROSCOPIC [URIN] Stat 04/19/21 14:26 Lactated Ringers [Ringers, Lactated] 1,000 ml IV BOLUS - Assessment/Plan Last 24 Hours: My Active Orders 04/19/21 13:27 UA W/MICROSCOPIC [URIN] Stat 04/19/21 14:26 Lactated Ringers [Ringers, Lactated] 1,000 ml IV BOLUS
[2021-04-19] MEDS ORDERED: Lactated Ringers 1,000 ML IV ONE (14:26)
[2021-04-19 16:37] VITALS: BP 101/42; PULSE 67
== END 2021-04-19 17:16 | disposition home or self-care (01) ==
LOC: JP.ED 12:51
DX: I95.9 Hypotension, unspecified (principal); E86.0 Dehydration; E78.00 Pure hypercholesterolemia, unspecified; I10 Essential (primary) hypertension; J44.9 Chronic obstructive pulmonary disease, unspecified; E11.9 Type 2 diabetes mellitus without complications; E66.9 Obesity, unspecified; Z68.30 Body mass index [BMI] 30.0-30.9, adult; Z79.899 Other long term (current) drug therapy; Z79.4 Long term (current) use of insulin; Z88.0 Allergy status to penicillin; Z88.1 Allergy status to other antibiotic agents; Z88.5 Allergy status to narcotic agent
CPT/HCPCS: 36415; 80048; 84484; 85027; 99283; 99284; A9270; J7030; J7120

== ENCOUNTER 2021-06-12 17:43 | Emergency (ER) | payer MEDICAID ==
[2021-06-12] MEDS ORDERED: Sodium Chloride 0.9% 10 ML Syringe FLUSH PRN (17:52)
[2021-06-12] MEDS ORDERED: Aspirin 81 MG Tab.Chew PO ONE (17:52)
[2021-06-12] MEDS ORDERED: Nitroglycerin 0.4 MG Tab.SL SL PRN (17:52)
[2021-06-12] MEDS ORDERED: Ondansetron 4 MG/2 ML SDV IVPUSH ONE (17:55)
--- NOTE | 2021-06-12 17:57 | EDM.PDOC ---
<OfficerCamacho - Last Filed: 06/12/21 17:58> ED HPI GENERAL MEDICAL PROBLEM - General Chief Complaint: Chest Pain Stated Complaint: CHEST PAINS Time Seen by Provider: 06/12/21 17:52 Source of Information: Reports: Patient, RN Notes Reviewed History Limitations: Reports: No Limitations - History of Present Illness INITIAL COMMENTS - FREE TEXT/NARRATIVE: 46-year-old gentleman presents emergency department day complaint of chest pain, he states the chest pain started approximately 10 minutes prior he was standing in line at the pharmacy had just seen his regular physician prescription written for an acute gout attack in his left foot. He states while he was standing in line he became near syncopal was able to get to a chair but he developed chest p ain on the right side rates it 5 out of 10 he feels short of breath with some nausea no diaphoresis no history of heart issues does have history of vascular disease with CVA - Related Data Allergies Allergy/AdvReac Type Severity Reaction Status Date / Time amoxicillin [Amoxicillin] Allergy Intermediate Rash Verified 06/12/21 17:52 erythromycin base Allergy Intermediate Rash Verified 06/12/21 17:52 [Erythromycin Base] Penicillins Allergy Intermediate Rash Verified 06/12/21 17:52 hydrocodone Allergy Unknown Other Verified 06/12/21 17:52 Home Meds: Home Meds Acetaminophen [Tylenol Extra Strength] 650 mg PO BID 12/04/13 [History] Lisinopril 10 mg PO DAILY 12/04/13 [History] metFORMIN [Glucophage] 1,000 mg PO BIDM 12/04/13 [History] Sennosides [Senna] 1 tab PO BID PRN 04/08/17 [History] Ondansetron [Zofran ODT] 4 mg PO Q8H PRN 12/08/17 [History] Triamcinolone Acetonide [Kenalog 0.1% Crm] 1 applic TOP TID PRN 12/08/17 [History] Gabapentin [Neurontin] 300 cap PO TID 03/09/19 [History] Latanoprost 1 drop EYEBOTH BEDTIME 03/09/19 [History] Albuterol Sulfate [Albuterol Sulfate Hfa] 2 puff IN ASDIRECTED PRN 09/01/20 [History] Insulin Glarg,Human.Rec.Analog [Lantus Solostar] 34 unit SUBCNJ ACBREAKFAST 09/01/20 [History] Labetalol HCl [Labetalol] 100 mg PO BID 09/01/20 [History] Simvastatin 20 mg PO BEDTIME 09/01/20 [History] Tamsulosin [Flomax] 0.4 mg PO BEDTIME 09/01/20 [History] Triamterene/Hydrochlorothiazid [Dyazide 37.5-25 Capsule] 1 cap PO DAILY PRN 09/01/20 [History] Insulin Aspart [NovoLOG] 4 units SUBCNJ TIDAC #0 09/05/20 [Rx] Lactobacillus Rhamnosus GG [Culturelle] 1 cap PO BID #20 cap 09/05/20 [Rx] Diclofenac Sodium [Voltaren] 75 mg PO BIDMEALS 03/15/21 [History] Fluticasone Propionate [Flonase] 2 spray NS DAILY PRN 03/15/21 [History] Hydrocodone/Acetaminophen [Hydrocodon-Acetaminophen 5-325] 1 tab PO Q6H PRN 03/15/21 [History] Naproxen 500 mg PO BID PRN 03/15/21 [History] Omeprazole 20 mg PO DAILY 03/15/21 [History] glipiZIDE [Glucotrol] 5 mg PO BID 03/15/21 [History] predniSONE [Prednisone] 40 mg PO DAILY 03/15/21 [History] Past Medical History HEENT History: Reports: Impaired Vision Cardiovascular History: Reports: High Cholesterol, Hypertension Respiratory History: Reports: COPD Gastrointestinal History: Reports: Chronic Diarrhea, Other (See Below) Other Gastrointestinal History: Perirectal abscess Genitourinary History: Reports: Other (See Below) Other Genitourinary History: urinary frequency Musculoskeletal History: Reports: Back Pain, Chronic, Gout, Other (See Below) Other Musculoskeletal History: c/o back pain lower back Neurological History: Reports: CVA, Vertigo, Other (See Below) Other Neuro History: spinal stenosis of lumbar region Psychiatric History: Reports: Learning Disability Endocrine/Metabolic History: Reports: Diabetes, Type II, Obesity/BMI 30+ - Infectious Disease History Infectious Disease History: Reports: Measles - Past Surgical History Head Surgeries/Procedures: Reports: None GI Surgical History: Reports: Cholecystectomy, Hernia Repair/Other Social & Family History - Caffeine Use Caffeine Use: Reports: None - Living Situation & Occupation Living situation: Reports: with Significant Other, with Family Occupation: Employed ED ROS GENERAL - Review of Systems Review Of Systems: See Below Constitutional: Reports: No Symptoms HEENT: Reports: No Symptoms Respiratory: Reports: Shortness of Breath Cardiovascular: Reports: Chest Pain GI/Abdominal: Reports: Nausea : Reports: No Symptoms ED EXAM, GENERAL - Physical Exam Exam: See Below Exam Limited By: No Limitations General Appearance: Alert, WD/WN, No Apparent Distress Respiratory/Chest: No Respiratory Distress, Lungs Clear, Normal Breath Sounds, No Accessory Muscle Use, Chest Non-Tender Cardiovascular: No Murmur, Tachycardia GI/Abdominal: Soft, Non-Tender #1 Interpretation EKG Date: 06/12/21 Time: 17:59 Rhythm: Other (tachycardia) [place]iska: Normal P-Wave: Present QRS: Normal ST-T: Normal QT: Normal Comparison: Change From Previous EKG Departure - Departure Disposition: Home, Self-Care 01 Clinical Impression: Chest pain, Elevated serum creatinine, Hypokalemia Instructions: Hypokalemia, Nonspecific Chest Pain, Adult Referrals: PCP,None [Primary Care Provider] - Forms: ED Department Discharge Additional Instructions: As discussed it is recommended that you follow-up with your primary care provider or family doctor tomorrow regarding today's ER visit Your cardiac evaluation including EKG and troponin heart enzymes that were drawn on 2 separate occasions 4 hours apart were negative for any acute concerns and you have been chest pain-free here in the emergency room You have any recurrence of pain or discomfort or symptoms of concern otherwise please return immediately to the emergency room for further evaluation Sepsis Event Note (ED) - Evaluation Sepsis Screening Result: No Definite Risk <Autumn Steele - Last Filed: 06/12/21 21:52> Course - Vital Signs Last Recorded V/S: Last Vital Signs Temp 98.3 F 06/12/21 17:52 Pulse 91 06/12/21 20:20 Resp 18 06/12/21 20:20 BP 138/92 H 06/12/21 20:20 Pulse Ox 93 L 06/12/21 18:37 - Orders/Labs/Meds Orders: Active Orders 24 hr Category Date Time Status Cardiac Monitoring [RC] .As Directed Care 06/12/21 17:52 Active EKG Documentation Completion [RC] ASDIRECTED Care 06/12/21 17:53 Active Peripheral IV Care [RC] . DIRECTED Care 06/12/21 17:53 Active Chest 1V Frontal [CR] Stat Exams 06/12/21 17:53 Taken Nitroglycerin [Nitrostat] Med 06/12/21 17:52 Active 0.4 mg SL Q5M PRN Sodium Chloride 0.9% [Saline Flush] Med 06/12/21 17:52 Active 10 ml FLUSH ASDIRECTED PRN Peripheral IV Insertion Adult [OM.PC] Stat Oth 06/12/21 17:52 Ordered Saline Lock Insert [OM.PC] Stat Oth 06/12/21 17:52 Ordered EKG 12 Lead [EK] Stat Ther 06/12/21 17:53 Ordered Medication Orders Nitroglycerin (Nitroglycerin 0.4 Mg Tab.Sl) 0.4 mg SL Q5M PRN PRN Reason: Chest Pain Stop: 06/13/21 17:52 Last Admin: 06/12/21 17:59 Dose: 0.4 mg Documented by: WHIT Sodium Chloride (Sodium Chloride 0.9% 10 Ml Syringe) 10 ml FLUSH ASDIRECTED PRN PRN Reason: Keep Vein Open Last Admin: 06/12/21 18:00 Dose: 10 ml Documented by: WHIT Labs: Laboratory Tests 06/12/21 06/12/21 06/12/21 Range/Units 17:40 17:40 17:40 WBC 10.2 (4.5-11.0) K/uL RBC 4.59 (4.30-5.90) M/uL Hgb 13.5 (12.0-15.0) g/dL Hct 40.4 (40.0-54.0) % MCV 88 (80-98) fL MCH 29 (27-31) pg MCHC 33 (32-36) % Plt Count 250 (150-400) K/uL Neut % (Auto) 71.0 H (36-66) % Lymph % (Auto) 16.2 L (24-44) % [place] % (Auto) 9.6 H (2-6) % Eos % (Auto) 2.6 (2-4) % Baso % (Auto) 0.6 (0-1) % D-Dimer, Quantitative 578.67 H (0.0-500.0) ng/mL Sodium 142 (140-148) mmol/L Potassium 3.5 L (3.6-5.2) mmol/L Chloride 103 (100-108) mmol/L Carbon Dioxide 26 (21-32) mmol/L Anion Gap 16.5 H (5.0-14.0) mmol/L BUN 15 (7-18) mg/dL Creatinine 1.9 H (0.8-1.3) mg/dL Est Cr Clr Drug Dosing 47.50 mL/min Estimated GFR (MDRD) 39 L (>60) Glucose 156 H (74-106) mg/dL Calcium 8.8 (8.5-10.1) mg/dL Total Bilirubin 0.4 (0.2-1.0) mg/dL AST 21 (15-37) U/L ALT 30 (12-78) U/L Alkaline Phosphatase 55 (46-116) U/L Troponin I < 0.017 (0.000-0.056) ng/mL Total Protein 6.9 (6.4-8.2) g/dL Albumin 3.3 L (3.4-5.0) g/dL Globulin 3.6 H (2.3-3.5) g/dL Albumin/Globulin Ratio 0.9 L (1.2-2.2) 06/12/21 Range/Units 20:54 WBC (4.5-11.0) K/uL RBC (4.30-5.90) M/uL Hgb (12.0-15.0) g/dL Hct (40.0-54.0) % MCV (80-98) fL MCH (27-31) pg MCHC (32-36) % Plt Count (150-400) K/uL Neut % (Auto) (36-66) % Lymph % (Auto) (24-44) % [place] % (Auto) (2-6) % Eos % (Auto) (2-4) % Baso % (Auto) (0-1) % D-Dimer, Quantitative (0.0-500.0) ng/mL Sodium (140-148) mmol/L Potassium (3.6-5.2) mmol/L Chloride (100-108) mmol/L Carbon Dioxide (21-32) mmol/L Anion Gap (5.0-14.0) mmol/L BUN (7-18) mg/dL Creatinine (0.8-1.3) mg/dL Est Cr Clr Drug Dosing mL/min Estimated GFR (MDRD) (>60) Glucose (74-106) mg/dL Calcium (8.5-10.1) mg/dL Total Bilirubin (0.2-1.0) mg/dL AST (15-37) U/L ALT (12-78) U/L Alkaline Phosphatase (46-116) U/L Troponin I < 0.017 (0.000-0.056) ng/mL Total Protein (6.4-8.2) g/dL Albumin (3.4-5.0) g/dL Globulin (2.3-3.5) g/dL Albumin/Globulin Ratio (1.2-2.2) Meds: Medications Generic Name Dose Route Start Last Admin Trade Name Freq PRN Reason Stop Dose Admin Nitroglycerin 0.4 mg 06/12/21 17:52 06/12/21 17:59 Nitroglycerin 0.4 Mg Tab.Sl SL 06/13/21 17:52 0.4 mg Q5M PRN Administration Chest Pain Sodium Chloride 10 ml 06/12/21 17:52 06/12/21 18:00 Sodium Chloride 0.9% 10 Ml Syringe FLUSH 10 ml ASDIRECTED PRN Administration Keep Vein Open Discontinued Medications Generic Name Dose Route Start Last Admin Trade Name Freq PRN Reason Stop Dose Admin Aspirin 324 mg 06/12/21 17:52 06/12/21 17:57 Aspirin 81 Mg Tab.Chew PO 06/12/21 17:53 324 mg ONETIME ONE Administration Ondansetron HCl 4 mg 06/12/21 17:55 Ondansetron 4 Mg/2 Ml Sdv IVPUSH 06/12/21 17:56 ONETIME ONE - Re-Assessments/Exams Free Text/Narrative Re-Assessment/Exam: 06/12/21 19:[address] Officer, ER at change of shift/transfer of care. initial trop--negative, second trop pending/due at 2230. Initial EKG completed at time of arrival, no acute changes/no STEMI, has noted ST-rate 124--will repeat at 2230 with trop, patient on telemetry and reported to be CP free at this time. Has noted mild/borderline elevation of d-dimer but creatinine elevated / unable to obtain CTA PE r/o. low likelihood as not having further CP, not SOB-no tachypnea reported. 06/12/21 19:28 06/12/21 21:49 Troponin has returned negative patient has been chest pain since prior to arrival this time recommend the patient follows with with his PCM in the next 1 to 2 days return to the emergency room should he have any recurrence of symptoms he verbalized understanding agreement with plan of care ready for discharge Departure - Departure Time of Disposition: 21:50 Condition: Good Sepsis Event Note (ED) - Focused Exam Vital Signs: Vital Signs Temp Pulse Resp BP BP Pulse Ox 06/12/21 20:20 91 18 138/92 H 06/12/21 19:00 105 H 12 141/85 H 06/12/21 18:37 109 H 17 140/86 93 L 06/12/21 17:59 139/104 H 06/12/21 17:52 98.3 F 128 H 12 131/95 H 95 06/12/21 17:45 98.3 F 128 H 12 131/95 H 95
[2021-06-12 20:21] VITALS: BP 138/92; PULSE 91
--- NOTE | 2021-06-13 08:58 | CR ---
CHEST: Portable 06/12/2021 at 6:51 PM CLINICAL HISTORY:Chest pain COMPARISON:2019 FINDINGS: The heart size is mildly enlarged. The pulmonary vascularity and hilar structures are normal. No infiltrate effusion or pneumothorax is seen. IMPRESSION: No acute cardiopulmonary process. Mild cardiomegaly No change from prior study
== END 2021-06-12 22:20 | disposition home or self-care (01) ==
LOC: JP.ED 17:43
DX: R07.9 Chest pain, unspecified (principal); E87.6 Hypokalemia; R79.89 Other specified abnormal findings of blood chemistry; I10 Essential (primary) hypertension; E78.00 Pure hypercholesterolemia, unspecified; J44.9 Chronic obstructive pulmonary disease, unspecified; E11.9 Type 2 diabetes mellitus without complications; E66.9 Obesity, unspecified; Z68.42 Body mass index [BMI] 45.0-49.9, adult; Z88.0 Allergy status to penicillin; Z88.5 Allergy status to narcotic agent; Z79.4 Long term (current) use of insulin; Z79.899 Other long term (current) drug therapy
CPT/HCPCS: 36415; 71045; 80053; 84484; 85025; 85379; 93005; 99285; A9270

== ENCOUNTER 2022-12-30 18:16 | Emergency (ER) | payer MEDICAID ==
[2022-12-30 18:31] VITALS: BP 129/59; PULSE 83
[2022-12-30 19:05] LABS: ESTIMATED GFR 39 mL/min (>60)
[2022-12-30 19:22] LABS: CORONAVIRUS COVID-19 NAA NEGATIVE (NEGATIVE)
== END 2022-12-30 20:34 ==
LOC: JP.ED 18:16
DX: R55 Syncope and collapse (principal); I10 Essential (primary) hypertension; E11.9 Type 2 diabetes mellitus without complications; J44.9 Chronic obstructive pulmonary disease, unspecified; E66.9 Obesity, unspecified; Z68.41 Body mass index [BMI] 40.0-44.9, adult; Z20.822 Contact with and (suspected) exposure to COVID-19; Z88.0 Allergy status to penicillin
CPT/HCPCS: 0241U; 36415; 70450; 80053; 81001; 82009; 85025; 85610; 85730; 93005; 99285; 93010; 99283

== ENCOUNTER 2023-12-12 23:00 | Emergency (ER) | payer MEDICAID ==
[2023-12-12] MEDS ORDERED: Albuterol/Ipratropium 3.0-0.5 MG/3 ML Neb Soln NEB ONE (23:35)
[2023-12-12] MEDS ORDERED: Levofloxacin/Dextrose 5%-Water 750 MG in Premix Bag 1 BAG IV SCH (23:45)
[2023-12-12] MEDS ORDERED: Doxycycline 100 MG Cap PO SCH (23:45)
[2023-12-12] MEDS ORDERED: Sodium Chloride 0.9% 1,000 ML IV SCH (23:45)
[2023-12-12 23:50] LABS: CORONAVIRUS COVID-19 NAA NEGATIVE (NEGATIVE); INFLUENZA A NAA NEGATIVE (NEGATIVE); INFLUENZA B NAA NEGATIVE (NEGATIVE); RESPIRATORY SYNCYTIAL VIR NAA NEGATIVE (NEGATIVE)
[2023-12-12 23:55] LABS: BASOPHILS ABSOLUTE AUTO 0.05 K/uL (0.00-0.10); BASOPHILS PERCENT AUTO 0.6 % (0.1-1.3); EOSINOPHILS ABSOLUTE AUTO 0.42 K/uL (0.00-0.40); HEMATOCRIT 35.5 % (38.4-49.7); HEMOGLOBIN 11.4 g/dL (12.9-16.9); IMMATURE GRAN ABSOLUTE AUTO 0.06 K/uL (0.00-0.23); IMMATURE GRAN PERCENT AUTO 0.7 % (0.0-0.7); LYMPHOCYTES ABSOLUTE AUTO 0.84 K/uL (0.8-3.3); LYMPHOCYTES PERCENT AUTO 10.1 % (11.4-47.7); MEAN CORPUSCULAR HEMOGLOBIN 25.5 pg (31.6-35.5); MEAN CORPUSCULAR HGB CONC 32.1 g/dL (31.6-35.5); MEAN CORPUSCULAR VOLUME 79.4 fL (81.4-99.0); MONOCYTES ABSOLUTE AUTO 0.95 K/uL (0.20-0.90); MONOCYTES PERCENT AUTO 11.4 % (3.3-12.6); NEUTROPHILS ABSOLUTE AUTO 6.01 K/uL (1.0-7.6); NEUTROPHILS PERCENT AUTO 72.2 % (40.0-78.1); PLATELET COUNT,PLT 164 K/uL (130-375); RED BLOOD CELL COUNT 4.47 M/uL (4.14-5.76); WHITE BLOOD CELL COUNT,WBC 8.3 K/uL (3.2-11.0)
[2023-12-13 00:26] LABS: LACTIC ACID 0.9 mmol/L (0.7-2.1)
[2023-12-13 02:41] LABS: CREATININE 3.3 mg/dL (0.7-1.3); EST CRCL DRUG DOSING (CG) 26.77 mL/min
[2023-12-13] MEDS ORDERED: Sodium Chloride 0.9% 1,000 ML IV SCH (02:45)
[2023-12-13 03:01] LABS: CARBOXYHEMOGLOBIN 3.1 % (0.0-1.6); METHEMOGLOBIN 0.9 %; O2 SATURATION ARTERIAL 91.4 % (95.0-98.0); OXYHEMOGLOBIN 87.7 %; PCO2 ARTERIAL 40.8 mmHg (35.0-42.0); TOTAL HEMOGLOBIN 11.4 g/dL (13.5-18.0)
[2023-12-13] MEDS ORDERED: Heparin Sodium 5,000 Units/ML Vial IVPUSH ONE (04:14)
[2023-12-13] MEDS ORDERED: Heparin Sodium/D5W 25,000 UNITS/500 ML BAG IV SCH (04:15)
[2023-12-13 06:18] VITALS: BP 101/68; PULSE 101
== END 2023-12-13 06:50 ==
LOC: JP.ED 23:00
DX: R09.02 Hypoxemia (principal); I10 Essential (primary) hypertension; E78.00 Pure hypercholesterolemia, unspecified; J44.9 Chronic obstructive pulmonary disease, unspecified; F17.210 Nicotine dependence, cigarettes, uncomplicated; E11.9 Type 2 diabetes mellitus without complications; E66.9 Obesity, unspecified; Z86.73 Personal history of transient ischemic attack (TIA), and cerebral infarction without residual deficits; Z90.49 Acquired absence of other specified parts of digestive tract; Z79.82 Long term (current) use of aspirin; Z79.899 Other long term (current) drug therapy; Z79.84 Long term (current) use of oral hypoglycemic drugs; Z88.0 Allergy status to penicillin; Z88.1 Allergy status to other antibiotic agents; Z88.5 Allergy status to narcotic agent; Z20.822 Contact with and (suspected) exposure to COVID-19; Z68.43 Body mass index [BMI] 50.0-59.9, adult
CPT/HCPCS: 0241U; 36415; 36600; 71045; 71250; 80053; 82565; 82803; 83605; 84145; 85025; 85379; 86140; 87040; 94640; 96365; 99285; A9270; J1644; J1956; J7030; J7620

== ENCOUNTER 2024-08-16 22:38 | Emergency (ER) | payer MEDICARE, MEDICAID ==
[2024-08-16 23:56] LABS: BASOPHILS ABSOLUTE AUTO 0.05 K/uL (0.00-0.10); BASOPHILS PERCENT AUTO 0.7 % (0.1-1.3); EOSINOPHILS ABSOLUTE AUTO 0.43 K/uL (0.00-0.40); EOSINOPHILS PERCENT AUTO 5.7 % (0.0-5.4); HEMATOCRIT 40.3 % (38.4-49.7); HEMOGLOBIN 13.4 g/dL (12.9-16.9); IMMATURE GRAN ABSOLUTE AUTO 0.17 K/uL (0.00-0.23); IMMATURE GRAN PERCENT AUTO 2.3 % (0.0-0.7); LYMPHOCYTES ABSOLUTE AUTO 1.24 K/uL (0.8-3.3); LYMPHOCYTES PERCENT AUTO 16.5 % (11.4-47.7); MEAN CORPUSCULAR HEMOGLOBIN 27.9 pg (31.6-35.5); MEAN CORPUSCULAR HGB CONC 33.3 g/dL (31.6-35.5); MONOCYTES ABSOLUTE AUTO 0.71 K/uL (0.20-0.90); MONOCYTES PERCENT AUTO 9.5 % (3.3-12.6); NEUTROPHILS PERCENT AUTO 65.3 % (40.0-78.1); PLATELET COUNT,PLT 165 K/uL (130-375); WHITE BLOOD CELL COUNT,WBC 7.5 K/uL (3.2-11.0)
[2024-08-16 23:57] LABS: BASE EXCESS ARTERIAL 5.5 mm/L; BICARBONATE,ARTERIAL 30.1 mmol/L (22.0-26.0); METHEMOGLOBIN 0.7 %; O2 SATURATION ARTERIAL 95.5 % (95.0-98.0); OXYHEMOGLOBIN 87.2 %; PCO2 ARTERIAL 45.5 mmHg (35.0-42.0); PO2 ARTERIAL 71.4 mmHg (75.0-100.0); TOTAL HEMOGLOBIN 13.6 g/dL (13.5-18.0)
[2024-08-17] MEDS: Albuterol/Ipratropium 3.0-0.5 MG/3 ML Neb Soln NEB ONE (00:22)
[2024-08-17 00:52] LABS: A/G RATIO 0.8 (1.2-2.2); ALANINE AMINOTRANSFERASE,ALT 29 U/L (12-78); ALBUMIN 2.9 g/dL (3.4-5.0); ALKALINE PHOSPHATASE 74 U/L (46-116); ASPARTATE AMNIOTRANSFERASE,AST 20 U/L (15-37); BILIRUBIN TOTAL 0.5 mg/dL (0.2-1.0); BLOOD UREA NITROGEN,BUN 13 mg/dL (7-18); CALCIUM 8.5 mg/dL (8.5-10.1); CHLORIDE,CL 100 mmol/L (100-108); CREATININE 1.8 mg/dL (0.8-1.3); EST CRCL DRUG DOSING (CG) 48.56 mL/min; ESTIMATED GFR 46 mL/min (>60); GLUCOSE RANDOM 213 mg/dL (74-106); POTASSIUM,K 3.6 mmol/L (3.6-5.2); PROTEIN TOTAL,TP 6.7 g/dL (6.4-8.2); SODIUM,NA 139 mmol/L (140-148); TROPONIN I HIGH SENSITIVITY 13.3 pg/mL (<=60.3)
[2024-08-17 00:57] LABS: ANION GAP 11.6 mmol/L (5.0-14.0); CARBON DIOXIDE,CO2 31 mmol/L (21-32)
[2024-08-17 01:33] VITALS: BP 133/67; PULSE 78
== END 2024-08-17 01:45 | disposition home or self-care (01) ==
LOC: JP.ED 22:38
DX: J44.1 Chronic obstructive pulmonary disease with (acute) exacerbation (principal); I10 Essential (primary) hypertension; E78.00 Pure hypercholesterolemia, unspecified; E11.9 Type 2 diabetes mellitus without complications; E66.9 Obesity, unspecified; Z68.43 Body mass index [BMI] 50.0-59.9, adult; Z90.49 Acquired absence of other specified parts of digestive tract; Z79.899 Other long term (current) drug therapy; Z79.2 Long term (current) use of antibiotics; Z79.82 Long term (current) use of aspirin; Z79.84 Long term (current) use of oral hypoglycemic drugs; Z88.0 Allergy status to penicillin; Z88.5 Allergy status to narcotic agent; Z88.8 Allergy status to other drugs, medicaments and biological substances; Z88.1 Allergy status to other antibiotic agents
CPT/HCPCS: 36415; 36600; 71046; 71046-26; 80053; 82803; 83605; 84484; 85025; 85379; 94640; 99285; J7620

== ENCOUNTER 2025-06-20 20:08 | Emergency (ER) | payer MEDICARE, MEDICAID ==
[2025-06-20 20:30] LABS: RED BLOOD CELL COUNT 5.63 M/uL (4.14-5.76); WHITE BLOOD CELL COUNT,WBC 9.9 K/uL (3.2-11.0)
[2025-06-20 20:31] LABS: BASOPHILS ABSOLUTE AUTO 0.09 K/uL (0.00-0.10); BASOPHILS PERCENT AUTO 0.9 % (0.1-1.3); EOSINOPHILS ABSOLUTE AUTO 0.57 K/uL (0.00-0.40); EOSINOPHILS PERCENT AUTO 5.7 % (0.0-5.4); IMMATURE GRAN ABSOLUTE AUTO 0.03 K/uL (0.00-0.23); IMMATURE GRAN PERCENT AUTO 0.3 % (0.0-0.7); LYMPHOCYTES ABSOLUTE AUTO 1.62 K/uL (0.8-3.3); LYMPHOCYTES PERCENT AUTO 16.3 % (11.4-47.7); MONOCYTES ABSOLUTE AUTO 0.58 K/uL (0.20-0.90); MONOCYTES PERCENT AUTO 5.8 % (3.3-12.6); NEUTROPHILS ABSOLUTE AUTO 7.03 K/uL (1.0-7.6); NEUTROPHILS PERCENT AUTO 71.0 % (40.0-78.1); PLATELET COUNT,PLT 202 K/uL (130-375)
[2025-06-20 20:55] LABS: A/G RATIO 0.9 (1.2-2.2); BILIRUBIN TOTAL 0.8 mg/dL (0.2-1.0); BLOOD UREA NITROGEN,BUN 16 mg/dL (7-18); CARBON DIOXIDE,CO2 28 mmol/L (21-32); CHLORIDE,CL 100 mmol/L (100-108); CREATININE 1.7 mg/dL (0.8-1.3); EST CRCL DRUG DOSING (CG) 50.85 mL/min; ESTIMATED GFR 49 mL/min (>60); GLUCOSE RANDOM 78 mg/dL (74-106); PROTEIN TOTAL,TP 7.9 g/dL (6.4-8.2)
[2025-06-20 21:06] LABS: ALANINE AMINOTRANSFERASE,ALT 39 U/L (12-78); ASPARTATE AMNIOTRANSFERASE,AST 27 U/L (15-37); POTASSIUM,K 3.9 mmol/L (3.6-5.2); SODIUM,NA 140 mmol/L (140-148); TROPONIN I HIGH SENSITIVITY 10.5 pg/mL (<=60.3)
[2025-06-20 21:41] LABS: APPEARANCE,URINE CLEAR (CLEAR); GLUCOSE,URINE NEGATIVE (NEGATIVE); OCCULT BLOOD,URINE NEGATIVE (NEGATIVE)
[2025-06-20 21:48] LABS: AMPHETAMINES SCREEN, URINE NEGATIVE (NEGATIVE); METHADONE SCREEN, URINE NEGATIVE (NEGATIVE); METHAMPHETAMINES SCREEN, URINE NEGATIVE (NEGATIVE); OXYCODONE SCREEN,URINE NEGATIVE (NEGATIVE); PROPOXYPHENE SCREEN,URINE NEGATIVE (NEGATIVE); THC SCREEN,URINE 50 NG/ML NEGATIVE (NEGATIVE)
[2025-06-20 22:30] VITALS: BP 151/89; PULSE 63
== END 2025-06-20 23:12 | disposition home or self-care (01) ==
LOC: JP.ED 20:08
DX: E86.0 Dehydration (principal); E78.00 Pure hypercholesterolemia, unspecified; I10 Essential (primary) hypertension; E11.9 Type 2 diabetes mellitus without complications; E66.9 Obesity, unspecified; Z88.0 Allergy status to penicillin; Z88.8 Allergy status to other drugs, medicaments and biological substances; Z79.4 Long term (current) use of insulin; Z79.899 Other long term (current) drug therapy; Z79.82 Long term (current) use of aspirin; Z68.38 Body mass index [BMI] 38.0-38.9, adult
CPT/HCPCS: 36415; 71046; 80053; 80305; 81001; 83605; 84484; 85025; 93005; 96360; 99285; J7030

== ENCOUNTER 2025-10-31 15:36 | Emergency (ER) | payer MEDICARE, MEDICAID ==
[2025-10-31 16:00] LABS: BASOPHILS ABSOLUTE AUTO 0.06 K/uL (0.00-0.10); BASOPHILS PERCENT AUTO 0.8 % (0.1-1.3); EOSINOPHILS ABSOLUTE AUTO 0.62 K/uL (0.00-0.40); EOSINOPHILS PERCENT AUTO 8.7 % (0.0-5.4); IMMATURE GRAN PERCENT AUTO 0.3 % (0.0-0.7); LYMPHOCYTES ABSOLUTE AUTO 1.30 K/uL (0.8-3.3); LYMPHOCYTES PERCENT AUTO 18.3 % (11.4-47.7); MONOCYTES ABSOLUTE AUTO 0.59 K/uL (0.20-0.90); MONOCYTES PERCENT AUTO 8.3 % (3.3-12.6); NEUTROPHILS ABSOLUTE AUTO 4.50 K/uL (1.0-7.6); NEUTROPHILS PERCENT AUTO 63.6 % (40.0-78.1); PLATELET COUNT,PLT 165 K/uL (130-375); RED BLOOD CELL COUNT 4.84 M/uL (4.14-5.76); WHITE BLOOD CELL COUNT,WBC 7.1 K/uL (3.2-11.0)
[2025-10-31 16:01] LABS: IMMATURE GRAN ABSOLUTE AUTO 0.02 K/uL (0.00-0.23)
[2025-10-31 16:30] LABS: A/G RATIO 0.8 (1.2-2.2); ALANINE AMINOTRANSFERASE,ALT 20 U/L (12-78); ASPARTATE AMNIOTRANSFERASE,AST 17 U/L (15-37); BILIRUBIN TOTAL 0.7 mg/dL (0.2-1.0); BLOOD UREA NITROGEN,BUN 16 mg/dL (7-18); CARBON DIOXIDE,CO2 36 mmol/L (21-32); CHLORIDE,CL 101 mmol/L (100-108); CREATININE 1.6 mg/dL (0.8-1.3); EST CRCL DRUG DOSING (CG) 54.03 mL/min; ESTIMATED GFR 52 mL/min (>60); GLUCOSE RANDOM 93 mg/dL (74-106); POTASSIUM,K 3.2 mmol/L (3.6-5.2); PROTEIN TOTAL,TP 7.0 g/dL (6.4-8.2); SODIUM,NA 142 mmol/L (140-148)
[2025-10-31 17:06] LABS: APPEARANCE,URINE SLIGHTLY CLOUDY (CLEAR); GLUCOSE,URINE NEGATIVE (NEGATIVE); OCCULT BLOOD,URINE NEGATIVE (NEGATIVE)
[2025-10-31 17:14] LABS: SQUAMOUS EPITHELIAL CELLS,UR RARE /HPF; UROTHELIAL CELLS,URINE NOT SEEN /HPF
[2025-10-31] MEDS: Potassium Chloride 20 MEQ Tab.ER PO ONE (17:21)
[2025-10-31 17:58] VITALS: BP 161/104; PULSE 58
== END 2025-10-31 18:01 | disposition home or self-care (01) ==
LOC: JP.ED 15:36
DX: N43.41 Spermatocele of epididymis, single (principal); E11.649 Type 2 diabetes mellitus with hypoglycemia without coma; R41.0 Disorientation, unspecified; I10 Essential (primary) hypertension; E78.00 Pure hypercholesterolemia, unspecified; E11.9 Type 2 diabetes mellitus without complications; E66.9 Obesity, unspecified; Z91.199 Patient's noncompliance with other medical treatment and regimen due to unspecified reason; Z79.899 Other long term (current) drug therapy; Z88.0 Allergy status to penicillin; Z88.1 Allergy status to other antibiotic agents; Z79.82 Long term (current) use of aspirin; Z90.49 Acquired absence of other specified parts of digestive tract; Z87.891 Personal history of nicotine dependence
CPT/HCPCS: 36415; 76870; 80053; 81001; 82550; 83605; 85025; 87428; 93005; 93975; 96360; 99285; A9270; J7030